=== PATIENT | male | born 1940 | race Caucasian/White ===

== ENCOUNTER 2020-03-31 10:07 | Observation (INO) | payer MEDICARE, SELFPAY ==
[2020-03-31] VITALS (7 sets, daily range): BP systolic 99–149; BP diastolic 46–71; PULSE 55–75; RESP 18–22; TEMP 36.5–37.2; O2SAT 89–100; BMI 34.2
--- NOTE | ~2020-03-31 | XR_ITS ---
EXAMINATION: XR chest 2V EXAM DATE: 03/31/2020 13:14 INDICATION: Cough, shortness of breath. TECHNIQUE: Frontal and lateral projections of the chest obtained and reviewed. There is no prior breanna dy for comparison. FINDINGS: The lungs are clear. There are no pleural effusions. Mild cardiomegaly. There is pulmonar y vascular congestion. There is no pneumothorax suspected. The bones and soft tissues are unremarka ble. Patient has diffuse idiopathic skeletal hyperostosis (DISH). IMPRESSION: Cardiomegaly, pulmonary vascular congestion. Reviewed, dictated and finalized at location B.
--- NOTE | ~2020-03-31 | CT_ITS ---
EXAMINATION: CT brain wo con EXAM DATE: 03/31/2020 10:45 INDICATION: Altered mental status, fall. TECHNIQUE: Spiral CT of the head was performed without contrast. Axial, coronal and sagittal images were reviewed. The dose-length product (DLP) for this examination was 681.00 mGy-cm. The exposure w as tailored according to patient size, and iterative reconstruction (ASIR) was used as additional dos e reduction technique. There is no prior study for comparison. FINDINGS: There is no acute intraparenchymal hemorrhage. No evidence of intraparenchymal brain mass lesion. No evidence of acute infarction. Please note that initial head CT has limited sensitivity f or small or acute infarctions. There is moderate periventricular and subcortical hypodensity, nonspec ific but probably related to small vessel ischemic disease. There is mild prominence of the sulci a nd ventricles related to cerebral atrophy. There is intracranial carotid arteriosclerosis. There a re no extra-axial collections. There is no mass effect or midline shift. Patient has had bilateral ocular lens surgery. Soft tissue is unremarkable. The visualized sinuses and mastoid air cells are well aerated. IMPRESSION: 1. No acute intracranial findings. 2. Chronic age related findings. Reviewed, dictated and finalized at location B.
--- NOTE | ~2020-03-31 | XR_ITS ---
EXAMINATION: XR lumbar spine min 4V EXAM DATE: 03/31/2020 13:15 INDICATION: Fall, upper lumbar pain. TECHNIQUE: Lumber spine frontal, lateral, bilateral oblique projections. Coned down frontal and lat eral L5-S1 lumbar projections for interpretation. There is no prior study for comparison. FINDINGS: Moderate-sized thoracolumbar endplate osteophytes. There is mild to moderate diffuse disc d isease. There are minimal lumbar subluxations. Bulky lumbar facet arthropathy. Mild to moderate loss of the T12, L2 and L4 vertebral body heights, mild loss of the other visualized vertebral body heights. Lucency along the right side of the T12 inferior endplate suspected most lik dagoberto incompletely fused buttressing osteophytes, but can't exclude that this is acute fracture line. T his finding has been indicated, marked on the examination for review, clinical correlation. Sacrum, s acroiliac joints, sacral arcuate lines are intact. There is mild to moderate arteriosclerotic disease . IMPRESSION: 1. Lucency through T12 right inferior endplate, possible acute compression or osteophyte fracture. 2. Multiple chronic appearing thoracolumbar compression fractures, can't exclude acute component to any of them. 3. Bulky lumbar facet arthropathy. Reviewed, dictated and finalized at location B. IMPRESSION: 1. Lucency through T12 right inferior endplate, possible acute compression or osteophyte fracture. 2. Multiple chronic appearing thoracolumbar compression fractures, can't exclu de acute component to any of them. 3. Bulky lumbar facet arthropathy.
--- NOTE | 2020-03-31 10:12 | ECG_ITS ---
Measurements Intervals [place] Rate: 58 P: 37 OR: 205 QRS: -10 QRSD: 158 T: -9 QT: 459 QTc: 454 Interpretive Statements SINUS BRADYCARDIA RIGHT BUNDLE BRANCH BLOCK BASELINE ARTIFACT- I, II, III, AVR, AVL, AVF, V1-V6 ABNORMAL ECG Electronically Signed On 03-31-2020 10:44:31 CDT by Burt Villalobos D.O.
--- NOTE | 2020-03-31 10:15 | PC.NURSE ---
PT NOTED TO BE 88-90% ON RA, PLACED ON 2L VIA NC AT THIS TIME RESULTING IN 96% O2 ON CRANE OPERATOR CAB.
--- NOTE | 2020-03-31 10:25 | PC.NURSE ---
REPORT TO MOOSE CARTER AT THIS TIME, SHE HAS ASSUMED PT CARE.
[2020-03-31 10:29] LABS: Basophils Percent Auto 0.6 % (0.2-1.2); Eosinophils Percent Auto 0.4 % (0-4.4); Hematocrit 42.7 % (42.0-52.0); Hemoglobin 14.3 g/dL (14.0-18.0); Immature Granulocyte Absolute 0.05 K/mm3 (0.00-0.031); Lymphocytes Absolute Auto 0.74 K/mm3 (0.9-3.2); Lymphocytes Percent Auto 14.9 % (18.3-44.2); Mean Corpuscular HGB Conc 33.5 g/dl (32-36); Mean Corpuscular Hemoglobin 32.2 pg (26-34); Mean Corpuscular Volume 96.2 fl (80-100); Mean Platelet Volume 9.2 fl (7.4-10.4); Monocytes Absolute Auto 0.2 K/mm3 (0.1-0.6); Monocytes Percent Auto 4.4 % (2.6-8.5); Neutrophils Absolute Auto 3.9 K/mm3 (1.3-6.7); Neutrophils Percent Auto 78.7 % (45.5-73.1); Platelet Count Result 250 k/mm3 (150-375); Red Blood Count 4.44 M/mm3 (4.6-6.20); Red Cell Distribution Width 12.5 % (11.5-14.5)
[2020-03-31 10:41] LABS: Alanine Aminotransferase 35 U/L (4-50); Albumin Level 3.5 g/dL (3.5-5.1); Alkaline Phosphatase 126 U/L (38-126); Anion Gap 6 mmol/L (8-16); Aspartate Amino Transferase 31 U/L (17-59); Bilirubin,Total 0.5 mg/dL (0.2-1.3); Blood Urea Nitrogen 36 mg/dL (9-20); Calcium 9.2 mg/dL (8.4-10.2); Carbon Dioxide 18 mmol/L (22-30); Chloride 116 mmol/L (98-107); Estimated CRCL calculation 34 ml/min; Estimated Glomerular Filt Rate 42; Glucose 187 mg/dL (75-110); Potassium 3.7 mmol/L (3.4-5.0); Sodium 140 mmol/L (137-145)
[2020-03-31] MEDS: LACTATED RINGERS 1,000 ML 999 ML IV CONT (10:50)
[2020-03-31 10:51] LABS: Alveolar/Arterial O2 Gradient 81.3 mmHg; Fractional Inspired Oxygen 28 %; HCO3 ABG 18.3 mEq/l (22.0-26.0); Modified Allen's Test Pass; Oxygen Content ABG 18.7 %vol (16.0-22.0); Oxygen Saturation ABG 95.5 % (95.0-100.0); Oxyhemoglobin 94.1 % THb (90.0-100.0); PCO2 ABG 32.8 mmHg (35.0-45.0); PO2 ABG 79.6 mmHg (80.0-100.0); PO2 FiO2 Ratio Arterial Blood 2.84 %; Site Drawn RIGHT RADIAL; Total Hemoglobin 14.1 g/dL (12.0-18.0); pH ABG 7.364 (7.350-7.450)
[2020-03-31 10:52] LABS: Device NASAL CANNULA
[2020-03-31 12:10] LABS: Add Urine Microscopic? YES; Appearance Urine Clear (Clear); Bilirubin Urine Negative (Negative); Blood Urine Negative (Negative); Color Urine Yellow (Yellow); Glucose Urine UA Negative (Negative); Ketones Urine Negative (Negative); Leukocyte Esterase Ur Negative LEU/UL (Negative); Mucus Urine Rare /lpf; Nitrate Urine Negative (Negative); Protein Urine 1+ mg/dL (Negative); Specific Grav Ur 1.019 (1.001-1.035); Urobilinogen Urine Negative mg/dL (<2.0); WBC Urine 0-3 /hpf
--- NOTE | 2020-03-31 12:18 | ED.AMS ---
HPI - Altered Mental Status General Chief Complaint: Fall Stated Complaint: FALL/HI Time Seen by Provider: 03/31/20 10:24 Source: patient and family Mode of arrival: ambulatory Limitations: altered mental status History of Present Illness HPI narrative: 80-year-old male Stays in the independent section at [facility] right now However is on the wait list for either the assisted or memory care areas Has a history of dementia and the family notices that over the past 7 to 10 days the fluctuations have been for the worse and he has occasionally fallen One time he did hit his head but there was no reported loss of consciousness or any immediate problems following that There is a second fall and he is complained of some back pain since that one He was incontinent of urine once He has been more fatigued and family has noticed he seems to get winded with minimal exertions MD complaint: altered mental status Onset (ago): day(s) Timing confirmed by: family member Severity: moderate Consistency of symptoms: waxing and waning Associated symptoms: shortness of breath and incontinence Related Data Home Medications Medication Instructions Recorded Confirmed aspirin 81 mg PO DAILY 03/31/20 flecainide 50 mg PO Q12H 03/31/20 memantine-donepezil [Namzaric] 1 cap PO DAILY 03/31/20 nebivolol [Bystolic] 2.5 mg PO DAILY 03/31/20 tramadol 50 mg PO HS 03/31/20 trazodone 100 mg PO HS 03/31/20 vortioxetine [Trintellix] 20 mg PO DAILY 03/31/20 Allergies Allergy/AdvReac Type Severity Reaction Status Date / Time cephalexin [From Keflex] Allergy Unknown Verified 03/31/20 10:49 Review of Systems Review of Systems: All systems reviewed & are unremarkable except as noted in HPI and below Constitutional: Constitutional: Denies chills, Reports fatigue, Denies fever(s) and Reports weakness Eyes: Eyes: Denies loss of vision and Denies other visual disturbances ENT: Denies headache(s), Denies hoarseness, Denies epistaxis, Denies nasal congestion and Denies sore throat Cardiovascular: Cardiovascular: Denies chest pain, Denies leg edema, Denies palpitations and Denies dyspnea Respiratory: Respiratory: Denies chest congestion, Denies cough, Reports dyspnea and Denies wheezing Gastrointestinal: Gastrointestinal: Denies abdominal pain, Denies diarrhea, Denies nausea and Denies vomiting Genitourinary: Genitourinary: Denies hematuria, Denies dysuria, Denies urinary frequency and Reports urinary incontinence Musculoskeletal: Musculoskeletal: Denies abnormal gait, Reports back pain, Denies deformity, Denies joint swelling, Denies muscle weakness and Denies numbness Integumentary/Breasts: Skin/Breast: Denies rash, Denies unusual bruising and Denies wounds Neurologic: Denies abnormal gait, Denies headache(s), Denies focal weakness, Denies loss of vision and Denies numbness Psychiatric: Psychiatric: Reports no additional psychiatric complaints Endocrine: Endocrine: Denies fatigue and Denies palpitations Hematologic/Lymphatic: Hematologic/Lymphatic: Denies easy bleeding and Denies easy bruising Allergic/Immunologic: Allergic/Immunologic: Denies wheezing PMFSH Social History Social History Gender identity (if verbalized by the patient): Male Exam Const: General: no acute distress and well developed Nutritional Appearance: well nourished Orientation/consciousness: Other orientation findings (Alert) HENMT: Head: normal to inspection, normocephalic and atraumatic Ears: external ears normal General nose exam: No nasal discharge present Face and sinus: face symmetric Mouth: Yes tongue normal and Yes moist mucous membranes Throat: other (No exudate, no erythema) Eyes: Conjunctivae: conjunctivae normal Sclera: sclerae normal EOM: EOMs intact bilaterally Neck: Neck: full ROM and supple Thyroid: thyroid normal Other: Nontender Chest: Chest palpation & inspection: no tenderness Resp: Effort & Inspection: normal respiratory ef
--- NOTE | 2020-03-31 13:22 | PC.NURSE ---
Pts daughter at bedside expressing concern of pt falling all the time at home. Pts daughter states that pts recently had a fall and is recovering. Pt is unsure how to care for this pt at home. Supervisor [employer] notified.
[2020-03-31 13:33] LABS: Troponin I 0.014 ng/mL (0.000-0.034)
[2020-03-31 13:36] LABS: NT Pro B Type Natriuretic Pept 456 PG/ML (5-100)
--- NOTE | 2020-03-31 16:40 | PCCCNOTE ---
ED clinicals faxed to [place] [phone]
--- NOTE | 2020-03-31 19:25 | PCCCNOTE ---
ED clinicals faxed to [facility]. Lives with his independently at [facility] but since patient's fall his does not feel that she is able to care for the patient safely. They have applied for patient to be transferred to Memory Care there but they have no beds in memory care. The intent is for patient to return to the Rehab section at [facility] in hopes that PT can teach patient how to ambulate and transfer safely and to build strength for safe ambulation. [facility] states that would be able to accommodate pt in a 2 week rehab stay. Discussed with daughter the possibility insurance may not authorize rehab stay.
--- NOTE | 2020-03-31 19:29 | ADMGEN ---
This patient, Boo Matute, was admitted to Medical Room 256-. Patient/family oriented to hospital policies and general routines including ID bracelet, bed and alarms, visiting hours, pain management, procedures, bathroom and other care routines, personal items, smoking policy, room service/diet, and visiting hours. Valuables list has been completed. Information on how to activate the Rapid Response Team has been discussed. Patient/Family are encouraged to report perceived risks to care and to ask questions if they do not understand what they are told or what they should do.
[2020-03-31] MEDS: LACTATED RINGERS 1,000 ML 100 ML IV CONT (20:38)
[2020-03-31] MEDS: FLECAINIDE ACETATE 50 MG TABLET PO (22:44)
[2020-03-31] MEDS: FAMOTIDINE 20 MG/2 ML VIAL IV PUSH (22:45)
[2020-03-31] MEDS: traZODone HCL 50 MG TABLET 100 MG PO (22:45)
[2020-03-31] MEDS: traMADol HCL (*CRX) 50 MG TABLET PO (22:46)
[2020-04-01] VITALS (8 sets, daily range): BP systolic 118–147; BP diastolic 60–74; PULSE 59–68; RESP 16–20; TEMP 36.2–36.6; O2SAT 92–94
--- NOTE | 2020-04-01 | ECHO_ITS ---
Patient Info Name: Boo Matute Age: 80 years : 1940 Gender: Male Ht: 69 in Wt: 199 lbs BSA: 2.12 m2 HR: 60 bpm BP: 147 / 74 mmHg Heart Rhythm: Bradycardia Technical Quality: Good Exam Date: 04/01/2020 10:47 AM Exam Location: [facility] Patient Status: Inpatient Admit Date: 03/31/2020 Staff Ordering Physician: Casa Fitzgerald PA-C Network Technician: Rey Menjivar RDCS Attending Provider: Casa Fitzgerald PA-C Referring Physician: Amilcar SINGER; Exam Type: CA echo doppler color flow Study Info Indications I50.9 - Heart failure, unspecified Complete two-dimensional, color flow and Doppler transthoracic echocardiogram is performed. History/Risk Factors CHF, murmur, HTN, Afib. Summary 1. Complete two-dimensional, color flow and Doppler transthoracic echocardiogram is performed. 2. The inferior wall is hypokinetic. 3. Left ventricular chamber dimension is normal. 4. Left ventricular systolic function is hyperdynamic, estimated at >70%. 5. There is moderately increased left ventricular wall thickness. 6. The left ventricular diastolic function is grade I diastolic dysfunction. 7. Left atrial chamber dimension is mildly enlarged. 8. There is moderate to severe aortic valve stenosis with a peak velocity of 294 cm/s, mean gradient of 20 mmHg, and aortic valve area of 0.9 cm2. 9. There is mild aortic valve regurgitation. 10. There is moderate aortic valve calcification. 11. The mitral valve has calcified leaflets and calcified annulus. 12. There is mild mitral valve regurgitation. 13. There is mild tricuspid valve regurgitation. 14. Mild pulmonary hypertension, estimated pulmonary arterial systolic pressure is 42 mmHg. 15. There is mild pulmonic regurgitation. Left Ventricle Left ventricular chamber dimension is normal. Left ventricular systolic function is hyperdynamic, estimated at >70%. There is moderately increased left ventricular wall thickness. The left ventricular diastolic function is grade I diastolic dysfunction. The inferior wall is hypokinetic. All other banda appear normal. Right Ventricle Right ventricular chamber dimension is normal. Right ventricular systolic function is normal. Left Atria Left atrial chamber dimension is mildly enlarged. Right Atria Right atrial chamber dimension is normal. Atrial Septum Intact interatrial septum visualized by color flow imaging. Aortic Valve The aortic valve is trileaflet. There is moderate to severe aortic valve stenosis with a peak velocity of 294 cm/s, mean gradient of 20 mmHg, and aortic valve area of 0.9 cm2. There is mild aortic valve regurgitation. There is moderate aortic valve calcification. Pulmonic Valve The pulmonic valve is normal. There is no pulmonic valve stenosis. There is mild pulmonic regurgitation. Mitral Valve The mitral valve has calcified leaflets and calcified annulus. There is no mitral valve stenosis. There is mild mitral valve regurgitation. Tricuspid Valve The tricuspid valve leaflets are normal. There is no significant tricuspid valve stenosis. There is mild tricuspid valve regurgitation. Mild pulmonary hypertension, estimated pulmonary arterial systolic pressure is 42 mmHg. Pericardium/Pleural The pericardium appears normal. There is no pericardial effusion. Inferior Vena Cava Normal inferior vena cava with >50% collapse upon inspiration consistent with normal right atrial pressure, 10 mmHg. Aorta The aortic r
--- NOTE | 2020-04-01 01:16 | PM.IMHP ---
H&P: HPI History of Present Illness Date/Time: 04/01/20 02:15 Chief complaint: falls, confusion Narrative: Boo Matute is a 80 year old male with a past medical history of dementia and atrial fibrillation who presented to the ER from [facility] who presented to the ER with 7-10 days of increasing confusion and falls. Family reported that the patient seemed more fatigued and winded with minimal exertion. The patient did have 1 episode of urinary incontinence in recent days. The patient did hit his head when he fell but did not have any loss of consciousness. He is currently on a waiting list for assisted or Memory Care placement at [facility]. the patient himself has no complaints. He was oriented only to self. The patient does have a history of atrial fibrillation but his rate appears to be controlled. Cardiology Red EKG is sinus rhythm however appears irregular on my review . The chest x-ray obtained in the ER demonstrated cardiomegaly and pulmonary vascular congestion. The patient still received 1 L fluid bolus in the ER and was continued on maintenance fluids. In the ER the patient was noted to be hypoxic with oxygen saturations of 89% and continues to drop his oxygen saturations any time the nasal cannula was removed. Source of information is ER records. The patient is unable to provide history due to his dementia. There are no past medical records available for review. Review of Systems Review of Systems: ROS unobtainable: Yes unobtainable due to mental status ( Due to dementia.) [facility] Past Medical History Medical History (Updated 04/01/20 @ 03:38 by January Rizvi DO) Atrial fibrillation CHF (congestive heart failure) Dementia Surgical History Surgical History Surgical history unknown Family History Family History Mother Acute myocardial infarction Social History Social History (Updated 04/01/20 @ 03:32 by January Rizvi DO) Smoking status: Never smoker Alcohol intake: never Substance use: never Substance use type: does not use Gender identity (if verbalized by the patient): Male Spiritual care concerns: No Meds Home Medications and Allergies Home Medications Medication Instructions Recorded Confirmed Type aspirin 81 mg PO DAILY 03/31/20 03/31/20 History flecainide 50 mg PO Q12H 03/31/20 03/31/20 History memantine-donepezil [Namzaric] 1 cap PO DAILY 03/31/20 03/31/20 History nebivolol [Bystolic] 2.5 mg PO DAILY 03/31/20 03/31/20 History tramadol 50 mg PO HS 03/31/20 03/31/20 History trazodone 100 mg PO HS 03/31/20 03/31/20 History vortioxetine [Trintellix] 20 mg PO DAILY 03/31/20 03/31/20 History Allergies Allergy/AdvReac Type Severity Reaction Status Date / Time cephalexin [From Keflex] Allergy Unknown Verified 03/31/20 10:49 Vital Signs Vital Signs - 24 hr 03/31/20 10:13 03/31/20 10:19 03/31/20 10:20 Temperature 98.9 F Pulse Rate 62 60 Respiratory Rate 22 H 22 H 18 Blood Pressure 99/58 L 99/58 L Pulse Oximetry 89 L 89 L 98 03/31/20 13:39 03/31/20 16:00 03/31/20 22:00 Temperature 97.7 F Pulse Rate 75 55 L 64 Respiratory Rate 18 21 H 20 Blood Pressure 99/46 L 128/71 149/64 H Pulse Oximetry 100 94 99 03/31/20 22:44 Temperature Pulse Rate 68 Respiratory Rate Blood Pressure Pulse Oximetry Exam Narrative: Exam Narrative: PHYSICAL EXAM: WEIGHT 90.3 kg BMI 34.2 General: No acute distress, obese, elderly HEENT: mucous membranes are tacky, no oral pharyngeal erythema however exam is limited as the patient would not open his mouth and a for full evaluation, pupils are equal and reactive, head is normocephalic atraumatic Respiratory: clear to auscultation bilaterally, no increased work of breathing Cardiovascular: 2/6 systolic murmur , irregular, normal rate, 2+ bilateral radial pedal pulses
[2020-04-01] MEDS: FUROSEMIDE INJ 40 MG/4 ML VIAL 20 MG IV PUSH (04:02)
[2020-04-01 05:25] LABS: Basophils Percent Auto 0.8 % (0.2-1.2); Eosinophils Percent Auto 0.6 % (0-4.4); Hematocrit 40.8 % (42.0-52.0); Hemoglobin 13.7 g/dL (14.0-18.0); Immature Granulocyte Absolute 0.02 K/mm3 (0.00-0.031); Immature Granulocyte Percent A 0.4 % (0-0.5); Lymphocytes Absolute Auto 1.05 K/mm3 (0.9-3.2); Mean Corpuscular HGB Conc 33.6 g/dl (32-36); Mean Corpuscular Hemoglobin 32.4 pg (26-34); Mean Corpuscular Volume 96.5 fl (80-100); Mean Platelet Volume 9.3 fl (7.4-10.4); Monocytes Absolute Auto 0.5 K/mm3 (0.1-0.6); Neutrophils Absolute Auto 3.4 K/mm3 (1.3-6.7); Neutrophils Percent Auto 68.2 % (45.5-73.1); Platelet Count Result 260 k/mm3 (150-375); Red Blood Count 4.23 M/mm3 (4.6-6.20); Red Cell Distribution Width 12.6 % (11.5-14.5)
[2020-04-01 05:42] LABS: Anion Gap 3 mmol/L (8-16); Blood Urea Nitrogen 26 mg/dL (9-20); Calcium 9.3 mg/dL (8.4-10.2); Carbon Dioxide 27 mmol/L (22-30); Chloride 110 mmol/L (98-107); Estimated CRCL calculation 45 ml/min; Estimated Glomerular Filt Rate 58; Glucose 111 mg/dL (75-110); Potassium 3.9 mmol/L (3.4-5.0); Sodium 140 mmol/L (137-145)
[2020-04-01] MEDS: NEBIVOLOL HCL 2.5 MG TABLET PO (08:40)
[2020-04-01] MEDS: ASPIRIN 81 MG CHEWABLE TABLET PO (08:41)
[2020-04-01] MEDS: FAMOTIDINE 20 MG/2 ML VIAL IV PUSH ×2 (08:41→20:15)
[2020-04-01] MEDS: FLECAINIDE ACETATE 50 MG TABLET PO ×2 (08:41→20:08)
--- NOTE | 2020-04-01 10:34 | PC.NURSE ---
Notified patients that home medications were needed since they are nonformulary. Patients stated she would try to bring them up today if she is able to.
--- NOTE | 2020-04-01 15:03 | PM.IMPN ---
Progress Note: A&P Assessment and Plan (1) CHF exacerbation: Qualifiers: Heart failure type: unspecified Qualified Code(s): I50.9 - Heart failure, unspecified Code(s): I50.9 - Heart failure, unspecified Status: Acute Assessment and Plan: Pulmonary vascular condition noted on x-ray. Minimal crackles, if any on exam; difficult to examine as patient had difficulty sitting forward. Weaned on to RA today Continue Lasix 20 mg IV Lasix Daily. Likely discharge in 1-2 days if continued improvement Monitor input and output as well as daily weights. (2) Dementia: Qualifiers: Dementia behavioral disturbance: without behavioral disturbance Dementia type: unspecified type Qualified Code(s): F03.90 - Unspecified dementia without behavioral disturbance Code(s): F03.90 - Unspecified dementia without behavioral disturbance Status: Acute Assessment and Plan: tells me today slow decline in mental status over past month or so, and rapid change in past several days after she gave him her prescribed tramadol Will refrain from narcotics; understands not to give her tramadol as this can drastically affect his memory Will have him follow up with his PCP and Dr. Gunn for further adjustments in his medication if possible CC following and patient to be discharged to SNF for further care and from there, he will likely be needing placement with extra assistance. (3) Frequent falls: Code(s): R29.6 - Repeated falls Status: Acute Assessment and Plan: Fall precautions. PT/OT following (4) T12 compression fracture: Qualifiers: Encounter type: initial encounter Qualified Code(s): S22.080A - Wedge compression fracture of T11-T12 vertebra, initial encounter for closed fracture Code(s): S22.080A - Wedge compression fracture of T11-T12 vertebra, initial encounter for closed fracture Status: Acute Assessment and Plan: the patient denies any pain currently. Continue p.r.n. Tylenol D/c tramadol as this is not his home medication Will refrain from narcotics given his dementia (5) Atrial fibrillation: Qualifiers: Atrial fibrillation type: unspecified Qualified Code(s): I48.91 - Unspecified atrial fibrillation Code(s): I48.91 - Unspecified atrial fibrillation Status: Acute Assessment and Plan: Rate controlled; on flecainide and nebivolol Continue home antiarrhythmic and beta-lupillo. The patient is not on chronic anticoagulation due to frequent fall history. Subjective Date/time seen: 04/01/20 15:03 Interval history: Patient is a 80 yo M with history of dementia and atrial fibrillation who is here for evaluation of increased confusion over past several weeks and dramatic increased confusion past several days, as well as falls; he is also being treated for CHF with volume overload. Patient is A&O to himself and . He does not answer most of my questions, but the few that he does, he denies cp, sob, or headaches. Further history unobtainable from the patient. I spoke with the , Norma, who tells me that he normally sees Dr. Gunn but has not seen him in several years. She notes the past several months, his dementia has worsened to a point were he is more confused and has suffered multiple falls. She notes roughly 4 days ago, he sustained a fall and was in so much pain that she gave him her prescribed tramadol; she confirms that he has not been prescribed this medication. She noticed dramatic increased confusion these past 4 days after she has given him her tramadol. We had a lengthy discussion about the effects of narcotics/tramdol on patients with dementia. We also discussed follow up with Dr. Gunn and his PCP shortly after
[2020-04-01] MEDS: traZODone HCL 50 MG TABLET 100 MG PO (20:14)
[2020-04-02 05:05] LABS: Anion Gap 4 mmol/L (8-16); Blood Urea Nitrogen 34 mg/dL (9-20); Calcium 8.8 mg/dL (8.4-10.2); Carbon Dioxide 25 mmol/L (22-30); Chloride 108 mmol/L (98-107); Estimated CRCL calculation 49 ml/min; Estimated Glomerular Filt Rate > 60; Glucose 120 mg/dL (75-110); Magnesium 2.2 mg/dL (1.6-2.3); Potassium 3.7 mmol/L (3.4-5.0); Sodium 137 mmol/L (137-145)
[2020-04-02 05:57] VITALS: BP 124/82; PULSE 93; RESP 20; TEMP 37.1; O2SAT 93
[2020-04-02 08:29] VITALS: PULSE 82
[2020-04-02] MEDS: FUROSEMIDE INJ 40 MG/4 ML VIAL 20 MG IV PUSH (08:29)
[2020-04-02] MEDS: FAMOTIDINE 20 MG/2 ML VIAL IV PUSH (08:29)
[2020-04-02] MEDS: NEBIVOLOL HCL 2.5 MG TABLET PO (08:29)
[2020-04-02] MEDS: FLECAINIDE ACETATE 50 MG TABLET PO (08:29)
[2020-04-02] MEDS: ASPIRIN 81 MG CHEWABLE TABLET PO (08:30)
--- NOTE | 2020-04-02 08:36 | PM.DS ---
DS: Admitting Diagnosis Admitting Diagnosis Admitting Diagnosis: falls, confusion DS: Discharge Diagnosis Discharge Diagnosis (1) CHF exacerbation: Qualifiers: Heart failure type: unspecified Qualified Code(s): I50.9 - Heart failure, unspecified Code(s): I50.9 - Heart failure, unspecified Status: Acute Assessment and Plan: Pulmonary vascular condition noted on x-ray. Minimal crackles in lung bases. On RA. No complaints with SOB. Continue Lasix 20 mg IV today. Discharge this afternoon to SNF; covid negative F/u with PCP and possible clinical rn liaison referral from there. Discussed with Norma who was in agreement (2) Dementia: Qualifiers: Dementia behavioral disturbance: without behavioral disturbance Dementia type: unspecified type Qualified Code(s): F03.90 - Unspecified dementia without behavioral disturbance Code(s): F03.90 - Unspecified dementia without behavioral disturbance Status: Acute Assessment and Plan: tells me today slow decline in mental status over past month or so, and rapid change in past several days after she gave him her prescribed tramadol. He is much more lucid/conversive today and A&O to self, , and president Will refrain from narcotics; understands not to give her tramadol as this can affect his mental status. Given improvement overnight, suspect this was adding to his poor mental status Will have him follow up with his PCP and Dr. Gunn for further adjustments in his medication if possible CC following and patient to be discharged to SNF for further care and from there, he will likely be needing placement with extra assistance. (3) Frequent falls: Code(s): R29.6 - Repeated falls Status: Acute Assessment and Plan: Fall precautions. PT/OT following (4) T12 compression fracture: Qualifiers: Encounter type: initial encounter Qualified Code(s): S22.080A - Wedge compression fracture of T11-T12 vertebra, initial encounter for closed fracture Code(s): S22.080A - Wedge compression fracture of T11-T12 vertebra, initial encounter for closed fracture Status: Acute Assessment and Plan: the patient denies any pain currently. Continue p.r.n. Tylenol D/c tramadol as this is not his home medication Will refrain from narcotics given his dementia (5) Atrial fibrillation: Qualifiers: Atrial fibrillation type: unspecified Qualified Code(s): I48.91 - Unspecified atrial fibrillation Code(s): I48.91 - Unspecified atrial fibrillation Status: Acute Assessment and Plan: Rate controlled; on flecainide and nebivolol Continue home antiarrhythmic and beta-lupillo. The patient is not on chronic anticoagulation due to frequent fall history. (6) Aortic stenosis, moderate: Code(s): I35.0 - Nonrheumatic aortic (valve) stenosis Status: Acute Assessment and Plan: Echo reveals mod-severe . Discussed with , and they will be following up with his PCP for possible OP referral for further management Monitor Caution with diuresis, although BP has been reasonable DS: Summary Hospital Course Reason for hospitalization: AMS, falls, confusion Hospital Course: Patient is a 80 yo M with dementia and atrial fibrillation who presented to the ER from [facility] who presented to the ER with 4 days of marked increasing confusion and falls, as well as, gradual worsening in his overla mental status over the past several months. While in the ED, patient seemed confused more than his baseline and only oriented to himself. CXR in ER appeared to show cardiomegaly and pulmonary vascular congestion; he received 1L fluid
[2020-04-02 13:41] LABS: SARS-CoV-2 RNA PCR Negative
[2020-04-02 14:00] VITALS: BP 101/59; PULSE 66; RESP 20; TEMP 37; O2SAT 91
== END 2020-04-02 17:40 ==
LOC: ANHED 14:25 → ANH2MED 21:57
PROVIDERS: Admitting Provider Internal Medicine; Emergency Provider Emergency Medicine; PCP Internal Medicine; Visit Provider Physician Assistant
DX: I50.9 Heart failure, unspecified (principal); F03.90 Unspecified dementia, unspecified severity, without behavioral disturbance, psychotic disturbance, mood disturbance, and anxiety; R29.6 Repeated falls; S22.080A Wedge compression fracture of T11-T12 vertebra, initial encounter for closed fracture; W19.XXXA Unspecified fall, initial encounter; I48.91 Unspecified atrial fibrillation; I35.0 Nonrheumatic aortic (valve) stenosis; Z91.81 History of falling; Z23 Encounter for immunization; Z79.82 Long term (current) use of aspirin
CPT/HCPCS: 36415; 36600; 51701; 70450; 71046; 72110; 80048; 80053; 81001; 82805; 83735; 83880; 84484; 85025; 87635; 90471; 90686; 93005; 93306; 96361; 96374; 96375; 96376; 97161; 97165; 97530; 99285; A9270; C9803; G0008; G0378; J1940; J7120; U0003

== ENCOUNTER 2022-06-04 08:51 | Observation (INO) | payer MEDICARE, SELFPAY ==
[2022-06-04] VITALS (14 sets, daily range): BP systolic 104–157; BP diastolic 51–110; PULSE 58–69; RESP 16–25; TEMP 36.4–37.4; O2SAT 93–97
--- NOTE | ~2022-06-04 | XR_ITS ---
XR chest 2V DATE: 06/04/2022 10:01 INDICATION: Cough TECHNIQUE: AP and lateral views COMPARISON: 03/31/2020 AP and lateral chest FINDINGS: There is chronic elevation of the right diaphragm. Cardiomegaly, aortic arch calcification. No pulmonary consolidation, pleural effusion or pulmonary vascular congestion or pneumothorax is dete cted. 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 Degenerative spurring of the thoracic spine. IMPRESSION: Cardiomegaly, aortic atherosclerosis No active pulmonary disease Reviewed, dictated and finalized at location A. 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
--- NOTE | 2022-06-04 08:51 | ECG_ITS ---
Measurements Intervals [place] Rate: 57 P: 240 [place]: 201 QRS: -50 QRSD: 141 T: 21 QT: 477 QTc: 468 Interpretive Statements SINUS BRADYCARDIA RIGHT BUNDLE BRANCH BLOCK LEFT ANTERIOR FASCICULAR BLOCK BASELINE ARTIFACT- I, III, AVR, AVL, AVF ABNORMAL ECG COMPARED TO ECG 03/31/2020 10:21:42 LEFT ANTERIOR FASCICULAR BLOCK NOW PRESENT Electronically Signed On 06-04-2022 9:57:56 GLASS SCIENCE ENGINEER by Burt Villalobos D.O.
[2022-06-04 09:13] LABS: Basophils Percent Auto 0.4 % (0.2-1.2); Eosinophils Percent Auto 0.1 % (0-4.4); Hematocrit 38.7 % (42.0-52.0); Hemoglobin 12.7 g/dL (14.0-18.0); Immature Granulocyte Absolute 0.04 K/mm3 (0.00-0.031); Immature Granulocyte Percent A 0.5 % (0-0.5); Lymphocytes Absolute Auto 0.83 K/mm3 (0.9-3.2); Lymphocytes Percent Auto 11.2 % (18.3-44.2); Mean Corpuscular HGB Conc 32.8 g/dl (32-36); Mean Corpuscular Hemoglobin 32.6 pg (26-34); Mean Corpuscular Volume 99.2 fl (80-100); Mean Platelet Volume 9.4 fl (7.4-10.4); Monocytes Absolute Auto 0.7 K/mm3 (0.1-0.6); Monocytes Percent Auto 9.7 % (2.6-8.5); Neutrophils Absolute Auto 5.8 K/mm3 (1.3-6.7); Neutrophils Percent Auto 78.1 % (45.5-73.1); Platelet Count Result 199 k/mm3 (150-375); Red Cell Distribution Width 12.8 % (11.5-14.5); White Blood Count 7.4 K/mm3 (4.5-10.0)
--- NOTE | 2022-06-04 09:14 | ED.AMS ---
HPI - Altered Mental Status General Chief Complaint: Altered Mental Status <My Bal PA-C - Last Filed: 06/04/22 17:31> Stated Complaint: ams/weak <My Bal PA-C - Last Filed: 06/04/22 17:31> Time Seen by Provider: 06/04/22 09:04 <My Bal PA-C - Last Filed: 06/04/22 17:31> History of Present Illness HPI narrative: Patient is an 82-year-old male with history of aortic stenosis, atrial fibrillation, Alzheimer's dementia, who currently resides in a nursing facility, here from [facility] after a fall this morning. Patient was reportedly found on the ground next to his bed this morning; unsure how long patient was down for. Patient tells me he was trying to use the bathroom in the middle of the night when he lost his balance and fell. He did not hit his head or lose consciousness. He required assistance to get up from the ground; has felt too weak to take steps since. He denies any arthralgias. Reportedly has been coughing for the past several days and has been congested. Patient's daughter tells me that over the past week he has been more confused than usual; particularly at nighttime. <My Bal PA-C - Last Filed: 06/04/22 17:31> Related Data Home Medications: Home Medications Medication Instructions Recorded Confirmed aspirin 81 mg chewable tablet 81 mg PO DAILY 03/31/20 06/05/22 flecainide 50 mg tablet 50 mg PO Q12H 03/31/20 06/05/22 memantine ER 7 mg-donepezil 10 mg 1 cap PO DAILY 03/31/20 06/05/22 capsule sprinkle,ext.release 24 hour (Namzaric) nebivolol 2.5 mg tablet (Bystolic) 2.5 mg PO DAILY 03/31/20 06/05/22 vortioxetine 20 mg tablet 20 mg PO DAILY 03/31/20 06/05/22 (Trintellix) atorvastatin 20 mg tablet 20 mg PO DAILY 07/24/20 06/05/22 furosemide 20 mg tablet 20 mg PO 3XW 06/05/22 06/05/22 quetiapine 25 mg tablet 25 mg PO TID 06/05/22 06/05/22 <My Bal PA-C - Last Filed: 06/04/22 17:31> Allergies/Adverse Reactions: Allergies Allergy/AdvReac Type Severity Reaction Status Date / Time cephalexin [From Keflex] Allergy Unknown Verified 06/04/22 08:56 <My Bal PA-C - Last Filed: 06/04/22 17:31> Review of Systems Review of Systems: Gen.: Denies fevers or chills Eyes: Denies eye pain or visual change ENT: Denies congestion Respiratory: Denies shortness of breath or cough CV: Denies chest pain or palpitations GI: Denies abdominal pain nausea, emesis or diarrhea denies burning, urgency, frequency or hematuria Musculoskeletal: Denies back pain or muscle pain Neuro: Denies numbness, tingling, weakness or focal weakness Skin: Denies rash Except as documented, all other systems reviewed and negative <My Bal PA-C - Last Filed: 06/04/22 17:31> [facility] Past Medical History Medical History: Medical History (Updated 06/05/22 @ 13:27 by Leia Vega PA-C) Atrial fibrillation CHF (congestive heart failure) Dementia Stage 3 chronic kidney disease <My Bal PA-C - Last Filed: 06/04/22 17:31> Surgical History Surgical History: Surgical History Surgical history unknown <My Bal PA-C - Last Filed: 06/04/22 17:31> Family History Family History: Family History (Updated 06/05/22 @ 13:27 by Leia Vega PA-C) Mother Acute myocardial infarction Cerebrovascular accident <My Bal PA-C - Last Filed: 06/04/22 17:31> Social History Social History: Social History (Updated 06/05/22 @ 13:28 by Leia Vega PA-C) Social History: patient is resident of [facility] with his Norma Matute. Smoking status: Never smoker Alcohol intake: never Substance use: never Substance use type: does not use Gender identity (if verbalized by the patient): Male Spiritual care concerns: No <DOM Hinson
[2022-06-04 09:22] LABS: Alanine Aminotransferase 30 U/L (6-50); Albumin Level 4.1 g/dL (3.5-5.1); Alkaline Phosphatase 85 U/L (38-126); Anion Gap 8 mmol/L (8-16); Aspartate Amino Transferase 40 U/L (17-59); Bilirubin,Total 0.6 mg/dL (0.2-1.3); Blood Urea Nitrogen 26 mg/dL (9-20); Calcium 8.8 mg/dL (8.4-10.2); Carbon Dioxide 22 mmol/L (22-30); Chloride 110 mmol/L (98-107); Estimated CRCL calculation 48 ml/min; Estimated Glomerular Filt Rate 53; Glucose 123 mg/dL (65-110); Potassium 4.5 mmol/L (3.4-5.0); Sodium 140 mmol/L (137-145)
[2022-06-04 09:24] LABS: INR 1.2; Partial Thromboplastin Time 22.5 SECONDS (22.3-36.8); Prothrombin Time 14.4 Seconds (11.1-14.7)
[2022-06-04 09:26] LABS: Appearance Urine Clear (Clear); Bilirubin Urine Negative (Negative); Blood Urine 1+ (Negative); Color Urine Yellow (Yellow); Glucose Urine UA Negative (Negative); Ketones Urine Negative (Negative); Leukocyte Esterase Ur Negative LEU/UL (Negative); Nitrate Urine Negative (Negative); Protein Urine 1+ mg/dL (Negative); Specific Grav Ur >= 1.030 (1.001-1.035); Urobilinogen Urine 0.2 mg/dL (<2.0); pH Urine 5.5 (5.0-9.0)
[2022-06-04 09:37] LABS: Lactic Acid Reflex 2.8 mmol/L (0.7-2.0)
[2022-06-04 09:54] LABS: NT Pro B Type Natriuretic Pept 494 pg/mL (5-100)
--- NOTE | 2022-06-04 09:57 | PC.NURSE ---
Daughter at bedside updated on lab results that have resulted, some still pending. Pt currently in x-ray.
[2022-06-04 10:09] LABS: Creatine Kinase 463 U/L (55-170)
[2022-06-04 10:19] LABS: Add Urine Microscopic? YES; Squamous Epithelial Cell Urine Few /hpf (Few)
[2022-06-04 10:20] LABS: Bacteria Urine Trace /hpf
[2022-06-04 10:20] LABS: Influenza A QL RT-PCR Negative (Negative); Influenza B QL RT-PCR Negative (Negative); SARS-CoV-2 RNA PCR Positive
[2022-06-04] MEDS: SODIUM CHLORIDE 0.9% IV 1,000 ML 999 ML IV CONT (10:22)
[2022-06-04 10:23] LABS: Alveolar/Arterial O2 Gradient 37.5 mmHg; Fractional Inspired Oxygen 21 %; Modified Allen's Test Pass; Oxygen Content ABG 17.1 %vol (16.0-22.0); Oxygen Saturation ABG 94.4 % (95.0-100.0); Oxyhemoglobin 92.2 % THb (90.0-100.0); PCO2 ABG 35.9 mmHg (35.0-45.0); PO2 ABG 69.2 mmHg (80.0-100.0); Site Drawn LEFT RADIAL; Total Hemoglobin 13.2 g/dL (12.0-18.0); pH ABG 7.424 (7.350-7.450)
--- NOTE | 2022-06-04 10:47 | PC.NURSE ---
Patient's daughter: Mary Kay Marks [phone]
--- NOTE | 2022-06-04 11:04 | PCCCNOTE ---
Spoke with daughter Mary Kay Marks ([phone]) regarding finding if [facility] can take pt in SNF section for a few weeks to get PT done to get stronger. I was also given 's number [phone]. I have reached out and left message with [facility] Lynnettejuan miguel to determine availability to get pt moved to SNF.
--- NOTE | 2022-06-04 11:08 | PC.NURSE ---
1100 Assumed pt care from Sury Trujillo RN
--- NOTE | 2022-06-04 11:29 | PCCCNOTE ---
Spole with Tassy at [facility]; would need PT/OT eval and notes to precess request. PT/OT eval ordered in ED and I called PT at [phone] to inform them that it is needed stat to get information to [facility].
[2022-06-04 12:21] LABS: Reflex Lactic Acid Yes or No Add Lactic
[2022-06-04 14:23] LABS: Lactic Acid 1.6 mmol/L (0.7-2.0)
--- NOTE | 2022-06-04 19:54 | PC.NURSE ---
1917 Attempted to call report to MOOSE Powers RN was getting report on her pt and unable to get to the phone. Will attempt to call back later.
--- NOTE | 2022-06-04 20:25 | ADMGEN ---
This patient, Boo Matute, was admitted to [facility] Surg Room 333-01. Patient/family oriented to hospital policies and general routines including ID bracelet, bed and alarms, visiting hours, pain management, procedures, bathroom and other care routines, personal items, smoking policy, room service/diet, and visiting hours. Information on how to activate the Rapid Response Team has been discussed. Patient/Family are encouraged to report perceived risks to care and to ask questions if they do not understand what they are told or what they should do.
[2022-06-05 05:49] VITALS: BP 150/61; PULSE 58; RESP 16; TEMP 36.9; O2SAT 96
[2022-06-05 08:00] VITALS: BP 137/62; PULSE 55; RESP 20; TEMP 36.8; O2SAT 95
--- NOTE | 2022-06-05 11:39 | PM.SD2 ---
Same Day Admit/Disch: HPI History of Present Illness Chief complaint: COVID/Weakness Narrative: Boo Matute is a 82 year old male With a history of Aortic stenosis, AFib, Alzheimer's dementia. Patient is a poor historian and most of this information came from ER chart. Patient's family was able to give most of the details of patient's past medical history and history of present illness. Patient arrived to the ER from [facility] on 06/04/2022 due to a fall. Patient reportedly was found on the ground next to his bed. Patient told ER physician that he was trying to use the bathroom minimal night when he lost his balance and fell. Denies losing consciousness or hitting his head. Patient reported coughing for the past several days along with congestion. Patient's EKG unremarkable. Lactic acid is 2.8; CK slightly elevated at 463. BNP elevated at 494. COVID test positive. Chest x-ray shows no acute cardiopulmonary process. patient's family is requesting placement into an assisted living facility at this time. There is a 24 hour wait for SNF. Patient placed into observation awaiting placement. patient denies chest pain, shortness a breath, fever, nausea vomiting, diarrhea constipation. Although unsure how accurate this information is. Patient does say that he has a cough but isn't coughing up anything. Have called patient's to try and obtain more information but she did not answer. I have left a voicemail. [facility] Past Medical History Medical History Atrial fibrillation CHF (congestive heart failure) Dementia Surgical History Surgical History Surgical history unknown Family History Family History Mother Acute myocardial infarction Social History Social History Smoking status: Never smoker Alcohol intake: never Substance use: never Substance use type: does not use Gender identity (if verbalized by the patient): Male Spiritual care concerns: No Comments Patient not able to give answers other than social history. Same Day Admit/Disch: Med Pre-admit Medications Home Medications Medication Instructions Recorded Confirmed Type aspirin 81 mg chewable tablet 81 mg PO DAILY 03/31/20 06/05/22 History flecainide 50 mg tablet 50 mg PO Q12H 03/31/20 06/05/22 History memantine ER 7 mg-donepezil 10 mg 1 cap PO DAILY 03/31/20 06/05/22 History capsule sprinkle,ext.release 24 hour (Namzaric) nebivolol 2.5 mg tablet (Bystolic) 2.5 mg PO DAILY 03/31/20 06/05/22 History vortioxetine 20 mg tablet 20 mg PO DAILY 03/31/20 06/05/22 History (Trintellix) atorvastatin 20 mg tablet 20 mg PO DAILY 07/24/20 06/05/22 History furosemide 20 mg tablet 20 mg PO 3XW 06/05/22 06/05/22 History quetiapine 25 mg tablet 25 mg PO TID 06/05/22 06/05/22 History Exam Narrative: GENERAL: Comfortable, no acute distress HENMT: moist mucous membranes EYES: EOM intact b/l NECK: no lymphadenopathy RESPIRATORY: although patient is coughing, lungs clear to auscultation CARDIO: RRR GI: soft, nontender, bowel sounds present SKIN: no rashes EXTREMITIES: no edema, redness or tenderness NEURO: A&O x1 DS: Data Data Completed and Pending Labs on day of discharge: Labs from last 24 hours 06/04/22 13:33 Lactic Acid 1.6 DS: Summary Hospital Course Reason for hospitalization: Boo Matute is a 82 year old male With a history of Aortic stenosis, AFib, Alzheimer's dementia. Patient is a poor historian and most of this information came from ER chart. Patient's family was able to give most of the details of patient's past medical history and history of present illness. Patient arrived to the ER from [facility] on 06/04/2022 due to a fall. Denies losing consciousness or hitting his he
[2022-06-05 12:00] VITALS: BP 126/70; PULSE 57; RESP 20; TEMP 36.9; O2SAT 96
--- NOTE | 2022-06-05 12:35 | PM.IMHP ---
H&P: HPI History of Present Illness Date/Time: 06/05/22 12:35 Chief Complaint: Weakness Narrative: Boo Matute is a 82 year old male With a history of Aortic stenosis, AFib, Alzheimer's dementia.? Patient is a poor historian and most of this information came from ER chart.? Patient's family was able to give most of the details of patient's past medical history and history of present illness.? Patient arrived to the ER from [facility] on 06/04/2022 due to a fall.? Patient reportedly was found on the ground next to his bed.? Patient told ER physician that he was trying to use the bathroom minimal night when he lost his balance and fell.? Denies losing consciousness or hitting his head. ? Patient reported coughing for the past several days along with congestion. Patient's EKG unremarkable.? Lactic acid is 2.8; CK slightly elevated at 463.? BNP elevated at 494.? COVID test positive.? Chest x-ray shows no acute cardiopulmonary process.? patient's family is requesting placement into an assisted living facility at this time.? There is a 24 hour wait for SNF.? Patient placed? into observation awaiting placement. patient denies chest pain, shortness a breath, fever, nausea vomiting, diarrhea constipation.? Although unsure how accurate this information is.? Patient does say that he has a nonproductive wet cough.? Have called patient's to try and obtain more information but she did not answer.? I have left a voicemail. Review of Systems Review of Systems: All systems reviewed & are unremarkable except as noted in HPI and below PMFSH Past Medical History Medical History (Updated 06/05/22 @ 13:27 by Leia Vega PA-C) Atrial fibrillation CHF (congestive heart failure) Dementia Stage 3 chronic kidney disease Surgical History Surgical History Surgical history unknown Family History Family History (Updated 06/05/22 @ 13:27 by Leia Vega PA-C) Mother Acute myocardial infarction Cerebrovascular accident Social History Social History (Updated 06/05/22 @ 13:28 by Leia Vega PA-C) Social History: patient is resident of [facility] with his Norma Matute. Smoking status: Never smoker Alcohol intake: never Substance use: never Substance use type: does not use Gender identity (if verbalized by the patient): Male Spiritual care concerns: No Meds Home Medications and Allergies Home Medications Medication Instructions Recorded Confirmed Type aspirin 81 mg chewable tablet 81 mg PO DAILY 03/31/20 06/05/22 History flecainide 50 mg tablet 50 mg PO Q12H 03/31/20 06/05/22 History memantine ER 7 mg-donepezil 10 mg 1 cap PO DAILY 03/31/20 06/05/22 History capsule sprinkle,ext.release 24 hour (Namzaric) nebivolol 2.5 mg tablet (Bystolic) 2.5 mg PO DAILY 03/31/20 06/05/22 History vortioxetine 20 mg tablet 20 mg PO DAILY 03/31/20 06/05/22 History (Trintellix) atorvastatin 20 mg tablet 20 mg PO DAILY 07/24/20 06/05/22 History furosemide 20 mg tablet 20 mg PO 3XW 06/05/22 06/05/22 History quetiapine 25 mg tablet 25 mg PO TID 06/05/22 06/05/22 History Allergies Allergy/AdvReac Type Severity Reaction Status Date / Time cephalexin [From Keflex] Allergy Unknown Verified 06/04/22 08:56 Vital Signs Vital Signs - 24 hr 06/04/22 12:46 06/04/22 13:01 06/04/22 13:27 Temperature Pulse Rate 59 L 58 L 62 Respiratory Rate 19 18 22 H Blood Pressure 112/88 124/51 L 142/110 H Pulse Oximetry 93 97 Oxygen Delivery 06/04/22 13:45 06/04/22 18:28 06/04/22 18:30 Temperature 99.3 F Pulse Rate 60 64 69 Respiratory Rate 21 H 23 H 24 H Blood Pressure 157/83 H 157/83 H Pulse Oximetry 96 96 Oxygen Delivery 06/04/22 18:46 06/04/22 19:00 06/04/22 22:00 Temperature 97.6 F Pulse Rate 66 64 62 Respiratory Rate 25 H 23 H 16 Blood Pressure 128/84 155/77 H 146/65 H Pulse Oximetry 96 97 95 Oxygen Delivery
[2022-06-05 16:00] VITALS: BP 145/66; PULSE 62; RESP 20; TEMP 36.4; O2SAT 98
[2022-06-05] MEDS: BENZONATATE 100 MG CAPSULE PO (16:24)
[2022-06-05 20:00] VITALS: BP 168/69; PULSE 58; RESP 14; TEMP 36.9; O2SAT 94
[2022-06-06] VITALS (8 sets, daily range): BP systolic 91–170; BP diastolic 57–82; PULSE 56–66; RESP 14–20; TEMP 35.6–37.1; O2SAT 91–96
[2022-06-06] MEDS: BENZONATATE 100 MG CAPSULE PO ×3 (07:59→16:30)
[2022-06-06] MEDS: FLECAINIDE ACETATE 50 MG TABLET PO ×2 (09:08→20:45)
[2022-06-06] MEDS: ASPIRIN 81 MG CHEWABLE TABLET PO (09:08)
[2022-06-06] MEDS: MEMANTINE HCL XR 7 MG CAP PO (09:08)
[2022-06-06] MEDS: QUEtiapine FUMARATE 25 MG TABLET PO ×3 (09:08→16:30)
[2022-06-06] MEDS: ATORVASTATIN 20 MG TABLET PO (09:09)
[2022-06-06] MEDS: DONEPEZIL HCL 10 MG TABLET PO (09:09)
[2022-06-06] MEDS: NEBIVOLOL HCL 2.5 MG TABLET PO (09:09)
[2022-06-06 09:27] LABS: Hematocrit 40.8 % (42.0-52.0); Hemoglobin 13.6 g/dL (14.0-18.0); Mean Corpuscular HGB Conc 33.3 g/dl (32-36); Mean Corpuscular Hemoglobin 32.5 pg (26-34); Mean Corpuscular Volume 97.6 fl (80-100); Mean Platelet Volume 9.1 fl (7.4-10.4); Platelet Count Result 216 k/mm3 (150-375); Red Blood Count 4.18 M/mm3 (4.6-6.20); Red Cell Distribution Width 12.6 % (11.5-14.5); White Blood Count 5.9 K/mm3 (4.5-10.0)
[2022-06-06 09:42] LABS: Anion Gap 9 mmol/L (8-16); Blood Urea Nitrogen 18 mg/dL (9-20); Calcium 8.6 mg/dL (8.4-10.2); Carbon Dioxide 21 mmol/L (22-30); Chloride 105 mmol/L (98-107); Estimated CRCL calculation 62 ml/min; Estimated Glomerular Filt Rate > 60; Glucose 164 mg/dL (65-110); Potassium 3.8 mmol/L (3.4-5.0); Sodium 135 mmol/L (137-145)
--- NOTE | 2022-06-06 15:16 | PM.DS ---
DS: Admitting Diagnosis Discharge Date 06/06/2022 Admitting Diagnosis COVID DS: Discharge Diagnosis Discharge Diagnosis (1) COVID-19: Code(s): U07.1 - COVID-19 Status: Acute (2) Frequent falls: Code(s): R29.6 - Repeated falls Status: Acute (3) Dementia: Qualifiers: Dementia behavioral disturbance: without behavioral disturbance Dementia type: unspecified type Qualified Code(s): F03.90 - Unspecified dementia without behavioral disturbance Code(s): F03.90 - Unspecified dementia, unspecified severity, without behavioral disturbance, psychotic disturbance, mood disturbance, and anxiety Status: Acute (4) Aortic stenosis, moderate: Code(s): I35.0 - Nonrheumatic aortic (valve) stenosis Status: Acute (5) Atrial fibrillation: Qualifiers: Atrial fibrillation type: unspecified Qualified Code(s): I48.91 - Unspecified atrial fibrillation Code(s): I48.91 - Unspecified atrial fibrillation Status: Acute DS: Summary Hospital Course Reason for hospitalization: [facility] Hospital Course: Boo Matute is a 82 year old male With a history of Aortic stenosis, AFib, Alzheimer's dementia. Patient is a poor historian and most of this information came from previous records and . Patient's family was able to give most of the details of patient's past medical history and history of present illness. Patient arrived to the ER from [facility] on 06/04/2022 due to a fall. Denies losing consciousness or hitting his head. Patient reported coughing for the past several days along with congestion. Patient's EKG unremarkable. Lactic acid is 2.8; CK slightly elevated at 463. BNP elevated at 494. COVID test positive. Chest x-ray shows no acute cardiopulmonary process. He is not requiring oxygen. Patient's family is requesting placement into an Rehab at assisted living facility. There is a 24 hour wait for SNF. Patient placed into observation awaiting placement. patient denies chest pain, shortness a breath, fever, nausea vomiting, diarrhea constipation. Although unsure how accurate this information is. Patient does say that he has a cough but isn't coughing up anything. During interview with patient he is very confused and unable to answer most of my questions. Although he does say that he does have a cough insert note all other questions. I was able to contact patient's can verify this information. Patient is doing well today and eager to be discharged back home to see his . Only complaint is his cough. Patient was seen and has been cleared to be discharged and to SNF. Time Spent with Patient Time attestation: Total time spent providing and/or coordinating discharge services: Exam Narrative: GENERAL: Comfortable, no acute distress HENMT: moist mucous membranes EYES: EOM intact b/l NECK: no lymphadenopathy RESPIRATORY: although patient is coughing, lungs clear to auscultation CARDIO: RRR GI: soft, nontender, bowel sounds present SKIN: no rashes EXTREMITIES: no edema, redness or tenderness DS: Data Data Completed and Pending Labs on day of discharge: Labs from last 24 hours 06/06/22 06/06/22 09:16 09:16 WBC 5.9 RBC 4.18 L Hgb 13.6 L Hct 40.8 L MCV 97.6 MCH 32.5 MCHC 33.3 RDW 12.6 Plt Count 216 MPV 9.1 Sodium 135 L Potassium 3.8 Chloride 105 Carbon Dioxide 21 L Anion Gap 9 BUN 18 Creatinine 1.00 Estim Creat Clear Calc 62 Estimated GFR > 60 Glucose 164 H Calcium 8.6 Discharge Plan Discharge Attending physician on discharge: Shon Crum Consulting providers: My Bal Discharging Clinician: Leia Vega Anticipated Discharge Date/Time: 06/05/22 15:22 Patient Disposition: SNF Activity: as tolerated Diet: as tolerated Discharge Instructions: Discharge disposition: Take medications as prescribed Avoid social areas, you
--- NOTE | 2022-06-06 15:39 | PM.IMPN ---
Progress Note: A&P Assessment and Plan (1) COVID-19: Code(s): U07.1 - COVID-19 Status: Acute Assessment and Plan: COVID positive on 06/04/2022 O2 sat at 95 on room air. Chest x-ray negative. EKG negative Tessalon Pearls for cough (2) Frequent falls: Code(s): R29.6 - Repeated falls Status: Acute Assessment and Plan: fall precautions PT/OT evaluation telemetry (3) Dementia: Qualifiers: Dementia behavioral disturbance: without behavioral disturbance Dementia type: unspecified type Qualified Code(s): F03.90 - Unspecified dementia without behavioral disturbance Code(s): F03.90 - Unspecified dementia, unspecified severity, without behavioral disturbance, psychotic disturbance, mood disturbance, and anxiety Status: Acute Assessment and Plan: patient is a poor historian continue home meds working with care coordination to discharge to SNF (4) Aortic stenosis, moderate: Code(s): I35.0 - Nonrheumatic aortic (valve) stenosis Status: Acute Assessment and Plan: continue home medications - atorvastatin 20 mg (5) Atrial fibrillation: Qualifiers: Atrial fibrillation type: unspecified Qualified Code(s): I48.91 - Unspecified atrial fibrillation Code(s): I48.91 - Unspecified atrial fibrillation Status: Acute Assessment and Plan: continue flecainide Plan The patient is awaiting placement into rehab facility for frequent falls. Time Spent With Patient Time with patient: Greater than 35 minutes Subjective Date/time seen: 06/06/22 15:39 Interval history: Patient is lying in bed eating when being interviewed today. Patient answers no to all of my questions other than having a cough. Patient is a poor historian. Patient states that he is very ready to go home And frequently asked about his . Review of Systems Review of Systems: All systems reviewed & are unremarkable except as noted in HPI and below Exam Narrative: GENERAL: Comfortable, no acute distress HENMT: moist mucous membranes EYES: EOM intact b/l NECK: no lymphadenopathy RESPIRATORY: although patient is coughing, lungs clear to auscultation CARDIO: RRR GI: soft, nontender, bowel sounds present SKIN: no rashes EXTREMITIES: no edema, redness or tenderness Objective Data Vital Signs Vital Signs: Vital Signs - 24 hr 06/05/22 16:00 06/05/22 20:00 06/06/22 00:00 Temperature 97.5 F L 98.4 F 97.7 F Pulse Rate 62 58 L 56 L Respiratory Rate 20 14 14 Blood Pressure 145/66 H 168/69 H 132/72 Pulse Oximetry 98 94 95 Oxygen Delivery 06/06/22 04:00 06/06/22 08:00 06/06/22 09:08 Temperature 97.5 F L 97.1 F L Pulse Rate 57 L 65 63 Respiratory Rate 14 20 Blood Pressure 170/82 H 146/78 H Pulse Oximetry 95 91 Oxygen Delivery 06/06/22 09:09 06/06/22 08:00 06/06/22 12:00 Temperature 96.5 F L Pulse Rate 63 66 Respiratory Rate 20 Blood Pressure 122/57 L Pulse Oximetry 93 96 Oxygen Delivery Room Air Intake/Output Intake/Output: Intake & Output 06/03/22 06/04/22 06/05/22 06/06/22 23:59 23:59 23:59 23:59 Intake Total 1000 1220 1094 Output Total 100 Balance 1000 1120 1094 Meds/Results Medications: Active Medications Generic Name Dose Route Start Last Admin Trade Name Freq PRN Reason Stop Dose Admin Aspirin 81 mg 06/06/22 09:00 06/06/22 09:08 Aspirin 81 Mg Chewable Tablet PO 81 mg DAILY GET Administration Atorvastatin Calcium 20 mg 06/06/22 09:00 06/06/22 09:09 Atorvastatin 20 Mg Tablet PO 20 mg DAILY GET Administration Benzonatate 100 mg 06/05/22 17:00 06/06/22 11:59 Benzonatate 100 Mg Capsule PO 100 mg TID GET Administration Donepezil HCl 10 mg 06/06/22 09:00 06/06/22 09:09 Donepezil Hcl 10 Mg Tablet PO 07/06/22 08:59 10 mg DAILY GET Administration Flecainide Acetate 50 mg 06/06/22 09:00 06/06/22 09:08 Flecainide [place]
[2022-06-07] VITALS: BP 107/68; PULSE 66; RESP 18; TEMP 36.4; O2SAT 94
[2022-06-07 04:00] VITALS: BP 99/54; PULSE 64; RESP 20; TEMP 36.6; O2SAT 93
[2022-06-07 07:37] LABS: Hematocrit 38.9 % (42.0-52.0); Mean Corpuscular HGB Conc 33.4 g/dl (32-36); Mean Corpuscular Hemoglobin 32.7 pg (26-34); Mean Corpuscular Volume 97.7 fl (80-100); Mean Platelet Volume 9.4 fl (7.4-10.4); Platelet Count Result 210 k/mm3 (150-375); Red Blood Count 3.98 M/mm3 (4.6-6.20); Red Cell Distribution Width 12.5 % (11.5-14.5); White Blood Count 5.7 K/mm3 (4.5-10.0)
[2022-06-07 07:54] LABS: Anion Gap 10 mmol/L (8-16); Blood Urea Nitrogen 26 mg/dL (9-20); Calcium 8.5 mg/dL (8.4-10.2); Carbon Dioxide 24 mmol/L (22-30); Chloride 103 mmol/L (98-107); Estimated CRCL calculation 52 ml/min; Estimated Glomerular Filt Rate 58; Glucose 117 mg/dL (65-110); Potassium 3.9 mmol/L (3.4-5.0); Sodium 137 mmol/L (137-145)
[2022-06-07 08:00] VITALS: BP 109/65; PULSE 58; RESP 20; TEMP 35.7; O2SAT 100; O2SAT 92
[2022-06-07 08:13] VITALS: PULSE 65
[2022-06-07] MEDS: NEBIVOLOL HCL 2.5 MG TABLET PO (08:13)
[2022-06-07 08:14] VITALS: PULSE 65
[2022-06-07] MEDS: DONEPEZIL HCL 10 MG TABLET PO (08:14)
[2022-06-07] MEDS: ATORVASTATIN 20 MG TABLET PO (08:14)
[2022-06-07] MEDS: FUROSEMIDE 20 MG TABLET PO (08:14)
[2022-06-07] MEDS: MEMANTINE HCL XR 7 MG CAP PO (08:14)
[2022-06-07] MEDS: QUEtiapine FUMARATE 25 MG TABLET PO ×2 (08:14→12:04)
[2022-06-07] MEDS: FLECAINIDE ACETATE 50 MG TABLET PO (08:14)
[2022-06-07] MEDS: ASPIRIN 81 MG CHEWABLE TABLET PO (08:14)
[2022-06-07] MEDS: BENZONATATE 100 MG CAPSULE PO ×2 (08:15→12:04)
--- NOTE | 2022-06-07 11:03 | PM.DS ---
DS: Admitting Diagnosis Discharge Date 06/07/22 Admitting Diagnosis fall DS: Discharge Diagnosis Discharge Diagnosis (1) COVID-19: Code(s): U07.1 - COVID-19 Status: Acute Assessment and Plan: COVID positive on 06/04/2022 O2 sat at 95 on room air. Chest x-ray negative. EKG negative Tessalon Pearls for cough (2) Frequent falls: Code(s): R29.6 - Repeated falls Status: Acute Assessment and Plan: fall precautions PT/OT evaluation telemetry (3) Dementia: Qualifiers: Dementia behavioral disturbance: without behavioral disturbance Dementia type: unspecified type Qualified Code(s): F03.90 - Unspecified dementia without behavioral disturbance Code(s): F03.90 - Unspecified dementia, unspecified severity, without behavioral disturbance, psychotic disturbance, mood disturbance, and anxiety Status: Acute Assessment and Plan: patient is a poor historian continue home meds working with care coordination to discharge to SNF (4) Aortic stenosis, moderate: Code(s): I35.0 - Nonrheumatic aortic (valve) stenosis Status: Acute Assessment and Plan: continue home medications - atorvastatin 20 mg (5) Atrial fibrillation: Qualifiers: Atrial fibrillation type: unspecified Qualified Code(s): I48.91 - Unspecified atrial fibrillation Code(s): I48.91 - Unspecified atrial fibrillation Status: Acute Assessment and Plan: continue flecainide Plan The patient is awaiting placement into rehab facility for frequent falls. DS: Summary Hospital Course Reason for hospitalization: [facility] Hospital Course: 06/07/2022 @ 1000 Boo Matute is a 82 year old male With a history of Aortic stenosis, AFib, Alzheimer's dementia.? Patient is a poor historian and most of this information came from? previous records and .? Patient's family was able to give most of the details of patient's past medical history and history of present illness.? Patient arrived to the ER from [facility] on 06/04/2022 due to a fall. Denies losing consciousness or hitting his head. ? Patient reported coughing for the past several days along with congestion. Patient's EKG unremarkable.? Lactic acid is 2.8; CK slightly elevated at 463.? BNP elevated at 494.? COVID test positive.? Chest x-ray shows no acute cardiopulmonary process. ? He is not requiring oxygen.? Patient's family is requesting placement into an ? Rehab at assisted living facility.? There is a 24 hour wait for SNF.? Patient placed? into observation awaiting placement. Patient denies chest pain, shortness a breath, fever, nausea vomiting, diarrhea and constipation.? Although unsure how accurate this information is.? Patient does say that he has a cough but isn't coughing up anything. ? During interview with patient he is very confused and unable to answer most of my questions.? Although he does say that he does have a cough insert note all other questions. ? I was able to contact patient's can verify this information.? Patient is doing well today and eager to be discharged back home to see his .? Only complaint is his cough. Cough has improved since admission. Patient was seen and has been cleared to be discharged and to SNF. Status at Discharge Overall status at discharge: patient is progressing back to baseline Time Spent with Patient Time attestation: Total time spent providing and/or coordinating discharge services: Time spent: Greater than 30 minutes Exam Narrative: GENERAL: Comfortable, no acute distress HENMT: moist mucous membranes EYES: EOM intact b/l NECK: no lymphadenopathy RESPIRATORY: lungs clear to auscultation, cough present CARDIO: RRR GI: soft, nontender, bowel sounds present SKIN: no rashes EXTREMITIES: no edema, redness or tenderness DS: Data Data Completed and Pending Labs on day of discharge: Labs from last 24 hours 06/07/22 06/07/22 07:21 07:2
== END 2022-06-07 13:40 ==
LOC: ANHED 16:13 → ANH3MEDSUR 17:15
PROVIDERS: General Practice; Internal Medicine Critical Care Medicine; Physician Assistant; Admitting Provider Family Medicine; Emergency Provider Family Medicine; PCP Internal Medicine; Visit Provider Internal Medicine
DX: U07.1 COVID-19 (principal); R29.6 Repeated falls; G30.9 Alzheimer's disease, unspecified; F02.80 Dementia in other diseases classified elsewhere, unspecified severity, without behavioral disturbance, psychotic disturbance, mood disturbance, and anxiety; W17.89XA Other fall from one level to another, initial encounter; Y93.9 Activity, unspecified; Y92.193 Bedroom in other specified residential institution as the place of occurrence of the external cause; I35.0 Nonrheumatic aortic (valve) stenosis; I48.91 Unspecified atrial fibrillation; R53.1 Weakness; I70.0 Atherosclerosis of aorta; I50.9 Heart failure, unspecified; I51.7 Cardiomegaly; N18.30 Chronic kidney disease, stage 3 unspecified; Z79.82 Long term (current) use of aspirin; Z79.899 Other long term (current) drug therapy; Z82.49 Family history of ischemic heart disease and other diseases of the circulatory system
CPT/HCPCS: 36415; 36600; 71046; 80048; 80053; 81001; 82550; 82805; 83605; 83880; 85025; 85027; 85610; 85730; 87636; 93005; 96360; 96361; 97110; 97112; 97116; 97161; 97165; 97530; 99285; A9270; G0378; J7030

== ENCOUNTER 2022-09-09 16:48 | Inpatient (IN) | payer MEDICARE, SELFPAY ==
[2022-09-09] VITALS (18 sets, daily range): BP systolic 107–131; BP diastolic 55–66; PULSE 62–68; RESP 16–24; TEMP 36.6; O2SAT 90–99
--- NOTE | ~2022-09-09 | CT_ITS ---
EXAMINATION: CTA chest PE protocol DATE: 09/09/2022 21:42 INDICATION: Shortness of breath TECHNIQUE: Computed tomography angiography (CTA) of the chest was performed with 100 mL Omnipaque-350 intravenous contrast timed to evaluate the pulmonary arteries. Coronal maximum intensity projection 3D-reconstructions were created by the technologist. The dose-length product (DLP) was 852.65 mGy-cm. Automated exposure control and iterative reconstruction technique were employed. COMPARISON: None. FINDINGS: Respiratory motion artifact severely limits the examination. The pulmonary arteries are wel l-opacified. No central pulmonary embolism is identified. There are areas of dependent atelectasis in the lungs. No pleural effusion or pneumothorax. The heart size is normal. No pathologically enlarged thoracic lymph nodes are identified. Bilateral gynecomastia is noted. There is moderate thoracic spo ndylosis. There are widespread calcifications throughout the pancreas, consistent with chronic pancre atitis. IMPRESSION: 1. No central pulmonary embolus identified, examination severely limited by motion artifact. Reviewed, dictated and finalized at location F. CTOR OF MANAGED CARE IMPRESSION: 1. No central pulmonary embolus identified, examination severely limited by mot ion artifact.
--- NOTE | ~2022-09-09 | XR_ITS ---
EXAMINATION: XR chest 2V DATE: 09/09/2022 19:41 INDICATION: Shortness of breath and cough TECHNIQUE: AP and lateral views of the chest are obtained. COMPARISON: 06/04/2022 FINDINGS: There are minimal airspace opacities of the lung bases. No pleural effusion or pneumothorax . The cardiomediastinal silhouette is normal. There are bridging osteophytes at multiple levels in th e spine, consistent with diffuse idiopathic skeletal hyperostosis (DISH). IMPRESSION: 1. Minimal airspace opacities of the lung bases, consistent with atelectasis versus pneumonia. Reviewed, dictated and finalized at location F. E STUD MANAGER IMPRESSION: 1. Minimal airspace opacities of the lung bases, consistent with atelectasis ve rsus pneumonia.
--- NOTE | 2022-09-09 17:20 | ECG_ITS ---
Measurements Intervals [place] Rate: 73 P: 13 AL: 229 QRS: -57 QRSD: 136 T: 20 QT: 415 QTc: 458 Interpretive Statements SINUS RHYTHM WITH FIRST DEGREE AV BLOCK VENTRICULAR PREMATURE COMPLEX RIGHT BUNDLE BRANCH BLOCK LEFT ANTERIOR FASCICULAR BLOCK BASELINE ARTIFACT- I, II, III, AVR, AVL, AVF ABNORMAL ECG COMPARED TO ECG 06/04/2022 09:09:15 SINUS RHYTHM NOW PRESENT FIRST DEGREE AV BLOCK NOW PRESENT Electronically Signed On 09-09-2022 19:19:08 APPLIANCE SERVICE REPRESENTATIVE by Burt Villalobos D.O.
[2022-09-09 17:58] LABS: Basophils Percent Auto 0.3 % (0.2-1.2); Eosinophils Percent Auto 0.1 % (0-4.4); Hematocrit 42.5 % (42.0-52.0); Hemoglobin 13.9 g/dL (14.0-18.0); Immature Granulocyte Absolute 0.02 K/mm3 (0.00-0.031); Immature Granulocyte Percent A 0.2 % (0-0.5); Lymphocytes Absolute Auto 1.58 K/mm3 (0.9-3.2); Lymphocytes Percent Auto 16.8 % (18.3-44.2); Mean Corpuscular HGB Conc 32.7 g/dl (32-36); Mean Corpuscular Hemoglobin 32.3 pg (26-34); Mean Corpuscular Volume 98.8 fl (80-100); Mean Platelet Volume 9.4 fl (7.4-10.4); Monocytes Percent Auto 10.4 % (2.6-8.5); Neutrophils Absolute Auto 6.8 K/mm3 (1.3-6.7); Neutrophils Percent Auto 72.2 % (45.5-73.1); Platelet Count Result 205 k/mm3 (150-375); Red Cell Distribution Width 13.2 % (11.5-14.5); White Blood Count 9.4 K/mm3 (4.5-10.0)
[2022-09-09 18:07] LABS: Alanine Aminotransferase 75 U/L (6-50); Albumin Level 4.5 g/dL (3.5-5.1); Alkaline Phosphatase 79 U/L (38-126); Anion Gap 6 mmol/L (8-16); Aspartate Amino Transferase 259 U/L (17-59); Bilirubin,Total 0.6 mg/dL (0.2-1.3); Blood Urea Nitrogen 35 mg/dL (9-20); Calcium 9.4 mg/dL (8.4-10.2); Carbon Dioxide 26 mmol/L (22-30); Chloride 108 mmol/L (98-107); Estimated CRCL calculation 41 ml/min; Estimated Glomerular Filt Rate 45; Glucose 148 mg/dL (65-110); Potassium 4.7 mmol/L (3.4-5.0); Sodium 140 mmol/L (137-145)
[2022-09-09 18:18] LABS: NT Pro B Type Natriuretic Pept 1190 pg/mL (19.9-100)
--- NOTE | 2022-09-09 19:50 | ED.SOB ---
HPI - SOB/Dyspnea General Chief Complaint: Shortness of Breath/Dyspnea Stated Complaint: cough, shortness of breath Time Seen by Provider: 09/09/22 19:50 Source: patient and family Mode of arrival: ambulatory Limitations: dementia History of Present Illness HPI Narrative: Patient is an 82-year-old male with a history of Alzheimer's dementia, hypertension, hyperlipidemia, congestive heart failure, presenting to the emergency department for evaluation of cough and shortness of breath. Patient is currently alert and oriented to person, not to place or time which is his baseline per daughter who is at bedside and provides much of the history. States that he developed a cough yesterday with increasing congestion and wheezing. No known smoking history. No history of asthma. No leg swelling or calf pain. No reported chest pain. Patient has had increasing but mild weakness and did have a fall yesterday. No head trauma. Patient has been ambulatory today without reported complaints of pain. Patient currently denies any significant shortness of breath. He denies chest pain. Related Data Home Medications Medication Instructions Recorded Confirmed aspirin 81 mg chewable tablet 81 mg PO DAILY 03/31/20 06/05/22 flecainide 50 mg tablet 50 mg PO Q12H 03/31/20 06/05/22 memantine ER 7 mg-donepezil 10 mg 1 cap PO DAILY 03/31/20 06/05/22 capsule sprinkle,ext.release 24 hour (Namzaric) nebivolol 2.5 mg tablet (Bystolic) 2.5 mg PO DAILY 03/31/20 06/05/22 vortioxetine 20 mg tablet 20 mg PO DAILY 03/31/20 06/05/22 (Trintellix) atorvastatin 20 mg tablet 20 mg PO DAILY 07/24/20 06/05/22 furosemide 20 mg tablet 20 mg PO 3XW 06/05/22 06/05/22 quetiapine 25 mg tablet 25 mg PO TID 06/05/22 06/05/22 Allergies Allergy/AdvReac Type Severity Reaction Status Date / Time cephalexin [From Keflex] Allergy Unknown Verified 06/04/22 08:56 [facility] Past Medical History Medical History (Updated 09/09/22 @ 23:07 by Zenoiba Ellis MD) Atrial fibrillation CHF (congestive heart failure) Dementia Stage 3 chronic kidney disease Surgical History Surgical History Surgical history unknown Family History Family History (Updated 06/05/22 @ 13:27 by Leia Vega PA-C) Mother Acute myocardial infarction Cerebrovascular accident Social History Social History (Updated 06/05/22 @ 13:28 by Leia Vega PA-C) Social History: patient is resident of [place] lives with his Norma Matute. Smoking status: Never smoker Alcohol intake: never Substance use: never Substance use type: does not use Gender identity (if verbalized by the patient): Male Spiritual care concerns: No Course Vital Signs Vital signs: Vital Signs Temperature 36.6 C 09/09/22 17:36 Pulse Rate 66 09/09/22 17:36 Respiratory Rate 16 09/09/22 17:36 Blood Pressure 112/55 L 09/09/22 17:36 Pulse Oximetry 91 09/09/22 17:36 Oxygen Delivery Room Air 09/09/22 17:36 Temperature 36.6 C 09/09/22 20:46 Pulse Rate 68 09/09/22 21:38 Respiratory Rate 20 09/09/22 21:38 Blood Pressure 114/63 09/09/22 20:46 Pulse Oximetry 94 09/09/22 21:38 Oxygen Delivery Room Air 09/09/22 20:15 MDM - SOB/Dyspnea MDM Narrative Medical decision making narrative: Medical decision making narrative: -Presentation: Patient is an 82-year-old male with Alzheimer's dementia presenting for evaluation of shortness of breath, found to have coarse breath sounds, diffuse inspiratory and expiratory wheezing on exam. Borderline hypoxia oxygen saturation 91% on room air with no significant tachypnea. -DDX includes but is not limited to: Wheezing associated respiratory illness, COPD exacerbation, pneumonia, CHF exacerbation, PE -Co-morbidities complicating care: Alzheimer's dementia -Social determinants of health: None -External Chart Review: None -Hx from independent Sources:
[2022-09-09] MEDS: IPRATROPIUM BR 0.02% INH SOLN 0.5 MG/2.5 ML VIAL INHALATION (20:27)
[2022-09-09] MEDS: ALBUTEROL SULFATE NEB 2.5 MG/3 ML INH 5 MG INHALATION (20:27)
[2022-09-09] MEDS: methylPREDNISolone SOD SUCC 125 MG VIAL IV PUSH (20:32)
[2022-09-09 20:44] LABS: Lactic Acid Reflex 1.5 mmol/L (0.7-2.0)
--- NOTE | 2022-09-09 21:06 | PC.NURSE ---
Pt resting comfortably in bed, NAD, updated pt on plan of care, respirations even and unlabored. WCTM .
[2022-09-09 21:29] LABS: Influenza A QL RT-PCR Negative (Negative); Influenza B QL RT-PCR Negative (Negative); RSV RNA, RT-PCR Negative (Negative); SARS-CoV-2 RNA PCR Negative
[2022-09-09] MEDS: SODIUM CHLORIDE 0.9% IV 1,000 ML 999 ML IV CONT (21:47)
[2022-09-09] MEDS: FUROSEMIDE INJ 40 MG/4 ML VIAL 20 MG IV PUSH (22:42)
--- NOTE | 2022-09-09 22:52 | PM.IMHP ---
H&P: HPI History of Present Illness Date/Time: 09/09/22 22:52 Chief Complaint: 82 years old male with past medical history of AFib dementia aortic stenosis history of COVID-19 05/2022 presented to the hospital with cough and shortness of breath worsening gradually associated with wheezing patient also has lower extremity edema patient is poor historian history was taken from the patient daughter at the ER patient positive wheezing exam positive lower extremity edema BNP was significantly elevated creatinine was 1.5 patient was found to have probable bronchitis and acute CHF exacerbation admitted to the hospital for further evaluation and treatment Review of Systems Review of Systems: History limited due to dementia [facility] Past Medical History Medical History (Updated 09/09/22 @ 22:56 by Salma Guadalupe MD) Atrial fibrillation CHF (congestive heart failure) Dementia Stage 3 chronic kidney disease Surgical History Surgical History Surgical history unknown Family History Family History (Updated 06/05/22 @ 13:27 by Leia Vega PA-C) Mother Acute myocardial infarction Cerebrovascular accident Social History Social History (Updated 06/05/22 @ 13:28 by Leia Vega PA-C) Social History: patient is resident of [place] lives with his Norma Matute. Smoking status: Never smoker Alcohol intake: never Substance use: never Substance use type: does not use Gender identity (if verbalized by the patient): Male Spiritual care concerns: No Meds Home Medications and Allergies Home Medications Medication Instructions Recorded Confirmed Type aspirin 81 mg chewable tablet 81 mg PO DAILY 03/31/20 06/05/22 History flecainide 50 mg tablet 50 mg PO Q12H 03/31/20 06/05/22 History memantine ER 7 mg-donepezil 10 mg 1 cap PO DAILY 03/31/20 06/05/22 History capsule sprinkle,ext.release 24 hour (Namzaric) nebivolol 2.5 mg tablet (Bystolic) 2.5 mg PO DAILY 03/31/20 06/05/22 History vortioxetine 20 mg tablet 20 mg PO DAILY 03/31/20 06/05/22 History (Trintellix) atorvastatin 20 mg tablet 20 mg PO DAILY 07/24/20 06/05/22 History furosemide 20 mg tablet 20 mg PO 3XW 06/05/22 06/05/22 History quetiapine 25 mg tablet 25 mg PO TID 06/05/22 06/05/22 History benzonatate 100 mg capsule 100 mg PO TID #21 caps 06/06/22 Rx Allergies Allergy/AdvReac Type Severity Reaction Status Date / Time cephalexin [From Keflex] Allergy Unknown Verified 06/04/22 08:56 Vital Signs Vital Signs - 24 hr 09/09/22 17:36 09/09/22 20:29 09/09/22 20:15 Temperature 98 F Pulse Rate 66 64 Respiratory Rate 16 20 Blood Pressure 112/55 L Pulse Oximetry 91 Oxygen Delivery Room Air Room Air 09/09/22 19:25 09/09/22 19:42 09/09/22 19:45 Temperature Pulse Rate 63 Respiratory Rate 19 Blood Pressure Pulse Oximetry 91 94 Oxygen Delivery 09/09/22 20:03 09/09/22 20:29 09/09/22 20:31 Temperature Pulse Rate 62 Respiratory Rate 18 Blood Pressure Pulse Oximetry 94 93 99 Oxygen Delivery 09/09/22 20:45 09/09/22 20:46 09/09/22 21:38 Temperature 98 F Pulse Rate 64 63 68 Respiratory Rate 24 H 20 20 Blood Pressure 114/63 Pulse Oximetry 93 93 94 Oxygen Delivery Exam Narrative: GENERAL: Follow commands. HEAD: Normocephalic, atraumatic. NECK: Supple. No adenopathy, no masses. RESPIRATORY: Bilateral wheezing crackles g. CARDIOVASCULAR: Regular rate and rhythm without murmurs, rubs, or gallops. Peripheral pulses 2+ and equal bilaterally. ABDOMINAL: Soft, nontender, nondistended, no hepatosplenomegaly. Normoactive BS. MUSCULOSKELETAL: +2 lower extremity edema SKIN: Warm, dry, normal color. No rashes. NEURO: A&O X3. Speech clear. Moves all extremities PSYCHIATRIC: Appropriate mood and affect. Normal interaction. H&P: Results Labs Labs: Short CBC 09/09/22 Range/Units 17:50 WBC
[2022-09-09] MEDS: metroNIDAZOLE 500 MG/ISO 100ML 500 MG/100 ML BAG 100 MG IVPB (23:24)
[2022-09-10] VITALS (19 sets, daily range): BP systolic 103–149; BP diastolic 51–97; PULSE 53–80; RESP 16–22; TEMP 35.8–36.9; O2SAT 93–97; BMI 33.0
--- NOTE | 2022-09-10 00:07 | ADMGEN ---
This patient, Boo Matute, was admitted to Medical Room 248-. Patient/family oriented to hospital policies and general routines including ID bracelet, bed and alarms, visiting hours, pain management, procedures, bathroom and other care routines, personal items, smoking policy, room service/diet, and visiting hours. Information on how to activate the Rapid Response Team has been discussed. Patient/Family are encouraged to report perceived risks to care and to ask questions if they do not understand what they are told or what they should do.
[2022-09-10] MEDS: DOXYCYCLINE 100 MG/NS 100 ML 100 MG/100 ML BAG IVPB ×2 (00:10→09:39)
[2022-09-10 00:36] LABS: Troponin I 0.029 ng/mL (0.000-0.034)
--- NOTE | 2022-09-10 00:51 | PC.NURSE ---
COMPLETED ADMISSION AND MED CONFIRMATION OVER PHONE WITH PT DAUGHTER LIZA, SHE STATED PT MED LIST FROM LAST ADMISSION IN MAY IS UNCHANGED
[2022-09-10 00:56] LABS: Thyroid Stimulating Hormone Reflex 0.451 uIU/mL (0.465-4.68)
[2022-09-10 04:55] LABS: Basophils Percent Auto 0.1 % (0.2-1.2); Hemoglobin 12.8 g/dL (14.0-18.0); Immature Granulocyte Absolute 0.02 K/mm3 (0.00-0.031); Immature Granulocyte Percent A 0.3 % (0-0.5); Lymphocytes Absolute Auto 0.89 K/mm3 (0.9-3.2); Mean Corpuscular HGB Conc 31.2 g/dl (32-36); Mean Corpuscular Hemoglobin 31.5 pg (26-34); Mean Platelet Volume 9.5 fl (7.4-10.4); Monocytes Absolute Auto 0.2 K/mm3 (0.1-0.6); Monocytes Percent Auto 2.4 % (2.6-8.5); Neutrophils Absolute Auto 6.3 K/mm3 (1.3-6.7); Neutrophils Percent Auto 85.2 % (45.5-73.1); Platelet Count Result 182 k/mm3 (150-375); Red Blood Count 4.06 M/mm3 (4.6-6.20); Red Cell Distribution Width 13.2 % (11.5-14.5); White Blood Count 7.4 K/mm3 (4.5-10.0)
[2022-09-10 05:09] LABS: Alanine Aminotransferase 77 U/L (6-50); Albumin Level 3.8 g/dL (3.5-5.1); Alkaline Phosphatase 70 U/L (38-126); Anion Gap 8 mmol/L (8-16); Aspartate Amino Transferase 201 U/L (17-59); Bilirubin,Total 0.5 mg/dL (0.2-1.3); Blood Urea Nitrogen 31 mg/dL (9-20); Calcium 8.7 mg/dL (8.4-10.2); Carbon Dioxide 21 mmol/L (22-30); Chloride 112 mmol/L (98-107); Estimated CRCL calculation 51 ml/min; Estimated Glomerular Filt Rate 58; Glucose 181 mg/dL (65-110); Potassium 4.4 mmol/L (3.4-5.0); Sodium 141 mmol/L (137-145)
[2022-09-10 05:15] LABS: Free T4 Free Thyroxine Reflex 1.07 ng/dL (0.78-2.19)
[2022-09-10 05:21] LABS: Troponin I 0.021 ng/mL (0.000-0.034)
[2022-09-10] MEDS: metroNIDAZOLE 500 MG/ISO 100ML 500 MG/100 ML BAG 100 MG IVPB (05:36)
[2022-09-10] MEDS: methylPREDNISolone SOD SUCC 40 MG VIAL IV PUSH ×3 (05:37→21:55)
[2022-09-10] MEDS: IPRATROPIUM BR 0.02% INH SOLN 0.5 MG/2.5 ML VIAL INHALATION ×3 (07:19→20:29)
[2022-09-10] MEDS: ALBUTEROL SULFATE NEB 2.5 MG/3 ML INH INHALATION ×3 (07:19→20:29)
[2022-09-10] MEDS: ENOXAPARIN 40 MG/0.4 ML SYRINGE SUB-Q (09:36)
[2022-09-10] MEDS: FUROSEMIDE INJ 40 MG/4 ML VIAL 20 MG IV PUSH ×2 (09:37→18:00)
[2022-09-10] MEDS: FAMOTIDINE 20 MG TABLET PO ×2 (09:37→20:27)
[2022-09-10 12:33] LABS: Total Triiodothyronine (T3) 0.96 NG/ML (0.97-1.69)
[2022-09-10] MEDS: QUEtiapine FUMARATE 25 MG TABLET PO ×2 (13:12→17:59)
[2022-09-10] MEDS: FLECAINIDE ACETATE 50 MG TABLET PO ×2 (13:12→20:27)
[2022-09-10] MEDS: BENZONATATE 100 MG CAPSULE PO ×2 (13:13→18:00)
[2022-09-10] MEDS: DONEPEZIL HCL 10 MG TABLET PO (13:13)
[2022-09-10] MEDS: MEMANTINE HCL XR 7 MG CAP PO (13:14)
--- NOTE | 2022-09-10 13:28 | PM.IMPN ---
Progress Note: A&P Assessment and Plan (1) Diffuse wheezing: Code(s): R06.2 - Wheezing Status: Acute Assessment and Plan: patient presents to the ED due to cough and shortness of breath. Chest x-ray revealed minimal airspace opacities consistent with atelectasis versus pneumonia. Differential includes COPD exacerbation, pneumonia, bronchitis, CHF exacerbation Patient started on DuoNebs Solu-Medrol Q 8 hours, titrate down as necessary. Patient started on Rocephin. Patient unable to take macrolides or fluoroquinolones due to QTC prolongation. Patient already taking QTC prolonging medications and EKG revealed QTC of 450. Patient also has an allergy to Keflex. Rocephin and Keflex have a low probability cross reactivity. Blood cultures pending Moy Decker for cough Patient's labs stable. (2) Aortic stenosis, moderate: Code(s): I35.0 - Nonrheumatic aortic (valve) stenosis Status: Acute Assessment and Plan: Will get echo to re-evaluate monitor closely as patient with aortic stenosis are very sensitive to volume change (3) CHF exacerbation: Qualifiers: Heart failure type: unspecified Qualified Code(s): I50.9 - Heart failure, unspecified Code(s): I50.9 - Heart failure, unspecified Status: Acute Assessment and Plan: Will get echo Gentle IV diuresis Re-evaluate in a.m. Follow echo results (4) Atrial fibrillation: Qualifiers: Atrial fibrillation type: unspecified Qualified Code(s): I48.91 - Unspecified atrial fibrillation Code(s): I48.91 - Unspecified atrial fibrillation Status: Acute Assessment and Plan: Patient on flecainide resume home medication (5) Acute renal failure: Code(s): N17.9 - Acute kidney failure, unspecified Status: Acute Assessment and Plan: Most likely related to hypoperfusion secondary to CHF exacerbation will give IV diuresis monitor closely monitor urine output no improvement consider get ultrasound renal in a.m. Subjective Date/time seen: 09/10/22 13:28 Interval history: Patient lying in bed comfortably when I entered the room. Patient has a pretty severe cough and that is his only complaint. Patient unsure as to when the cough started. Patient has pretty significant dementia. He denies chest pain, shortness a breath, nausea, vomiting, abdominal pain, dizziness and fever. Review of Systems Review of Systems: All systems reviewed & are unremarkable except as noted in HPI and below Exam Narrative: GENERAL: Comfortable, no acute distress HENMT: moist mucous membranes EYES: EOM intact b/l NECK: no lymphadenopathy RESPIRATORY: Diffuse wheezing CARDIO: RRR GI: soft, nontender, bowel sounds present SKIN: no rashes EXTREMITIES: no edema, redness or tenderness Objective Data Vital Signs Vital Signs: Vital Signs - 24 hr 09/09/22 17:36 09/09/22 20:29 09/09/22 20:15 Temperature 98 F Pulse Rate 66 64 Respiratory Rate 16 20 Blood Pressure 112/55 L Pulse Oximetry 91 Oxygen Delivery Room Air Room Air Fraction of Inspired Oxygen 09/09/22 19:25 09/09/22 19:42 09/09/22 19:45 Temperature Pulse Rate 63 Respiratory Rate 19 Blood Pressure Pulse Oximetry 91 94 Oxygen Delivery Fraction of Inspired Oxygen 09/09/22 20:03 09/09/22 20:29 09/09/22 20:31 Temperature Pulse Rate 62 Respiratory Rate 18 Blood Pressure Pulse Oximetry 94 93 99 Oxygen Delivery Fraction of Inspired Oxygen 09/09/22 20:45 09/09/22 20:46 09/09/22 21:38 Temperature 98 F Pulse Rate 64 63 68 Respiratory Rate 24 H 20 20 Blood Pressure 114/63 Pulse Oximetry 93 93 94 Oxygen Delivery Fraction of Inspired Oxygen 09/09/22 23:25 09/09/22 22:03 09/09/22 22:16 Temperature 97.9 F 98 F Pulse Rate 64 65 62 Respiratory Rate 18 19 20 Blood Pressure 131/66 107/59 L Pulse Oximetry 92 90 90 Oxygen Delivery Fract
[2022-09-10 16:06] LABS: Creatine Kinase 10593 U/L (55-170)
--- NOTE | 2022-09-10 22:52 | ECHO_ITS ---
Patient Info Name: Boo Matute Age: 82 years : 1940 Gender: Male Ht: 69 in Wt: 220 lbs BSA: 2.24 m2 HR: 51 bpm BP: 103 / 51 mmHg Heart Rhythm: Sinus Rhythm Technical Quality: Fair Exam Date: 09/10/2022 11:15 AM Exam Location: [facility] Patient Status: Inpatient Admit Date: 09/09/2022 Staff Ordering Physician: Salma Guadalupe M.A., MD Small Brake Form Operator: Caity Rubin RDCS Attending Provider: Salma Guadalupe M.A., MD Referring Physician: Renaldo CARRERO; Exam Type: CA echo doppler color flow Study Info Indications - CHF Complete two-dimensional, color flow and Doppler transthoracic echocardiogram is performed. Summary 1. Complete two-dimensional, color flow and Doppler transthoracic echocardiogram is performed. 2. Left ventricular systolic function is hyperdynamic, estimated at >70%. 3. There is moderate concentric increased left ventricular wall thickness. 4. Left atrial chamber dimension is mildly enlarged. 5. There is severe aortic valve stenosis with a peak velocity of 360 cm/s, mean gradient of 32 mmHg, and aortic valve area of 0.8 cm2. 6. Compared with March of 2020 aortic valve stenosis has progressed with previous mean gradient of 20. Similar valve area. Left Ventricle Left ventricular chamber dimension is normal. Left ventricular systolic function is hyperdynamic, estimated at >70%. There is moderate concentric increased left ventricular wall thickness. The left ventricular diastolic function is grade I diastolic dysfunction. Right Ventricle Right ventricular chamber dimension is normal. Left Atria Left atrial chamber dimension is mildly enlarged. Right Atria Right atrial chamber dimension is normal. Aortic Valve The aortic valve is trileaflet. There is severe aortic valve stenosis with a peak velocity of 360 cm/s, mean gradient of 32 mmHg, and aortic valve area of 0.8 cm2. There is no aortic valve regurgitation. There is severe aortic valve calcification. Pulmonic Valve The pulmonic valve is not well visualized. Mitral Valve The mitral valve has thickened leaflets. There is no mitral valve regurgitation. Tricuspid Valve The tricuspid valve leaflets are normal. Pericardium/Pleural The pericardium appears normal. Aorta The aortic root size at the sinus of Valsalva is normal. Left Ventricular Outflow Tract Name Value Normal LVOT 2D LVOT Diameter 2.0 cm LVOT Doppler LVOT Peak Gradient 4 mmHg LVOT Mean Gradient 2 mmHg LVOT VTI 18 cm LVOT VTI/AV VTI Ratio 0.2 LVOT Stroke Volume 61 ml LVOT CO 3.7 l/min LVOT CI 1.6 l/min/m2 Pulmonic Valve Name Value Normal RVOT Doppler RVOT Peak Gr
[2022-09-11] VITALS (17 sets, daily range): BP systolic 115–134; BP diastolic 50–63; PULSE 58–78; RESP 18–22; TEMP 36.7–37.2; O2SAT 93–95
[2022-09-11] MEDS: IPRATROPIUM BR 0.02% INH SOLN 0.5 MG/2.5 ML VIAL INHALATION ×4 (02:36→20:15)
[2022-09-11] MEDS: ALBUTEROL SULFATE NEB 2.5 MG/3 ML INH INHALATION ×4 (02:36→20:15)
[2022-09-11 05:21] LABS: Basophils Percent Auto 0.2 % (0.2-1.2); Hematocrit 38.2 % (42.0-52.0); Hemoglobin 12.4 g/dL (14.0-18.0); Immature Granulocyte Absolute 0.06 K/mm3 (0.00-0.031); Immature Granulocyte Percent A 0.5 % (0-0.5); Lymphocytes Absolute Auto 0.92 K/mm3 (0.9-3.2); Mean Corpuscular HGB Conc 32.5 g/dl (32-36); Mean Corpuscular Hemoglobin 32.1 pg (26-34); Monocytes Absolute Auto 0.6 K/mm3 (0.1-0.6); Neutrophils Absolute Auto 9.9 K/mm3 (1.3-6.7); Neutrophils Percent Auto 86.3 % (45.5-73.1); Platelet Count Result 199 k/mm3 (150-375); Red Blood Count 3.86 M/mm3 (4.6-6.20); Red Cell Distribution Width 13.2 % (11.5-14.5); White Blood Count 11.5 K/mm3 (4.5-10.0)
[2022-09-11] MEDS: methylPREDNISolone SOD SUCC 40 MG VIAL IV PUSH ×2 (05:24→20:30)
[2022-09-11 05:44] LABS: Alanine Aminotransferase 94 U/L (6-50); Albumin Level 3.8 g/dL (3.5-5.1); Alkaline Phosphatase 68 U/L (38-126); Anion Gap 4 mmol/L (8-16); Aspartate Amino Transferase 220 U/L (17-59); Bilirubin,Total 0.5 mg/dL (0.2-1.3); Blood Urea Nitrogen 37 mg/dL (9-20); Carbon Dioxide 28 mmol/L (22-30); Chloride 105 mmol/L (98-107); Estimated CRCL calculation 47 ml/min; Estimated Glomerular Filt Rate 53; Glucose 174 mg/dL (65-110); NT Pro B Type Natriuretic Pept 876 pg/mL (19.9-100); Potassium 4.1 mmol/L (3.4-5.0); Sodium 137 mmol/L (137-145)
--- NOTE | 2022-09-11 07:49 | PM.IMPN ---
Progress Note: A&P Assessment and Plan (1) Diffuse wheezing: Code(s): R06.2 - Wheezing Status: Acute Assessment and Plan: patient presents to the ED due to cough and shortness of breath. Chest x-ray revealed minimal airspace opacities consistent with atelectasis versus pneumonia. Differential includes COPD exacerbation, pneumonia, bronchitis, CHF exacerbation Patient started on DuoNebs Solu-Medrol Q 8 hours, titrate down as necessary. Patient started on Rocephin. Patient unable to take macrolides or fluoroquinolones due to QTC prolongation. Patient already taking QTC prolonging medications and EKG revealed QTC of 450. Patient also has an allergy to Keflex. Rocephin and Keflex have a low probability cross reactivity. Add doxy for atypical coverage. Blood cultures pending Moy Decker for cough Patient's labs stable. (2) Rhabdomyolysis: Code(s): M62.82 - Rhabdomyolysis Status: Acute Assessment [place]: [place] [address]. Patient does have bruising on the left arm but there is not mention of fall at the time of admission. Although patient has aortic stenosis, will start IV fluids for 1 day and monitor volume status. Gentle diuresis to avoid volume overload and CK clearance. (3) Aortic stenosis, moderate: Code(s): I35.0 - Nonrheumatic aortic (valve) stenosis Status: Acute Assessment and Plan: Will get echo to re-evaluate monitor closely as patient with aortic stenosis are very sensitive to volume change (4) CHF exacerbation: Qualifiers: Heart failure type: unspecified Qualified Code(s): I50.9 - Heart failure, unspecified Code(s): I50.9 - Heart failure, unspecified Status: Acute Assessment and Plan: Echo showing EF >70%, severe aortic stenosis, compared to 2020 aortic stenosis worsened, grade 1 diastolic dysfunction Gentle IV diuresis BNP 1190 (5) Atrial fibrillation: Qualifiers: Atrial fibrillation type: unspecified Qualified Code(s): I48.91 - Unspecified atrial fibrillation Code(s): I48.91 - Unspecified atrial fibrillation Status: Acute Assessment and Plan: Patient on flecainide resume home medication (6) Acute renal failure: Code(s): N17.9 - Acute kidney failure, unspecified Status: Acute Assessment and Plan: Most likely related to hypoperfusion secondary to CHF exacerbation will give IV diuresis monitor closely monitor urine output no improvement consider get ultrasound renal in a.m. Subjective Date/time seen: 09/11/22 07:49 Interval history: Patient sitting up in the care. Patient is pleasantly confused with hx of alzhiemers. Patient is still coughing but wheezing is much better. Hx difficult to obtained. Review of Systems Review of Systems: All systems reviewed & are unremarkable except as noted in HPI and below Exam Narrative: GENERAL: Comfortable, no acute distress HENMT: moist mucous membranes EYES: EOM intact b/l NECK: no lymphadenopathy RESPIRATORY: minimal crackles in the lung bases CARDIO: RRR GI: soft, nontender, bowel sounds present SKIN: no rashes EXTREMITIES: no edema, redness or tenderness Objective Data Vital Signs Vital Signs: Vital Signs - 24 hr 09/10/22 08:00 09/10/22 12:18 09/10/22 12:00 Temperature Pulse Rate 55 L 71 Respiratory Rate Blood Pressure Pulse Oximetry Oxygen Delivery Room Air 09/10/22 13:12 09/10/22 14:00 09/10/22 14:41 Temperature 98.5 F Pulse Rate 63 63 64 Respiratory Rate 18 18 Blood Pressure 116/97 H Pulse Oximetry 95 Oxygen Delivery 09/10/22 15:08 09/10/22 16:00 09/10/22 20:19 Temperature 98.2 F Pulse Rate 72 80 67 Respiratory Rate 18 20 Blood Pressure 149/64 H Pulse Oximetry 96 Oxygen Delivery 09/10/22 20:27 09/10/22 20:25 09/10/22 20:25 Temperature Pulse Rate 68 71 71 Respiratory Rate 20 Bloo
[2022-09-11] MEDS: DOXYCYCLINE 100 MG/NS 100 ML 100 MG/100 ML BAG IVPB ×2 (08:46→20:30)
[2022-09-11] MEDS: BENZONATATE 100 MG CAPSULE PO ×3 (08:47→17:05)
[2022-09-11] MEDS: MEMANTINE HCL XR 7 MG CAP PO (08:47)
[2022-09-11] MEDS: FLECAINIDE ACETATE 50 MG TABLET PO ×2 (08:47→20:30)
[2022-09-11] MEDS: FUROSEMIDE INJ 40 MG/4 ML VIAL 20 MG IV PUSH ×2 (08:47→17:04)
[2022-09-11] MEDS: QUEtiapine FUMARATE 25 MG TABLET PO ×3 (08:48→17:05)
[2022-09-11] MEDS: FAMOTIDINE 20 MG TABLET PO ×2 (08:48→20:30)
[2022-09-11] MEDS: DONEPEZIL HCL 10 MG TABLET PO (08:48)
[2022-09-11] MEDS: ASPIRIN 81 MG CHEWABLE TABLET PO (08:48)
[2022-09-11] MEDS: ENOXAPARIN 40 MG/0.4 ML SYRINGE SUB-Q (08:48)
[2022-09-11] MEDS: NEBIVOLOL HCL 2.5 MG TABLET PO (08:49)
[2022-09-11] MEDS: SODIUM CHLORIDE 0.9% IV 1,000 ML 100 ML IV CONT ×3 (09:03→20:35)
[2022-09-11 22:00] LABS: Appearance Urine Clear (Clear); Bilirubin Urine Negative (Negative); Blood Urine Negative (Negative); Color Urine Yellow (Yellow); Glucose Urine UA Negative (Negative); Ketones Urine Negative (Negative); Leukocyte Esterase Ur Negative LEU/UL (Negative); Nitrate Urine Negative (Negative); Protein Urine Negative (Negative); Urobilinogen Urine 0.2 mg/dL (<2.0)
[2022-09-11 22:01] LABS: Mucus Urine Rare /lpf; RBC Urine 0-2 /hpf (0-2); WBC Urine 0-3 /hpf
[2022-09-11 22:02] LABS: Add Urine Microscopic? YES
[2022-09-12] VITALS (17 sets, daily range): BP systolic 117–144; BP diastolic 50–73; PULSE 52–79; RESP 14–22; TEMP 36.3–36.8; O2SAT 93–97
[2022-09-12] MEDS: ALBUTEROL SULFATE NEB 2.5 MG/3 ML INH INHALATION ×4 (02:15→20:36)
[2022-09-12] MEDS: IPRATROPIUM BR 0.02% INH SOLN 0.5 MG/2.5 ML VIAL INHALATION ×4 (02:15→20:36)
[2022-09-12 05:06] LABS: Basophils Percent Auto 0.1 % (0.2-1.2); Hematocrit 39.1 % (42.0-52.0); Hemoglobin 12.3 g/dL (14.0-18.0); Immature Granulocyte Absolute 0.09 K/mm3 (0.00-0.031); Immature Granulocyte Percent A 0.9 % (0-0.5); Lymphocytes Percent Auto 9.4 % (18.3-44.2); Mean Corpuscular HGB Conc 31.5 g/dl (32-36); Mean Corpuscular Hemoglobin 31.8 pg (26-34); Mean Platelet Volume 9.9 fl (7.4-10.4); Monocytes Absolute Auto 0.4 K/mm3 (0.1-0.6); Monocytes Percent Auto 4.3 % (2.6-8.5); Neutrophils Absolute Auto 8.2 K/mm3 (1.3-6.7); Neutrophils Percent Auto 85.3 % (45.5-73.1); Platelet Count Result 213 k/mm3 (150-375); Red Blood Count 3.87 M/mm3 (4.6-6.20); Red Cell Distribution Width 13.3 % (11.5-14.5); White Blood Count 9.6 K/mm3 (4.5-10.0)
[2022-09-12 05:20] LABS: Alanine Aminotransferase 97 U/L (6-50); Albumin Level 3.7 g/dL (3.5-5.1); Alkaline Phosphatase 59 U/L (38-126); Anion Gap 4 mmol/L (8-16); Aspartate Amino Transferase 145 U/L (17-59); Bilirubin,Total 0.4 mg/dL (0.2-1.3); Blood Urea Nitrogen 37 mg/dL (9-20); Calcium 8.6 mg/dL (8.4-10.2); Carbon Dioxide 27 mmol/L (22-30); Chloride 107 mmol/L (98-107); Estimated CRCL calculation 55 ml/min; Estimated Glomerular Filt Rate > 60; Glucose 160 mg/dL (65-110); Potassium 4.3 mmol/L (3.4-5.0); Sodium 138 mmol/L (137-145)
[2022-09-12 05:43] LABS: Creatine Kinase 2935 U/L (55-170)
[2022-09-12] MEDS: DOXYCYCLINE 100 MG/NS 100 ML 100 MG/100 ML BAG IVPB ×2 (08:22→20:25)
[2022-09-12] MEDS: BENZONATATE 100 MG CAPSULE PO ×3 (08:23→16:42)
[2022-09-12] MEDS: DONEPEZIL HCL 10 MG TABLET PO (08:23)
[2022-09-12] MEDS: ENOXAPARIN 40 MG/0.4 ML SYRINGE SUB-Q (08:23)
[2022-09-12] MEDS: ASPIRIN 81 MG CHEWABLE TABLET PO (08:23)
[2022-09-12] MEDS: FUROSEMIDE INJ 40 MG/4 ML VIAL 20 MG IV PUSH ×2 (08:24→16:42)
[2022-09-12] MEDS: FLECAINIDE ACETATE 50 MG TABLET PO ×2 (08:24→20:24)
[2022-09-12] MEDS: MEMANTINE HCL XR 7 MG CAP PO (08:24)
[2022-09-12] MEDS: FAMOTIDINE 20 MG TABLET PO ×2 (08:24→20:24)
[2022-09-12] MEDS: QUEtiapine FUMARATE 25 MG TABLET PO ×3 (08:25→16:42)
[2022-09-12] MEDS: NEBIVOLOL HCL 2.5 MG TABLET PO (08:25)
[2022-09-12] MEDS: methylPREDNISolone SOD SUCC 40 MG VIAL IV PUSH ×2 (08:25→20:24)
--- NOTE | 2022-09-12 12:46 | PM.IMPN ---
Progress Note: A&P Assessment and Plan (1) Diffuse wheezing: Code(s): R06.2 - Wheezing Status: Acute Assessment and Plan: patient presents to the ED due to cough and shortness of breath. Chest x-ray revealed minimal airspace opacities consistent with atelectasis versus pneumonia. Differential includes COPD exacerbation, pneumonia, bronchitis, CHF exacerbation Patient started on DuoNebs Solu-Medrol Q 8 hours, titrate down as necessary. Patient started on Rocephin. Patient unable to take macrolides or fluoroquinolones due to QTC prolongation. Patient already taking QTC prolonging medications and EKG revealed QTC of 450. Patient also has an allergy to Keflex. Rocephin and Keflex have a low probability cross reactivity. Add doxy for atypical coverage. Blood cultures pending Moy Decker for cough Patient's labs stable. (2) Rhabdomyolysis: Code(s): M62.82 - Rhabdomyolysis Status: Acute Assessment [place]: [place] [address]. Patient does have bruising on the left arm but there is not mention of fall at the time of admission. Although patient has aortic stenosis, will start IV fluids for 1 day and monitor volume status. Gentle diuresis to avoid volume overload and CK clearance. 09/12/22 Pt CK today is 2935 and liver enzymes improved. (3) Aortic stenosis, moderate: Code(s): I35.0 - Nonrheumatic aortic (valve) stenosis Status: Acute Assessment and Plan: Will get echo to re-evaluate monitor closely as patient with aortic stenosis are very sensitive to volume change (4) CHF exacerbation: Qualifiers: Heart failure type: unspecified Qualified Code(s): I50.9 - Heart failure, unspecified Code(s): I50.9 - Heart failure, unspecified Status: Acute Assessment and Plan: Echo showing EF >70%, severe aortic stenosis, compared to 2019 aortic stenosis worsened, grade 1 diastolic dysfunction Gentle IV diuresis BNP 1190 (5) Atrial fibrillation: Qualifiers: Atrial fibrillation type: unspecified Qualified Code(s): I48.91 - Unspecified atrial fibrillation Code(s): I48.91 - Unspecified atrial fibrillation Status: Acute Assessment and Plan: Patient on flecainide resume home medication (6) Acute renal failure: Code(s): N17.9 - Acute kidney failure, unspecified Status: Acute Assessment and Plan: Most likely related to hypoperfusion secondary to CHF exacerbation will give IV diuresis monitor closely monitor urine output no improvement consider get ultrasound renal in a.m. Subjective Date/time seen: 09/12/22 12:46 Interval history: Patient up in the chair monitor the room. Patient stated to me that his cough is getting better. Patient is very confused. Patient has no complaints at this time. Denies CP, SOB, N/V/D Review of Systems Review of Systems: All systems reviewed & are unremarkable except as noted in HPI and below Exam Narrative: GENERAL: Comfortable, no acute distress HENMT: moist mucous membranes EYES: EOM intact b/l NECK: no lymphadenopathy RESPIRATORY: minimal crackles in the lung bases CARDIO: RRR GI: soft, nontender, bowel sounds present SKIN: no rashes EXTREMITIES: no edema, redness or tenderness Objective Data Vital Signs Vital Signs: Vital Signs - 24 hr 09/11/22 13:48 09/11/22 14:08 09/11/22 14:31 Temperature 98.9 F Pulse Rate 75 66 68 Respiratory Rate 20 20 20 Blood Pressure 132/63 Pulse Oximetry 95 Oxygen Delivery 09/11/22 20:13 09/11/22 20:30 09/11/22 20:15 Temperature 98.1 F Pulse Rate 58 L 60 66 Respiratory Rate 20 20 Blood Pressure 134/63 Pulse Oximetry 93 Oxygen Delivery 09/11/22 20:20 09/11/22 20:30 09/11/22 20:00 Temperature Pulse Rate 65 67 Respiratory Rate 20 Blood Pressure Pulse Oximetry 93 Oxygen Delivery Room Air Room Air 09/12/22 02:15
[2022-09-13] VITALS (13 sets, daily range): BP systolic 120–139; BP diastolic 57–78; PULSE 56–82; RESP 18–22; TEMP 36.2–36.6; O2SAT 93–96
[2022-09-13] MEDS: IPRATROPIUM BR 0.02% INH SOLN 0.5 MG/2.5 ML VIAL INHALATION ×4 (02:57→20:54)
[2022-09-13] MEDS: ALBUTEROL SULFATE NEB 2.5 MG/3 ML INH INHALATION ×4 (02:58→20:54)
--- NOTE | 2022-09-13 03:01 | PCRCNOTE ---
patient was confused and removed the apnea monitor twice
[2022-09-13 05:19] LABS: Basophils Percent Auto 0.2 % (0.2-1.2); Hematocrit 40.1 % (42.0-52.0); Hemoglobin 13.1 g/dL (14.0-18.0); Immature Granulocyte Absolute 0.12 K/mm3 (0.00-0.031); Immature Granulocyte Percent A 1.1 % (0-0.5); Lymphocytes Absolute Auto 1.02 K/mm3 (0.9-3.2); Lymphocytes Percent Auto 9.2 % (18.3-44.2); Mean Corpuscular HGB Conc 32.7 g/dl (32-36); Mean Corpuscular Hemoglobin 32.3 pg (26-34); Mean Corpuscular Volume 98.8 fl (80-100); Mean Platelet Volume 9.6 fl (7.4-10.4); Monocytes Absolute Auto 0.6 K/mm3 (0.1-0.6); Monocytes Percent Auto 5.6 % (2.6-8.5); Neutrophils Absolute Auto 9.3 K/mm3 (1.3-6.7); Neutrophils Percent Auto 83.9 % (45.5-73.1); Platelet Count Result 242 k/mm3 (150-375); Red Blood Count 4.06 M/mm3 (4.6-6.20); Red Cell Distribution Width 13.1 % (11.5-14.5); White Blood Count 11.1 K/mm3 (4.5-10.0)
[2022-09-13 05:31] LABS: Alanine Aminotransferase 98 U/L (6-50); Albumin Level 3.8 g/dL (3.5-5.1); Alkaline Phosphatase 62 U/L (38-126); Anion Gap 5 mmol/L (8-16); Aspartate Amino Transferase 99 U/L (17-59); Bilirubin,Total 0.5 mg/dL (0.2-1.3); Blood Urea Nitrogen 33 mg/dL (9-20); Calcium 8.7 mg/dL (8.4-10.2); Carbon Dioxide 29 mmol/L (22-30); Chloride 103 mmol/L (98-107); Creatine Kinase 1348 U/L (55-170); Estimated CRCL calculation 55 ml/min; Estimated Glomerular Filt Rate > 60; Glucose 157 mg/dL (65-110); Potassium 4.2 mmol/L (3.4-5.0); Sodium 137 mmol/L (137-145)
[2022-09-13] MEDS: QUEtiapine FUMARATE 25 MG TABLET PO ×3 (08:26→17:04)
[2022-09-13] MEDS: methylPREDNISolone SOD SUCC 40 MG VIAL IV PUSH ×2 (08:26→22:55)
[2022-09-13] MEDS: DOXYCYCLINE 100 MG/NS 100 ML 100 MG/100 ML BAG IVPB ×2 (08:26→22:49)
[2022-09-13] MEDS: NEBIVOLOL HCL 2.5 MG TABLET PO (08:26)
[2022-09-13] MEDS: DONEPEZIL HCL 10 MG TABLET PO (08:27)
[2022-09-13] MEDS: MEMANTINE HCL XR 7 MG CAP PO (08:27)
[2022-09-13] MEDS: FAMOTIDINE 20 MG TABLET PO ×2 (08:27→21:17)
[2022-09-13] MEDS: FLECAINIDE ACETATE 50 MG TABLET PO ×2 (08:27→21:17)
[2022-09-13] MEDS: FUROSEMIDE INJ 40 MG/4 ML VIAL 20 MG IV PUSH ×2 (08:27→17:04)
[2022-09-13] MEDS: ENOXAPARIN 40 MG/0.4 ML SYRINGE SUB-Q (08:27)
[2022-09-13] MEDS: ASPIRIN 81 MG CHEWABLE TABLET PO (08:27)
[2022-09-13] MEDS: BENZONATATE 100 MG CAPSULE PO ×3 (08:27→17:04)
--- NOTE | 2022-09-13 11:54 | P.PNIM_ITS ---
Progress Note: A&P Assessment and Plan (1) Diffuse wheezing: Code(s): R06.2 - Wheezing Status: Acute Assessment and Plan: patient presents to the ED due to cough and shortness of breath. * Chest x-ray revealed minimal airspace opacities consistent with atelectasis versus pneumonia. * Differential includes COPD exacerbation, pneumonia, bronchitis, CHF exacerbation * Patient started on DuoNebs * Solu-Medrol Q 12 hours * Patient started on Rocephin. Patient unable to take macrolides or fluoroquinolones due to QTC prolongation. Patient already taking QTC prolonging medications and EKG revealed QTC of 450. Patient also has an allergy to Keflex. Rocephin and Keflex have a low probability cross reactivity. Add doxy for atypical coverage. * Blood cultures pending * Tessalon Perles for cough * Patient's labs stable. (2) Rhabdomyolysis: Code(s): M62.82 - Rhabdomyolysis Status: Acute Assessment [place]: [place] [address]. Patient does have bruising on the left arm but there is not mention of fall at the time of admission. * Although patient has aortic stenosis, will start IV fluids for 1 day and monitor volume status. * Gentle diuresis to avoid volume overload and CK clearance. * 09/12/22 Pt CK today is 2935 and liver enzymes improved. * Continue to trend (3) Aortic stenosis, moderate: Code(s): I35.0 - Nonrheumatic aortic (valve) stenosis Status: Acute Assessment and Plan: Monitor closely as patient with aortic stenosis are very sensitive to volume change (4) CHF exacerbation: Qualifiers: Heart failure type: unspecified Qualified Code(s): I50.9 - Heart failur e, unspecified Code(s): I50.9 - Heart failure, unspecified Status: Acute Assessment and Plan: * Heart failure of unknown type * Echo showing EF >70%, severe aortic stenosis, compared to 2020 aortic stenosis worsened, grade 1 diastolic dysfunction * Gentle IV diuresis * BNP 1190 (5) Atrial fibrillation: Qualifiers: Atrial fibrillation type: unspecified Qualified Code(s): I48.91 - Unspecified atrial fibrillation Code(s): I48.91 - Unspecified atrial fibrillation Status: Acute Assessment and Plan: Patient on flecainide resume home medication (6) Acute renal failure: Code(s): N17.9 - Acute kidney failure, unspecified Status: Acute Assessment and Plan: Most likely related to hypoperfusion secondary to CHF exacerbation will give IV diuresis monitor closely monitor urine output no improvement consider get ultrasound renal in a.m. Subjective Date/time seen: 09/13/22 11:54 Interval history: cough is improving and patient is very adamant about going home. He has no complaints at this time. Review of Systems Review of Systems: All systems reviewed & are unremarkable except as noted in HPI and below Exam Narrative: GENERAL: Comfortable, no acute distress HENMT: moist mucous membranes EYES: EOM intact b/l NECK: no lymphadenopathy RESPIRATORY: Clear to auscultation CARDIO: RRR GI: soft, nontender, bowel sounds present SKIN: no rashes EXTREMITIES: no edema, redness or tenderness Objective Data Vital Signs Vital Signs: Vital Signs - 24 hr 09/12/22 13:59 09/12/22 14:19 09/12/22 14:30 Temp
--- NOTE | 2022-09-13 11:54 | PM.IMPN ---
Progress Note: A&P Assessment and Plan (1) Diffuse wheezing: Code(s): R06.2 - Wheezing Status: Acute Assessment and Plan: patient presents to the ED due to cough and shortness of breath. Chest x-ray revealed minimal airspace opacities consistent with atelectasis versus pneumonia. Differential includes COPD exacerbation, pneumonia, bronchitis, CHF exacerbation Patient started on DuoNebs Solu-Medrol Q 12 hours Patient started on Rocephin. Patient unable to take macrolides or fluoroquinolones due to QTC prolongation. Patient already taking QTC prolonging medications and EKG revealed QTC of 450. Patient also has an allergy to Keflex. Rocephin and Keflex have a low probability cross reactivity. Add doxy for atypical coverage. Blood cultures pending Moy Decker for cough Patient's labs stable. (2) Rhabdomyolysis: Code(s): M62.82 - Rhabdomyolysis Status: Acute Assessment [place]: [place] [address]. Patient does have bruising on the left arm but there is not mention of fall at the time of admission. Although patient has aortic stenosis, will start IV fluids for 1 day and monitor volume status. Gentle diuresis to avoid volume overload and CK clearance. 09/12/22 Pt CK today is 2935 and liver enzymes improved. Continue to trend (3) Aortic stenosis, moderate: Code(s): I35.0 - Nonrheumatic aortic (valve) stenosis Status: Acute Assessment and Plan: Monitor closely as patient with aortic stenosis are very sensitive to volume change (4) CHF exacerbation: Qualifiers: Heart failure type: unspecified Qualified Code(s): I50.9 - Heart failure, unspecified Code(s): I50.9 - Heart failure, unspecified Status: Acute Assessment and Plan: Heart failure of unknown type Echo showing EF >70%, severe aortic stenosis, compared to 2019 aortic stenosis worsened, grade 1 diastolic dysfunction Gentle IV diuresis BNP 1190 (5) Atrial fibrillation: Qualifiers: Atrial fibrillation type: unspecified Qualified Code(s): I48.91 - Unspecified atrial fibrillation Code(s): I48.91 - Unspecified atrial fibrillation Status: Acute Assessment and Plan: Patient on flecainide resume home medication (6) Acute renal failure: Code(s): N17.9 - Acute kidney failure, unspecified Status: Acute Assessment and Plan: Most likely related to hypoperfusion secondary to CHF exacerbation will give IV diuresis monitor closely monitor urine output no improvement consider get ultrasound renal in a.m. Subjective Date/time seen: 09/13/22 11:54 Interval history: cough is improving and patient is very adamant about going home. He has no complaints at this time. Review of Systems Review of Systems: All systems reviewed & are unremarkable except as noted in HPI and below Exam Narrative: GENERAL: Comfortable, no acute distress HENMT: moist mucous membranes EYES: EOM intact b/l NECK: no lymphadenopathy RESPIRATORY: Clear to auscultation CARDIO: RRR GI: soft, nontender, bowel sounds present SKIN: no rashes EXTREMITIES: no edema, redness or tenderness Objective Data Vital Signs Vital Signs: Vital Signs - 24 hr 09/12/22 13:59 09/12/22 14:19 09/12/22 14:30 Temperature 97.5 F L Pulse Rate 60 60 58 L Respiratory Rate 18 18 14 Blood Pressure 136/66 Pulse Oximetry 97 Oxygen Delivery Fraction of Inspired Oxygen 09/12/22 20:24 09/12/22 20:37 09/12/22 20:00 Temperature Pulse Rate 62 62 62 Respiratory Rate 18 18 Blood Pressure Pulse Oximetry 97 Oxygen Delivery Room Air Fraction of Inspired Oxygen 21 09/12/22 22:18 09/13/22 02:59 09/12/22 20:35 Temperature 97.4 F L Pulse Rate 62 58 L Respiratory Rate 18 18 Blood Pressure 117/50 L Pulse Oximetry 96 96 Oxygen Delivery Room Air Fraction of Inspired Oxygen 09/12/22
[2022-09-13] MEDS: SODIUM CHLORIDE 0.9% IV 1,000 ML 100 ML IV CONT (12:16)
--- NOTE | 2022-09-13 13:09 | P.CDI_ITS ---
CDI Query Clarified Diagnosis Clarified Diagnosis: Elevated BNP on 09/09/22 lab work. Lasix is taken as a home medication. Pt receiving Lasix. CHF noted on the assessment and plan. Documented history of CHF. Pt presented with Shortness of breath, cough and BLE edema. Please specify type and acuity of heart failure if known. * Acute * Chronic * Acute on Chronic * Unknown * Systolic * Diastolic * Combined Systolic and Diastolic * Unknown
[2022-09-14] VITALS (7 sets, daily range): BP systolic 145; BP diastolic 78; PULSE 58–70; RESP 18–22; TEMP 36.8; O2SAT 95
[2022-09-14] MEDS: IPRATROPIUM BR 0.02% INH SOLN 0.5 MG/2.5 ML VIAL INHALATION ×3 (02:19→13:19)
[2022-09-14] MEDS: ALBUTEROL SULFATE NEB 2.5 MG/3 ML INH INHALATION ×3 (02:19→13:19)
[2022-09-14] MEDS: SODIUM CHLORIDE 0.9% IV 1,000 ML 100 ML IV CONT (03:39)
[2022-09-14 05:30] LABS: Basophils Percent Auto 0.2 % (0.2-1.2); Hematocrit 38.8 % (42.0-52.0); Hemoglobin 12.6 g/dL (14.0-18.0); Immature Granulocyte Absolute 0.08 K/mm3 (0.00-0.031); Immature Granulocyte Percent A 0.9 % (0-0.5); Lymphocytes Absolute Auto 0.93 K/mm3 (0.9-3.2); Lymphocytes Percent Auto 10.4 % (18.3-44.2); Mean Corpuscular HGB Conc 32.5 g/dl (32-36); Mean Corpuscular Hemoglobin 31.3 pg (26-34); Mean Corpuscular Volume 96.5 fl (80-100); Mean Platelet Volume 10.1 fl (7.4-10.4); Monocytes Absolute Auto 0.6 K/mm3 (0.1-0.6); Monocytes Percent Auto 6.1 % (2.6-8.5); Neutrophils Absolute Auto 7.4 K/mm3 (1.3-6.7); Neutrophils Percent Auto 82.4 % (45.5-73.1); Platelet Count Result 250 k/mm3 (150-375); Red Blood Count 4.02 M/mm3 (4.6-6.20); Red Cell Distribution Width 12.9 % (11.5-14.5)
[2022-09-14 05:50] LABS: Alanine Aminotransferase 100 U/L (6-50); Albumin Level 3.6 g/dL (3.5-5.1); Alkaline Phosphatase 56 U/L (38-126); Anion Gap 5 mmol/L (8-16); Aspartate Amino Transferase 84 U/L (17-59); Bilirubin,Total 0.6 mg/dL (0.2-1.3); Blood Urea Nitrogen 34 mg/dL (9-20); Calcium 8.5 mg/dL (8.4-10.2); Carbon Dioxide 28 mmol/L (22-30); Chloride 104 mmol/L (98-107); Estimated CRCL calculation 66 ml/min; Estimated Glomerular Filt Rate > 60; Glucose 165 mg/dL (65-110); Potassium 4.5 mmol/L (3.4-5.0); Sodium 137 mmol/L (137-145)
[2022-09-14 07:28] LABS: Creatine Kinase 856 U/L (55-170)
[2022-09-14] MEDS: DOXYCYCLINE HYCLATE 100 MG TABLET PO (07:59)
[2022-09-14] MEDS: MEMANTINE HCL XR 7 MG CAP PO (07:59)
[2022-09-14] MEDS: FLECAINIDE ACETATE 50 MG TABLET PO (07:59)
[2022-09-14] MEDS: QUEtiapine FUMARATE 25 MG TABLET PO ×2 (07:59→12:08)
[2022-09-14] MEDS: ASPIRIN 81 MG CHEWABLE TABLET PO (07:59)
[2022-09-14] MEDS: CEFDINIR 300 MG CAPSULE PO (08:00)
[2022-09-14] MEDS: BENZONATATE 100 MG CAPSULE PO ×2 (08:00→12:07)
[2022-09-14] MEDS: DONEPEZIL HCL 10 MG TABLET PO (08:00)
[2022-09-14] MEDS: ENOXAPARIN 40 MG/0.4 ML SYRINGE SUB-Q (08:00)
[2022-09-14] MEDS: NEBIVOLOL HCL 2.5 MG TABLET PO (08:00)
[2022-09-14] MEDS: FAMOTIDINE 20 MG TABLET PO (08:00)
[2022-09-14] MEDS: FUROSEMIDE 40 MG TABLET PO (12:07)
--- NOTE | 2022-09-14 12:42 | PM.DS ---
DS: Admitting Diagnosis Discharge Date 09/14/22 Admitting Diagnosis shortness of breath, rhabdomyolysis DS: Discharge Diagnosis Discharge Diagnosis (1) Diffuse wheezing: Code(s): R06.2 - Wheezing Status: Acute Assessment and Plan: patient presents to the ED due to cough and shortness of breath. Chest x-ray revealed minimal airspace opacities consistent with atelectasis versus pneumonia. Differential includes COPD exacerbation, pneumonia, bronchitis, CHF exacerbation Patient started on DuoNebs Solu-Medrol Q 12 hours Patient started on Rocephin. Patient unable to take macrolides or fluoroquinolones due to QTC prolongation. Patient already taking QTC prolonging medications and EKG revealed QTC of 450. Patient also has an allergy to Keflex. Rocephin and Keflex have a low probability cross reactivity. Add doxy for atypical coverage. Blood cultures pending Moy Decker for cough Patient's labs stable. (2) Rhabdomyolysis: Code(s): M62.82 - Rhabdomyolysis Status: Acute Assessment [place]: [place] [address]. Patient does have bruising on the left arm but there is not mention of fall at the time of admission. Although patient has aortic stenosis, will start IV fluids for 1 day and monitor volume status. Gentle diuresis to avoid volume overload and CK clearance. 09/12/22 Pt CK today is 2935 and liver enzymes improved. Continue to trend (3) Aortic stenosis, moderate: Code(s): I35.0 - Nonrheumatic aortic (valve) stenosis Status: Acute Assessment and Plan: Monitor closely as patient with aortic stenosis are very sensitive to volume change (4) CHF exacerbation: Qualifiers: Heart failure type: unspecified Qualified Code(s): I50.9 - Heart failure, unspecified Code(s): I50.9 - Heart failure, unspecified Status: Acute Assessment and Plan: Heart failure of unknown type Echo showing EF >70%, severe aortic stenosis, compared to 2019 aortic stenosis worsened, grade 1 diastolic dysfunction Gentle IV diuresis BNP 1190 (5) Atrial fibrillation: Qualifiers: Atrial fibrillation type: unspecified Qualified Code(s): I48.91 - Unspecified atrial fibrillation Code(s): I48.91 - Unspecified atrial fibrillation Status: Acute Assessment and Plan: Patient on flecainide resume home medication (6) Acute renal failure: Code(s): N17.9 - Acute kidney failure, unspecified Status: Acute Assessment and Plan: Most likely related to hypoperfusion secondary to CHF exacerbation will give IV diuresis monitor closely monitor urine output no improvement consider get ultrasound renal in a.m. DS: Summary Hospital Course Reason for hospitalization: shortness of breath, rhabdomyolysis Hospital Course: This is a 82-year-old male with a history of dementia, AFib and aortic stenosis a present to the ED on 09/09/2022 with worsening shortness of breath. Patient was found to have wheezing on exam. Labs revealed an elevated creatinine and BNP. Chest x-ray revealed minimal airspace opacities consistent with atelectasis versus pneumonia. Differential diagnosis included COPD exacerbation, pneumonia, bronchitis, CHF exacerbation. Patient's wheezing improved with Solu-Medrol. Patient did not require supplemental oxygen. Patient also started on Rocephin and doxycycline in for pneumonia coverage. Patient unable to take macrolides or fluoroquinolones due to QTC prolongation. Blood cultures no growth after 4 days. Will continue to monitor blood cultures for total of 5 days. Patient given guaifenesin and Tessalon Perles for his cough. On discharge patient will be given cefdinir to continue antibiotic treatment for total of 7 days. Doxycycline course finished in the hospital. Patient only complaint at discharge is cough. Patient's cough is nonproductive and does seem to be improving. Shanice
[2022-09-16 01:27] LABS: Legionella pneumophila Ag Ur Not Detected (Not Detected)
== END 2022-09-14 14:11 | DRG 291 ==
LOC: ANHED 22:02 → ANH3MED 23:06 → ANH2MED 23:07
PROVIDERS: Internal Medicine; Admitting Provider Internal Medicine; Emergency Provider Emergency Medicine; PCP Internal Medicine; Visit Provider Internal Medicine Critical Care Medicine
DX: I13.0 Hypertensive heart and chronic kidney disease with heart failure and stage 1 through stage 4 chronic kidney disease, or unspecified chronic kidney disease (principal); I50.33 Acute on chronic diastolic (congestive) heart failure; J18.9 Pneumonia, unspecified organism; N17.9 Acute kidney failure, unspecified; J44.1 Chronic obstructive pulmonary disease with (acute) exacerbation; M62.82 Rhabdomyolysis; J44.0 Chronic obstructive pulmonary disease with (acute) lower respiratory infection; I48.91 Unspecified atrial fibrillation; I35.0 Nonrheumatic aortic (valve) stenosis; N18.30 Chronic kidney disease, stage 3 unspecified; Z20.822 Contact with and (suspected) exposure to COVID-19; Z86.16 Personal history of COVID-19; Z79.899 Other long term (current) drug therapy
CPT/HCPCS: 36415; 71046; 71275; 80053; 81001; 82550; 83605; 83880; 84439; 84443; 84480; 84484; 85025; 87040; 87449; 87637; 92610; 93005; 93306; 94640; 96361; 96365; 96366; 96367; 96372; 96375; 96376; 97110; 97116; 97161; 97165; 97530; 97535; 99285; A9270; G0378; J0696; J1650; J1940; J1956; J2920; J2930; J7030; Q9967

== ENCOUNTER 2024-01-25 08:59 | Emergency (ER) | payer MEDICARE, SELFPAY ==
--- NOTE | ~2024-01-25 | CT_ITS ---
EXAMINATION: CT diagnostic chest wo con DATE: 01/25/2024 10:46 INDICATION: rib and sternum injury TECHNIQUE: Computed tomography (CT) of the chest was performed without intravenous contrast. Addition al 3D reconstructions utilizing coronal maximum intensity projection (MIP) were performed. Automated exposure control and iterative reconstruction technique were employed. The dose-length product was 56 2.44 mGy-cm. COMPARISON: 09/09/2022 FINDINGS: There is respiratory motion in the lungs. Linear and groundglass opacities with bilateral dependent l ower lobe predominance with associated volume loss consistent with atelectasis related to expiratory phase of imaging with concave posterior wall of the trachea and bilateral mainstem bronchi consistent with expiratory phase of imaging. The flattening of the trachea and mainstem bronchi is also consist ent with tracheobronchomalacia. Calcified right lower lobe nodule along with calcified right hilar ly mph nodes consistent with old granulomatous disease. No pulmonary edema, pleural effusion or pneumoth orax. Cardio likely. Atherosclerotic coronary artery calcifications and aortic valve calcific locatio n. Thoracic aorta is normal in caliber. No pathologically enlarged thoracic lymphadenopathy. Bilatera l gynecomastia. Visualized upper abdomen is unremarkable. Chronic T12 compression fracture with 20% a nterior vertebral body height loss. There are bridging osteophytes at multiple levels consistent with diffuse idiopathic skeletal hyperostosis (DISH). No acute osseous abnormality. Specifically no moulton al or rib fractures identified. IMPRESSION: 1. No acute osseous abnormality or acute cardiopulmonary disease. 2. Expiratory phase of imaging with bone loss and atelectasis in both lungs and with prominent flatte axel of the trachea and mainstem bronchi consistent with tracheobronchomalacia. Reviewed, dictated and finalized at location A. IMPRESSION: 1. No acute osseous abnormality or acute cardiopulmonary disease. 2. Expiratory phase of imaging with bone loss and atelectasis in both lungs and with prominent flattening of the trachea and mainstem bronchi consistent with tracheobronchomalacia.
[2024-01-25 09:24] VITALS: BP 117/53; PULSE 87; RESP 12; TEMP 37.2; O2SAT 94
--- NOTE | 2024-01-25 10:05 | ED.FALL ---
HPI - Fall General Chief Complaint: Fall Stated Complaint: FALL LAST NIGHT ON BATHROOM FLOOR Time Seen by Provider: 01/25/24 09:33 History of Present Illness HPI Narrative: 83-year-old male history of CHF, COPD, Alzheimer's disease presents to the emergency room for evaluation of chest injury. According to family who is at the bedside of the patient, patient got up in the night to go to the restroom and was found by his of laying 11 partially in the shower. Is that she has found patient lying on the floor before, is normally able to get up on his own and return to the bed. Patient pulled the emergency cord midnight, and he laid on the ground until 8:00 a.m. this morning. Patient is complaining of midsternal chest pain that radiates into bilateral ribs. Pain is worse with inspiration. Denies any other injuries or pain. Related Data Home Medications Medication Instructions Recorded Confirmed aspirin 81 mg chewable tablet 81 mg PO DAILY 03/31/20 09/10/22 memantine ER 7 mg-donepezil 10 mg 1 cap PO DAILY 03/31/20 09/10/22 capsule sprinkle,ext.release 24 hour (Namzaric) nebivolol 2.5 mg tablet (Bystolic) 2.5 mg PO DAILY 03/31/20 09/10/22 vortioxetine 20 mg tablet 20 mg PO DAILY 03/31/20 09/10/22 (Trintellix) furosemide 20 mg tablet 20 mg PO 3XW 06/05/22 09/10/22 rosuvastatin 10 mg tablet 10 mg PO 10/28/22 Allergies Allergy/AdvReac Type Severity Reaction Status Date / Time cephalexin [From Keflex] Allergy Unknown Verified 10/28/22 15:17 Review of Systems Review of Systems: ROS unremarkable except for noted PMFSH Past Medical History Medical History Atrial fibrillation CHF (congestive heart failure) Dementia Stage 3 chronic kidney disease Surgical History Surgical History Surgical history unknown Family History Family History Mother Acute myocardial infarction Cerebrovascular accident Father Dementia Social History Social History Social History: patient is resident of [place] lives with his Norma Matute. Smoking status: Never smoker Alcohol intake: never Substance use: never Substance use type: does not use Gender identity (if verbalized by the patient): Male Spiritual care concerns: No Exam Narrative: GENERAL: chronically ill-appearing, well-nourished, and in no acute distress. HEAD: Normocephalic, atraumatic. EYES: Conjunctivae normal, PERRLA and EOMI. CHEST: inspiratory wheezing and apices, rhonchi bases. tenderness across the sternum, and medial aspects of the ribs to either side. Ecchymosis noted over anterior chest wall HEART: Regular rate and rhythm. No murmur heard. Normal peripheral pulses. ABDOMEN: Soft, nontender, nondistended, normal active bowel sounds. : Normal external male/female exam. BACK: No CVA tenderness; No cervical/thoracic/lumbar tenderness, step-offs, bony abnormality; FROM EXTREMITIES: Normal range of motion. No edema. No clubbing or cyanosis SKIN: Warm, dry, no rash. No noted wounds NEURO: No focal deficits. Alert and oriented x2. MAEW. CN's II-XI intact bilaterally, PSYCH: Cooperative. Normal mood and affect. Course Course Emergency Course: 1145: patient able to ambulate with the assistance of a walker. Vital Signs Vital signs: Vital Signs Temperature 37.2 C 01/25/24 09:24 Pulse Rate 87 01/25/24 09:24 Respiratory Rate 12 01/25/24 09:24 Blood Pressure 117/53 L 01/25/24 09:24 Pulse Oximetry 94 01/25/24 09:24 Temperature 37.2 C 01/25/24 09:24 Pulse Rate 87 01/25/24 09:24 Respiratory Rate 12 01/25/24 09:24 Blood Pressure 117/53 L 01/25/24 09:24 Pulse Oximetry 94 01/25/24 09:24 MDM - Fall Imaging Data Radiologist's impression: Olga Lidia
[2024-01-25 10:30] VITALS: PULSE 59; RESP 18; O2SAT 94
[2024-01-25 11:26] VITALS: PULSE 62; RESP 20; O2SAT 95
[2024-01-25 11:30] VITALS: PULSE 60; RESP 21; O2SAT 95
--- NOTE | 2024-01-25 11:42 | PC.NURSE ---
Patient ambulated with aid of walker.
== END 2024-01-25 11:53 | disposition home or self-care (01) ==
PROVIDERS: Emergency Provider Nurse Practitioner Family; PCP Internal Medicine
DX: S20.213A Contusion of bilateral front wall of thorax, initial encounter (principal); I50.9 Heart failure, unspecified; I48.91 Unspecified atrial fibrillation; N18.30 Chronic kidney disease, stage 3 unspecified; J44.9 Chronic obstructive pulmonary disease, unspecified; G30.9 Alzheimer's disease, unspecified; F02.80 Dementia in other diseases classified elsewhere, unspecified severity, without behavioral disturbance, psychotic disturbance, mood disturbance, and anxiety; Z79.82 Long term (current) use of aspirin; Z79.899 Other long term (current) drug therapy; W19.XXXA Unspecified fall, initial encounter
CPT/HCPCS: 71250; 99284

== ENCOUNTER 2024-08-23 09:06 | Emergency (ER) | payer MEDICARE, SELFPAY ==
[2024-08-23] VITALS (19 sets, daily range): BP systolic 97–166; BP diastolic 54–150; PULSE 52–84; RESP 7–29; TEMP 36.9; O2SAT 83–99
--- NOTE | ~2024-08-23 | XR_ITS ---
Left Knee Technique: AP, lateral, and sunrise views were obtained. Clinical History: Pain Findings: No fracture or dislocation is seen. Osseous alignment is anatomic. Joint spaces are preserv ed without degenerative or erosive change. Soft tissues are unremarkable. No joint effusion is seen. Impression: Unremarkable left knee radiographs. Reviewed, dictated and finalized at location . EL WRAPPER Impression: Unremarkable left knee radiographs.
--- NOTE | ~2024-08-23 | XR_ITS ---
Right foot Technique: AP, oblique, and lateral views were obtained. Clinical History: Pain Findings: No acute fracture or dislocation is seen. Osseous alignment is anatomic. Joint spaces are p reserved without erosive or degenerative change. Soft tissues are unremarkable. Impression: Unremarkable right foot radiographs. Reviewed, dictated and finalized at location . GHTSMAN Impression: Unremarkable right foot radiographs.
--- NOTE | ~2024-08-23 | XR_ITS ---
EXAMINATION: XR chest 2V DATE: 08/23/2024 10:35 INDICATION: Fall. TECHNIQUE: Frontal and lateral views of the chest were obtained. COMPARISON: Chest 2 views 09/09/2022, chest CT 01/25/2024 FINDINGS: The lung volumes are small. Calcified right lung nodules and calcified right hilar lymph no po are consistent with old granulomatous disease. There is mild atelectasis in left midlung zone. No pleural effusion or pneumothorax. The heart size is normal. IMPRESSION: 1. Small lung volumes with mild atelectasis in left midlung zone. Reviewed, dictated and finalized at location A. RESCUE CRAFTSMAN
--- NOTE | ~2024-08-23 | CT_ITS ---
EXAMINATION: CT brain wo con DATE: 08/23/2024 10:02 INDICATION: Fall. TECHNIQUE: Computed tomography (CT) of the head was performed without intravenous contrast. The mA wa s adjusted according to patient size. Iterative reconstruction technique was employed. The dose-lengt h product was 681.00 mGy-cm. COMPARISON: Head CT 03/31/2020 FINDINGS: There are scattered areas of low attenuation in the cerebral white matter. There is no intr acranial hemorrhage, acute infarction, or abnormal intracranial mass lesion. The ventricles are rupinder l in size. There is mild mucosal thickening in the paranasal sinuses. There are likely changes of ocu lar lens replacement surgeries. The mastoid air cells are normal. IMPRESSION: 1. Stable moderate nonspecific cerebral white matter disease, which likely represents chronic small v essel ischemic disease. Reviewed, dictated and finalized at location A. DEVELOPER IMPRESSION: 1. Stable moderate nonspecific cerebral white matter disease, which likely repr esents chronic small vessel ischemic disease.
--- NOTE | ~2024-08-23 | XR_ITS ---
Left foot Technique: AP, oblique, and lateral views were obtained. Clinical History: Pain Findings: No acute fracture or dislocation is seen. Osseous alignment is anatomic. Joint spaces are p reserved without erosive or degenerative change. Soft tissues are unremarkable. Impression: Unremarkable left foot radiographs. Reviewed, dictated and finalized at location . OR JAVA ARCHITECT Impression: Unremarkable left foot radiographs.
--- NOTE | ~2024-08-23 | XR_ITS ---
AP view of the pelvis and AP and lateral views of the bilateral hips Clinical history: Pain Findings: No acute fracture or dislocation is seen. Osseous alignment is anatomic. There is minimal d egenerative change of both hip joints. There is mild degenerative change of both SI joints.. There is degenerative spondylosis of the visualized lower lumbar spine. Soft tissues are unremarkable. Impression: No acute abnormality. Degenerative changes, as above. Reviewed, dictated and finalized at location M. IUM PLATER Impression: No acute abnormality. Degenerative changes, as above.
--- NOTE | ~2024-08-23 | XR_ITS ---
EXAMINATION: XR knee RT 3V DATE: 08/23/2024 10:35 INDICATION: Right knee injury post fall TECHNIQUE: Anteroposterior, oblique and crosstable lateral views of the right knee were obtained COMPARISON: None. FINDINGS: Alignment is normal. No fracture. Joint spaces are normal on nonweightbearing imaging. Tiny marginal osteophytes along the patella. Small right knee joint effusion without layering lipohemarthrosis. So ft tissues are unremarkable. IMPRESSION: 1. Small right knee joint effusion. No acute osseous abnormality. Reviewed, dictated and finalized at location A. ERCIAL REAL ESTATE UNDERWRITER
--- NOTE | ~2024-08-23 | CT_ITS ---
Noncontrast CT scan of the cervical spine Technique: Multiple contiguous axial [address] images of the cervical spine were obtained and rec onstructed in 2D sagittal and coronal planes on the acquisition scanner. Dose reduction technique was used on this scan by utilizing automated exposure control, adjustment of the mA and/or kV according to patient size. The dose-length product (DLP) was 561.76 mGy-cm. Clinical History: Pain Findings: No fractures or dislocations. There is straightening of normal cervical lordosis. There is moderate degenerative disc narrowing at C5-C6. There is multilevel moderate facet arthropathy throug hout the cervical spine. There is right neural foraminal narrowing at C2-C3. There is bilateral neura l foraminal narrowing, left worse than right, at C3-C4. There is bilateral neural foraminal narrowing at C5-C6 with probable minimal canal stenosis. Probable minimal bilateral neural foraminal narrowing at C6-C7.. No prevertebral soft tissue swelling. Impression: No fracture or subluxation of the cervical spine. Degenerative spondylosis, as above. Reviewed, dictated and finalized at [facility]. SUPERVISOR Impression: No fracture or subluxation of the cervical spine. Degenerative spondylosis, as above.
--- OUTSIDE RECORDS SUMMARY | 2024-08-23 09:36 | XMS_ITS | Referral Summary ---
Author Organization [facility] Address [address] [facility] [place] [address] Care Team Providers Care Cloth Printing Back Tender Name Role Phone Remy An MD Primary Care Provider [phone] Source Comments [facility],non-christian hospital Affiliates and Associated Physician Practices is amultiple site organization consisting of ambulatory clinics and hospital sitesin [place], [place], [place] and [place]. This disclosure is being madepursuant to the Care Everywhere program and may not contain all information available regarding this patient. Last updated 18.[facility] Social History Tobacco Use Types Packs/Day Years Used Date Smoking Tobacco: Never Assessed Sex and Gender Information Value Date Recorded Sex Assigned at Not on file Gender Identity Not on file Sexual Orientation Not on file Last Filed Vital Signs Vital Sign Reading Time Taken Comments Blood Pressure 120/71 12/09/2014 10:31 AM CDT Pulse 52 12/09/2014 10:31 AM CDT Temperature - - Respiratory Rate 16 12/09/2014 8:28 AM CDT Oxygen Saturation 97% 12/09/2014 10:31 AM CDT Inhaled Oxygen Concentration - - Weight 83.9 kg (185 lb) 12/09/2014 8:28 AM CDT Height 175.3 cm (5' 9 ) 12/09/2014 8:28 AM CDT Body Mass Index 27.32 12/09/2014 8:28 AM CDT Plan of Treatment Not on file Care Teams Cloth Printing Back Tender Relationship Specialty Start Date End Date Remy An MD [address] [place] [address] [address] [place] [address] PCP - General Internal Medicine 11/15/17
--- OUTSIDE RECORDS SUMMARY | 2024-08-23 09:36 | XMS_ITS | Encounter Summary ---
Author Organization [facility] Address [address] [facility] [place] [address] Care Team Providers Care Treasury Manager Name Role Phone Remy An MD Primary Care Provider [phone] Encounter Details Date Type Department Care Team (Late st Contact Info) Description 12/09/2022 Lab Requisition [facility] - DermPath Lab [address] [facility] [place] [id number] See Joseph MD [address] [place] [address] Social History Tobacco Use Types Packs/Day Years Used Date Smoking Tobacco: Never Assessed Sex and Gender Information Value Date Recorded Sex Assigned at Not on file Gender Identity Not on file Sexual Orientation Not on file documented as of this encounter Plan of Treatment Not on file documented as of this encounter Procedures Procedure Name Priority Date/Time Associated Diagnosis Comments DERMATOPATHOLOGY Routine 12/08/2022 12:0 0 AM CDT documented in this encounter Results * DERMATOPATHOLOGY (12/08/2022 12:00 AM CDT) Case Report Dermatopathology Report Case: [id number] Authorizing Provider: See Joseph MD Collected: 12/08/2022 12:00 AM Ordering Location: [facility] DermPath Lab Received: 12/09/2022 02:05 PM Pathologist: Mckay Little MD Specimens: A) - Skin, left styloid process B) - Skin, left chin 11:56 AM [facility] Final Diagnosis Specimen A. SKIN, left styloid process: BENIGN VERRUCOUS KERATOSIS (L82.1) DERMAL FIBROSIS (L90.5) Specimen B. SKIN, left chin: BASAL CELL CARCINOMA, NODULAR TYPE (C44.319) 11:56 AM [facility] Clinical History A-B: R/O SCC 11:56 AM [facility] [place] Gross Description Specimen A: Received is one formalin filled container labeled with the patient's name and designated left styloid process. The specimen consists of a shave biopsy measuring 10x8x1 mm. Jar 0. Specimen B: Received is one formalin filled container labeled with the patient's name and designated left chin. The specimen consists of a shave biopsy measuring 8x6x2 mm. Jar 0. 11:56 AM [facility] Microscopic Description Specimen A. SKIN, left styloid process: Sections show hyperkeratosis, papillomatosis, hypergranulosis, and acanthosis. These histological findings can be seen in a verruca vulgaris or a seborrheic keratosis. There is focal dermal fibrosis. Specimen B. SKIN, left chin: Within the dermis there are aggregates of basaloid cells with a high nuclear to cytoplasmic ratio and peripheral palisading. 11:56 AM [facility] Disclaimer An external and internal positive and negative controls are appropriate for the histochemical, immunohistochemical and immunofluorescence stain(s) in this case (if any), except where stated explicitly. The performance characteristics of the stain(s) cited in this report were developed and its performance characteristic determined by the Dermatopathology Laboratory at [facility], directed by Dr. Hermelindo Little. These tests need not be, and therefore are not, approved by the [place] Food and Drug Administration. The tests are used for clinical purposes. Billing Codes Specimen Charges Stain Charges 37440 19743 1 1 11:56 AM [facility] [place] Embedded Images 11:56 AM [facility] [place] [facility] Pathology/Cytology TISSUE SPECIMEN FROM SKIN / Unknown 12/08/2022 12/09/2022 2:05 PM CDT Miscellaneous samples (specimen) TISSUE SPECIMEN FROM SKIN / Unknown 12/08/2022 12/09/2022 2:05 PM CDT See Joseph MD LAB - PATHOLOGY/CYTO LOGY ORDERABLES DERMATOPATHOLOGY LABORATORY [facility] - Department of Dermatology [facility] Medicine [address] [place] [address], [address] [phone] documented in this encounter Visit Diagnoses Not on filedocumented in this encounter Care Teams Treasury Manager Relationship Specialty Start Date End Date Remy An MD [address] [place] [address] [address] [place] [address] PCP - General Internal Medicine 11/15/17 documented as of this encounter
--- OUTSIDE RECORDS SUMMARY | 2024-08-23 09:36 | XMS_ITS | Encounter Summary ---
Author Organization [facility] Address [address] [place] [address] Care Team Providers Care Correctional Probation Officer Name Role Phone Remy An MD Primary Care Provider [phone] Encounter Details Date Type Department Care Team (Late st Contact Info) Description 09/06/2019 Lab Requisition [facility] DermPath Lab [address] [facility] [place] [address] See Joseph MD [address] [place] [address] Social History Tobacco Use Types Packs/Day Years Used Date Smoking Tobacco: Never Assessed Sex and Gender Information Value Date Recorded Sex Assigned at Not on file Gender Identity Not on file Sexual Orientation Not on file documented as of this encounter Plan of Treatment Not on file documented as of this encounter Procedures Procedure Name Priority Date/Time Associated Diagnosis Comments DERMATOPATHOLOGY Routine 09/05/2019 12:0 0 AM ORTHODONTIC TECHNICIAN documented in this encounter Results * DERMATOPATHOLOGY (09/05/2019 12:00 AM ORTHODONTIC TECHNICIAN) Case Report Dermatopathology Report Case: [id number] Authorizing Provider: See Joseph MD Collected: 09/05/2019 12:00 AM Ordering Location: [facility] DermPath Lab Received: 09/06/2019 01:46 PM Pathologist: Mckay Little MD Specimens: A) - Skin, right ext FA B) - Skin, left med distal thigh 0 12:51 PM [facility] DERMATOPATHOLOGY LABORATORY Final Diagnosis Specimen A. SKIN, right ext FA: HYPERPLASTIC (HYPERTROPHIC) ACTINIC KERATOSIS (L57.0) EPIDERMAL NECROSIS SUGGESTIVE OF EXCORIATION (L98.499) Specimen B. SKIN, left med distal thigh: HYPERPLASTIC (HYPERTROPHIC) ACTINIC KERATOSIS WITH ASSOCIATED CHANGES OF PRURIGO NODULARIS (L57.0) 0 12:51 PM [facility] DERMATOPATHOLOGY LABORATORY Clinical History A-B: R/O LSC. 0 12:51 PM [facility] DERMATOPATHOLOGY LABORATORY Gross Description Specimen A: Received is one formalin filled container labeled with the patient's name and designated right ext FA. The specimen consists of a shave biopsy measuring 3g2l5pd. Jar 0. Specimen B: Received is one formalin filled container labeled with the patient's name and designated left med distal thigh. The specimen consists of a shave biopsy measuring [id number]. Jar 0. 0 12:51 PM [facility] DERMATOPATHOLOGY LABORATORY Microscopic Description Specimen A. SKIN, right ext FA: There is hyperkeratosis alternating with parakeratosis. There is epidermal hyperplasia with disorderly maturation of keratinocytes with nuclear pleomorphism confined to the lower half of the epidermis. The epidermis is focally necrotic and covered with a scale-crust. There is fibrin at the base. Specimen B. SKIN, left med distal thigh: There is hyperkeratosis alternating with parakeratosis. There is epidermal hyperplasia with disorderly maturation of keratinocytes with nuclear pleomorphism confined to the lower half of the epidermis. There is a dome-shaped portion of skin with psoriasiform epidermal hyperplasia, compact hyperkeratosis, and fibrosis of the papillary dermis associated with a superficial perivascular lymphohistiocytic infiltrate. 0 12:51 PM [facility] DERMATOPATHOLOGY LABORATORY Disclaimer An external and internal positive and negative controls are appropriate for the histochemical, immunohistochemical and immunofluorescence stain(s) in this case (if any), except where stated explicitly. The performance characteristics of the stain(s) cited in this report were developed and its performance characteristic determined by the Dermatopathology Laboratory at [facility], directed by Dr. Hermelindo Little. These tests need not be, and therefore are not, approved by the [place] Food and Drug Administration. The tests are used for clinical purposes. Billing Codes Specimen Charges Stain Charges 77643 49042 1 1 0 12:51 PM ORTHODONTIC TECHNICIAN DERMATOPATHOLOGY LABORATORY Embedded Images 0 12:51 PM ORTHODONTIC TECHNICIAN DERMATOPATHOLOGY LABORATORY Pathology/Cytology TISSUE SPECIMEN FROM SKIN / Unknown 09/05/2019 09/06/2019 1:46 PM ORTHODONTIC TECHNICIAN Miscellaneous samples (specimen) TISSUE SPECIMEN FROM SKIN / Unknown 09/05/2019 09/06/2019 1:46 PM ORTHODONTIC TECHNICIAN See Joseph MD LAB - PATHOLOGY/CYTO LOGY ORDERABLES DERMATOPATHOLOGY LABORATORY [facility] - Department of Dermatology [address] [place] [address] [address] [phone] documented in this encounter Visit Diagnoses Not on filedocumented in this encounter Care Teams Correctional Probation Officer Relationship Specialty Start Date End Date Remy An MD [address] [place] [address] [address] [place] [address] PCP - General Internal Medicine 11/15/17 documented as of this encounter
--- OUTSIDE RECORDS SUMMARY | 2024-08-23 09:36 | XMS_ITS | Encounter Summary ---
Author Organization [facility] Address [address] [facility] [place] [address] Care Team Providers Care Director Medicaid Name Role Phone Remy An MD Primary Care Provider [phone] Encounter Details Date Type Department Care Team (Late st Contact Info) Description 12/17/2021 Lab Requisition [facility] DermPath Lab [address] [facility] [place] [address] See Joseph MD [address] [place] [address] Social History Tobacco Use Types Packs/Day Years Used Date Smoking Tobacco: Never Assessed Sex and Gender Information Value Date Recorded Sex Assigned at Not on file Gender Identity Not on file Sexual Orientation Not on file documented as of this encounter Plan of Treatment Not on file documented as of this encounter Procedures Procedure Name Priority Date/Time Associated Diagnosis Comments DERMATOPATHOLOGY Routine 12/16/2021 12:0 0 AM CDT documented in this encounter Results * DERMATOPATHOLOGY (12/16/2021 12:00 AM CDT) Case Report Dermatopathology Report Case: [id number] Authorizing Provider: See Joseph MD Collected: 12/16/2021 12:00 AM Ordering Location: [facility] DermPath Lab Received: 12/17/2021 01:43 PM Pathologist: Lela Lux MD Specimen: Skin, right anti helix 06/10/202 2 3:09 PM CDT DERMATOPATHOLOGY LABORATORY Final Diagnosis Specimen A. SKIN, right anti helix: SEBORRHEIC KERATOSIS, INFLAMED (L82.0) 2 3:09 PM CDT DERMATOPATHOLOGY LABORATORY Clinical History R/O SCC, BCC 2 3:09 PM CDT DERMATOPATHOLOGY LABORATORY Gross Description Specimen A: Received is one formalin filled container labeled with the patient's name and designated right anti helix. The specimen consists of a shave biopsy measuring 5p8b5zh and another piece of tissue measuring 3n3u3pd. Jar 0. 2 3:09 PM CDT DERMATOPATHOLOGY LABORATORY Microscopic Description Specimen A. SKIN, right anti helix: There is hyperkeratosis, parakeratosis, papillomatosis, and acanthosis of the epidermis. There is a lymphohistiocytic infiltrate within the papillary dermis that is focally lichenoid. 2 3:09 PM CDT DERMATOPATHOLOGY LABORATORY Disclaimer An external and internal positive and negative controls are appropriate for the histochemical, immunohistochemical and immunofluorescence stain(s) in this case (if any), except where stated explicitly. The performance characteristics of the stain(s) cited in this report were developed and its performance characteristic determined by the Dermatopathology Laboratory at [facility], directed by Dr. Hermelindo Little. These tests need not be, and therefore are not, approved by the [place] Food and Drug Administration. The tests are used for clinical purposes. Billing Codes Specimen Charges Stain Charges 81083 1 2 3:09 PM CDT DERMATOPATHOLOGY LABORATORY Embedded Images 2 3:09 PM CDT DERMATOPATHOLOGY LABORATORY Pathology/Cytolog y TISSUE SPECIMEN FROM SKIN / Unknown 12/16/2021 12/17/2021 1:43 PM CDT See Joseph MD LAB - PATHOLOGY/CYTO LOGY ORDERABLES DERMATOPATHOLOGY LABORATORY [facility] - Department of Dermatology [address], [address] [phone] documented in this encounter Visit Diagnoses Not on filedocumented in this encounter Care Teams Director Medicaid Relationship Specialty Start Date End Date Remy An MD [address] [place] [address] [address] [place] [address] PCP - General Internal Medicine 11/15/17 documented as of this encounter
--- OUTSIDE RECORDS SUMMARY | 2024-08-23 09:36 | XMS_ITS | Data Portability ---
Author Organization [place] - [facility], [employer] Address [address] [place] [address] Assessment Encounter Date Assessment Date Assessment LastModified by Organization Details LastModified Time 06/17/2020 06/17/2020 Medication Changes D/C Lorazepam JUANCARLOS Obtained. Records requested. Labs ordered to check levels. Signs and symptoms of when to seek further care reviewed with patient. Patient to follow up with primary care provider or return to clinic for any worsening signs and symptoms. Always present to ER or Urgent Care with any progression of/alarming symptoms, significant changes in symptoms or any concerning or urgent matters. Patient verbalized agreement and understanding of treatment plan. F/U 4 weeks, sooner if needed [email or web address] Not available 06/19/2020 08:34:25 Plan of Treatment Reminders Order Date Submit Date Provider Last Modified By Organization Details Last Modified Time Details Appointments None recorded . Lab CBC w/ diff 020 07/03/20 20 [facility], [address], [address], [place], [address], 1 06:08:23 CMP, serum or plasma 020 07/03/20 20 [email or web address] [facility], [address], [address], [place], [address], 1 06:08:23 magnesiu m, blood 020 07/03/20 20 [email or web address] [facility], [address], [address], [place], [address], 1 06:08:23 lipid panel, blood 020 07/03/20 20 [facility], [address], [address], [place], [address], 1 06:08:23 TSH, serum, reflex free T4 020 07/03/20 20 [email or web address] [facility], [address], [address], [place], [address], 1 06:08:23 Referral None recorded . Procedures None recorded . Surgeries None recorded . Imaging None recorded . Medication Orders None recorded . Patient TargetsNo targets recorded. Patient InstructionsNo instructions recorded. Reason for Referral None Reported. Problems Name Problem SNOMED Code Status Onset Date Resolution Date Notes Provider Name and Address Organization Details Recorded Time Hyperlipidemia 90173258 Active 2019 Susie Jimenez Bj FIELD ACCOUNT DIRECTOR-BC, PMHNP-BC [address] [place], [address], [facility] 0 08:32:43 Essential hypertension 21056890 Active 2019 Susie Jimenez Bj [facility], PMHNP-BC [address] , [place], [address], [facility] 0 08:32:56 Atrial fibrillation 70883242 Active 2019 Susie Lorenzo FIELD ACCOUNT DIRECTOR-BC, PMHNP-BC [address] [place], [address], [facility] 0 08:33:22 Major depressive disorder 648298654 Active 2019 Susie Jimenez Bj FIELD ACCOUNT DIRECTOR-BC, PMHNP-BC [address] , [place], [address], [facility] 0 08:33:36 Problem Notes None recorded. Procedures Surgical History Date Name Laterality Status Provider Name and Address Organization Details Recorded Time 5 mohs surgery completed Neetu Gonzalez [facility] 06/11/2020 10:14:00 tonsillectomy completed Milka Pederson [facility] 06/03/2020 11:12:58 Imaging Results None recorded. Procedure Notes None recorded. Medical Equipment None Reported. Allergies Allergen ID Allergen Name Allergen Category Reaction Reaction Severity Criticality Documentation Date Start Date Code Code System Note Provider Name and Address Organization Details Recorded Time 3161 Keflex medicatio n hives Not available Not available 06/03/2020 7 RxNorm Milka carpenter, [facility] - [facility] 0 11:13:17 3162 Celebrex medicatio n hives Not available Not available 06/03/2020 7 RxNorm Milka Pederson null, [facility] - [facility] 0 11:13:32 Medications Name Sig Start Date Stop Date Status Note LastModified by Organization Details LastModified Time atorvastati n 20 mg tablet Take 1 tablet every day by oral route. active Not Available Not Available No t Available azithromyci n 250 mg tablet FPD 06/03 completed Not Available Not Available Not Available benzonatate 200 mg capsule TK 1 C PO TID 06/19 completed Not Available Not Available Not Available betamethaso ne, augmented 0.05 % topical cream 06/19 completed Not Available Not Available Not Available fluorouraci l 5 % topical cream 06/19 completed Not Available Not Available Not Available hydroxyzine HCl 50 mg tablet Take 1 tablet 3 times a day by oral route as needed. active Not Available Not Available No t Available lorazepam 0.5 mg tablet Take 1 tablet every 8 hours by oral route as needed. active Not Available Not Available No t Available trazodone 100 mg tablet TK 1 T PO QD HS 06/19 completed Not Available Not Available Not Available benzonatate 100 mg capsule 06/19 completed Not Available Not Available Not Available flecainide 50 mg tablet Take 1 tablet every 12 hours by oral route. active Not Available Not Available No t Available hydroxyzine HCl 25 mg tablet 06/19 completed Not Available Not Available Not Available Vitamin D2 1,250 mcg (50,000 unit) capsule Take 2 capsules every week by oral route. active Not Available Not Available No t Available rosuvastati n 5 mg tablet TK 1 T PO D 06/19 completed Not Available Not Available Not Available Bystolic 2.5 mg tablet Take 1 tablet every day by oral route. active Not Available Not Available No t Available Namzaric 28 mg-10 mg capsule sprinkle,ex tended release 06/19 completed Not Available Not Available Not Available Trintellix 20 mg tablet TK 1 T PO QD active Not Available Not Available No t Available Namzaric 7 mg-10 mg capsule sprinkle,ex tended release Take 1 capsule every day by oral route. active Not Available Not Available No t Available Vitals Date Recorded Heart rate Respiratory rate Oxygen saturation Oxygen saturation in Arterial blood by Pulse oximetry Body temperature Systolic blood pressure Diastolic blood pressure Provider Name and Address Organization Details Last Updated DateTime 0 62 /min 20 /min 97 % 97 % 97.5 [degF] 114 mm[Hg] 64 mm[Hg] Cathleen Aguilar [facility] 0 15:42:19 Date Recorded Body height Body mass index (BMI) Body weight Provider Name and Address Organization Details Last Updated DateTime 06/17/2020 175.26 cm 28.4 kg/m2 98174.53 g Susie Lorenzo, FIELD ACCOUNT DIRECTOR-BC, PMHNP-BC [address] [place], [address], [facility] 06/19/2020 08:23:12 Social History Question Answer Notes LastModified by Organizat ion Details LastModified Time Tobacco Smoking Status Never [facility]oker [facility] 11:11:07 Do You Have An Advance Directive? Yes Information not available 06/03/2020 What Is Your Level Of Alcohol Consumption? Heavy Has Received Alcohol Counseling Information not available 06/11/2020 What Is Your Level Of Caffeine Consumption? Occasional Information not available 06/03/2020 How Much Tobacco Do You Chew? None Information not available 06/03/2020 Which Illicit Or Recreational Drugs Have You Used? No Information not available 06/03/2020 Do You Or Have You Ever Used E-cigarettes Or Vape? Never Used Electronic Cigarettes Information not available 06/19/2020 What Is Your Occupation? Retired Make [employer] Worker Information not available 06/03/2020 Single Or Multi-level Home/work? Single Level Home Information not available 06/19/2020 Live Alone Or With Others? With Others Information not available 06/03/2020 Marital Status Informatio n not available 06/03/2020 What Was The Date Of Your Most Recent Tobacco Screening? 06/17/2020 [email or web address] Information not available 06/19/2020 Do You Or Have You Ever Used Smokeless Tobacco? Never Used Smokeless Tobacco [email or web address] Information not available 06/19/2020 How Much Tobacco Do You Smoke? No [email or web address] Information not available 06/19/2020 How Many Years Have You Smoked Tobacco? 0 [email or web address] Information not available 06/19/2020 Sex: Male Functional Status Question Answer Note LastModified by Organizat ion Details LastModified Time Are you able to walk? YESASSIST uses a walker Information not available 06/03/2020 What is your exercise level? Occasional Information not available 06/11/2020 Mental Status None recorded. Family History Relationship Description Onset Age of this Age Resolved Age Notes LastModified by Organization Details LastModified Time Father Alzheimer's disease 78 Not available 2019 11:09:15 Father Coronary arterioscler osis [email or web address] Not available 2019 10:06:06 Mother Cerebrovascu lar accident 81 Not available 11:09:33 Mother Coronary arterioscler osis [email or web address] Not available 2019 10:05:38 Mother Hypertensive disorder [email or web address] Not available 2019 10:05:53 Brother Fracture of bone 66 Broken neck from fall Not available 06/03/2020 11:10:29 Medical History Condition Response Depression Y Anxiety Disorder Y Cancer Y Cardiac Diseases / Disorders Y Vitamin deficiency Y Alzheimers Disease Y Hospitalizations Y Hyperlipidemia Y Skin Diseases / Disorders Y Dementia Y Hypertension Y Atrial Fibrillation / AFIB Y Past Encounters Encounter ID Performer Location Encounter Start Date Encounter Closed Date Diagnosis/Indication Diagnosis SNOMED-CT Code Diagnosis ICD10 Code Diagnosis Note [id number] Susie Lorenzo, FIELD ACCOUNT DIRECTOR-BC, PMHNP-BC Main Office [address] [place] [address] 06/17/2020 07:38:39 06/19/2020 08:56:35 Atrial fibrillation 83400917 I48.91 AFIB stable. Rate controlled . Continue regimen Hyperlipidemia 18106055 E78.5 Essential hypertension 06476216 I10 Fatigue 74598887 R53.83 Major depr essive disorder 745560700 F32.9 At this time patient is {{asymptom atic* symp tomatic}}; symptoms are {{stable* unstable}} . Patient denies suicidal or homicidal ideation. Plan to {{begin medication therapy continue current management * adjust dose of medication change medication add medication discontinu e medication }} . Plan to {{refer patient to psychiatri [facility] patient at follow up*}}; patient also referred to counseling services and community resources. Patient was advised to call or come in if symptoms {{develop persist wo rsen*}}. Patient verbalized understand ing. Health Concerns Section Related Observation LastModified by Organization Detai ls LastModified Time None Recorded Concern Status LastModified by Organization Details LastModified Time None Recorded Advance Directives Directive Y: Payers Encounter Date Sequence Insurance Name Policy Number Policy Lorenzo Covered Member ID Lorenzo Member ID Guarantor Name 06/17/2020 1 [facility] (MEDICARE REPLACEMENT/A DVANTAGE - PPO) [id number] Boo Matute [id number] Boo Matute 06/17/2020 1 [place] Boo Matute [id number] Boo Matute Notes Date Note Type Note Provider Name and Address Organization Details Recorded Time 06/17/2020 text/html Boo is here to establish care. He was previously seeing Dr. Chicas. He resides at [facility]. Patient had COVID and was significantly declining. He moved into [place] for what was thought to be more permanent and for therapy. However, patient has been significantly improving and will be moving out of [place] to return home later this month. AFIB - on rate control medications. Compliant. No side effects. Denies palpitations, CP, SOB. HLD - Compliant with statin. No side effects. Not following a low cholesterol diet. +memory loss and disorientations, but has been improving. Currently on combination of Aricept and Namenda. MDD - compliant with medications. Has been doing better. Denies SI/HI. Susie Lorenzo, FIELD ACCOUNT DIRECTOR-BC, PMHNP-BC [address] [place], [address], [facility] [place] - [facility] 06/19/2020 08:56:12
--- OUTSIDE RECORDS SUMMARY | 2024-08-23 09:36 | XMS_ITS ---
Author Organization [facility] [employer] Address [address] [place] [address] Care Team Providers Care [employer] Name Role Phone Katey Chavez Unavailable [phone] Migration, Provider Unavailable Unavailable Allergies Allergen (clinical drug ingredient) Drug/Non Drug Allergy documented on EMR Reaction Allergy Type Onset Date Status celecoxib CeleBREX Unknown Drug Allergy 10/19/2023 Active Keflex Unknown Drug Allergy 10/19/2023 Active REASON FOR VISIT EMR-Dewayne Medications Medication SIG (Take, Route, Frequency, Duration) Notes Start Date End Date Status Trintellix 20 MG Oral 10/19/2023 Ac tive Ketoconazole 2% External 10/19/2023 Act margarita Ergocalciferol 1.25 MG (09412 UT) Oral 10/19/2023 Active QUEtiapine Fumarate 25 MG Oral 10/19/2023 Active QUEtiapine Fumarate 100 MG Oral 10/19/2023 Active NEBIVOLOL 2.5 MG TABLET *Reorder from [employer] for eRx and Interaction Alerts* 10/19/2023 Active Namzaric 28-10 MG Oral 10/19/2023 A ctive Flecainide Acetate 50 MG Oral 10/19/2023 Active Furosemide 20 MG Oral 10/19/2023 Ac tive QUEtiapine Fumarate 50 MG Oral 10/19/2023 Active Carbidopa-Levodopa 10-100 MG Oral 10/19/2023 Active Rosuvastatin Calcium 20 MG Oral 10/19/2023 Active Social History Sex Assigned At : Social History Observation Description Sex Assigned At Male Encounters Encounter Location Date Provider Diagnosis [facility] [employer] [facility] [address] [place] [address] 11/27/2023 Provider Migration Plan Of Treatment Next Appt Details Provider Name:Katey Chavez, 10/17/2024 02:00:00 PM, [address], [address], [place], [address], Progress Notes * BROOK HARRISONOB:1940 (84 yo M)Acc No.[id number]:11/27/2023 Patient: ANT CABRAL :1940 A ge:83 Y S ex:Male Address:[address] [place] [address], [place], [address] Subjective: * Chief Complaints: * E MR-Dewayne * Medical History: * Surgical History: T onsilectomy/adenoids 04/10/1946ataract surgery (28793) 04/10/2007 * Hospitalization/Major Diagno stic Procedure: * Family History: F ather: Alzheimer's disease . M other: Cerebrovascular accident , Anxiety disorder . * Social History: M igrated Social History: M igrated Social History: Alcohol Intake: Occasional 08/26/2022,Tobacco Years: Never smoker 08/26/2022. * Medications: T akingQUEtiapine Fumarate 50 MG Tablet Oral Namzaric 28-10 MG Capsule Extended Release 24 Hour Oral Carbidopa-Levodopa 10-100 MG Tablet Oral QUEtiapine Fumarate 100 MG Tablet Oral Flecainide Acetate 50 MG Tablet Oral Furosemide 20 MG Tablet Oral NEBIVOLOL 2.5 MG TABLET , Notes to Pharmacist: *Reorder from [employer] for eRx and Interaction Alerts*Trintellix 20 MG Tablet Oral Ketoconazole 2% Cream External Rosuvastatin Calcium 20 MG Tablet Oral Ergocalciferol 1.25 MG (48574 UT) Capsule Oral QUEtiapine Fumarate 25 MG Tablet Oral Taking QUEtiapine Fumarate 50 MG Tablet Oral Taking Namzaric 28-10 MG Capsule Extended Release 24 Hour Oral Taking Carbidopa-Levodopa 10-100 MG Tablet Oral Taking QUEtiapine Fumarate 100 MG Tablet Oral Taking Flecainide Acetate 50 MG Tablet Oral Taking Furosemide 20 MG Tablet Oral Taking NEBIVOLOL 2.5 MG TABLET , Notes to Pharmacist: *Reorder from [facility] for eRx and Interaction Alerts*Taking Trintellix 20 MG Tablet Oral Taking Ketoconazole 2% Cream External Taking Rosuvastatin Calcium 20 MG Tablet Oral Taking Ergocalciferol 1.25 MG (31301 UT) Capsule Oral Taking QUEtiapine Fumarate 25 MG Tablet Oral * Allergies: C eleBREX: Allergy - Onset Date 10/19/2023Keflex: Allergy - Onset Date 10/19/2023 Objective: * Vitals: * Physical Examination: Assessment: Plan: * Treatment: * Procedure Codes: * true * Date: Generated for Katrina hatfield/Saleem/Johnna on: 0 08/23/2024 09:36 AM PREPPER
--- OUTSIDE RECORDS SUMMARY | 2024-08-23 09:36 | XMS_ITS | Clinical Summary ---
Author Organization [facility] Address [address] [place] [address] Care Team Providers Care Customer Relations Specialist Name Role Phone Remy An MD Primary Care Provider [phone] Source Comments [facility],non-owned Affiliates and Associated Physician Practices is amultiple site organization consisting of ambulatory clinics and hospital sitesin [place], [place] and [place]. This disclosure is being madepursuant to the Care Everywhere program and may not contain all information available regarding this patient. Last updated 18.[facility] Social History Tobacco Use Types Packs/Day [...] 12/09/2014 8:28 AM CDT Plan of Treatment Health Maintenance Due Date Last Done Comments DTAP/TDAP/TD VACCINES (1 - Tdap) 02/07/1960 PNEUMOCOCCAL VACCINE 50+ (1 of 1 - PCV) 1991 ZOSTER VACCINE (1 of 2) 1991 Respiratory Syncytial Virus (RSV) Vaccine Pt: or over 60 yrs (1 - 1-dose 75+ series) 02/07/2016 COVID-19 VACCINE (2023-2 5 season) 2024 INFLUENZA VACCINE (#1) 2024 DEPRESSION SCREENING 07/11/2024 MEDICARE AWV CALENDAR YEAR 2024 HEPATITIS B VACCINE Aged Out No longe r eligible based on patient's age to complete this topic HIB VACCINE Aged Out No longer eligi ble based on patient's age to complete this topic HPV VACCINE Aged Out No longer eligi ble based on patient's age to complete this topic MENINGOCOCCAL (Group B) VACCINE Aged Out No longer eligible based on patient's age to complete this topic MENINGOCOCCAL VACCINE Aged Out No edwin siva eligible based on patient's age to complete this topic Care Teams Customer Relations Specialist Relationship Specialty Start Date End Date Remy An MD [address] [place] [address] [address] [place] [address] PCP - General Internal Medicine 11/15/17
--- OUTSIDE RECORDS SUMMARY | 2024-08-23 09:36 | XMS_ITS ---
Author Organization [facility] [employer] [facility] Address [facility] [address] [address] Care Team Providers Care Doping Supervisor Name Role Phone Scott, Katey Unavailable [phone] Migration, Provider Unavailable Unavailable REASON FOR VISIT EMR-Dewayne Social History Sex Assigned At : Social History Observation Description Sex Assigned At Male Encounters Encounter Location Date Provider Diagnosis [facility] [employer] [address] [address] 11/26/2023 Provider Migration Plan Of Treatment Next Appt Details Provider Name:Katey Chavez, 10/17/2024 02:00:00 PM, [address], [place] [address], [place], [address], Progress Notes * BROOK HARRISONOB:1940 (84 yo M)Acc No.[id number]:11/26/2023 Patient: ANT CABRAL :1940 A ge:83 Y S ex:Male Address:[address], [address], [place], [address] Subjective: * Chief Complaints: * E MR-Dewayne * Medical History: * Surgical History: * Hospitalization/Major Diagno stic Procedure: * Medications: Objective: * Vitals: * Physical Examination: Assessment: Plan: * Treatment: * Procedure Codes: * true * Date: Generated for Printi ng/Faxing/eTransmitting on: 0 08/23/2024 09:36 AM SENIOR ANALYSIS SPECIALIST
--- OUTSIDE RECORDS SUMMARY | 2024-08-23 09:36 | XMS_ITS | Patient Health Summary ---
Author Organization [facility] Address [address] [place] [address] Care Team Providers Care [employer] French Teacher Name Role Phone Remy An MD Primary Care Provider [phone] Note from [facility],non-owned Affiliates and Associated Physician Practices is amultiple site organization consisting of ambulatory clinics and hospital sitesin [place], [place], [place] and [place]. This disclosure is being madepursuant to the Care Everywhere program and may not contain all information available regarding this patient. Last updated 18.[facility] [employer] Social History Tobacco Use Types Packs/Day Years [...] Mass Index 27.32 12/09/2014 8:28 AM CDT Procedures * DERMATOPATHOLOGY(Performed 12/08/2022) * DERMATOPATHOLOGY(Performed 12/16/2021) * DERMATOPATHOLOGY(Performed 09/05/2019) * PET BRAIN METABOLIC EVAL(Performed 11/21/2017) Performed for Research study patient * DERMATOPATHOLOGY(Performed 06/23/2016) * DERMATOPATHOLOGY(Performed 10/08/2014) * DERMATOPATHOLOGY(Performed 09/05/2014) * DERMATOPATHOLOGY(Performed 02/17/2011) Results * DERMATOPATHOLOGY (12/08/2022 12:00 AM CDT) Only the most recent of7 resultswithin the time period is included. Case Report Dermatopathology Report Case: [id number] Authorizing Provider: See Joseph MD Collected: 12/08/2022 12:00 AM Ordering Location: [facility]erm[facility] Lab Received: 12/09/2022 02:05 PM Pathologist: Mckay Little MD Specimens: A) - Skin, left styloid process B) - Skin, left chin 11:56 AM CDT DERMATOPATHOLOGY LABORATORY Final Diagnosis Specimen A. SKIN, left styloid process: BENIGN VERRUCOUS KERATOSIS (L82.1) DERMAL FIBROSIS (L90.5) Specimen B. SKIN, left chin: BASAL CELL CARCINOMA, NODULAR TYPE (C44.319) 11:56 AM CDT DERMATOPATHOLOGY LABORATORY Clinical History A-B: R/O SCC 11:56 AM CDT DERMATOPATHOLOGY LABORATORY Gross Description Specimen A: [...] measuring 8x6x2 mm. Jar 0. 11:56 AM CDT DERMATOPATHOLOGY LABORATORY Microscopic Description Specimen A. SKIN, left styloid process: Sections show hyperkeratosis, papillomatosis, hypergranulosis, and acanthosis. These histological findings can be seen in a verruca vulgaris or a seborrheic keratosis. There is focal dermal fibrosis. Specimen B. SKIN, left chin: Within the dermis there are aggregates of basaloid cells with a high nuclear to cytoplasmic ratio and peripheral palisading. 3 11:56 AM CDT DERMATOPATHOLOGY LABORATORY Disclaimer An external and internal positive and negative controls are appropriate for the histochemical, immunohistochemical and immunofluorescence stain(s) in this case (if any), except where stated explicitly. The performance characteristics of the stain(s) cited in this report were developed and its performance characteristic determined by the Dermatopathology Laboratory at [facility], directed by Dr. Hermelindo Little. These tests need not be, and therefore are not, approved by the [place] Food and Drug Administration. The tests are used for clinical purposes. Billing Codes Specimen Charges Stain Charges 43080 05424 1 1 3 11:56 AM CDT DERMATOPATHOLOGY LABORATORY Embedded Images 3 11:56 AM CDT DERMATOPATHOLOGY LABORATORY Pathology/Cytology TISSUE SPECIMEN FROM SKIN / Unknown 12/08/2022 12/09/2022 2:05 PM CDT Miscellaneous samples (specimen) TISSUE SPECIMEN FROM SKIN / Unknown 12/08/2022 12/09/2022 2:05 PM CDT See Joseph MD LAB - PATHOLOGY/CYTO LOGY ORDERABLES DERMATOPATHOLOGY LABORATORY [facility] - Department of Dermatology [address], [address] [phone] * PET BRAIN METABOLIC EVAL IMAGING (11/21/2017 2:21 PM CDT) Narrative [facility] - 12/13/2017 11:16 AM CDT No Dictation. Ajith Stein MD NM ORDERABLES [facility] [address] [place] [address] Care Teams [employer] French Teacher Relationship Specialty Start Date End Date Remy An MD [address] [place] [address] [address] [place] [address] PCP - General Internal Medicine 11/15/17
--- OUTSIDE RECORDS SUMMARY | 2024-08-23 09:37 | XMS_ITS | Data Portability ---
Author Organization [facility] [employer], Main Office Address [address] [place] [address] Assessment No assessment recorded. Plan of Treatment Reminders Order Date Submit Date Provider Last Modified By Organization Details Last Modified Time Details Appointments None recorded. Lab CBC w/ auto diff 024 [id number] [facility], [address], [place], [address], 4 15:52:39 CMP, serum or plasma 024 [id number] [facility], [address], [place], [address], 4 15:53:13 lipid panel, serum 024 024 [id number] [facility], [address], [place], [address], 4 15:53:59 lipid panel, serum 024 024 [facility], [address], [place], [address], 4 17:38:13 CMP, serum or plasma 024 024 [id number] [facility], [place], [address], 4 17:38:13 CBC w/ auto diff 024 024 [id number] [facility], [place], [address], 4 17:38:13 TSH, serum or plasma 024 024 [id number] [facility], [address], [place], [address], 4 17:38:13 T4, free, serum 024 024 [facility], [address], [place], [address], 4 17:38:13 PSA, serum or plasma 023 023 [facility], [address], [place], [address], 3 15:55:03 CBC w/ auto diff 023 023 [id number] [facility], [address], [place], [address], 3 15:55:02 CMP, serum or plasma 023 023 [id number] [facility], [address], [place], [address], 3 15:55:02 T4, free, serum 023 023 [id number] [facility], [address], [place], [address], 3 15:55:02 TSH, serum or plasma 023 023 [facility], [address], [place], [address], 3 15:55:03 lipid panel, serum 023 023 [id number] [facility], [address], [place], [address], 3 15:55:03 Referral None recorded. Procedures None recorded. Surgeries None recorded. Imaging None recorded. Medication Orders Sinemet 10 mg-100 mg tablet 023 [id number] [id number], [address], [place], [place], [id number], 4 14:27:55 Patient TargetsNo targets recorded. Patient Instructions Encounter Date Encounter Id Patient Instructions Last Modified By Organization Details Last Modified Time 12/31/2022 [id number] Follow-up hypertension -atrial fibrillation -severe aortic stenosis -hyperlipidemia -dementia. All clinically stable. Will continue on current medications scheduled to see Cardiology next week. May need to be considered for possible TAVR procedure or other forms of treatment therapy. May be getting somewhat symptomatic from his aortic stenosis now with with exertional shortness of breath etc.. Continue on current Rx follow-up in four months Not available 12/31/2022 15:44:35 05/06/2023 [id number] Hypertension -aortic stenosis -hyperlipidemia -extraforaminal disease. Plan is to continue on current medication. Will check blood work consisting of CBC, CMP, lipid, thyroid. On some Sinemet 10 100 mg one t.i.d. To see if any improvement in his ambulatory skills. Continue on current medications and follow-up four months.. Standard immunizations of RSV, COVID, influenza and shingles as recommended. Portions of the record may have been created with voice recognition software. Occasional wrong-word or [id number]-[id number] substitutions may have occurred due to the inherent limitations of voice recognition software. Read the chart carefully and recognize, using context, where substitutions have occurred. [email or web address] Not available 05/06/2023 15:54:52 09/09/2023 [id number] Follow-up hypertension, paroxysmal atrial fibrillation, aortic stenosis, chronic kidney disease stage IIIA, dementia as well as obesity class two. Will continue on current Rx check blood work consisting of CBC, CMP, lipid, thyroid follow-up in four months. FDA recommendations of a influenza, RSV, COVID, pneumococcal immunizations strongly advised. Portions of the record may have been created with voice recognition software. Occasional wrong-word or wsqyr-p-[id number] substitutions may have occurred due to the inherent limitations of voice recognition software. Read the chart carefully and recognize, using context, where substitutions have occurred. [email or web address] Not available 09/09/2023 15:34:15 02/23/2024 [id number] Follow-up essent ial hypertension, hyperlipidemia, severe aortic stenosis, paroxysmal atrial fibrillation, chronic kidney disease stage 3 and dementia all clinically stable. Overall is doing approximately the same. Because of his other advanced neurological abnormalities no wounds in any need of considering the possibility either a TAVR procedure or other diagnostic testing to improve survival with the aortic valve. Has not shown any recent further decline in his cognitive function which is already severely impaired. Will continue on current Rx follow-up in four months. Next Appointment: 4 Months Approximate Date: 06/22/2024 Portions of the record may have been created with voice recognition software. Occasional wrong-word or uiupu-l-gqol substitutions may have occurred due to the inherent limitations of voice recognition software. Read the chart carefully and recognize, using context, where substitutions have occurred. [email or web address] Not available 02/23/2024 15:10:39 06/28/2024 [id number] Dementia, aortic stenosis, paroxysmal atrial fibrillation, hypertension all clinically stable. Was given the pneumonia shot. Will check just some baseline blood work consisting of CBC, CMP, lipid. Continue on current Rx follow-up in four months Follow Up: 4 Months Approximate Date: 10/26/2024 Portions of the record may have been created with voice recognition software. Occasional wrong-word or baszw-i-[id number] substitutions may have occurred due to the inherent limitations of voice recognition software. Read the chart carefully and recognize, using context, where substitutions have occurred. Created: Remy An M.D. 06.28.2024 02:01 PM [email or web address] Not available 06/28/2024 15:01:41 Reason for Referral None Reported. Results Created Date Observation Date Name Description Value Unit Range Abnormal Flag Note LastModifiedBy Organization Detail LastModifiedTime 05/12/20 23 05/17/2023 LIPID PANEL , STAND HUMERA cholesterol, total 151 mg/dL <200 normal Not Available [employer] [facility] [address] , [place], [address], 05/17/2023 12:35:08 05/12/20 23 05/17/2023 LIPID PANEL , STAND HUMERA HDL cholesterol 36 mg/dL > or = 40 low Not Available [facility] [address] [place], [address], 05/17/2023 12:35:08 05/12/20 23 05/17/2023 LIPID PANEL , STAND HUMERA triglyceride s 170 mg/dL <150 high Not Available [address], [address], 05/17/2023 12:35:08 05/12/20 23 05/17/2023 LIPID PANEL , STAND HUMERA LDL-choleste rol 88 mg/dL _(ivy c) normal Refer ence range : <100 Brandie able range <100 mg/dL for prima ry preve ntion ; <70 mg/dL for patie nts with CHD or diabe tic patie nts with > or = 2 CHD risk facto rs. LDL-C is now calcu lated using the Priscila n-Hop kins calcu jorge n, which is a valid ated novel brendon estrella than the Fried jyothi equat ion in the estim ation of LDL-C . Priscila paige SS et al. UDAY. 2013; 310(1 9): 2061- 2068 (http ://ed ucati on.Irlanda clemons idealista.coms. com/f aq/FA Q164) Not Available [facility] [address] [place], [address], 05/17/2023 12:35:08 05/12/20 23 05/17/2023 LIPID PANEL , STAND HUMERA chol/HDLC ratio 4.2 (calc ) <5.0 normal Not Available [facility] [address] [place] [address], [address], 05/17/2023 12:35:08 05/12/20 23 05/17/2023 LIPID PANEL , STAND HUMERA non HDL cholesterol 115 mg/dL _(ivy c) <130 normal For patie nts with diabe kingston plus 1 major ASCVD risk facto r, treat ing to a non-H DL-C goal of <100 mg/dL (LDL- C of <70 mg/dL ) is johni rama abdul optio n. Not Available [address] [place], [address], 05/17/2023 12:35:08 05/12/20 23 05/17/2023 COMPR EHENS RANDI METAB OLIC PANEL glucose 153 mg/dL 65-99 high Fasti ng refer ence inter butch For someo ne witho ut known diabe kingston, a gluco se value >125 mg/dL indic ates that they may have diabe kingston and this shoul d be confi rmed with a follo w-up test. Not Available [address], [address], 05/17/2023 12:35:09 05/12/20 23 05/17/2023 COMPR EHENS RANDI METAB OLIC PANEL urea nitrogen (BUN) 30 mg/dL 7-25 high Not Available [facility] [address], [address], 05/17/2023 12:35:09 05/12/20 23 05/17/2023 COMPR EHENS RANDI METAB OLIC PANEL creatinine 1.60 mg/dL 0.70-1 .22 high Not Available [facility] [address] [place], [address], 05/17/2023 12:35:09 05/12/20 23 05/17/2023 COMPR EHENS RANDI METAB OLIC PANEL eGFR 43 mL/mi n/1.7 3m2 > or = 60 low Not Available [address] [place], [address], 05/17/2023 12:35:09 05/12/20 23 05/17/2023 COMPR EHENS RANDI METAB OLIC PANEL BUN/creatini ne ratio 19 (calc ) 6-22 normal Not Available [address], [address], 05/17/2023 12:35:09 05/12/20 23 05/17/2023 COMPR EHENS RANDI METAB OLIC PANEL sodium 141 mmol/ L 135-14 6 normal Not Available [address], [address], 05/17/2023 12:35:09 05/12/20 23 05/17/2023 COMPR EHENS RANDI METAB OLIC PANEL potassium 5.3 mmol/ L 3.5-5. 3 normal Not Available [address], [address], 05/17/2023 12:35:09 05/12/20 23 05/17/2023 COMPR EHENS RANDI METAB OLIC PANEL chloride 105 mmol/ L 98-110 normal Not Available [address], [address], 05/17/2023 12:35:09 05/12/20 23 05/17/2023 COMPR EHENS RANDI METAB OLIC PANEL carbon dioxide 26 mmol/ L 20-32 normal Not Available [address], [address], 05/17/2023 12:35:09 05/12/20 23 05/17/2023 COMPR EHENS RANDI METAB OLIC PANEL calcium 9.2 mg/dL 8.6-10 .3 normal Not Available [address], [address], 05/17/2023 12:35:09 05/12/20 23 05/17/2023 COMPR EHENS RANDI METAB OLIC PANEL protein, total 6.6 g/dL 6.1-8. 1 normal Not Available [address], [address], 05/17/2023 12:35:09 05/12/20 23 05/17/2023 COMPR EHENS RANDI METAB OLIC PANEL albumin 4.1 g/dL 3.6-5. 1 normal Not Available [address], [address], 05/17/2023 12:35:09 05/12/20 23 05/17/2023 COMPR EHENS RANDI METAB OLIC PANEL globulin 2.5 g/dL_ (calc ) 1.9-3. 7 normal Not Available [address], [address], 05/17/2023 12:35:09 05/12/20 23 05/17/2023 COMPR EHENS RANDI METAB OLIC PANEL albumin/glob ulin ratio 1.6 (calc ) 1.0-2. 5 normal Not Available [address], [address], 05/17/2023 12:35:09 05/12/20 23 05/17/2023 COMPR EHENS RANDI METAB OLIC PANEL bilirubin, total 0.4 mg/dL 0.2-1. 2 normal Not Available [address], [address], 05/17/2023 12:35:09 05/12/20 23 05/17/2023 COMPR EHENS RANDI METAB OLIC PANEL alkaline phosphatase 74 U/L 35-144 normal Not Available [address], [address], 05/17/2023 12:35:09 05/12/20 23 05/17/2023 COMPR EHENS RANDI METAB OLIC PANEL AST 35 U/L 10-35 normal Not Available [address], [address], 05/17/2023 12:35:09 05/12/20 23 05/17/2023 COMPR EHENS RANDI METAB OLIC PANEL ALT 17 U/L 9-46 normal Not Available [facility] [address] [place], [address], 05/17/2023 12:35:09 05/12/20 23 05/17/2023 PSA, POST- PROST ATECT JAGDISH PSA, icma TNP TEST NOT PERFO RMED Due to a labor atory error , the speci men was inadv erten [facility] atory and is no longe r valid for testi ng. Not Available [address] [place], [address], 05/17/2023 12:35:11 05/12/2005/17/2023 CBC (INCL UDES DIFF/ PLT) white blood cell count 5.2 thous and/u L 3.8-10 .8 normal Not Available [address], [address], 05/17/2023 12:35:12 05/12/20 23 05/17/2023 CBC (INCL UDES DIFF/ PLT) red blood cell count 4.26 em on/uL 4.20-5 .80 normal Not Available [address], [address], 05/17/2023 12:35:12 05/12/20 23 05/17/2023 CBC (INCL UDES DIFF/ PLT) hemoglobin 13.6 g/dL 13.2-1 7.1 normal Not Available [address], [address], 05/17/2023 12:35:12 05/12/20 23 05/17/2023 CBC (INCL UDES DIFF/ PLT) hematocrit 41.8 % 38.5-5 0.0 normal Not Available [address], [address], 05/17/2023 12:35:12 05/12/20 23 05/17/2023 CBC (INCL UDES DIFF/ PLT) MCV 98.1 fL 80.0-1 00.0 normal Not Available [address], [address], 05/17/2023 12:35:12 05/12/20 23 05/17/2023 CBC (INCL UDES DIFF/ PLT) MCH 31.9 pg 27.0-3 3.0 normal Not Available [address], [address], 05/17/2023 12:35:12 05/12/20 23 05/17/2023 CBC (INCL UDES DIFF/ PLT) MCHC 32.5 g/dL 32.0-3 6.0 normal Not Available [address], [address], 05/17/2023 12:35:12 05/12/20 23 05/17/2023 CBC (INCL UDES DIFF/ PLT) RDW 12.4 % 11.0-1 5.0 normal Not Available [address], [address], 05/17/2023 12:35:12 05/12/20 23 05/17/2023 CBC (INCL UDES DIFF/ PLT) platelet count 199 thous and/u L 140-40 0 normal Not Available [address], [address], 05/17/2023 12:35:12 05/12/20 23 05/17/2023 CBC (INCL UDES DIFF/ PLT) MPV 10.1 fL 7.5-12 .5 normal Not Available [address], [address], 05/17/2023 12:35:12 05/12/20 23 05/17/2023 CBC (INCL UDES DIFF/ PLT) absolute neutrophils 3141 cells /uL 1500-7 800 normal Not Available [address] [place], [address], 05/17/2023 12:35:12 05/12/2005/17/2023 CBC (INCL UDES DIFF/ PLT) absolute lymphocytes 1628 cells /uL 850-39 00 normal Not Available [address], [address], 05/17/2023 12:35:12 05/12/2005/17/2023 CBC (INCL UDES DIFF/ PLT) absolute monocytes 359 cells /uL 200-95 0 normal Not Available [facility] [address], [address], 05/17/2023 12:35:12 05/12/2005/17/2023 CBC (INCL UDES DIFF/ PLT) absolute eosinophils 42 cells /uL 15-500 normal Not Available [address], [address], 05/17/2023 12:35:12 05/12/2005/17/2023 CBC (INCL UDES DIFF/ PLT) absolute basophils 31 cells /uL 0-200 normal Not Available [address], [address], 05/17/2023 12:35:12 05/12/2005/17/2023 CBC (INCL UDES DIFF/ PLT) neutrophils 60.4 % normal Not Available [address], [address], 05/17/2023 12:35:12 05/12/2005/17/2023 CBC (INCL UDES DIFF/ PLT) lymphocytes 31.3 % normal Not Available [facility] [address], [address], 05/17/2023 12:35:12 05/12/20 23 05/17/2023 CBC (INCL UDES DIFF/ PLT) monocytes 6.9 % normal Not Available [facility] [address] [place], [address], 05/17/2023 12:35:12 05/12/20 23 05/17/2023 CBC (INCL UDES DIFF/ PLT) eosinophils 0.8 % normal Not Available [address], [address], 05/17/2023 12:35:12 05/12/20 23 05/17/2023 CBC (INCL UDES DIFF/ PLT) basophils 0.6 % normal Not Available [facility] [address], [address], 05/17/2023 12:35:12 05/12/2005/17/2023 T4, FREE T4, free 0.8 NG/dL 0.8-1. 8 normal Not Available [address], [address], 05/17/2023 12:35:13 05/12/2005/17/2023 TSH TSH 2.04 mIU/L 0.40-4 .50 normal Not Available [address], [address], 05/17/2023 12:35:14 05/25/2005/26/2023 HEMOG LOBIN A1C hemoglobin A1C 6.0 %_of_ total _HGB <5.7 high For someo ne witho ut known diabe kingston, a hemog lobin A1c value betwe en 5.7% and 6.4% is consi stent with predi abete s and shoul d be confi rmed with a follo w-up test. For someo ne with known diabe kingston, a value <7% indic ates that their diabe kingston is well contr olled . A1c targe ts shoul d be indiv idual ized based on durat ion of diabe kingston, age, comor bid condi tions , and other consi derat ions. This assay resul t is consi stent with an incre ased risk of diabe kingston. Curre ntly, no conse nsus exist s regar memo use of hemog lobin A1c for diagn osis of diabe kingston for child yesy. Not Available [facility] [address] [place] [address], [address], 05/26/2023 02:07:56 06/28/20 24 06/28/2024 CBC/C OMPLE TE BLD COUNT W/DIF F white blood cells 5.4 x10'3 /uL 4.2-10 .8 Not Available [facility] (Lab) [address] [place], [address], 06/28/2024 19:22:59 06/28/20 24 06/28/2024 CBC/C OMPLE TE BLD COUNT W/DIF F red blood cells 4.60 x10'6 /uL 4.10-5 .80 Not Available [facility] (Lab) [address] [place], [address], 06/28/2024 19:22:59 06/28/20 24 06/28/2024 CBC/C OMPLE TE BLD COUNT W/DIF F hemoglobin 15.1 g/dL 13.2-1 7.0 Not Available [facility] (Lab) [address] [place], [address], 06/28/2024 19:22:59 06/28/20 24 06/28/2024 CBC/C OMPLE TE BLD COUNT W/DIF F hematocrit 46.3 % 39.3-5 0.0 Not Available [facility] (Lab) [address] [place], [address], 06/28/2024 19:22:59 06/28/20 24 06/28/2024 CBC/C OMPLE TE BLD COUNT W/DIF F mean red cell volume 100.7 fL 80.0-9 7.0 high Not Available [facility] (Lab) [address] [place], [address], 06/28/2024 19:22:59 06/28/20 24 06/28/2024 CBC/C OMPLE TE BLD COUNT W/DIF F mean red cell hemoglobin 32.8 pg 27.0-3 3.0 Not Available [facility] (Lab) [address] [place], [address], 06/28/2024 19:22:59 06/28/20 24 06/28/2024 CBC/C OMPLE TE BLD COUNT W/DIF F mean RBC HGB concentratio n 32.6 g/dL 31.0-3 6.0 Not Available [facility] (Lab) [address] [facility] [address] [place], [address], 06/28/2024 19:22:59 06/28/20 24 06/28/2024 CBC/C OMPLE TE BLD COUNT W/DIF F red cell distribution width 13.2 % 11.8-1 5.5 Not Available [facility] (Lab) [address] [place], [address], 06/28/2024 19:22:59 06/28/20 24 06/28/2024 CBC/C OMPLE TE BLD COUNT W/DIF F platelets 196 x10'3 /uL 150-40 0 Not Available [facility] (Lab) [address] [place], [address], 06/28/2024 19:22:59 06/28/20 24 06/28/2024 CBC/C OMPLE TE BLD COUNT W/DIF F mean platelet volume 10.7 fL 9.0-12 .4 Not Available [facility] (Lab) [address] [place], [address], 06/28/2024 19:22:59 06/28/20 24 06/28/2024 CBC/C OMPLE TE BLD COUNT W/DIF F neutrophils 58.6 % 39.0-7 2.0 Not Available [facility] (Lab) [address] [place], [address], 06/28/2024 19:22:59 06/28/20 24 06/28/2024 CBC/C OMPLE TE BLD COUNT W/DIF F lymphocytes 30.7 % 16.0-4 7.0 Not Available [facility] (Lab) [address] [place], [address], 06/28/2024 19:22:59 06/28/20 24 06/28/2024 CBC/C OMPLE TE BLD COUNT W/DIF F monocytes 7.8 % 5.0-12 .0 Not Available [facility] (Lab) [address] [place], [address], 06/28/2024 19:22:59 06/28/20 24 06/28/2024 CBC/C OMPLE TE BLD COUNT W/DIF F eosinophils 2.0 % 1.0-7. 0 Not Available [facility] (Lab) [address] [place], [address], 06/28/2024 19:22:59 06/28/20 24 06/28/2024 CBC/C OMPLE TE BLD COUNT W/DIF F basophils 0.7 % 0.0-2. 0 Not Available [facility] (Lab) [address] [place], [address], 06/28/2024 19:22:59 06/28/20 24 06/28/2024 CBC/C OMPLE TE BLD COUNT W/DIF F immature granulocytes 0.2 % 0.00-0 .50 Not Available [facility] (Lab) [address] [place], [address], 06/28/2024 19:22:59 06/28/20 24 06/28/2024 CBC/C OMPLE TE BLD COUNT W/DIF F neutrophils, absolute count 3.16 x10'3 /uL 1.5-8. 0 Not Available [facility] (Lab) [address] [place], [address], 06/28/2024 19:22:59 06/28/20 24 06/28/2024 CBC/C OMPLE TE BLD COUNT W/DIF F lymphocytes, absolute count 1.66 x10'3 /uL 1.07-3 .43 Not Available [facility] (Lab) [address] [place], [address], 06/28/2024 19:22:59 06/28/20 24 06/28/2024 CBC/C OMPLE TE BLD COUNT W/DIF F monocytes, absolute count 0.42 x10'3 /uL 0.29-0 .99 Not Available [facility] (Lab) [address] [place], [address], 06/28/2024 19:22:59 06/28/20 24 06/28/2024 CBC/C OMPLE TE BLD COUNT W/DIF F eosinophils, absolute count 0.11 x10'3 /uL 0.02-0 .53 Not Available [facility] (Lab) [address] [place], [address], 06/28/2024 19:22:59 06/28/20 24 06/28/2024 CBC/C OMPLE TE BLD COUNT W/DIF F basophils, absolute count 0.04 x10'3 /uL 0.01-0 .08 Not Available [facility] (Lab) [address] [place], [address], 06/28/2024 19:22:59 06/28/20 24 06/28/2024 CBC/C OMPLE TE BLD COUNT W/DIF F immature granulocytes ,absolute 0.01 x10'3 /uL 0.00-0 .05 Not Available [facility] (Lab) [address] [place], [address], 06/28/2024 19:22:59 06/28/20 24 06/28/2024 CBC/C OMPLE TE BLD COUNT W/DIF F nucleated red blood cells 0.0 % -0 Not Available [facility] (Lab) [address] [place], [address], 06/28/2024 19:22:59 06/28/20 24 06/28/2024 CBC/C OMPLE TE BLD COUNT W/DIF F NRBC# 0.00 x10'3 /uL Not Available [facility] (Lab) [address] [place], [address], 06/28/2024 19:22:59 06/28/20 24 06/28/2024 COMPR EHENS RANDI METAB OLIC PANEL sodium 141 mmol/ L 137-14 5 Not Available [facility] (Lab) [address] [place], [address], 06/28/2024 19:25:07 06/28/20 24 06/28/2024 COMPR EHENS RANDI METAB OLIC PANEL potassium 4.7 mmol/ L 3.5-5. 1 Not Available [facility] (Lab) [address] [place], [address], 06/28/2024 19:25:07 06/28/20 24 06/28/2024 COMPR EHENS RANDI METAB OLIC PANEL chloride 106 mmol/ L 98-107 Not Available [facility] (Lab) [address] [place], [address], 06/28/2024 19:25:07 06/28/20 24 06/28/2024 COMPR EHENS RANDI METAB OLIC PANEL carbon dioxide 30 mmol/ L 22-30 Not Available [facility] (Lab) [address] [place], [address], 06/28/2024 19:25:07 06/28/20 24 06/28/2024 COMPR EHENS RANDI METAB OLIC PANEL anion gap 9.7 mmol/ L 14-22 low Not Available [facility] (Lab) [address] [place], [address], 06/28/2024 19:25:07 06/28/20 24 06/28/2024 COMPR EHENS RANDI METAB OLIC PANEL glucose 117 mg/dL 70-99 high Not Available [facility] (Lab) [address] [place], [address], 06/28/2024 19:25:07 06/28/20 24 06/28/2024 COMPR EHENS RANDI METAB OLIC PANEL BUN 22 mg/dL 8-19 high Not Available [facility] (Lab) [address] [place], [address], 06/28/2024 19:25:07 06/28/20 24 06/28/2024 COMPR EHENS RANDI METAB OLIC PANEL creatinine 1.40 mg/dL 0.66-1 .25 high Not Available [facility] (Lab) [address] [place], [address], 06/28/2024 19:25:07 06/28/20 24 06/28/2024 COMPR EHENS RANDI METAB OLIC PANEL GFR 48 Refer ence Range : [place] ge GFR Healt hy Adult : >60 mL/mi n/1.7 3 m2 Chron ic Kidne y Disea se: 15-60 mL/mi n/1.7 3 m2 Kidne y Failu re: <15/m L/min /1.73 m2 www.n iddk. nih.g ov The MDRD study equat ion has not been valid ated in child yesy <18 years of age; pregn ant women ; the elder ly >85 years of age; or in some racia l or ethni c subgr oups, such as Hispa nics. Outsi de the valid ated tonny eters , estim ated GFR is less accur ate, requi ring clini ivy judgm ent on a case- by-ca se basis . Clini ivy inter preta tion for other races and ages must be made by the clini patrick. The MDRD study equat ion has not been valid ated for the evalu ation of serum creat inine relat ed to nutri laxmi l statu s or medic ation usage . For perso ns <18 years of age, a pedia tric GFR calcu latankur is avail able on the [facility] websi te: https ://buster garcia.jules andino/pr ofess ional s/kdo qi/gf r_cal culat or Not Available [facility] (Lab) [address] [place], [address], 06/28/2024 19:25:07 06/28/20 24 06/28/2024 COMPR EHENS RANDI METAB OLIC PANEL alkaline phosphatase 204 U/L 38-126 high Not Available [facility] (Lab) [address] [place], [address], 06/28/2024 19:25:07 06/28/20 24 06/28/2024 COMPR EHENS RANDI METAB OLIC PANEL alanine aminotransfe rase 90 U/L 0-50 high Not Available [facility] (Lab) [address] [place], [address], 06/28/2024 19:25:07 06/28/20 24 06/28/2024 COMPR EHENS RANDI METAB OLIC PANEL aspartate aminotransfe rase 131 U/L 15-46 high Not Available [facility] (Lab) [address] [place], [address], 06/28/2024 19:25:07 06/28/20 24 06/28/2024 COMPR EHENS RANDI METAB OLIC PANEL bilirubin, total 0.90 mg/dL 0.20-1 .30 Not Available [facility] (Lab) [address] [place], [address], 06/28/2024 19:25:07 06/28/20 24 06/28/2024 COMPR EHENS RANDI METAB OLIC PANEL calcium 9.5 mg/dL 8.4-10 .2 Not Available [facility] (Lab) [address] [place], [address], 06/28/2024 19:25:07 06/28/20 24 06/28/2024 COMPR EHENS RANDI METAB OLIC PANEL total protein 7.0 g/dL 6.3-8. 2 Not Available [facility] (Lab) [address] [place], [address], 06/28/2024 19:25:07 06/28/20 24 06/28/2024 COMPR EHENS RANDI METAB OLIC PANEL albumin 4.0 g/dL 3.0-4. 4 Not Available [facility] (Lab) [address] [place], [address], 06/28/2024 19:25:07 06/28/20 24 06/28/2024 COMPR EHENS RANDI METAB OLIC PANEL globulin 3.0 g/dL 2.6-4. 2 Not Available [facility] (Lab) [address] [place], [address], 06/28/2024 19:25:07 06/28/20 24 06/28/2024 COMPR EHENS RANDI METAB OLIC PANEL A/G ratio 1.3 ratio 1.0-2. 0 Not Available [facility] (Lab) [address] [place], [address], 06/28/2024 19:25:07 06/28/20 24 06/28/2024 LIPID PANEL cholesterol 178 mg/dL 140-19 9 NIH MEI NSUS RECOM MENDA TION FOR SKY STERO L: ADULT CHILD LOW RISK: <200 <170 BORDE RLINE : <200- 239 ----- HIGH RISK: >240 >200 Not Available [facility] (Lab) [address] [place], [address], 06/28/2024 19:25:11 06/28/20 24 06/28/2024 LIPID PANEL triglyceride s 193 mg/dL 0-150 high NIH MIE NSUS REPOR T RECOM MENDA TION FOR TRIGL YCERI KERRY: ADULT CHILD LOW RISK: <150 ----- BODER LINE: 150-1 99 ----- HIGH RISK: >200 ----- Not Available [facility] (Lab) [address] [place], [address], 06/28/2024 19:25:11 06/28/20 24 06/28/2024 LIPID PANEL HDL cholesterol 28 mg/dL 40- low Not Available [facility] (Lab) [address] [place], [address], 06/28/2024 19:25:11 06/28/20 24 06/28/2024 LIPID PANEL LDL cholesterol, calculated 111 mg/dL 0-130 NIH MEI NSUS REPOR T RECOM MENDA TIONS FOR LDL: ADULT CHILD LOW RISK <130 <110 (OPTI MAL LDL) <100 ----- BORDE RLINE : 130-1 59 ----- HIGH RISK: >160 >130 A TRIGL YCERI DE RESUL T >400 INVAL IDATE S THE CALCU LATIO N FOR LDL FRACT IONAT ION - THE LDL RESUL T WILL NOT BE REPOR APPLE. Not Available [facility] (Lab) [address] [place], [address], 06/28/2024 19:25:11 01/25/20 24 01/25/2024 CT, chest , w/o contr ast No observ ation record ed. [address], [place], [address], 01/25/2024 13:59:24 Result Notes None recorded. Problems Name Problem SNOMED Code Status Onset Date Resolution Date Notes Provider Name and Address Organization Details Recorded Time Testicula r hypofunct ion 849657077 Active Not Available [facility] 3 14:01:47 Constipat ion 39902223 Active Not Available [facility] 3 14:01:47 Temporary loss of memory 276584191 Completed Not Available [facility] 3 05:58:41 Gastroeso phageal reflux disease 987577835 Active Not Available [facility] 3 14:01:47 Pure hyperchol esterolem ia 048209446 Active Not Available [facility] 3 14:01:47 Alzheimer 's disease 21461403 Active 2016 Not Available [facility] 3 14:01:47 Chronic low back pain 266840177 Active Not Available [facility] 3 14:01:47 Disorder of prostate 04978475 Active 2021 Not Available [facility] 3 14:01:47 Blood in urine 23871261 Active Not Available [facility] 3 14:01:47 Depressiv e disorder 88987719 Active Not Available [facility] 3 14:01:47 Memory impairmen t 247544188 Active 2022 Not Available [facility] 3 14:01:47 Prostate specific antigen above reference range 385347407 Active Not Available [facility] 3 14:01:47 Osteoarth ritis 335766454 Active Not Available [facility] 3 14:01:47 Chronic kidney disease stage 3 269133477 Active 2021 Not Available [facility] 3 14:01:47 Atrial fibrillat ion 69711899 Active Not Available [facility] 3 14:01:47 Cough 93883218 Active 2022 Not Available [facility] 3 14:01:47 Dementia 93959237 Active 2021 Not Available [facility] 3 14:01:47 Cervical radiculop athy 98702791 Active Not Available [facility] 3 14:01:47 Essential hypertens ion 11693499 Active 2016 Not Available [facility] 3 14:01:47 Dyspnea on exertion 10308351 Active 2020 Not Available [facility] 3 14:01:47 Extrapyra midal disease 68787981 Active 2021 Not Available [facility] 3 14:01:47 Administr ation of influenza vaccine Active 2020 Not Available [facility] 3 14:01:47 Aortic valve stenosis 13232185 Active 2022 Not Available [facility] 3 14:01:47 Dyspnea 196898181 Active 2022 Not Available [facility] 3 14:01:47 Acute sinusitis 69185029 Active 2022 Not Available [facility] 3 14:01:47 Hyperglyc emia 03615035 Active 2022 DENISE [place], [place] [facility] 3 16:31:14 Muscle weakness 94453822 Active 2023 Anayeli Smith CMA null, [place] [facility] 4 15:38:59 Obese class II [id number] 4105 Active 2023 Remy An MD [address], [address], [place], [address] , [facility] 4 15:30:11 COVID-19 425924443 Active 2023 Remy An MD [address], [address], [place], [address] , [facility] 4 10:36:34 Abnormal gait 94579359 Active 2024 DENISE [place], [place] [facility] 5 13:26:16 Problem Notes None recorded. Procedures Surgical History Date Name Laterality Status Provider Name and Address Organization Details Recorded Time 09/17/2022 Transition al_Care_Ma nagement completed Magali Gaytan RN [facility] 09/17/2022 12:31:07 Imaging Results Imaging Date Name Status LastModified by Organiz ation Details LastModified Time 01/25/2024 CT, chest, w/o contrast completed [address], [place], [address], 01/25/2024 13:59:24 Procedure Notes None recorded. Medical Equipment None Reported. Allergies Allergen ID Allergen Name Allergen Category Reaction Reaction Severity Criticality Documentation Date Start Date Code Code System Note Provider Name and Address Organization Details Recorded Time 07658 Keflex medicatio n rash Not available Not available 09/08/202250227 7 RxNorm Not Available [facility] 3 06:05:00 90311 Celebrex medicatio n rash Not available Not available 09/08/2022 13429 7 RxNorm Not Available [facility] 3 06:05:00 Medications Name Sig Start Date Stop Date Status Note LastModified by Organization Details LastModified Time quetiapine 25 mg tablet TAKE 1 TABLET BY MOUTH THREE TIMES DAILY active Not Available Not Available No t Available Colace 100 mg capsule Take 3 capsules every day by oral route. 2012 active Not Available Not Available Not Avai lable atorvastati n 20 mg tablet 04/17 completed Not Available Not Available Not Available Remeron 30 mg tablet Take 1 tablet every day by oral route at bedtime. active Not Available Not Available No t Available azithromyci n 250 mg tablet TAKE 2 TABLETS (500 MG) BY ORAL ROUTE ONCE DAILY FOR 1 DAY THEN 1 TABLET (250 MG) BY ORAL ROUTE ONCE DAILY FOR 4 DAYS 05/06 completed Not Available Not Available Not Available aspirin 325 mg tablet Take 1 tablet every day by oral route. 2021 active Not Available Not Available Not Avai lable benzonatate 200 mg capsule Take 1 capsule 3 times a day by oral route. 09/17 completed Not Available Not Available Not Available Remeron 15 mg tablet Take 1 tablet(s) EVERY DAY by oral route at bedtime active Not Available Not Available No t Available Medrol (Naseem) 4 mg tablets in a dose pack Take by oral route as directed active Not Available Not Available No t Available prednisone 20 mg tablet TAKE 2 TABLETS BY MOUTH active Not Available Not Available No t Available betamethaso ne, augmented 0.05 % topical cream APPLY TO THICKENED APOTS AFTER WOUNDS HAVE HEALED BID. START IN 1 MONTH active Not Available Not Available No t Available AndroGel 1 % (25 mg/2.5 gram) transdermal gel packet Apply 1 packet every day by topical route. 2012 active Not Available Not Available Not Avai lable hydroxyzine HCl 50 mg tablet 04/17 completed Not Available Not Available Not Available quetiapine 100 mg tablet TAKE 1 TABLET BY MOUTH EVERY DAY AT BEDTIME active Not Available Not Available No t Available lorazepam 0.5 mg tablet 04/17 completed Not Available Not Available Not Available trazodone 100 mg tablet TK 1 T PO QD HS active Not Available Not Available No t Available benzonatate 100 mg capsule Take 1 capsule 3 times a day by oral route. 04/17 completed Not Available Not Available Not Available Xanax 0.25 mg tablet Take 1 TABLET 3 TIMES A DAY by oral route prn for anxiety active Not Available Not Available No t Available flecainide 50 mg tablet Take 1 tablet twice a day by oral route. active Not Available Not Available No t Available carbidopa 10 mg-levodopa 100 mg tablet TAKE 1 TABLET BY MOUTH THREE TIMES DAILY 06/28 completed Not Available Not Available Not Available flecainide 100 mg tablet Take 1 tablet every 12 hours by oral route. 2012 active Not Available Not Available Not Avai lable hydroxyzine HCl 25 mg tablet active Not Available Not Available Not Available furosemide 20 mg tablet one tablet Mon, Wed, Tue active Not Available Not Available No t Available Aricept 10 mg tablet Take 1 tablet every day by oral route. 2024 active Not Available Not Available Not Avai lable ergocalcife rol (vitamin D2) 1,250 mcg (50,000 unit) capsule TAKE 1 CAPSULE BY MOUTH 1 TIME EVERY WEEK active Not Available Not Available No t Available clobetasol 0.05 % topical ointment APPLY TO PATCHES OF RASH ON SCALP TWICE DAILY active Not Available Not Available No t Available ketoconazol e 2 % topical cream APPLY TO SOLES AND SIDES OF FEET TWICE DAILY FOR 12 WEEKS active Not Available Not Available No t Available cefdinir 300 mg capsule TAKE 1 CAPSULE BY MOUTH EVERY 12 HOURS 09/17 completed Not Available Not Available Not Available Ambien 5 mg tablet Take 1 tablet every day by oral route. active Not Available Not Available No t Available doxycycline hyclate 100 mg tablet TAKE 1 TABLET BY MOUTH 12 HOURS 09/17 completed Not Available Not Available Not Available Bactrim DS 800 mg-160 mg tablet Take 1 tablet every 12 hours by oral route for 5 days. 05/26 completed Not Available Not Available Not Available Lexapro 10 mg tablet Take 1 tablet every day by oral route. active Not Available Not Available No t Available Zetia 10 mg tablet Take 1 tablet by mouth daily for cholester ol 04/27 completed Not Available Not Available Not Available rosuvastati n 10 mg tablet TAKE 1 TABLET BY MOUTH EVERY DAY 05/06 completed Not Available Not Available Not Available rosuvastati n 20 mg tablet TAKE 1 TABLET BY MOUTH EVERY DAY 2024 active Not Available Not Available Not Avai lable Crestor 5 mg tablet Take 1 tablet every day by oral route. 05/25 completed Not Available Not Available Not Available flecainide 50 mg two times a day 04/17 completed Not Available Not Available Not Available Lara Aspirin 325 mg once a day 12/18 completed Not Available Not Available Not Available quetiapine 50 mg tablet TAKE 1 TABLET BY MOUTH EVERY MORNING active Not Available Not Available No t Available Bystolic 5 mg tablet Take 1 tablet every day by oral route. 10/20 completed Not Available Not Available Not Available nebivolol 2.5 mg tablet TAKE 1 TABLET BY MOUTH EVERY DAY active Not Available Not Available No t Available AndroGel 20.25 mg/1.25 gram per pump act. (1.62 %) transdermal gel Apply 4 pumps daily by transderm al route as directed. active Not Available Not Available No t Available Namenda XR 28 mg capsule sprinkle,ex tended release Take 1 capsule every day by oral route. 2024 active Not Available Not Available Not Avai lable Namzaric 28 mg-10 mg capsule sprinkle,ex tended release TAKE 1 CAPSULE BY MOUTH EVERY DAY active Not Available Not Available No t Available Trintellix 10 mg tablet Take 1 tablet every day by oral route. 10/26 completed Not Available Not Available Not Available Trintellix 20 mg tablet TAKE 1 TABLET BY MOUTH DAILY active Not Available Not Available No t Available Namzaric 7 mg-10 mg capsule sprinkle,ex tended release 04/17 completed Not Available Not Available Not Available Paxlovid 150 mg-100 mg tablets in a dose pack (Renal Dose) FOLLOW PACKAGE DIRECTION S active Not Available Not Available No t Available Vitals Date Recorded Body height Body weight Body temperature Heart rate Oxygen saturation Oxygen saturation in Arterial blood by Pulse oximetry Heart rate Oxygen saturation Oxygen saturation in Arterial blood by Pulse oximetry Systolic blood pressure Diastolic blood pressure Provider Name and Address Organization Details Last Updated DateTime 3 175.26 cm 882579. 39 g 97.6 [degF] 68 /min 88 % 88 % 56 /min 97 % 97 % 122 mm[Hg] 74 mm[Hg] Paulette Beckman MA [facility] [employer] [facility] 3 15:20:40 Date Recorded Heart rate Body temperature Oxygen saturation Oxygen saturation in Arterial blood by Pulse oximetry Systolic blood pressure Diastolic blood pressure Provider Name and Address Organization Details Last Updated DateTime 3 53 /min 97 [degF] 98 % 98 % 132 mm[Hg] 80 mm[Hg] Delfina Faria [place] [employer] [facility] [employer] 3 15:31:19 Date Recorded Body height Body mass index (BMI) Body weight Heart rate Body temperature Oxygen saturation Oxygen saturation in Arterial blood by Pulse oximetry Systolic blood pressure Diastolic blood pressure Provider Name and Address Organization Details Last Updated DateTime 4 175.26 cm 35.4 kg/m2 075916. 17 g 58 /min 97.4 [degF] 93 % 93 % 120 mm[Hg] 74 mm[Hg] ELBERT Gomez [place] [employer] [facility] [employer] [facility] 4 15:08:26 Date Recorded Body height Body mass index (BMI) Body weight Heart rate Body temperature Oxygen saturation Oxygen saturation in Arterial blood by Pulse oximetry Systolic blood pressure Diastolic blood pressure Provider Name and Address Organization Details Last Updated DateTime 4 175.26 cm 35.4 kg/m2 657139. 17 g 60 /min 97.4 [degF] 92 % 92 % 120 mm[Hg] 74 mm[Hg] ELBERT Gomez [place] [employer] [facility] [employer] [facility] 4 14:41:07 Date Recorded Body height Body mass index (BMI) Body weight Heart rate Body temperature Oxygen saturation Oxygen saturation in Arterial blood by Pulse oximetry Systolic blood pressure Diastolic blood pressure Provider Name and Address Organization Details Last Updated DateTime 4 175.26 cm 35.4 kg/m2 191578. 17 g 56 /min 97 [degF] 96 % 96 % 118 mm[Hg] 68 mm[Hg] ELBERT Gomez [place] [employer] [facility] [employer] [facility] 4 14:27:38 Social History Question Answer Notes LastModified by Organizat ion Details LastModified Time Tobacco Smoking Status Never Smoker Not Available [facility] 09/08/2022 05:53:05 Do You Have An Advance Directive? Yes [id number] Information not available 09/08/2022 Are You Blind Or Do You Have Difficulty Seeing? No MIGRATION.[id number] [id number] Information not available 09/08/2022 In The 14 Days Before Symptom Onset, Have You Had Close Contact With A Laboratory-confi rmed COVID-19 While That Case Was Ill? No MIGRATION.[id number] Information not available 09/08/2022 In The 14 Days Before Symptom Onset, Have You Had Close Contact With A Person Who Is Under Investigation For COVID-19 While That Person Was Ill? No MIGRATION.24491 [id number] Information not available 09/08/2022 Are You Deaf Or Do You Have Serious Difficulty Hearing? Yes Bilateral Hearing Aids MIGRATION.[id number] [id number] Information not available 09/08/2022 What Type Of Diet Are You Following? REGULAR MIGRATION.28758 67072 Information not available 09/08/2022 What Is The Fluoride Status Of Your Home? Fluoridated MIGRATION.66530 [id number] Information not available 09/08/2022 What Was The Date Of Your Most Recent Tobacco Screening? 04/17/2021 MIGRATION.87990 [id number] Information not available 09/08/2022 What Is Your Relationship Status? MIGRATION.13974 51296 Information not available 09/08/2022 Do You Have Smoke And Carbon Monoxide Detectors In Your Home? Yes MIGRATION.74929 [id number] Information not available 09/08/2022 Do You Use Sunscreen Routinely? No MIGRATION.82778 09787 Information not available 09/08/2022 Have You Recently Traveled Abroad? No MIGRATION.22416 05002 Information not available 09/08/2022 Sex: Unknown Functional Status Question Answer Note LastModified by Organizat ion Details LastModified Time Do you have difficulty walking or climbing stairs? No MIGRATION.[id number] 026 Information not available 09/08/2022 Do you have transportation difficulties? No MIGRATION.[id number] 026 Information not available 09/08/2022 Are you able to walk? YESWOREST MIGRATION.[id number] 026 Information not available 09/08/2022 Do you have difficulty doing errands alone? Yes MIGRATION.[id number] 026 Information not available 09/08/2022 Are you able to care for yourself? Yes MIGRATION.[id number] 026 Information not available 09/08/2022 Do you have difficulty dressing or bathing? No MIGRATION.[id number] 026 Information not available 09/08/2022 What is your exercise level? Occasional MIGRATION.[id number] 026 Information not available 09/08/2022 Mental Status Question Answer Note LastModified by Organizat ion Details LastModified Time Do you have difficulty concentrating, remembering or making decisions? Yes [id number] Information not available 09/08/2022 Family History Nothing Reported Notes:Mother at 81 from CVA Father at 77 from Alzheimer's One brother living [place] of larynx Medical History Condition Response BLINDNESS N NERVE DISEASE N RHEUMATIC FEVER N BLADDER PROBLEMS N KIDNEY STONES N MRSA N OTHER # 1 N POLIO N LUNG DISEASE/DISORDER N HISTORY OF DRUG ABUSE N RADIATION / CHEMOTHERAPY N COPD N Other # 2 N BLOOD DISEASES N EAR OR HEARING PROBLEMS N MUMPS N SHINGLES N DEPRESSION (INCLUDING POST ) Y BOWEL PROBLEMS N STROKE/TIA N ULCERS N BENIGN PROSTATIC HYPERPLASIA N MEASLES N HYPOTENSION N MYOCARDIAL INFARCTION N OBESITY N GERD/NAUSEA N ANEURYSM N URINARY/BLADDER/KIDNEY PROBLEMS N CORONARY ARTERY DISEASE (CAD) N ADDICTION CONCERNS N ENDOMETRIOSIS N Impotence N USE OF BLOOD THINNERS N SKIN PROBLEMS N GASTROINTESTINAL DISORDER N PERIPHERAL VASCULAR DISEASE N MUSCLE,JOINT OR BONE PROBLEMS N GASTROINTESTINAL BLEEDING N BLOOD CLOTS N ASTHMA N CATARACTS N ERECTILE DYSFUNCTION N VARICOSITIES N GI PROBLEMS N Low Testosterone N INFERTILITY N AIDS/HIV N CHEMOTHERAPY / RADIATION N LIVER DISEASE N MALE HYPOGONADISM N HYPERTENSION Y Deficiency N TOURETTE'S N ANXIETY DISORDER Y BLOOD TRANSFUSION N ANEMIA/BLOOD DISORDER N CHRONIC EAR INFECTIONS N BRONCHITIS N TUBERCULOSIS N GLAUCOMA N FOOT PROBLEM N DIVERTICULITIS N CHICKENPOX N SLEEP APNEA N INFECTIOUS DISEASE N HEART ARRHYTHMIA N PROSTATE N INSOMNIA N HIGH CHOLESTEROL / HYPERLIPIDEMIA Y HYPERTHYROIDISM N EYE PROBLEMS N EDEMA N CHRONIC PAIN SYNDROME N HYPOTHYROIDISM N CAROTID BLOCKAGE N CONSTIPATION N BACK / NECK PROBLEMS N HAVE YOU BEEN HOSPITALIZED OR SEEN IN [facility] IN THE PAST YEAR ? N ATHEROSCLEROSIS N BREAST PROBLEMS N DIALYSIS N ECZEMA N OSTEOPOROSIS N ARTHRITIS Y NO SIGNIFICANT PAST MEDICAL HISTORY N APPENDICITIS N DIABETES, TYPE N BAD TEETH N ENT N HEARTBURN / REFLUX N AUTISM SPECTRUM DISORDER (ASD) N HEPATITIS / LIVER DISEASE N GOUT N SLEEP DISORDER N ALZHEIMER'S DISEASE N Brain Problems N HERPES N DEMENTIA N HEADACHES/MIGRAINES N SEIZURES/EPILEPSY N VASCULAR DISEASE N PACEMAKER N Blood Disorder N DIZZINESS N HEART DISEASE/HEART PROBLEMS N KIDNEY DISEASE N MULTIPLE SCLEROSIS N CARDIAC ARRHYTHMIA N CANCER: SPECIFY N ATRIAL FIBRILLATION Y Gall Stones N PULMONARY EMBOLISM N AUTOIMMUNE DISEASE N Immunizations Vaccine Type Date Status Note Provider Nam e and Address Organization Details Recorded Time Influenza, high-dose, quadrivalent, PF 3 completed Remy An MD [address] [facility], [facility] [address], [place], [address], [facility] [employer] 05/06/2023 15:48:05 SARS-COV-2 (COVID-19) vaccine, UNSPECIFIED 1 completed Not Available [facility] 05/10/2023 14:01:48 SARS-COV-2 (COVID-19) vaccine, UNSPECIFIED 1 completed Not Available [facility] 05/10/2023 14:01:48 COVID-19, mRNA, LNP-S, PF, 30 mcg/0.3 mL dose 1 completed Not Available [facility] 05/10/2023 14:01:48 pneumococcal polysaccharide PPV23 9 completed Not Available [facility] 05/10/2023 14:01:48 Influenza, high-dose, quadrivalent, PF 1 completed Not Available [facility] 05/10/2023 14:01:48 Influenza, high-dose, quadrivalent, PF 2 completed Not Available [facility] 05/10/2023 14:01:48 Influenza, high-dose, trivalent, PF 8 completed Not Available [facility] 05/10/2023 14:01:48 Influenza, high-dose, trivalent, PF 7 completed Not Available [facility] 05/10/2023 14:01:48 Pneumococcal conjugate PCV 13 6 completed Not Available [facility] 05/10/2023 14:01:48 Pneumococcal conjugate PCV 13 5 completed Not Available [facility] 05/10/2023 14:01:48 Influenza, high-dose, trivalent, PF 4 completed Not Available [facility] 05/10/2023 14:01:48 Influenza, split virus, quadrivalent, preservative 5 completed Not Available [employer] 05/10/2023 14:01:48 Pneumococcal conjugate PCV20, polysaccharide BVV033 conjugate, adjuvant, PF 4 completed Remy An MD [address], [facility] [address], [place], [address], [facility] [employer] 06/28/2024 14:55:35 Past Encounters Encounter ID Performer Location Encounter Start Date Encounter Closed Date Diagnosis/Indication Diagnosis SNOMED-CT Code Diagnosis ICD10 Code Diagnosis Note [id number] [facility] [place] [address] [place] [address] 10/28/2020 00:00:00 10/28/2020 16:13:03 [id number] [facility] [place] [address] [place] [address] 04/17/2021 00:00:00 04/17/2021 15:41:51 [id number] [facility] [place] [address] [facility] [address] , [place] [address] 08/21/2021 00:00:00 08/21/2021 15:11:54 [id number] [facility] [place] [address] [facility] [address] , [place] [address] 12/18/2021 00:00:00 12/18/2021 15:12:56 [id number] [facility] [place] [address] [facility] [place] [address] 04/23/2022 00:00:00 04/23/2022 15:32:43 [id number] [facility] [place] [address] [facility] [address] , [place] [address] 08/27/2022 00:00:00 08/27/2022 15:36:25 [id number] Remy An MD [facility] [place] [address] [place] [address] 09/17/2022 16:20:37 09/17/2022 17:09:51 Transition of care [id number] 105 Z75.8 Transition Care Management Questionna ireDate of Discharge 09/14/22Admi ssion Date: 09/11/22Date of Contact: 1st attempt: Family called into office on 09/15/22Reas on for Admission: Shortness of breath, rabdomyoly sisDischar ge Facility Name: [facility] Type inpatient acute care [facility] Diagnosis( es): Diffuse wheezing, rhabdomyol ysisDiagno stic Test(s) Performed: cardiovasc ular testing (EKG, chest xray), Other: lab work, blood culturesDi d your hospital physician prescribe any new medicines upon discharge? yes: Cefdinir, Doxycyclin e, Prednisone Did you hop picker your prescripti on(s) and begin taking them as the doctor prescribed ? yesDo you have any questions about your new medication s? noDid the hospital set up a follow up appointmen t with your PCP? no (Family called and scheduled appointmen t for 09/17/22.)D id the hospital set up an appointmen t up with any specialist s? noDid the hospital set up Home Health Care or Outpatient therapy? noDid the hospital set you up with any equipment before discharge? noDo you have all the equipment you need to perform daily living activities ? yesPerform ed by: (include credential s) Josefina Gaytan RN Aortic valve stenosis 60 291543 I35.0 Atrial fibrillation 4943 6004 I48.91 Alzheimer's disease 2692 9004 G30.9 Dyspnea 167660717 R06.00 [id number] Remy An MD [facility] Internal [facility] [place] [address] [place] [address] 12/31/2022 14:56:50 12/31/2022 15:59:33 Alzheimer's disease 36213679 G30.9 Atrial fibrillation 4943 6004 I48.91 Aortic valve stenosis 60 666621 I35.0 Essential hypertension 45934368 I10 Pure hypercholesterolemia 970729954 E78.00 [id number] Remy An MD [facility] Internal Med [place] [address] [facility] [address] , [place] [address] 05/06/2023 14:48:52 05/06/2023 16:03:53 Administration of influenza vaccine [id number] Z23 Aortic valve stenosis 60 896627 I35.0 Essential hypertension 62842179 I10 Extrapyram idal disease 64070173 G25.9 Pure hypercholesterolemia 123768553 E78.00 Disorder of prostate 302 89325 N42.9 [id number] Remy An MD [facility] Internal Med [place] [address] [facility] [address] , [place] [address] 09/09/2023 14:58:34 09/09/2023 15:52:22 Alzheimer's disease 71893452 G30.9 Atrial fibrillation 4943 6004 I48.91 Aortic valve stenosis 60 305378 I35.0 Chronic ki dney disease stage 3 260012219 N18.30 Essential hypertension 37591895 I10 Obese class II 782842872 1 50842 E66.9 Pure hypercholesterolemia 530169438 E78.00 [id number] Remy An MD [facility] Internal Med [place] [address] [facility] , [place] [address] 02/23/2024 14:27:52 02/23/2024 15:30:56 Aortic valve stenosis 04616109 I35.0 Atrial fibrillation 4943 6004 I48.91 Chronic ki dney disease stage 3 304129058 N18.30 Essential hypertension 41674921 I10 Pure hypercholesterolemia 904252995 E78.00 Dementia 03049262 F03.90 [id number] Remy An MD [facility] Primary [facility] [place] [address] [facility] [address] [place] [address] 06/28/2024 14:11:23 06/28/2024 15:48:43 Administration of pneumococcal vaccine 99247791 Z23 Alzheimer's disease 2692 9004 G30.9 Aortic valve stenosis 60 790241 I35.0 Atrial fibrillation 4943 6004 I48.91 Essential hypertension 27636715 I10 Health Concerns Section Related Observation LastModified by Organization Detai ls LastModified Time None Recorded Concern Status LastModified by Organization Details LastModified Time None Recorded Advance Directives Directive Y: Payers Encounter Date Sequence Insurance Name Policy Number Policy Lorenzo Covered Member ID Lorenzo Member ID Guarantor Name 12/31/2022 1 [employer] (MEDICARE REPLACEMENT PPO) [id number] Boo Matute [id number] Boo Matute 05/06/2023 1 [employer] (MEDICARE REPLACEMENT PPO) [id number] Boo Matute [id number] Boo Matute 09/09/2023 1 [employer] (MEDICARE REPLACEMENT PPO) [id number] Boo Matute [id number] Boo Matute 02/23/2024 1 [employer] (MEDICARE REPLACEMENT PPO) [id number] Boo Matute [id number] Boo Matute 06/28/2024 1 [employer] (MEDICARE REPLACEMENT PPO) [id number] Boo Matute [id number] Boo Matute Notes Date Note Type Note Provider Name and Address Organization Details Recorded Time 3 text/html Patient Name: Boo MatuteDate Of Service: Tuesday ( 12.31.2022 ): 1940 Age: 82 Vital Signs:Blood Pressure: Sitting Rt. Arm 122/74Pulse: Sitting 68 /min and RegularRespirations: 12Height 69 in or 1.8 mWeight 237 lb or 107.5 kgBMI 35.0Temperature: 97.6 F or 36.4 CPulse Oximetry: 97 % at rest on no oxygen Chief Complaint: Addressed in HPI Problems or conditions discussed in the HPI were the only ones reviewed during the encounter.Only social and family history addressed in the HPI were reviewed during this encounter. Attendant(s): None Constitutional and Systemic Symptoms: none Medication Reconciliation: from medication list. Jbynrrbnuzb89/03/2023: 09/09/2022: Chest x-ray shows some atelectatic changes in the bases possibly suggestive some mild pneumonia. However the CT pulmonary angiogram failed to disclose any significant infiltrates and/or pulmonary emboli.09/10/2022: 09/10/2022: Transesophageal echocardiogram demonstrates an ejection fraction of greater than 70%. Severe aortic valve stenosis is noted with a calculated aortic valve area of 0.8 sq cm. Mean gradient 32 mm of mercury. History of Present Illness #1. Essential Hypertension: Stage: Stage I Interval Neurological Complaints no headaches, dizziness, weakness, visual changes, ataxia, aphasia and apraxia. No shortness of breath, orthopnea or cardiovascular symptoms. No other symptoms related to end organ damage. Pressure has been under excellent control. Currently normal. No other end organ symptoms or findings. Therapy reviewed regarding management of hypertension and includes salt restriction and Bystolic. #2. Atrial Fibrillation: Type: Paroxysmal with recurrent episodes lasting less than 7 days. Further classification: Non-valvular. Associated history of essential hypertension. No attending hx of any shortness of breath, palpitations, syncopal or neurological symptoms. Current medications: Bystolic and Flecainide Acetate. Rate control: controlled ventricular response [id number] Criteria: Age > 75 and and considered moderate risk for embolic phenomenon. Anticoagulation: ASA per cardiology #3. Aortic Stenosis: Symptoms: atrial fibrillation and Shortness of breath with exertion Hx of calcified aortic stenosis. No interval complaints of any chest pain, shortness of breath, palpitations or syncope. No palpitations. No change in exercise tolerance. Last echocardiogram was less than six months ago. Currently Possibly scheduled to see Cardiology next week a repeat echocardiogram. #4. Type II Hypercholesterolaemia: Currently taking medication and tolerating well. No interval complaints of any muscle pain or arthralgia. No significant liver changes with medications. Last lipid panel: fair control. Therapy reviewed regarding treatment of cholesterol management and include diet and Crestor. #5. Hx of dementia. Currently stable. There has been no clinical change in cognitive functions. Performance of activities of daily living has remained unchanged. Currently taking Aricept and Namenda Mini-Cog Score: Severe Cognitive ImpairmentMedication List Reviewed and Reconciled 12/31/2022Trazodone 100 MG (TABLET - ORAL) One At BedtimLasix 20 MG (TABLET - ORAL) B-p-zJcxpqrrefz 20 MG (TABLET - ORAL) One DailyAspirin 325 MG One DailyCrestor 20 MG TABLET, FILM COATED One Daily For CholesterolFlecainide Acetate 50 MG (TABLET - ORAL) One Bid For Atrial FibrillationNamzaric 10 MG-28 MG (CAPSULE, EXTENDED RELEASE - ORAL) One DailyNebivolol 2.5 MG TABLET DailyBystolic 2.5 MG (TABLET - ORAL) Once DailyVitamin B-complex DailySeroquel 25 MG TABLET, FILM COATED One Three Times DailyADRs List Reviewed 3Keflex RashCelebrex RashVaccination and Djllkzhuxxgc8675-32 Qxetzzcwr9168-68 Covid Booster Kmuegw9465-04 Covid Jvdhfx7447-72 Prevnar 037257-08 PneumovaxSurgical HistoryRight Elbow Cubital Tunnel, Right CTS, Right CataractPreventative Testing Confirmed by Our Pshulzf0212/30/2021 ALBUMIN 4.0 G/DL12/30/2021 PSA 1.75 NG/ML06/28/[address] HLLGXF9409/18/2004 PSASocial HistoryDoes not smoke. Drinks socially. 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 Arm 132/80Pulse: Sitting 53 /min and RegularRespiratory Rate: 12Temperature: 97 F or 36.1 CPulse Oximetry: 98 % at rest on no oxygen Chief Complaint: Addressed in HPI Problems or conditions discussed in the HPI were the only ones reviewed during the encounter.Only social and family history addressed in the HPI were reviewed during this encounter. Attendant(s): NoneConstitutional and Systemic Symptoms:none Medication Reconciliation: from medication list. History of Present Illness #1. Essential Hypertension: Stage: Stage I Interval Neurological Complaints no headaches, dizziness, weakness, visual changes, ataxia, aphasia and apraxia. No shortness of breath, orthopnea or cardiovascular symptoms. No other symptoms related to end organ damage. Pressure has been under excellent control. Currently normal. No other end organ symptoms or findings. Therapy reviewed regarding management of hypertension and includes salt restriction and Bystolic and Nebivolol. #2. Aortic Stenosis: Symptoms: atrial fibrillation Hx of valvular aortic stenosis. No interval complaints of any chest pain, shortness of breath, palpitations or syncope. No palpitations. No change in exercise tolerance. Last echocardiogram was less than six months ago. Currently does not need a repeat echocardiogram. #3. Type II Hypercholesterolaemia: Currently taking medication and tolerating well. No interval complaints of any muscle pain or arthralgia. No significant liver changes with medications. Last lipid panel: fair control. Therapy reviewed regarding treatment of cholesterol management and include diet and Crestor. #4. Some symptoms of early parkinsonism manifested by the shuffling gait as well as some early cogwheeling noted in the upper extremities. According to PT at the group home he is showing more progressive problems with ambulation with shuffling steps initiating and stopping movement. Will give a trial some Sinemet 10 100 t.i.d. To see if there is any clinical improvement.:Medication List Reviewed and Reconciled 05/06/2023Trazodone 100 MG (TABLET - ORAL) One At BedtimLasix 20 MG (TABLET - ORAL) C-j-rHhxqqjeurm 20 MG (TABLET - ORAL) One DailyAspirin 325 MG One DailyCrestor 20 MG TABLET, FILM COATED One Daily For CholesterolFlecainide Acetate 50 MG (TABLET - ORAL) One Bid For Atrial FibrillationNamzaric 10 MG-28 MG (CAPSULE, EXTENDED RELEASE - ORAL) One DailyNebivolol 2.5 MG TABLET DailyBystolic 2.5 MG (TABLET - ORAL) Once DailyVitamin B-complex DailySeroquel 25 MG TABLET, FILM COATED One Four Times A DayADRs List Reviewed 3Keflex RashCelebrex RashVaccination and Vecmohsuajms8654-74 Zkafpthqh6328-00 Covid Booster Dshqis2526-42 Covid Lclfth1737-05 Prevnar 13 Jl2351-84 PneumovaxSurgical HistoryRight Elbow Cubital Tunnel, Right CTS, Right CataractPreventative Testing Confirmed by Our Zuelgwr2912/30/2021 ALBUMIN 4.0 G/DL N012/30/2021 PSA 1.75 NG/ML N108/29/[address] THORAXSocial HistoryDoes not smoke. Drinks socially. 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 This represents approximately a 1.3% change in weight. Weight change attributable to lifestyle changes. Vital Signs:Blood Pressure: Sitting Rt. Arm 120/74Pulse: Sitting 58 /min and RegularRespiratory Rate: 12Height 69 in or 1.8 mWeight 240 lb or 108.9 kgBMI 35.4Temperature: 97.4 F or 36.3 CPulse Oximetry: 93 % at rest on no oxygen Chief Complaint: Addressed in HPI Problems or conditions discussed in the HPI were the only ones reviewed during the encounter.Only social and family history addressed in the HPI were reviewed during this encounter. Attendant(s): WifeConstitutional and Systemic Symptoms:none Medication Reconciliation: from medication list. Asmknndzzle38/02/2023: Chest x-ray shows some atelectatic changes in the bases possibly suggestive some mild pneumonia. However the CT pulmonary angiogram failed to disclose any significant infiltrates and/or pulmonary emboli. 09/10/2022: Transesophageal echocardiogram demonstrates an ejection fraction of greater than 70%. Severe aortic valve stenosis is noted with a calculated aortic valve area of 0.8 sq cm. Mean gradient 32 mm of mercury. History of Present Illness #1. Essential Hypertension: Stage: Stage I Interval Neurological Complaints no headaches. No shortness of breath, orthopnea or cardiovascular symptoms. No other symptoms related to end organ damage. Pressure has been under fair control. Currently normal. No other end organ symptoms or findings. Therapy reviewed regarding management of hypertension and includes salt restriction and Bystolic, Lasix and Nebivolol. #2. Atrial Fibrillation: Type: Paroxysmal with recurrent episodes lasting less than 7 days. Further classification: Non-valvular. Associated history of essential hypertension. No attending hx of any shortness of breath, palpitations, syncopal or neurological symptoms. Current medications: Flecainide Acetate. Rate control: controlled ventricular response [id number] Criteria: hypertension, Age > 75 and and considered moderate risk for embolic phenomenon. Anticoagulation: Eliquis #3. Aortic Stenosis: Symptoms: no cardiac symptoms Hx of calcified aortic stenosis. No interval complaints of any chest pain, shortness of breath, palpitations or syncope. No palpitations. No change in exercise tolerance. Last echocardiogram was does not need. Currently not followed a repeat echocardiogram. #4. History of chronic renal failure currently doing well. Currently is CKD-3a by a advertising sales manager. Stage: A1. Albumin Stage: Namzaric. There has been no change in urine output or color. No fever or chills. #5. Hx of dementia. Currently stable. There has been no clinical change in cognitive functions. Performance of activities of daily living has remained unchanged. Currently taking Severe Cognitive Impairment Mini-Cog Score: Class 2 Obesity BMI 35-39.99 #6. Hx of obesity. Currently No. Has tried numerous dietary support and supplements with no benefit. Instructed on the health consequences of the obese status particularly cancer - diabetes and heart disease. Discussed new modalities of weight loss including GLP-1 medications that are used to treat diabetes. Potential candidate for bariatric surgery: No and was offered to be evaluated and instructed by commissary assistant on weight loss diet. Wishes to be evaluated by Dietary: No and was offered to be evaluated and instructed by commissary assistant on weight loss diet.#7. Hyperlipidemia clinically stable. Will check a lipid panel. Otherwise doing reasonably well. Active Medication ListTrazodone 100 MG (TABLET - ORAL) One At BedtimLasix 20 MG (TABLET - ORAL) J-r-nZdfzrplkdw 20 MG (TABLET - ORAL) One DailyAspirin 325 MG One DailyCrestor 20 MG TABLET, FILM COATED One Daily For CholesterolFlecainide Acetate 50 MG (TABLET - ORAL) One Bid For Atrial FibrillationNamzaric 10 MG-28 MG (CAPSULE, EXTENDED RELEASE - ORAL) One DailyNebivolol 2.5 MG TABLET DailyBystolic 2.5 MG (TABLET - ORAL) Once DailyVitamin B-complex DailySeroquel 25 MG TABLET, FILM COATED One Four Times A Day Adverse Drug Reactions ReviewedKeflex RashCelebrex Rash Vaccination and Fzedkzzwyitu3660-91 Kvliulfqa2907-89 Covid Booster Futsdn8959-02 Covid Sibsrh7508-67 Prevnar 13 Kt5523-33 Pneumovax Surgical Ohkgsrc1334-24 Right Elbow Cubital Tqryqe3646-76 Right ZNO8336-02 Right Cataract Preventative Hmhqcoi3305/25/2023 HAIC 6.0 % OF TOTAL HGB H107/12/2022 ALBUMIN 4.1 G/DL N11 PSA TNP N108/29/[address] THORAX Social HistoryDoes not smoke. Drinks socially. 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 Family HistoryMother at 81 from CVAFather at 77 from Alzheimer'sOne brother living [place] of larynx Active Medication ListTrazodone 100 MG (TABLET - ORAL) One At BedtimLasix 20 MG (TABLET - ORAL) Q-v-aFdjrmyzbvg 20 MG (TABLET - ORAL) One DailyAspirin 325 MG One DailyCrestor 20 MG TABLET, FILM COATED One Daily For CholesterolFlecainide Acetate 50 MG (TABLET - ORAL) One Bid For Atrial FibrillationNamzaric 10 MG-28 MG (CAPSULE, EXTENDED RELEASE - ORAL) One DailyNebivolol 2.5 MG TABLET DailyBystolic 2.5 MG (TABLET - ORAL) Once DailyVitamin B-complex DailySeroquel 25 MG TABLET, FILM COATED One Four Times A Day Adverse Drug Reactions ReviewedKeflex RashCelebrex Rash Vaccination and Bdadppabeiuk3305-51 Ozowhftsr4683-82 Covid Booster Wemque0754-02 Covid Pzdkyf0596-49 Prevnar 13 Gs4503-39 Pneumovax Surgical Kmadcmx6812-61 Right Elbow Cubital Pkkveu0763-71 Right MWZ0661-73 Right Cataract Preventative Xkruiky5005/25/2023 HAIC 6.0 % OF TOTAL HGB H107/12/2022 ALBUMIN 4.1 G/DL N107/12/2022 PSA TNP N108/29/[address] THORAX Social HistoryDoes not smoke. Drinks socially. 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 Family HistoryMother at 81 from CVAFather at 77 from Alzheimer'sOne brother living [place] of larynx Remy An MD [address] [facility], [place], [address], [facility] [employer] 09/09/2023 15:34:41 4 text/html Patient Name: Boo Desai Of Service: February ( 02.23.2024 ): 1940 Age: 84 Vital Signs:Blood Pressure: Sitting Rt. Arm 120/74Pulse: Sitting 60 /min and RegularRespiratory Rate: 14Height 69 in or 1.8 mWeight 240 lb or 108.9 kgBMI 35.4Temperature: 97.4 F or 36.3 CPulse Oximetry: 92 % at rest on no oxygen Chief Complaint: Addressed in HPI Problems or conditions discussed in the HPI were the only ones reviewed during the encounter.Only social and family history addressed in the HPI were reviewed during this encounter. Attendant(s): NoneConstitutional and Systemic Symptoms:none Medication Reconciliation: from medication list. Bshevdruttg94/02/2023: Chest x-ray shows some atelectatic changes in the bases possibly suggestive some mild pneumonia. However the CT pulmonary angiogram failed to disclose any significant infiltrates and/or pulmonary emboli. 09/10/2022: Transesophageal echocardiogram demonstrates an ejection fraction of greater than 70%. Severe aortic valve stenosis is noted with a calculated aortic valve area of 0.8 sq cm. Mean gradient 32 mm of mercury. History of Present Illness #1. Essential Hypertension: Stage: Stage I Interval Neurological Complaints no headaches, dizziness, weakness, visual changes, ataxia, aphasia and apraxia. No shortness of breath, orthopnea or cardiovascular symptoms. No other symptoms related to end organ damage. Pressure has been under excellent control. Currently well controlled. No other end organ symptoms or findings. Therapy reviewed regarding management of hypertension and includes salt restriction and Bystolic and Nebivolol. #2. Type II Hypercholesterolaemia: Currently taking medication and tolerating well. No interval complaints of any muscle pain or arthralgia. No significant liver changes with medications. Last lipid panel: fair control. Therapy reviewed regarding treatment of cholesterol management and include diet and Crestor. #3. Atrial Fibrillation: Type: Paroxysmal with recurrent episodes lasting less than 7 days. Further classification: Non-valvular. Associated history of HTN. No attending hx of any shortness of breath, palpitations, syncopal or neurological symptoms. Current medications: Bystolic and Flecainide Acetate. Rate control: rapid ventricular response [id number] Criteria: hypertension, Age > 75 and and considered moderate risk for embolic phenomenon. Anticoagulation: ASA per cardiology #4. Aortic Stenosis: Symptoms: atrial fibrillation Hx of calcified aortic stenosis. No interval complaints of any chest pain, shortness of breath, palpitations or syncope. No palpitations. No change in exercise tolerance. Severity severe. Last echocardiogram was less than six months ago. Followed by Cardiology: yes Currently does not need a repeat echocardiogram. #5. History of chronic renal failure currently doing well. Currently is followed by a advertising sales manager. Stage: CKD-3b. Albumin Stage: A1. There has been no change in urine output or color. No fever or chills. #6. Hx of dementia. Currently stable. There has been no clinical change in cognitive functions. Performance of activities of daily living has remained unchanged. Currently taking Namzaric Mini-Cog Score: Severe Cognitive Impairment Active Medication ListTrazodone 100 MG (TABLET - ORAL) One At BedtimLasix 20 MG (TABLET - ORAL) A-m-zVdvsoshkfr 20 MG (TABLET - ORAL) One DailyAspirin 325 MG One DailyCrestor 20 MG TABLET, FILM COATED One Daily For CholesterolFlecainide Acetate 50 MG (TABLET - ORAL) One Bid For Atrial FibrillationNamzaric 10 MG-28 MG (CAPSULE, EXTENDED RELEASE - ORAL) One DailyNebivolol 2.5 MG TABLET DailyBystolic 2.5 MG (TABLET - ORAL) Once DailyVitamin B-complex DailySeroquel 25 MG TABLET, FILM COATED 50mg Am & 100mg Pm Adverse Drug Reactions ReviewedKeflex RashCelebrex Rash Vaccination and Vfmrbefrmhtb6652-92 Oheucweds6535-52 Covid Booster Vocrxl3008-93 Covid Fwheih7113-78 Prevnar 13 Ta8818-12 Pneumovax Surgical Aglrznb9746-62 Right Elbow Cubital Qizuie5699-30 Right LZD6164-71 Right Cataract Preventative Testing( ) 01/25/2024 CT Thorax( ) 05/25/2023 HAIC 6.0 % OF TOTAL HGB H( ) 05/12/2023 Albumin 4.1 G/DL N( ) 05/12/2023 PSA TNP N 05/12/2025(X) 06/28/2013 Colonoscopy 06/28/2023 Social HistoryDoes not smoke. Drinks socially. 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 Family HistoryMother at 81 from CVAFather at 77 from Alzheimer'sOne brother living [place] of larynx Remy An MD [address] [facility], [facility] [address], [place], [address], [facility] [employer] 02/23/2024 15:10:55 4 text/html Patient Name: Boo Desai Of Service: June ( 06.28.2024 ): 1940 Age: 84 Vital Signs:Blood Pressure: Sitting Rt. Arm 118/68Pulse: Sitting 56 /min and RegularRespiratory Rate: 16Height 69 in or 1.8 mWeight 240 lb or 108.9 kgBMI 35.4Temperature: 97 F or 36.1 CPulse Oximetry: 96 % at rest on no oxygen Chief Complaint: Addressed in HPI Problems or conditions discussed in the HPI were the only ones reviewed during the encounter.Only social and family history addressed in the HPI were reviewed during this encounter. Attendant(s): WifeConstitutional and Systemic Symptoms:none Medication Reconciliation: from medication list. Lbgnvmxotiz78/02/2023: Chest x-ray shows some atelectatic changes in the bases possibly suggestive some mild pneumonia. However the CT pulmonary angiogram failed to disclose any significant infiltrates and/or pulmonary emboli. 09/10/2022: Transesophageal echocardiogram demonstrates an ejection fraction of greater than 70%. Severe aortic valve stenosis is noted with a calculated aortic valve area of 0.8 sq cm. Mean gradient 32 mm of mercury. History of Present Illness #1. History of progressive dementia. The patient is barely able to perform any type of activities of daily living without some major assistance. Is clinically stable on medications more to control his behavior. Overall is doing well. Is not a candidate by Medicare standards for any type of therapy as far as assisting him in balance and gait training. Will continue on current medications.: #2. Aortic Stenosis: Symptoms: atrial fibrillation Hx of calcified aortic stenosis. No interval complaints of any chest pain, shortness of breath, palpitations or syncope. No palpitations. No change in exercise tolerance. Severity severe. Last echocardiogram was one year ago. Followed by Cardiology: yes Currently Does not need a repeat echo since he is not considered a candidate for any aggressive form of therapy because of his advanced dementia a repeat echocardiogram. #3. Atrial Fibrillation: Type: Paroxysmal with recurrent episodes lasting less than 7 days. Further classification: Non-valvular. Associated history of HTN. No attending hx of any shortness of breath, palpitations, syncopal or neurological symptoms. Current medications: Bystolic and Flecainide Acetate. Rate control: controlled ventricular response [id number] Criteria: hypertension, Age > 75 and and considered moderate risk for embolic phenomenon. Anticoagulation: ASA per cardiology #4. Essential Hypertension: Stage: Stage I Interval Neurological Complaints no headaches, dizziness, weakness, visual changes, ataxia, aphasia and apraxia. No shortness of breath, orthopnea or cardiovascular symptoms. No other symptoms related to end organ damage. Pressure has been under excellent control. Currently normal. No other end organ symptoms or findings. Therapy reviewed regarding management of hypertension and includes salt restriction and Bystolic. Active Medication ListTrazodone 100 MG (TABLET - ORAL) One At BedtimLasix 20 MG (TABLET - ORAL) Y-d-xUlkhmgdcrx 20 MG (TABLET - ORAL) One DailyAspirin 325 MG One DailyCrestor 20 MG TABLET, FILM COATED One Daily For CholesterolFlecainide Acetate 50 MG (TABLET - ORAL) One Bid For Atrial FibrillationNamzaric 10 MG-28 MG (CAPSULE, EXTENDED RELEASE - ORAL) One DailyNebivolol 2.5 MG TABLET DailyBystolic 2.5 MG (TABLET - ORAL) Once DailyVitamin B-complex DailySeroquel 25 MG TABLET, FILM COATED 50mg Am & 100mg Pm Adverse Drug Reactions ReviewedKeflex RashCelebrex Rash Vaccination and Immunization( ) 2008- PNEUMOVAX( ) 2024-06 INFLUENZA( ) 2024-06 TETANUS BOOSTER( ) 2016-04 PREVNAR 13 GC( ) 2020-08 COVID PFIZER(X) 2021-04 COVID BOOSTER PFIZER( ) 2024-06 PREVNAR 20 Surgical [id number] Right Elbow Cubital [id number] Right [id number] Right Cataract Preventative Testing( ) 01/25/2024 CT Thorax( ) 05/25/2023 HAIC 6.0 % OF TOTAL HGB H( ) 05/12/2023 Albumin 4.1 G/DL N( ) 05/12/2023 PSA TNP N( ) 06/28/2013 Colonoscopy Social HistoryDoes not smoke. Drinks socially. 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 Family HistoryMother at 81 from CVAFather at 77 from Alzheimer'sOne brother living CA of larynx Remy An MD [address], [facility] [address], [place], [address], [facility] 06/28/2024 15:02:00
--- OUTSIDE RECORDS SUMMARY | 2024-08-23 09:37 | XMS_ITS | Patient Health Record ---
Author Organization [facility] Address [address] [place] [address] Care Team Providers Care Cardroom Hand Name Role Phone Katey Chavez Unavailable [phone] Migration, Provider Unavailable Unavailable Allergies Allergen (clinical drug ingredient) Drug/Non Drug Allergy documented on EMR Reaction Allergy Type Onset Date Status celecoxib CeleBREX Unknown Drug Allergy 10/19/2023 Active Keflex Unknown Drug Allergy 10/19/2023 Active Reason For Referral No Information Medications Medication SIG (Take, Route, Frequency, Duration) Notes Start Date End Date Status QUEtiapine Fumarate 50 MG 1 tablet every morning Orally Once a day for 90 days Active NEBIVOLOL 2.5 MG TABLET *Reorder from [employer] for eRx and Interaction Alerts* 10/19/2023 Active Ketoconazole 2% External 10/19/2023 Act margarita Rosuvastatin Calcium 20 MG Oral 10/19/2023 Active Flecainide Acetate 50 MG Oral 10/19/2023 Active Namzaric 28-10 MG 1 capsule in the evening Oral Once a day for 90 days 10/19/2023 Active Trintellix 20 MG 1 tablet Oral Once a day for 90 days 10/19/2023 Active QUEtiapine Fumarate 100 MG 1 tablet at bedtime Oral Once a day for 90 days Active Furosemide 20 MG Oral 10/19/2023 Ac tive Social History Tobacco Use: Social History Observation Description Date Details (start date - stop date) Never Smoker NA - NA Sex Assigned At : Social History Observation Description Sex Assigned At Male Tobacco Control (Standard) Question Answer Notes Tobacco use: Nonsmoker Problems Problem Type SNOMED Code ICD Code Onset Dates Problem Status W/U Status Risk Notes Problem Recurrent major depression in full remission (19735493) Major depressive disorder, recurrent, in full remission (F33.42) Active confirmed Problem Alzheimer's disease (58360111) Alzheimer's disease, unspecified (G30.9) Active confirmed Vital Signs Heart Rate 55 /min 10/19/2023 Height-cm 175.26 cm 10/19/2023 Blood pressure diastolic 56 mm Hg 10/19/2023 Weight-kg 109.45 kg 10/19/2023 Height 69.00 in 10/19/2023 Blood pressure systolic 100 mm Hg 10/19/2023 Weight 241.30 lbs 10/19/2023 BMI 35.6 kg/m2 10/19/2023 Encounters Encounter Location Date Provider Diagnosis [facility] [employer] [place] [id number] [address] 10/19/2023 Katey Scott Alzheimer's disease, unspecified G30.9 and Major depressive disorder, recurrent, in full remission F33.42 [facility] [employer] [address] [address] 04/18/2024 Katey Scott Alzheimer's disease, unspecified G30.9 and Major depressive disorder, recurrent, in full remission F33.42 [facility] [employer] [address] [address] 10/10/2023 Provider Migration [facility] [employer] [address] 11/01/2023 Provider Migration [facility] [employer] [address] [address] 11/26/2023 Provider Migration [facility] [employer] [address] [address] 11/27/2023 Provider Migration Assessments Encounter Date Diagnosis (ICD Code) Assessment Notes Treatment Notes Treatment Clinical Notes Section Notes 04/18/2024 Alzheimer's disease, unspecified (ICD-10 - G30.9) 10/19/2023 Major depressive disorder, recurrent, in full remission (ICD-10 - F33.42) 10/19/2023 Alzheimer's disease, unspecified (ICD-10 - G30.9) 04/18/2024 Major depressive disorder, recurrent, in full remission (ICD-10 - F33.42) 04/18/2024 Other Overall stable, continue current medications. Refills sent in today. Patient educated on all medications including potential benefits, side effects, risks. Educated on proper dosing schedule and importance of compliance. SLUMS completed today Plan Of Treatment Next Appt Details Provider Name:Katey Chavez, 10/17/2024 02:00:00 PM, [address], [address], [place], [address], Insurance Providers Payer Name Payer Address Payer Phone Subscriber Number Group Number Insured Name Patient Relationship to Insured Coverage Start Date Coverage End Date [employer] Medicare Replacemen t/Advantag e - Ppo [address] [place] [address] [id number] ANT HARRISON Self - patient is the insured Medical (General) History Surgical History Surgery Date(Month/Year) Tonsilectomy/adenoids 04/10/1946 Cataract surgery (07130) 04/10/2007
--- OUTSIDE RECORDS SUMMARY | 2024-08-23 09:37 | XMS_ITS | Referral Summary ---
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); PAF (paroxysmal atrial fibrillation) (CMS/HCC) (HCC); Encounter for monitoring flecainide therapy from Last 3 Months Allergies Active Allergy Reactions Criticality Noted Date Comments Celecoxib Hives,Rash Medium 12/27/2013 Cephalexin Hives,Rash Medium 12/27/2013 Medications nebivoloL (BYSTOLIC) 2.5 mg tablet daily 05/18/20 19 Active Namzaric 28-10 mg capsule,sprink le,ER 24hr extended release capsule Take 1 capsule by mouth daily 10/23/19 21 Active Trintellix 20 mg tablet Take 1 tablet (20 mg total) by mouth daily 10/21/19 21 Active furosemide (LASIX) 20 mg tabletIndicati ons:Nonrheumat ic aortic valve stenosis,CHAUHAN (dyspnea on exertion) Take 1 tablet (20 mg total) by mouth daily as needed (swelling) 30 tablet 1 07/26/19 24 Active furosemide (LASIX) 20 mg tabletIndicati ons:Nonrheumat ic aortic valve stenosis TAKE 1 TABLET BY MOUTH ON MONDAYS, WEDNESDAYS AND FRIDAYS 15 tablet 5 03/23/20 24 Active flecainide (TAMBOCOR) 50 mg tablet TAKE 1 TABLET(50 MG) BY MOUTH TWICE DAILY 180 tablet 1 08/06/19 25 Active ergocalciferol (VITAMIN D) 50,000 unit capsule Vitamin D2 1,250 mcg (50,000 unit) capsule Take 2 capsules every week by oral route. 07/21/19 24 Active SeroqueL 25 mg tablet Take 1 tablet (25 mg total) by mouth nightly 04/12/20 22 Active rosuvastatin (Crestor) 10 mg tablet Take 1 tablet (10 mg total) by mouth daily Active aspirin 81 mg enteric coated tablet Take 1 tablet (81 mg total) by mouth daily 025 Discontinued(Th erapy completed) rosuvastatin (CRESTOR) 20 mg tablet Take 0.5 tablets (10 mg total) by mouth daily 10/22/19 22 025 Discontinued(Al ternate therapy) ergocalciferol (VITAMIN D) 50,000 unit capsule Take 1 capsule (50,000 Units total) by mouth once a week 05/10/20 23 025 Discontinued(Th erapy completed) QUEtiapine (SEROquel) 100 mg tablet Take 1 tablet (100 mg total) by mouth nightly at bedtime 10/19/19 24 025 Discontinued(Al ternate therapy) flecainide (TAMBOCOR) 50 mg tablet TAKE 1 TABLET(50 MG) BY MOUTH TWICE DAILY 180 tablet 1 02/13/20 24 025 Discontinued Active Problems Problem Noted Date Diagnosed Date Late onset Alzheimer's disea se without behavioral disturbance 11/10/2020 History of COVID-19 11/10/2020 CHAUHAN (dyspnea on exertion) 11/10/2020 RBBB 11/10/2020 PAF (paroxysmal atrial fibrillation) (CMS/HCC) 0 11/10/2020 Nonrheumatic aortic valve stenosis 11/10/2020 Major depressive disorder, single episode, sever e 11/08/2013 Social History Tobacco Use Types Packs/Day Years Used Date Smoking Tobacco: Never Smokeless Tobacco: Never AUDIT-C Answer Date Recorded Q1: How often do you have a drink containing alcohol? 4 or more times a week 11/10/2020 Q2: How many drinks containi ng alcohol do you have on a typical day when you are drinking? 1 or 2 Q3: How often do you have si x or more drinks on one occasion? Never 11/10/2020 Sex and Gender Information Value Date Recorded Sex Assigned at Not on file Legal Sex Male 8:25 PM [employer] Gender Identity Not on file Sexual Orientation Not on file Last Filed Vital Signs Vital Sign Reading Time Taken Comments Blood Pressure 92/62 08/20/2024 11:51 AM [employer] Pulse 59 08/20/2024 11:51 AM [employer] Temperature - - Respiratory Rate - - Oxygen Saturation 95% 08/20/2024 11:51 AM [employer]ERCISE [employer] Inhaled Oxygen Concentration - - Weight 103.4 kg (228 lb) 08/20/2024 11:51 AM [employer] Height 175.3 cm (5' 9 ) 08/20/2024 11:51 AM [employer]ERC[employer] Body Mass Index 33.67 08/20/2024 11:51 AM [employer] Plan of Treatment Not on file Procedures Procedure Name Priority Date/Time Associated Diagnosis Comments ECG 12-LEAD Routine 08/20/2024 Encounter for monitoring flecainide therapy from Last 3 Months Results * ECG 12 lead (08/20/2024) 08/20/2024 Coral Armendariz NP ECG ORDERABLES Final Res ult from Last 3 Months Insurance [facility] MEDICARE T MEDICARE Care Teams Head Up Operator Relationship Specialty Start Date End Date Remy An MD [address] [facility] [address] [place] [address] PCP - General Internal Medicine 03/31/20
--- OUTSIDE RECORDS SUMMARY | 2024-08-23 09:37 | XMS_ITS | Clinical Summary ---
Author Organization [facility] Address [address] [place] [address] Phone Care Team Providers Care Pleater Name Role Phone Remy An MD Primary Care Provider [phone] Medications ergocalciferol 1.25 MG (35986 UT) capsule Take 1 capsule (50,000 Units total) by mouth 1 (one) time per week 12 capsule 1 10/24/2023 Active Encounters Date Type Department Care Team Description 07/31/2024 2:15 PM PLATFORM MILL SUPERVISOR Office Visit [facility] [address] [facility] [address] [place] [address] Jose Alberto Vuong DO Stage 3 chronic kidney disease, not otherwise specified (HCC) (Primary Dx); Diastolic dysfunction; Aortic stenosis, non-rheumatic; Permanent atrial fibrillation (HCC); 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, psychotic disturbance, mood disturbance, 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); Hypertensive chronic kidney disease 07/25/2024 [facility] [address] [address] Jose Alberto Vuong DO 07/24/2024 Travel from Last 3 Months Social History Tobacco Use Types Packs/Day Years Used Date Smoking Tobacco: Never Assessed Sex and Gender Information Value Date Recorded Sex Assigned at Not on file Legal Sex Male 1:30 PM EST Gender Identity Not on file Sexual Orientation Not on file Last Filed Vital Signs Vital Sign Reading Time Taken Comments Blood Pressure 90/50 07/31/2024 2:14 PM PLATFORM MILL SUPERVISOR Pulse 68 07/31/2024 2:14 PM PLATFORM MILL SUPERVISOR Temperature 36.1 C (97 F) 07/31/2024 2:14 PM PLATFORM MILL SUPERVISOR Respiratory Rate 18 07/31/2024 2:14 PM PLATFORM MILL SUPERVISOR Oxygen Saturation 97% 07/31/2024 2:14 PM PLATFORM MILL SUPERVISOR Inhaled Oxygen Concentration - - Weight 108 kg (238 lb) 02/14/2024 1:15 PM CDT Height 175.3 cm (5' 9 ) 08/10/2022 12:52 PM PLATFORM MILL SUPERVISOR Body Mass Index 35.15 08/10/2022 12:52 PM PLATFORM MILL SUPERVISOR Plan of Treatment Upcoming Encounters Date Type Department Care Team (Late st Contact Info) Description 12/04/2024 1:00 PM CDT Office Visit [facility], [facility] [address] [facility] [address] [place] [address] Jose Alberto Vuong DO [address] [place] [address] Health Maintenance Due Date Last Done Comments Pneumococcal Vaccine: 65+ Ye ars (1 of 2 - PCV) 1946 Influenza Vaccine (#1) 2024 Hepatitis B Vaccine Aged Out No longe r eligible based on patient's age to complete this topic Procedures Procedure Name Priority Date/Time Associated Diagnosis Comments CBC AND DIFFERENTIAL Routine 07/25/2024 12:38 PM PLATFORM MILL SUPERVISOR COMPREHENSIVE METABOLIC PANEL Routine 07/25/2024 12:38 PM PLATFORM MILL SUPERVISOR PHOSPHATE ( PHOSPHORUS) Routine 07/25/2024 12:38 PM PLATFORM MILL SUPERVISOR MAGNESIUM Routine 07/25/2024 12:38 PM PLATFORM MILL SUPERVISOR from Last 3 Months Results * (ABNORMAL) CBC and Differential (07/25/2024 12:38 PM PLATFORM MILL SUPERVISOR) WBC 5.2 3.8 - 10.8 Thousand/ uL See order comments RBC 4.67 4.20 - 5.80 Million/u L See order comments Hemoglobin 15.3 13.2 - 17.1 g/dL See order comments Hematocrit 46.9 38.5 - 50.0 % See order comments MCV 100.4(H) 80.0 - 100.0 fL See order comments MCH 32.8 27.0 - 33.0 pg See order comments MCHC 32.6 32.0 - 36.0 g/dL See order comments Comment: For adults, a slight decrease in the calculated MCHC value (in the range of 30 to 32 g/dL) is most likely not clinically significant; however, it should be interpreted with caution in correlation with other red cell parameters and the patient's clinical condition. RDW 12.4 11.0 - 15.0 % See order comments Platelets 185 140 - 400 Thousand/ uL See order comments MPV 10.8 7.5 - 12.5 fL See order comments Neutrophils Absolute 2,933 1,500 - 7,800 cells/uL See order comments Band Neutrophils Absolute, Manual Count CANCELED 0 - 750 cells/uL See order comments Comment:Result canceled by t he ancillary. Metamyelocytes Absolute CANCELED 0 cells/uL See order comments Comment:Result canceled by t he ancillary. Absolute Myelocytes CANCELED 0 cells/uL See order comments Comment:Result canceled by t he ancillary. Absolute Promyelocytes CANCELED 0 cells/uL See order comments Comment:Result canceled by t he ancillary. Lymphocytes Absolute 1,758 850 - 3,900 cells/uL See order comments Monocytes Absolute 369 200 - 950 cells/uL See order comments Eosinophils Absolute 99 15 - 500 cells/uL See order comments Basophils Absolute 42 0 - 200 cells/uL See order comments Blasts Absolute CANCELED 0 cells/uL See order comments Comment:Result canceled by t he ancillary. NRBC Absolute CANCELED 0 cells/uL See order comments Comment:Result canceled by t he ancillary. Neutrophils Relative 56.4 % See order comments Bands Absolute CANCELED % See o rder comments Comment:Result canceled by t he ancillary. Metamyelocytes Percent CANCELED % See order comments Comment:Result canceled by t he ancillary. Myelocytes Relative CANCELED % See order comments Comment:Result canceled by t he ancillary. Promyelocytes Relative CANCELED % See order comments Comment:Result canceled by t he ancillary. Lymphocytes 33.8 % See orde r comments Variant lymphocytes/100 WBC (Bld) CANCELED 0 - 10 % See order comments Comment:Result canceled by t he ancillary. Monocytes 7.1 % See order comments Eosinophils 1.9 % See orde r comments Basophils Relative 0.8 % S ee order comments Blasts CANCELED % See order comments Comment:Result canceled by t he ancillary. nRBC CANCELED 0 /100 WBC See order comments Comment:Result canceled by t he ancillary. Comment(s) CANCELED See order comments Comment:Result canceled by t he ancillary. 07/25/2024 12:3 8 PM PLATFORM MILL SUPERVISOR 07/25/2024 12:40 PM PLATFORM MILL SUPERVISOR Narrative Resulting Agency Comment Performing Organization Information: Site ID: Name: [facility] Address: [facility] [place] [address] Director: Simon Garcia Jose Alberto Vuong DO LAB BLOOD ORDERABLES Final R esult Performing Organization Address [facility] Co de Phone Number [address] See order comments [place] [address] * Phosphorus (07/25/2024 12:38 PM PLATFORM MILL SUPERVISOR) Phosphorus 3.2 2.1 - 4.3 mg/dL See order comments 07/25/2024 12:3 8 PM PLATFORM MILL SUPERVISOR 07/25/2024 12:40 PM PLATFORM MILL SUPERVISOR Narrative Resulting Agency Comment Performing Organization Information: Site ID: Name: [facility] Address: [address] [place] [address] Director: Simon Garcia Jose Albertochauncey Vuong DO LAB BLOOD ORDERABLES Final R esult Performing Organization Address City/[facility]/ZIP Co de Phone Number [address] See order comments [place] [address] * Magnesium (07/25/2024 12:38 PM PLATFORM MILL SUPERVISOR) Magnesium 2.3 1.5 - 2.5 mg/dL See order comments 07/25/2024 12:3 8 PM PLATFORM MILL SUPERVISOR 07/25/2024 12:40 PM PLATFORM MILL SUPERVISOR Narrative Resulting Agency Comment Performing Organization Information: Site ID: Name: [facility] Address: [address] [place] [address] Director: Simon Garcia us Jose Alberto Vuong DO LAB BLOOD ORDERABLES Final R esult [place] [place] See order comments [place] [address] * (ABNORMAL) Comprehensive Metabolic Panel (07/25/2024 12:38 PM PLATFORM MILL SUPERVISOR) Glucose 170(H) 65 - 99 mg/dL See order comments Comment: Fasting reference interval For someone without known diabetes, a glucose value >125 mg/dL indicates that they may have diabetes and this should be confirmed with a follow-up test. BUN 20 7 - 25 mg/dL See order comments Creatinine 1.19 0.70 - 1.22 mg/dL See order comments eGFR CKD-EPI CR 2020 61 > OR = 60 mL/min/1. 73m2 See order comments BUN/Creatinine Ratio SEE NOTE: 6 - 22 (calc) See order comments Comment: Not Reported: BUN and Creatinine are within reference range. Sodium 139 135 - 146 mmol/L See order comments Potassium 4.7 3.5 - 5.3 mmol/L See order comments Chloride 103 98 - 110 mmol/L See order comments Bicarbonate (CO2) 32 20 - 32 mmol/L See order comments Calcium 9.0 8.6 - 10.3 mg/dL See order comments Total Protein 7.3 6.1 - 8.1 g/dL See order comments Albumin 3.8 3.6 - 5.1 g/dL See order comments Globulin, Total 3.5 1.9 - 3.7 g/dL (calc) See order comments A/G Ratio 1.1 1.0 - 2.5 (calc) See order comments Total Bilirubin 0.6 0.2 - 1.2 mg/dL See order comments Alkaline Phosphatase 184(H) 35 - 144 U/L See order comments AST (SGOT) 90(H) 10 - 35 U/L See order comments ALT (SGPT) 72(H) 9 - 46 U/L See order comments 07/25/2024 12:3 8 PM PLATFORM MILL SUPERVISOR 07/25/2024 12:40 PM PLATFORM MILL SUPERVISOR Narrative Resulting Agency Comment Performing Organization Information: Site ID: SL Name: [facility] Address: [address] [place], [place] [address] Director: Simon Garcia us Jose Alberto Vuong DO LAB BLOOD ORDERABLES Final R esult [facility] See order comments [place] [address] from Last 3 Months Insurance [employer] MCR ADV PPO ([id number]) Care Teams Pleater Relationship Specialty Start Date End Date Remy An MD [address] [facility] [address] [place] [address] PCP - General Internal Medicine 06/23/21
--- OUTSIDE RECORDS SUMMARY | 2024-08-23 09:37 | XMS_ITS | Clinical Summary ---
Author Organization [facility] [address] [facility] [address] Address [address] [place] [address] Care Team Providers Care Marine Fisheries Technician Name Role Phone Remy An MD Primary Care Provider Allergies Active Allergy Reactions Criticality Noted Date [...] mouth once a week 05/10/20 23 025 Discontinued( erapy completed) QUEtiapine (SEROquel) 100 mg tablet [...] depressive disorder, single episode, sever e 11/08/2013 Encounters Date Type Department Care Team Description 08/20/2024 11:00 AM TEAM PSYCHOLOGIST Office Visit [facility] [address] [place] [address] Coral Armendariz NP Nonrheumatic aortic valve stenosis (Primary Dx); Elevated liver enzymes; Late 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 behavioral disturbance (HCC); PAF (paroxysmal atrial fibrillation) (CMS/HCC) (HCC); Encounter for monitoring flecainide therapy from Last 3 Months Surgical History Surgery Date Site/Laterality Comments CATARACT EXTRACTION 2007 Medical History Medical History Date Comments Arrhythmia Anxiety and depression Cataract 2007 Chronic kidney disease 2021 Family History Medical History Relation Name Comments Alzheimer's disease Father Boo Matute Sr Heart attack Mother Darcy Matute Hypertension Mother Darcy Matute Stroke Mother Darcy Matute Relation Name Status Comments Father Boo Matute Sr (Age 78) Mother Darcy Matute (Age 81) Social History Tobacco Use Types Packs/Day Years [...] on file Legal Sex Male 8:25 PM TEAM PSYCHOLOGIST Gender Identity Not on file Sexual Orientation Not on file Obstetrics History Last Filed Vital Signs Vital Sign Reading Time Taken Comments Blood Pressure 92/62 08/20/2024 11:51 AM TEAM PSYCHOLOGIST Pulse 59 08/20/2024 11:51 AM TEAM PSYCHOLOGIST Temperature - - Respiratory Rate - - Oxygen Saturation 95% 08/20/2024 11:51 AM TEAM PSYCHOLOGIST Inhaled Oxygen Concentration - - Weight 103.4 kg (228 lb) 08/20/2024 11:51 AM TEAM PSYCHOLOGIST Height 175.3 cm (5' 9 ) 08/20/2024 11:51 AM TEAM PSYCHOLOGIST Body Mass Index 33.67 08/20/2024 11:51 AM TEAM PSYCHOLOGIST Plan of Treatment Health Maintenance Due Date Last Done Comments Depression Screening 1940 Fall Risk Assessment 1940 DTaP/Tdap/Td Vaccine (1 - Tdap) 02/07/1952 Hepatitis B Screening 1959 Well Visit 65+ 2006 Pneumococcal vaccine 65+ (2 of 2 - PPSV23 or PCV20) 04/15/2017 04/15/2016, 10/30/2014 Zoster Vaccine (2 of 2) 06/03/2018 04/08/2018 Influenza Vaccine (#1) 2024 0, 04/27/2017, 04/16/2015, Additional history exists Procedures Procedure Name Priority Date/Time Associated Diagnosis Comments ECG 12-LEAD Routine 08/20/2024 Encounter for monitoring flecainide therapy from Last 3 Months Results * ECG 12 lead (08/20/2024) 08/20/2024 Coral Armendariz PIPE LINER ECG ORDERABLES Final Res ult from Last 3 Months Insurance AETNA MEDICARE AETNA MEDICARE Care Teams Marine Fisheries Technician Relationship Specialty Start Date End Date Remy An MD [address] [address] PCP - General Internal Medicine 03/31/20
--- OUTSIDE RECORDS SUMMARY | 2024-08-23 09:37 | XMS_ITS ---
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 Name Role Phone Katey Chavez Unavailable [phone] Allergies Allergen (clinical drug ingredient) Drug/Non Drug Allergy documented on EMR Reaction Allergy Type Onset Date Status celecoxib CeleBREX Unknown Drug Allergy 10/19/2023 Active Keflex Unknown Drug Allergy 10/19/2023 Active REASON FOR VISIT follow up Medications Medication SIG (Take, Route, Frequency, Duration) Notes Start Date End Date Status Rosuvastatin Calcium 20 MG Oral 10/19/2023 Active Namzaric 28-10 MG 1 capsule in the evening Oral Once a day for 90 days 10/19/2023 Active Trintellix 20 MG 1 tablet Oral Once a day for 90 days 10/19/2023 Active QUEtiapine Fumarate 50 MG 1 tablet every morning Orally Once a day for 90 days Active NEBIVOLOL 2.5 MG TABLET *Reorder from [facility] for eRx and Interaction Alerts* 10/19/2023 Active Ketoconazole 2% External 10/19/2023 Act margarita Flecainide Acetate 50 MG Oral 10/19/2023 Active Furosemide 20 MG Oral 10/19/2023 Ac tive QUEtiapine Fumarate 100 MG 1 tablet at bedtime Oral Once a day for 90 days Active Social History Tobacco Use: Social History Observation Description Date Details (start date - stop date) Never Smoker NA - NA Sex Assigned At : Social History Observation Description Sex Assigned At Male Tobacco Control (Standard) Question Answer Notes Tobacco use: Nonsmoker Problems Problem Type SNOMED Code ICD Code Onset Dates Problem Status W/U Status Risk Notes Problem Alzheimer's disease (99899896) Alzheimer's disease, unspecified (G30.9) Active confirmed Problem Recurrent major depression in full remission (50848822) Major depressive disorder, recurrent, in full remission (F33.42) Active confirmed Encounters Encounter Location Date Provider Diagnosis [facility] [address] [place] [address] 04/18/2024 Katey Chavez Alzheimer's disease, unspecified G30.9 and Major depressive disorder, recurrent, in full remission F33.42 Assessments Encounter Date Diagnosis (ICD Code) Assessment Notes Treatment Notes Treatment Clinical Notes Section Notes 04/18/2024 Alzheimer's disease, unspecified (ICD-10 - G30.9) 04/18/2024 Major depressive disorder, recurrent, in full remission (ICD-10 - F33.42) 04/18/2024 Other Overall stable, continue current medications. Refills sent in today. Patient educated on all medications including potential benefits, side effects, risks. Educated on proper dosing schedule and importance of compliance. [facility] completed today Plan Of Treatment Medication Medication Name Sig Start Date Stop Date Notes Namzaric 28-10 MG 1 capsule in the phoebe axel Oral Once a day for 90 days 10/19/2023 Trintellix 20 MG 1 tablet Oral Once a day for 90 days 10/19/2023 QUEtiapine Fumarate 50 MG 1 tablet every morning Orally Once a day for 90 days QUEtiapine Fumarate 100 MG 1 tablet at b edtime Oral Once a day for 90 days Treatment Notes Assessment Notes Other Overall stable, continue current medications. Refills sent in today. Patient educated on all medications including potential benefits, side effects, risks. Educated on proper dosing schedule and importance of compliance. [facility] completed today Next Appt Details Follow Up: 6 Months, Reason: med follow up Provider Name:Katey Chavez, 10/17/2024 02:00:00 PM, [address], [address], [place], [address], Progress Notes * BROOK HARRISONOB:1940 (84 yo M)Acc No.[id number]:04/18/2024 Patient: ANT CABRAL Provider: MAXIMO BRAXTON :1940 A ge:84 Y S ex:Male Date:04/18/2024 Address:[address], [place], [id number] Subjective: * Chief Complaints: * 1 . Follow up. * HPI: H istory of Presenting Problem: Anxiety d enies feeling anxious . D epression n ot feeling depressed. M ood lability n o hx taniya. P sychosis n o hx psychosis.?Suicidal ideation d enies. M philly S hort term memory impaired, prison memory impaired S LUMS=6 04/18/2024. Here for follow up. Quetiapine increased last apt. present with him today. She reports he is doing well, no concerns today. He is pleasant throughout the interview. Mood is fine . reports he has had one outburst , reports this came from a misunderstanding and when she explained the situation to him again he calmed down. He is still going to day program three days weekly. Sleep is good, getting about 7 hours nightly. Energy is fair. Appetite is good. D epression Screening: SUMAYA-7 (2018 Edition) F eeling nervous, anxious, or on edge?Not at all. C [place]-Suicide Severity Rating Scale: Suicide Risk (CSRS-screener) i n the past one month Have you wished you were or wished you could go to sleep and not wake up? N o, i n the past one month Have you actually had any thoughts of killing yourself? N o. D epression screening: PHQ-9 L ittle interest or pleasure in doing things N ot at all, F eeling down, depressed, or hopeless N ot at all, T rouble falling or staying asleep, or sleeping too much N ot at all, F eeling tired or having little energy N ot at all, P oor appetite or overeating N ot at all, F eeling bad about yourself or that you are a failure, or have let yourself or your family down N ot at all, T rouble concentrating on things, such as reading the newspaper or watching television N ot at all, M oving or speaking so slowly that other people could have noticed; or the opposite, being so fidgety or restless that you have been moving around a lot more than usual N ot at all, T houghts that you would be better off or of hurting yourself in some way N ot at all. I ntervention D epression Screening Findings N egative, F ollow-Up for Depression M ental health care management, A dditional Evaluation for Depression P sychiatric interview and evaluation, N elias of the standardized tool used for adult depression screening: [facility] (PHQ-9). * ROS: P sychiatric: Patient denies s uicidal thoughts, taniya, psychosis, auditory / visual hallucinations, delusions, panic attacks, anxiety. C jermain Saavedra [facility] for details. 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 * Surgical History: T onsilectomy/adenoids 04/10/1946, Cataract surgery (35002) 04/10/2007. * Family History: F ather: Alzheimer's disease . M other: Cerebrovascular accident , Anxiety disorder . * Social History: T obacco Use: T obacco Control (Standard) T obacco use: N onsmoker. M igrated Social History: M igrated Social History: Alcohol Intake: Occasional 08/26/2022,Tobacco Years: Never smoker 08/26/2022. M iscellaneous: A dvance Care Planning A re you your own decision-maker N o, D o you have Power of Telephone Assembler for Health or Medical? Y es. * Medications: T aking Namzaric 28-10 MG Capsule Extended Release 24 Hour Oral , Taking Flecainide Acetate 50 MG Tablet Oral , Taking Furosemide 20 MG Tablet Oral , Taking NEBIVOLOL 2.5 MG TABLET , Notes to Pharmacist: *Reorder from [facility] for eRx and Interaction Alerts*, Taking Trintellix 20 MG Tablet Oral , Taking Ketoconazole 2% Cream External , Taking Rosuvastatin Calcium 20 MG Tablet Oral , Taking QUEtiapine Fumarate 100 MG Tablet TAKE 1 TABLET BY MOUTH EVERY DAY AT BEDTIME , Taking QUEtiapine Fumarate 50 MG Tablet 1 tablet every morning Orally Once a day , Discontinued Ergocalciferol 1.25 MG (34252 UT) Capsule Oral , Discontinued QUEtiapine Fumarate 25 MG Tablet Oral , Medication List reviewed and reconciled with the patient * Allergies: C eleBREX: Allergy - Onset Date 10/19/2023, Keflex: Allergy - Onset Date 10/19/2023. Objective: * Vitals: * Examination: P sychiatry: Dementia . Appearance: w ell-groomed. Abnormal body movements: n one. Affect / mood: a ppropriate. Attention: g ood. Attitude: c ooperative. Homicidal ideation: n one. Suicidal ideation: n one. Degree of awareness of surroundings: w ithin normal limits.? Delusions: n o. Hallucinations: n o. Insight: g ood. Judgement: g ood. Orientation: a wake, alert and oriented x 3. Perceptual disorders: n o perceptual disorder noted. Psychomotor activity: w ithin normal range. Speech / language: n ormal rate, volume, and articulation (RVR), clear and coherent. Thought content: a ppropriate. Thought process: i ntact. F unctional Assessment: Silva Index of ADL . Physical Functioning . 1 point for independence, 0 for help. N eurology: Cognition . Cognition Assessment Tools Used . Assessment: * Assessment: 1. A lzheimer's disease, unspecified - G30.9 (Primary) 2 . M ajor depressive disorder, recurrent, in full remission - F33.42 Plan: * Treatment: 2. M ajor depressive disorder, recurrent, in full remission Refill Trintellix Tablet, 20 MG, 1 tablet, Oral, Once a day, 90 days, 90 Tablet, Refills 1; R efill QUEtiapine Fumarate Tablet, 100 MG, 1 tablet at bedtime, Oral, Once a day, 90 days, 90 Tablet, Refills 1; R efill QUEtiapine Fumarate Tablet, 50 MG, 1 tablet every morning, Orally, Once a day, 90 days, 90, Refills 1. 3. O thers Notes: Overall stable, continue current medications. Refills sent in today. Patient educated on all medications including potential benefits, side effects, risks. Educated on proper dosing schedule and importance of compliance. [facility] completed today * Procedure Codes: 9 6127 BEHAV ASSMT W/SCORE & DOCD/STAND INSTRUMENT, G2211 VISIT COMPLEXITY INHERENT TO ONGOING CARE RELATED TO A PATIENT'S SINGLE, SERIOUS CONDITION OR A COMPLEX CONDITION, G8431 CLIN DEPRESSION SCREEN DOC * Preventive Medicine: Screenings: D epression screening H ave you had a recent depression screening??Yes, D ate of depression screenin . * Follow Up: 6 Months (Reason: med follow up) * Billing Information: * Visit Code: 28637 OFFICE OUTPATIENT VISIT 15 MINUTES EXPANDED HISTORY AND EXAM/LOW MEDICAL DECISION MAKING. * Procedure Codes: 67619 BEHAV ASSMT W/SCORE & DOCD/STAND INSTRUMENT. G2211 VISIT COMPLEXITY INHERENT TO ONGOING CARE RELATED TO A PATIENT'S SINGLE, SERIOUS CONDITION OR A COMPLEX CONDITION. G8431 CLIN DEPRESSION SCREEN DOC. * Sign off status: Completed true * Provider: MAXIMO BRAXTON Date: 1 Generated for Katrina hatfield/Saleem/Jakubitting on: 0 08/23/2024 09:36 AM BLANKMAKER History and Physical Notes * HPI (History of Present Illness) Category Sub-Category Detail Notes Category Not es History of Presenting Problem Anxiety denies feeling anxious Here for follow up. Quetiapine increased last apt. present with him today. She reports he is doing well, no concerns today. He is pleasant throughout the interview. Mood is fine . reports he has had one outburst , reports this came from a misunderstanding and when she explained the situation to him again he calmed down. He is still going to day program three days weekly. Sleep is good, getting about 7 hours nightly. Energy is fair. Appetite is good. 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 SLUMS=6 04/18/2024 Depression screening PHQ-9 Little inte rest or pleasure in doing things: Not at all Feeling down, depressed, or hopeless: No t at all Trouble falling or staying asleep, or sl eeping too much: Not at all Feeling tired or having little energy: N ot at all Poor appetite or overeating: Not at all Feeling bad about yourself o r that you are a failure, or have let yourself or your family down: Not at all Trouble concentrating on thi ngs, such as reading the newspaper or watching television: Not at all Moving or speaking so slowly that other people could have noticed; or the opposite, being so fidgety or restless that you have been moving around a lot more than usual: Not at all Thoughts that you would be b narendra off or of hurting yourself in some way: Not at all Intervention Depression Screening Findings: N egative Follow-Up for Depression: Mental health care management Additional Evaluation for Depression: Ps ychiatric interview and evaluation Name of the standardized too l used for adult depression screening:: Patient Health Questionnaire (PHQ-9) Depression Screening SUMAYA-7 (2018 Edition) Feelin g nervous, anxious, or on edge: Not at all Independence-Suicide Severity Rating Scale Suicide Risk (CSRS-screener) in the past one month Have you wished you were or wished you could go to sleep and not wake up?: No in the past one month Have y ou actually had any thoughts of killing yourself?: No Examination Category Sub-Category Detail Notes Category Not es Neurology Cognition ASSESSMENT:: Ass essment and interpretation of higher cerebral function, cognitive testing, Psychologic cognitive testing and assessment Cognition Assessment Tools Used Total score SLUM S: 6 Psychiatry Appearance: well-groomed Attitude: cooperative Psychomotor activity: within normal rang e Abnormal body movements: none Attention: good Degree of awareness of surroundings: wit hin normal limits Orientation: awake, alert and ivett ented x 3 Affect / mood: appropriate Speech / language: normal rate, volume, and articulation (RVR), clear and coherent Insight: good Judgement: good Thought process: intact Thought content: appropriate Perceptual disorders: no perceptual diso rder noted Suicidal ideation: none Homicidal ideation: none Delusions: no Hallucinations: no Dementia Safety concern scree axel for dangerousness to self and environment risks provided:: Yes What action was taken to mitigate the risk?: Education provided Topics discussed for environmental risks:: Home safety risks that could arise from cooking or smoking, Access to firearms or other weapons, Access to potentially dangerous chemicals and other materials Topics discussed for dangerousness to self:: Medication misuse, Financial mismanagement Safety concern mitigation recommendation provided:: Not required Screening Result:: Negative Caregiver education and support provided : Yes Functional Assessment Silva Index of ADL Score:: 1 1 point for independence, 0 for help 1 point for independence, 0 for help Physical Functioning Personal hygiene: i ncluding combing hair, brushing teeth, shaving, applying makeup, washing/drying face and hands (exclude baths and showers): Limited assistance Bathing: how client takes fu ll-body bath/shower or sponge bath (exclude washing of back and hair). Includes how each part of body is bathed: arms, upper and lower legs, chest, abdomen, perineal area. (code for most dependent episode in last 7 days): Extensive assistance Dressing upper body: how cli ent dresses and undresses (street clothes, underwear) above the waist, includes prostheses, orthotics, fasteners, pullovers, etc.: Limited assistance Dressing lower body: how cli ent dresses and undresses (street clothes, underwear), from the waist down, includes prostheses, orthotics, belts, pants, skirts, shoes, and fasteners: Limited assistance Eating - Including taking in food by any method, including tube feedings: Supervision Toilet use: including using the toilet room or commode, bedpan, urinal, transferring on/off toilet, cleaning self after toilet use or incontinent episode, changing pad, managing any special devices required (ostomy or catheter), and adjusting clothes.: Limited assistance Transfer: including moving t o and between surfaces--to/from bed, chair, wheelchair, standing position (excludes to/from bath/toilet): Extensive assistance Transportation: Some difficulty Continence:: Independent (1)
--- OUTSIDE RECORDS SUMMARY | 2024-08-23 09:37 | XMS_ITS | Continuity of Care Document ---
Author Organization [facility] Address [address] [place] [address] [place] [address] Phone Care Team Providers Care Beet Flumer Name Role Phone Silvia Harris Unavailable Unavailable Procedures Procedure Date Office/outpatient Visit, Est Post-op Follow-up Visit Post-op Follow-up Visit Remove Cataract, Insert Lens PreOp Assessment Performed Echo Exam Of Eye Office/outpatient Visit, Est Eye Exam & Treatment Refraction Eye Exam & Treatment Refraction Eye Exam & Treatment Refraction Advance Directives Directive Yes / No Effective Date File Name No Information Encounters Encounter Description Practice Location Reason(s) For Visit Diagnoses Date Provider Providers Copied on Encounter Office/outpat ient Visit, Est [facility], [address] [place] [address] [address], [place], [place], [id number], [place] tel:[phone] [facility] No Information 0 Kimberly Vega. [facility] [place] , [address], [place], [address], [place]. tel:[phone] Referring Provider: [facility] [address], [place], [address]. tel:[phone] [facility], [address] [place] [address] [address], [place], [place], [id number], [place] tel:[phone] [facility] No Information 0 Kimebrly Fischer [address] [facility] , [address], [place], [address], [place]. tel:[phone] [facility], [address], [place], [place], [id number], [place] tel:[phone] [facility] No Information 0 Kimberly Fischer [address] , [address], [place], [place], [facility], [place]. tel:[phone] [facility], [address], [place], [place], [address], [place] tel:[phone] [facility] No Information 0 Kimberly Fischer [address] [facility] , [address], [place], [place], [facility], [place]. tel:[phone] [facility], [address], [place], [place], [address], [place] tel:[phone] [facility] No Information 0 Kimberly Fischer [address] [facility] , [address], [place], [place], [facility], [place]. tel:[phone] Referring Provider: Silvia Gordon, [address], [place], [place], [facility]. tel:[phone] Office/outpat ient Visit, Est [facility], [address], [place], [place], [id number], [place] tel:[phone] [facility] No Information 0 Kimberly Fischer [address] [facility] , [address], [place], [address], [place]. tel:[phone] [facility], [address], [place], [place], [address], [place] tel:[phone] [facility] No Information 5-200 9 Kimberly Vega. [address] [facility] [place] , [address], [place], [place], [facility], . tel:[phone] [facility], [address] [place] [address] [address], [place], [place], [id number], tel:[phone] [facility] [place] No Information 0-200 8 Kimberly Vega. [address] [facility] [place] , [address], [place], [place], [facility], [place]. tel:[phone] [facility], [address] [place] [address] [address], [place], [place], [id number], tel:[phone] [facility] [place] No Information 4-200 7 Kimberly Vega. [address] [facility] , [address], [place], [address], . tel:[phone] Family History Family Member Type Diagnosis Age At Onset No Information Payers Payer name Insurance type Covered republican ID Authoriza tion(s) [place] [id number] Social History Type Description Quantity Date Captured Comments Sex Male Smoking Status No Information Chief Complaint And Reason For Visit No Information Reason For Referral Reason For Referral No Information History Of Present Illness Encounter Date Complaint History Of Prese nt Illness No Information Functional Status Date Functional Assessmen t No Information Instructions Date Instruction Additional Infor mation No Information Assessments Type Assessment Date No Information Patient Care Teams Name Effective Dates (start - stop) Status Members No Information
--- NOTE | 2024-08-23 09:48 | ED_ITS ---
HPI - General Adult General Chief complaint: Fall Stated complaint: fall Time Seen by Provider: 08/23/24 09:08 History of Present Illness HPI narrative: Boo Matute is a 84-year-old male who presents via EMS from assisted living. Per report patient has history of Alzheimer's and is alert which she was on a baseline has history of multiple falls and lives in the same room as his who is reported bedbound. called for EMS for a lift help because he had fallen in the night at an unknown time and was found ground when EMS got there his blood pressure was a little low. is that his blood pressure usually does run low in the 90s systolic but decided to send him here for workup. Patient here is alert and oriented x1 he denies any pain anywhere and does not know why he is here. Related Data Home Medications ?Medication ?Instructions ?Recorded ?Confirmed ?Last Taken ?Type aspirin 81 mg chewable tablet 81 mg PO DAILY 03/31/20 09/10/22 Unknown History memantine ER 7 mg-donepezil 10 mg 1 cap PO DAILY 03/31/20 09/10/22 Unknown History capsule sprinkle,ext.release 24 hour (Namzaric) nebivolol 2.5 mg tablet (Bystolic) 2.5 mg PO DAILY 03/31/20 09/10/22 Unknown History vortioxetine 20 mg tablet 20 mg PO DAILY 03/31/20 09/10/22 Unknown History (Trintellix) furosemide 20 mg tablet 20 mg PO 3XW 06/05/22 09/10/22 Unknown History rosuvastatin 10 mg tablet 10 mg PO 10/28/22 Unknown History Allergies Allergy/AdvReac Type Severity Reaction Status Date / Time cephalexin (From Keflex) Allergy Unknown Verified 10/28/22 15:17 Review of Systems 2 Review of Systems: All systems reviewed & are unremarkable except as noted in HPI and below PMFSH Past Medical History Medical History Stage 3 chronic kidney disease CHF (congestive heart failure) Atrial fibrillation Dementia Surgical History Surgical History Surgical history unknown Family History Family History Mother Acute myocardial infarction Cerebrovascular accident Father Dementia Social History Social History Social History: patient is resident of [facility] with his Norma Matute. Smoking status: Never smoker Alcohol intake: never Substance use: never Substance use type: does not use Gender identity (if verbalized by the patient): Male Spiritual care concerns: No Exam 2 Narrative: GENERAL: Well-appearing, well-nourished, and in no acute distress. HEAD: Normocephalic, atraumatic. EYES: PERRLA and EOMI. ENT: Nares clear, no rhinorrhea or epistaxis. Mucous membranes moist. Oropharynx without tonsillar hypertrophy exudate or other lesions. Bilateral TMs pearly alarcon nonbulging NECK: Supple. No adenopathy or masses. No carotid bruits or JVD CHEST: Clear with mild crackles in the bases more on the right lower to auscultation. No respiratory distress. No wheezes rales or rhonchi HEART: Regular rate and rhythm. No murmur heard. Normal peripheral pulses. ABDOMEN: Soft, nontender, nondistended, normal active bowel sounds. EXTREMITIES: Normal range of motion. No edema. + avulsion to the left second toe, some dried blood around the toenail of the right great toe, both knees are noted to be reddened SKIN: Warm, dry, no rash. NEURO: Confused oriented X1 - no unilateral weakness noted on exam PSYCH: Normal mood and affect. Course Vital Signs Vital signs: Vital Signs Temperature 36.9 C 08/23/24 09:11 Pulse Rate 55 L 08/23/24 09:11 Respiratory Rate 15 08/23/24 09:11 Blood Pressure 110/58 L 08/23/24 09:11 Pulse Oximetry 97 08/23/24 09:11 Oxygen Delivery Room Air 08/23/24 09:11 Temperature 36.9 C 08/23/24 09:11 Pulse Rate 53 L 08/23/24 11:33 Respiratory Rate 29 H 08/23/24 11:33 Blood Pressure 103/58 L 08/23/24 11:31 Pulse Oximetry 96 08/23/24 11:33 Oxygen Delivery Room Air 08/23/24 09:11 Medical Decision Making MDM Narrative Medical decision making narrative: 84-year-old with history of Alzheimer's who is oriented x1 at baseline presents via EMS from assisted living after being found down had a fall from his bed at some point in the middle of the night. He is currently at his baseline orientation. On exam there is no obvious trauma noted to his face head trunk. Respirations even nonlabored there is mild crackles noted in the bases of the lungs overall more on the right than the left with a a productive cough intermittently noted during exam. Abdomen is soft and nontender with palpation No pain noted with a pelvic palpation Patient is able to move all extremities well and equally there is redness noted over both knees There is small avulsion not bleeding to the left 2nd toe There is some dried blood around the toenail of the right great toe All distal pulses are intact and strong No cervical, thoracic, lumbar pain with palpation and no obvious deformity or step-off noted No CVA tenderness on exam Patient continues to deny any pain or complaints however with his history of dementia and orientation I will continue to check lab work and imaging. It does not appear that patient is on any blood thinners. Plan to do CT scan of head and cervical spine Plan to check x-ray of chest hips pelvis knee and feet. CBC- no leukocytosis / hemodynamically stable CMP- Bicarb 21, gap 14, BUN 21, creat 1.34, GFR 51, AST 114, ALT 72 - similar from previous labs UA- unremarkable Imaging - no acute findings He is now at the bedside who helps care for him and I discussed the with her the findings of the imaging and the labs and regarding to have polymyalgia I offered that he could be admitted and evaluated for closer monitoring and placement somewhere that has 2 more 24 hour care to prevent him falling. She states that she stays in his room and she is working on that with the facility that they are and she preferred that they return back to their facility and she is working on getting someone to care for the time being because he only follows at night. Using shared decision-making he will be sent back to his nursing facility again I let the know that if she does change her mind and feels like she needs help with getting him more care and monitoring at the facility we had the correct him here to help with. She declines that she needs that right now but she would like to be tested for COVID before he goes. Medical Records Medical records reviewed: Yes I reviewed the external patient's medical records. Vital Signs Vital Signs: Vital Signs Temperature 36.9 C 02/13/25 09:11 Pulse Rate 55 L 08/23/24 09:11 Respiratory Rate 15 08/23/24 09:11 Blood Pressure 110/58 L 08/23/24 09:11 Pulse Oximetry 97 08/23/24 09:11 Oxygen Delivery Room Air 08/23/24 09:11 Temperature 36.9 C 08/23/24 09:11 Pulse Rate 53 L 08/23/24 11:33 Respiratory Rate 29 H 08/23/24 11:33 Blood Pressure 103/58 L 08/23/24 11:31 Pulse Oximetry 96 08/23/24 11:33 Oxygen Delivery Room Air 08/23/24 09:11 Vitals reviewed by em Lab Data Lab results reviewed: Yes I reviewed the patient's lab results. 08/23/24 10:48 08/23/24 10:48 Labs: Lab Results 08/23/24 08/23/24 Range/Units 10:48 11:04 WBC 8.3 (4.5-10.0) K/mm3 RBC 4.65 (4.6-6.20) M/mm3 Hgb 15.0 (14.0-18.0) g/dL Hct 45.7 (42.0-52.0) % MCV 98.3 (80-100) fl MCH 32.3 (26-34) pg MCHC 32.8 (32-36) g/dl RDW 13.2 (11.5-14.5) % Plt Count 185 (150-375) k/mm3 MPV 10.0 (7.4-10.4) fl Immature Gran % (Auto) 0.4 (0-0.5) % Neut % (Auto) 67.8 (45.5-73.1) % Lymph % (Auto) 20.6 (18.3-44.2) % [place] % (Auto) 10.4 H (2.6-8.5) % Eos % (Auto) 0.2 (0-4.4) % Baso % (Auto) 0.6 (0.2-1.2) % Lymph # (Auto) 1.72 (0.9-3.2) K/mm3 [place] # (Auto) 0.9 H (0.1-0.6) K/mm3 Eos # (Auto) 0.0 (0-0.3) K/mm3 Baso # (Auto) 0.1 (0.0-0.1) K/mm3 Abs Immat Gran (auto) 0.03 (0.00-0.031) K/mm3 Absolute Neuts (auto) 5.6 (1.3-6.7) K/mm3 Absolute Nucleated RBC 0.000 (0.0-0.012) K/mm3 Nucleated RBC % 0.0 (0.0-0.2) % PT 14.6 (11.1-14.7) Seconds INR 1.1 APTT 28.0 (22.3-36.8) Seconds Sodium 141 (137-145) mmol/L Potassium 4.2 (3.4-5.0) mmol/L Chloride 106 (98-107) mmol/L Carbon Dioxide 21 L (22-30) mmol/L Anion Gap 14 H (4-12) mmol/L BUN 21 H D (9-20) mg/dL Creatinine 1.34 H (0.7-1.3) mg/dL Estim Creat Clear Calc 46 ml/min Estimated GFR 51 L (59 - ) Glucose 107 (65-110) mg/dL Calcium 9.6 (8.4-10.2) mg/dL Magnesium 2.2 (1.6-2.3) mg/dL Total Bilirubin 1.0 (0.2-1.3) mg/dL AST 114 H (17-59) U/L ALT 72 H (6-50) U/L Alkaline Phosphatase 229 H (38-126) U/L Total Creatine Kinase 598 H (55-170) U/L Total Protein 8.0 (6.3-8.2) g/dL Albumin 3.8 (3.5-5.1) g/dL Urine Color Yellow (Yellow) Urine Appearance Clear (Clear) Urine pH 6.5 (5.0-9.0) Ur Specific [place] 1.016 (1.001-1.035) Urine Protein 1+ H (Negative) mg/dL Urine Glucose (UA) Negative (Negative) mg/dL Urine Ketones Negative (Negative) mg/dL Ur Blood (Man) Negative (Negative) Urine Nitrate Negative (Negative) Urine Bilirubin Negative (Negative) Urine Urobilinogen 1.0 (<2.0) mg/dL Add Ur Microanalysis Reviewed Leukocyte Esterase Rfl Negative (Negative) WILFRIDO/UL Urine RBC 0-2 (0-2) /hpf Urine WBC 0-5 (0-3) /hpf Ur Squamous Epith Cells None seen (Few) /hpf Urine Bacteria None seen /hpf Urine Casts 11-20 Hyaline Casts Present (None) /lpf Imaging Data Radiologist's impression: Impressions Head CT 08/23/24 10:04 IMPRESSION: 1. Stable moderate nonspecific cerebral white matter disease, which likely represents chronic small vessel ischemic disease. Cervical Spine CT 08/23/24 10:17 Impression: No fracture or subluxation of the cervical spine. Degenerative spondylosis, as above. Knee X-Ray 08/23/24 10:38 IMPRESSION: 1. Small right knee joint effusion. No acute osseous abnormality. Foot X-Ray 08/23/24 10:47 Impression: Unremarkable right foot radiographs. Hip/Pelvis X-Ray 08/23/24 10:47 Impression: No acute abnormality. Degenerative changes, as above. Foot X-Ray 08/23/24 10:48 Impression: Unremarkable left foot radiographs. Knee X-Ray 08/23/24 10:48 Impression: Unremarkable left knee radiographs. Chest X-Ray 08/23/24 10:49 IMPRESSION: 1. Small lung volumes with mild atelectasis in left midlung zone. Discharge Plan Discharge Clinical Impression: Fall Qualifiers: Encounter type: initial encounter Qualified Code(s): W19.XXXA - Unspecified fall, initial encounter Patient Disposition: NH Intermediate/Asst Living Condition: Stable Instructions: Antibiotic Form Additional Instructions: Continue to push hydration and home medications Please continue to work towards getting him closer care/ monitoring at bedtime. If he has any worsening symptoms/ falls/ complaints then return to the ER> Patient Language: Belgian Prescriptions: No Action rosuvastatin 10 mg tablet 10 mg PO aspirin 81 mg Tablet,Chewable 81 mg PO DAILY nebivolol [Bystolic] 2.5 mg Tablet 2.5 mg PO DAILY Trintellix 20 mg Tablet 20 mg PO DAILY Namzaric 7-10 mg Capsule,Sprinkle,Er 24hr 1 cap PO DAILY furosemide 20 mg tablet 20 mg PO 3XW Rx Instructions: m/w/f Follow-up/Referrals: Juve,Remy Trujillo MD [Primary Care Provider] - 3 Days Stand Alone Forms: Half-Way Discharge Time of Disposition: 12:38
[2024-08-23 11:00] LABS: Basophils Absolute Auto 0.1 K/mm3 (0.0-0.1); Basophils Percent Auto 0.6 % (0.2-1.2); Eosinophils Percent Auto 0.2 % (0-4.4); Hematocrit 45.7 % (42.0-52.0); Immature Granulocyte Absolute 0.03 K/mm3 (0.00-0.031); Immature Granulocyte Percent A 0.4 % (0-0.5); Lymphocytes Absolute Auto 1.72 K/mm3 (0.9-3.2); Lymphocytes Percent Auto 20.6 % (18.3-44.2); Mean Corpuscular HGB Conc 32.8 g/dl (32-36); Mean Corpuscular Hemoglobin 32.3 pg (26-34); Mean Corpuscular Volume 98.3 fl (80-100); Monocytes Absolute Auto 0.9 K/mm3 (0.1-0.6); Monocytes Percent Auto 10.4 % (2.6-8.5); Neutrophils Absolute Auto 5.6 K/mm3 (1.3-6.7); Neutrophils Percent Auto 67.8 % (45.5-73.1); Platelet Count Result 185 k/mm3 (150-375); Red Blood Count 4.65 M/mm3 (4.6-6.20); Red Cell Distribution Width 13.2 % (11.5-14.5); White Blood Count 8.3 K/mm3 (4.5-10.0)
[2024-08-23 11:15] LABS: INR 1.1; Prothrombin Time 14.6 Seconds (11.1-14.7)
[2024-08-23 11:31] LABS: Alanine Aminotransferase 72 U/L (6-50); Albumin Level 3.8 g/dL (3.5-5.1); Alkaline Phosphatase 229 U/L (38-126); Anion Gap 14 mmol/L (4-12); Aspartate Amino Transferase 114 U/L (17-59); Blood Urea Nitrogen 21 mg/dL (9-20); Calcium 9.6 mg/dL (8.4-10.2); Carbon Dioxide 21 mmol/L (22-30); Chloride 106 mmol/L (98-107); Creatine Kinase 598 U/L (55-170); Estimated CRCL calculation 46 ml/min; Estimated Glomerular Filt Rate 51; Glucose 107 mg/dL (65-110); Magnesium 2.2 mg/dL (1.6-2.3); Potassium 4.2 mmol/L (3.4-5.0); Sodium 141 mmol/L (137-145)
[2024-08-23 11:45] LABS: Add Urine Microscopic? YES; Appearance Urine Clear (Clear); Bacteria Urine None Seen /hpf; Bilirubin Urine Negative (Negative); Blood Urine Negative (Negative); Color Urine Yellow (Yellow); Glucose Urine UA Negative (Negative); Hyaline Casts Urine Present /lpf; Ketones Urine Negative (Negative); Leukocyte Esterase Ur Negative LEU/UL (Negative); Need Manual Microscopic Reviewed; Nitrate Urine Negative (Negative); Protein Urine 1+ mg/dL (Negative); RBC Urine 0-2 /hpf (0-2); Specific Grav Ur 1.016 (1.001-1.035); Squamous Epithelial Cell Urine None Seen /hpf (Few); WBC Urine 0-5 /hpf (0-3); pH Urine 6.5 (5.0-9.0)
[2024-08-23 13:41] LABS: Influenza A QL RT-PCR Negative (Negative); Influenza B QL RT-PCR Negative (Negative); RSV RNA, RT-PCR Negative (Negative); SARS-CoV-2 RNA PCR Negative (Negative)
== END 2024-08-23 15:55 ==
PROVIDERS: Emergency Provider Nurse Practitioner Family; PCP Internal Medicine
DX: Z04.3 Encounter for examination and observation following other accident (principal); Z11.52 Encounter for screening for COVID-19; R29.6 Repeated falls; G30.9 Alzheimer's disease, unspecified; F02.80 Dementia in other diseases classified elsewhere, unspecified severity, without behavioral disturbance, psychotic disturbance, mood disturbance, and anxiety; N18.30 Chronic kidney disease, stage 3 unspecified; I50.9 Heart failure, unspecified; I48.91 Unspecified atrial fibrillation; W19.XXXA Unspecified fall, initial encounter
CPT/HCPCS: 36415; 70450; 71046; 72125; 73521; 73562; 73630; 80053; 81001; 82550; 83735; 85025; 85610; 85730; 87637; 99284

== ENCOUNTER 2025-02-16 13:07 | Inpatient (IN) | payer MEDICARE, SELFPAY ==
[2025-02-16] VITALS (14 sets, daily range): BP systolic 110–123; BP diastolic 52–76; PULSE 65–74; RESP 16–35; TEMP 36.4–37.1; O2SAT 94–97; BMI 31.1
--- NOTE | ~2025-02-16 | US_ITS ---
EXAMINATION: US abdomen limited DATE: 02/17/2025 08:25 INDICATION: Elevated liver function tests and hyperbilirubinemia TECHNIQUE: Multiple grayscale and Doppler ultrasound images of the abdomen were obtained. COMPARISON: None FINDINGS: Region of the pancreas is obscured. Liver has normal echogenicity and contour, with a smooth surface. No liver lesion identified. No intrahepatic biliary duct dilation suspected. Portal venous flow was seen in the hepatopetal, normal direction and has normal Doppler waveform. The gallbladder is normal in appearance. There is no cholelithiasis. The common bile duct unable to be visualized, likely nond ilated. Sonographic Wallace sign was reported as negative by the quotation clerk.Fluid-filled loops of bow el are seen in all 4 quadrants of the abdomen. There is a trace amount of ascites along side the thom l in the right upper quadrant. There are no dilatation of the quotation clerk assessment was technically limited by uncooperative patient restraints and unable to hold respirations along with AED pads at th e midline of the abdomen. IMPRESSION: 1. Limited abdominal ultrasound demonstrating a fluid-filled loops of bowel in all 4 quadrants of the abdomen with minimal ascites in the right upper quadrant. 2. Gallbladder and liver are unremarkable with no evident intrahepatic biliary ductal dilation and no nvisualized common bile duct. Reviewed, dictated and finalized at location A. IMPRESSION: 1. Limited abdominal ultrasound demonstrating a fluid-filled loops of bowel in all 4 quadrants of the abdomen with minimal ascites in the right upper quadrant . 2. Gallbladder and liver are unremarkable with no evident intrahepatic biliary ductal dilation and nonvisualized common bile duct.
--- NOTE | ~2025-02-16 | US_ITS ---
EXAMINATION: US renal BI DATE: 02/17/2025 13:32 INDICATION: Acute renal insufficiency. TECHNIQUE: Multiple ultrasound grayscale images of the kidneys were obtained. COMPARISON: None. FINDINGS: The right kidney measures 9.6 x 5.8 x 5.1 cm. The left kidney measures 9.0 x 4.7 x 5.6 cm. The kidney s demonstrate normal echogenicity. 2.7 cm anechoic cyst at the lower pole of the right kidney. There is no hydronephrosis in either kidney. No stones identified. The bladder is clearly visualized, like ly decompressed with a Lobo catheter reportedly in place.. IMPRESSION: 1. 2.7 cm right renal cyst. Otherwise normal kidneys with no hydronephrosis. Reviewed, dictated and finalized at location A.
--- NOTE | ~2025-02-16 | XR_ITS ---
XR chest 1V portable 02/19/2025 00:50 Indication: Changing in lung sounds. Procedure: AP portable chest Comparison: Comparison to multiple prior studies sequentially, with oldest reviewed study dated 08/2022. Findings: Left basilar airspace disease. Elevated right diaphragm appears chronic. Stable cardiomedia stinal silhouette. NG tube in the stomach. No pneumothorax. Impression: 1: Left basilar airspace disease may represent atelectasis and/or pneumonia. Reviewed, dictated and finalized at location A. Impression: 1: Left basilar airspace disease may represent atelectasis and/or pneumonia.
--- NOTE | ~2025-02-16 | XR_ITS ---
Exam: X-ray abdomen/KUB one view. CLINICAL HISTORY: Follow-up possible SBO. TECHNIQUE: 3 portable images of the abdomen were obtained. COMPARISON: x-ray abdomen 05/30/2025 FINDINGS: Nasogastric tube courses below the diaphragm, its tip projects over the left upper abdomen likely wit hin the cardia of the stomach. Redemonstration of several air-filled loops of dilated small bowel similar to the study from February 082024. IMPRESSION: 1.Redemonstration of several air-filled loops of dilated small bowel similar to the study from February 18, 2025. 2.Nasogastric tube courses below the diaphragm, its tip projects over the left upper abdomen likely w ithin the cardia of the stomach. Reviewed, dictated and finalized at location A. IMPRESSION: 1.Redemonstration of several air-filled loops of dilated small bowel similar to the study from February 18, 2025. 2.Nasogastric tube courses below the diaphragm, its tip projects over the left upper abdomen likely within the cardia of the stomach.
--- NOTE | ~2025-02-16 | XR_ITS ---
XR abdomen gastric tube insert INDICATION: Evaluate position. TECHNIQUE: Limited KUB perform for evaluating NG tube . COMPARISON: NG tube 02/17/2025 FINDINGS: NG tube tip in the stomach. There are dilated small bowel loops, consistent with obstructio n.. IMPRESSION: 1: NG tube tip in the stomach. Reviewed, dictated and finalized at location A.
--- NOTE | ~2025-02-16 | CT_ITS ---
EXAMINATION: CT brain wo con DATE: 02/16/2025 14:16 INDICATION: ALTERED MENTAL STATUS . TECHNIQUE: Computed tomography (CT) of the head was performed without intravenous contrast. The mA wa s adjusted according to patient size. Iterative reconstruction technique was employed. The dose-lengt h product was 1513.33 mGy-cm. COMPARISON: 08/23/2024. FINDINGS: No acute intracranial hemorrhage or extra-axial fluid collection. No hydrocephalus, mass, or herniation. No acute ischemic infarct. Unremarkable dural venous sinus attenuation. No acute osseous abnormality. The aerated spaces are clear. Moderate atrophy and chronic white matter change. Atherosclerotic intracranial calcification. Bilater al lens replacements. IMPRESSION: No acute intracranial process. Reviewed, dictated and finalized at location K.
--- NOTE | ~2025-02-16 | XR_ITS ---
Aborted small bowel study TECHNIQUE: Cloth Calender imaging was performed demonstrating nasogastric tube projecting over the stomach with significa nt small bowel dilatation measuring up to 5.7 cm in caliber, mural thickening and a paucity of bowel gas within the right lower quadrant. Oral contrast was given via nasogastric tube infusion into the stomach. Sequential imaging was then performed for a total of 2 hours prior to the absence of progression and significant dilatation of small bowel prompting a CT examination. FINDINGS: Significantly dilated small bowel with lack of progression of oral contrast, as detailed above. Examination was aborted after 2 hours, prior to CT imaging. IMPRESSION: Findings suggesting high-grade small bowel obstruction with lack of progression of oral contrast beyo nd the duodenal sweep for which dedicated CT examination will be performed. Reviewed, dictated and finalized at location A. IMPRESSION: Findings suggesting high-grade small bowel obstruction with lack of progression of oral contrast beyond the duodenal sweep for which dedicated CT examination will be performed.
--- NOTE | ~2025-02-16 | XR_ITS ---
EXAMINATION: XR chest 1V Exam Date/Time: 02/16/2025 14:15 CDT HISTORY: WEAKNESS Comparison: 08/23/2024. RESULT: Lines, tubes, and devices: None. Lungs and pleura: Low volumes with crowding. Streaky left mid and bilateral lower lung opacities Cardiomediastinal silhouette: Stable. Other: No acute osseous or upper abdominal finding. IMPRESSION: Low volumes with crowding. Subsegmental bibasilar and left midlung atelectasis/consolidation. Conside r repeat examination in full inspiration. Reviewed, dictated and finalized at location K. IMPRESSION: Low volumes with crowding. Subsegmental bibasilar and left midlung atelectasis/ consolidation. Consider repeat examination in full inspiration.
--- NOTE | ~2025-02-16 | CT_ITS ---
EXAMINATION: CT abdomen pelvis wo con DATE: 02/18/2025 16:00 INDICATION: Small bowel obstruction TECHNIQUE: Computed tomography (CT) of the abdomen and pelvis was performed without intravenous contr ast. Automated exposure control and iterative reconstruction technique were employed. The dose-length product was 1557.23 mGy-cm. COMPARISON: None FINDINGS: Small bilateral pleural effusions with mild dependent atelectasis in both lower lobes. Cardiomegaly. Atherosclerotic coronary artery calcium location. Aortic valve calcific lesion. No pericardial effusi on. Cardiac pacemaker lead in the right atrium along the anterior margin of the mitral valve plane. M oderate bilateral gynecomastia. There is a large amount of oral contrast material in the stomach which limits evaluation of the upper abdomen and lung bases due to prominent streak artifact. Liver, gallbladder, spleen, bilateral adren al glands and kidneys are normal. Multiple dystrophic calcifications throughout the pancreas consiste nt with sequela of chronic pancreatitis. There are couple small nonloculated fluid collections the right lower quadrant along with some inflam matory stranding along side the appendix which is dilated to 2.0 cm consistent with acute appendiciti s, potentially ruptured but without extraluminal gas to more specifically suggest this.. Additional o ral contrast material seen within multiple loops of small bowel dilated to 4 cm. The contrast diluted more distally as the bowel progressively decreases in caliber in the right lower quadrant but withou t a single discrete transition point and would favor a secondary ileus related to the ruptured append icitis as opposed to bowel obstruction. The colon is relatively decompressed aside from 6.5 similar b all of stool at the rectum. Lobo catheter and some excreted contrast in the partially decompressed b ladder. There is additional small amount of nonloculated perihepatic ascites in the right upper quadr ant. No organized abscess or free intraperitoneal gas. No pathologically enlarged abdominal or pelvic lymphadenopathy. Mild to moderate lumbar and lower thoracic spondylosis with chronic T11 and T12 com pression fractures and chronic L2 and L4 burst fractures. There is some heterotopic opacification the soft tissues posterior to the left posterior iliac spine. IMPRESSION: 1. Findings consistent with acute appendicitis, potentially ruptured given the prominence of the surr ounding inflammatory stranding in the presence of a couple small nonloculated fluid collections in th e right lower quadrant. Findings were discussed with Lela Meza, the nurse caring for the patient, at 5:06 PM. 2. Multiple mildly dilated loops of small bowel with slow progression of contrast on immediately prio r small bowel follow-through study but without a discrete transition point and favor a secondary reac tive ileus over a partial small bowel obstruction. 3. Small bilateral pleural effusions. Reviewed, dictated and finalized at location A. IMPRESSION: 1. Findings consistent with acute appendicitis, potentially ruptured given the prominence of the surrounding inflammatory stranding in the presence of a coupl e small nonloculated fluid collections in the right lower quadrant. Findings we re discussed with Lela Meza, the nurse caring for the patient, at 5:06 PM. 2. Multiple mildly dilated loops of small bowel with slow progression of contra st on immediately prior small bowel follow-through study but without a discrete transition point and favor a secondary reactive ileus over a partial small bow el obstruction. 3. Small bilateral pleural effusions.
--- NOTE | ~2025-02-16 | XR_ITS ---
EXAMINATION: XR abdomen gastric tube insert DATE: 02/17/2025 11:11 INDICATION: Nasogastric tube placement TECHNIQUE: A supine view of the abdomen and lower chest was obtained for evaluation of feeding tube placement. COMPARISON: None. FINDINGS: Nasogastric tube tip in the body the stomach with proximal side-port near the gastroesophageal juncti on. Transvenous cardiac pacemaker with lead tip at the inferior right atrium. Coarse dystrophic pancr eatic calcifications consistent with sequela of chronic pancreatitis. Multiple loops of gas-filled sm all bowel, one loop appearing mildly dilated. IMPRESSION: 1. Nasogastric tube in the body the stomach. Consider advancement by [address] proximal side-port be low the level of the gastroesophageal junction. 2. Nonspecific bowel gas pattern which could be due to ileus or early/partial small bowel obstruction . Reviewed, dictated and finalized at location A. IMPRESSION: 1. Nasogastric tube in the body the stomach. Consider advancement by [address] proximal side-port below the level of the gastroesophageal junction. 2. Nonspecific bowel gas pattern which could be due to ileus or early/partial s mall bowel obstruction.
--- NOTE | ~2025-02-16 | XR_ITS ---
EXAMINATION: XR abdomen obstructive series DATE: 02/18/2025 10:09 INDICATION: Ileus versus partial obstruction TECHNIQUE: Supine and upright views of the abdomen. FINDINGS: 02/17/2025 The visualized lung parenchyma is normal.. There are dilated small bowel loops throughout the mid abd omen, consistent with obstruction. There are pancreatic calcifications, consistent with chronic pancr eatitis. Gas and stool are seen throughout the colon to the level of the rectum. There is no free ai r. IMPRESSION: 1. Small bowel obstruction. Reviewed, dictated and finalized at location A. IMPRESSION: 1. Small bowel obstruction.
--- NOTE | ~2025-02-16 | US_ITS ---
US arterial duplex [facility] 02/17/2025 13:33 Indication: Cold right foot Procedure: Arterial duplex ultrasound bilateral lower extremities Comparison: No prior studies for comparison. Findings: Triphasic Doppler waveforms are demonstrated throughout the arterial system of both lower e xtremities. There is focal atherosclerotic plaque measuring 1.5 cm in the right common femoral artery . No evidence for hemodynamically significant stenosis or occlusion. Normal triphasic flow in the run off vessels. Impression: 1: Focal 1.5 cm atherosclerotic plaque in the right common femoral artery without evidence of occlusi on or significant stenosis. Otherwise normal bilateral lower extremity arterial duplex with triphasic flow throughout. Reviewed, dictated and finalized at location A. Impression: 1: Focal 1.5 cm atherosclerotic plaque in the right common femoral artery witho ut evidence of occlusion or significant stenosis. Otherwise normal bilateral lo wer extremity arterial duplex with triphasic flow throughout.
--- NOTE | ~2025-02-16 | XR_ITS ---
EXAMINATION: XR abdomen obstructive series DATE: 02/17/2025 09:17 INDICATION: Abdominal distention and tenderness TECHNIQUE: Frontal supine and upright views of the abdomen were obtained. COMPARISON: None. FINDINGS: Small amount of gas in the stomach and colon. A few mildly dilated and not frankly dilated loops of g as-filled small bowel in the central abdomen. No free intraperitoneal gas. No free intraperitoneal ga s. Coarse calcifications throughout the pancreas consistent with sequela of chronic pancreatitis. Vis ualized lung bases are clear. IMPRESSION: 1. Mildly dilated and nondilated loops of gas-filled small bowel in the central abdomen which could represent early/partial small bowel obstruction or ileus. 2. Coarse pancreatic callus location consistent with sequela of chronic pancreatitis. Reviewed, dictated and finalized at location A. IMPRESSION: 1. Mildly dilated and nondilated loops of gas-filled small bowel in the centra l abdomen which could represent early/partial small bowel obstruction or ileus. 2. Coarse pancreatic callus location consistent with sequela of chronic pancrea titis.
--- NOTE | ~2025-02-16 | XR_ITS ---
EXAMINATION: XR chest 1V portable DATE: 02/17/2025 05:21 INDICATION: Altered mental status. Assess for pneumonia TECHNIQUE: frontal view of the chest was obtained. COMPARISON: Chest radiograph dated 02/16/[address] dated 01/25/2024 FINDINGS: Unchanged small lung volumes particularly on the right but there is additional relative elevation of the right hemidiaphragm. Opacities in the left mid and bilateral lower lung zones which could represe nt atelectasis or pneumonia. Correlation with relatively recent prior CT demonstrates corresponding a telectasis at these locations which would be favored. Calcified nodule right lower lung zone and calc ified right hilar lymph nodes consistent with old granulomatous disease. No pleural effusion or pneum othorax. Cardiomegaly. Temporary cardiac pacemaker via right internal jugular access with distal lead tip likely in the right atrium projecting over the midline of the lower thoracic spine. Dystrophic p ancreatic parenchymal calcifications likely sequela of chronic pancreatitis. IMPRESSION: 1. Persistent small lung volumes with opacities in the left mid and and bilateral lower lung zones an d favor atelectasis/scarring over pneumonia. 2. Pancreatic parenchymal calcifications consistent with chronic pancreatitis. Reviewed, dictated and finalized at location A. IMPRESSION: 1. Persistent small lung volumes with opacities in the left mid and and bilater al lower lung zones and favor atelectasis/scarring over pneumonia. 2. Pancreatic parenchymal calcifications consistent with chronic pancreatitis.
--- NOTE | 2025-02-16 13:13 | ECG_ITS ---
Test Date: 2025-02-16 13:28:23 Measurements Intervals [place] Rate: 65 P: 15 [place]: 245 QRS: -57 QRSD: 153 T: 15 QT: 453 QTc: 471 Interpretive Statements SINUS RHYTHM WITH FIRST DEGREE AV BLOCK RIGHT BUNDLE BRANCH BLOCK LEFT ANTERIOR FASCICULAR BLOCK MINIMAL Q WAVES- HIGH LATERAL LEADS BASELINE ARTIFACT- II, III ABNORMAL ECG No previous ECG available for comparison Electronically Signed On 02-16-2025 14:50:54 CDT by Burt Villalobos D.O.
--- NOTE | 2025-02-16 13:17 | ED_ITS ---
HPI - General Adult General Chief complaint: Weakness Stated complaint: increased confusion & weakness Time Seen by Provider: 02/16/25 13:16 Source: patient Mode of arrival: ambulatory Limitations: no limitations History of Present Illness HPI narrative: PATIENT CAME FROM INDEPENDENT LIVING WITH GENERAL WEAKNESS FOR THE LAST 2 DAYS. HISTORY OF ALZHEIMER. NO FAMILY MEMBERS AT THE BEDSIDE, NO PAPER INDICATING THE HISTORY OR THE MEDICATION. Later on patient's daughter came to the emergency room, states that patient is less active, less responsive, generally weak, compared to 1 week ago when she saw him last She reports patient had history of aphasia 1 month ago of unknown etiology She reported that patient was sitting on the floor for few hours few days ago and the staff was not able to pull him of the floor. Related Data Home Medications ?Medication ?Instructions ?Recorded ?Confirmed ?Last Taken ?Type aspirin 81 mg chewable tablet 81 mg PO DAILY 03/31/20 09/10/22 Unknown History memantine ER 7 mg-donepezil 10 mg 1 cap PO DAILY 03/31/20 09/10/22 Unknown History capsule sprinkle,ext.release 24 hour (Namzaric) nebivolol 2.5 mg tablet (Bystolic) 2.5 mg PO DAILY 03/31/20 09/10/22 Unknown History vortioxetine 20 mg tablet 20 mg PO DAILY 03/31/20 09/10/22 Unknown History (Trintellix) furosemide 20 mg tablet 20 mg PO 3XW 06/05/22 09/10/22 Unknown History rosuvastatin 10 mg tablet 10 mg PO 10/28/22 Unknown History Allergies Allergy/AdvReac Type Severity Reaction Status Date / Time cephalexin (From Keflex) Allergy Unknown Verified 10/28/22 15:17 Review of Systems 2 Review of Systems: ROS unobtainable: Yes unobtainable due to medical condition and unobtainable due to mental status PMFSH Past Medical History Medical History Stage 3 chronic kidney disease CHF (congestive heart failure) Atrial fibrillation Dementia Surgical History Surgical History Surgical history unknown Family History Family History Mother Acute myocardial infarction Cerebrovascular accident Father Dementia Social History Social History Social History: patient is resident of [place] lives with his Norma Matute. Smoking status: Never smoker Alcohol intake: never Substance use: never Substance use type: does not use Gender identity (if verbalized by the patient): Male Spiritual care concerns: No Course Vital Signs Vital signs: Vital Signs Temperature 36.9 C 02/16/25 13:14 Pulse Rate 74 02/16/25 13:14 Respiratory Rate 25 H 02/16/25 13:14 Blood Pressure 110/66 02/16/25 13:14 Pulse Oximetry 94 02/16/25 13:14 Oxygen Delivery Room Air 02/16/25 13:14 Temperature 36.9 C 02/16/25 13:14 Pulse Rate 67 02/16/25 13:41 Respiratory Rate 25 H 02/16/25 13:14 Blood Pressure 110/66 02/16/25 13:14 Pulse Oximetry 94 02/16/25 13:14 Oxygen Delivery Room Air 02/16/25 13:14 Medical Decision Making [facility] Narrative Medical decision making narrative: PATIENT CAME WITH GENERAL WEAKNESS, VITAL SIGNS ARE STABLE PHYSICAL EXAMINATION SHOWING THAT THE PATIENT IS AWAKE, ALERT, DOES NOT FOLLOW VERBAL COMMANDS PROBABLY UNABLE TO UNDERSTAND QUESTIONS DIFFERENTIAL DIAGNOSIS CVA, ADVANCED DEMENTIA, ELECTROLYTE IMBALANCE, DEHYDRATION, URINARY TRACT INFECTION, PNEUMONIA BLOOD WORKUP TODAY INCLUDES SEPTIC PROTOCOL, WBC 11.4, BUN 24, creatinine 1.5, total bilirubin 2.1, CPK 981 URINALYSIS SHOWED no significant abnormality EKG SHOWED CHEST X-RAY SHOWED no acute abnormalities CT HEAD WITHOUT CONTRAST SHOWED no acute abnormalities Diagnosis: Rhabdomyolysis, SHARON, altered mental status, general weakness, aphasia Differential Diagnosis Differential Diagnosis: As above Vital Signs Vital Signs: Vital Signs Temperature 36.9 C 02/16/25 13:14 Pulse Rate 74 02/16/25 13:14 Respiratory Rate 25 H 02/16/25 13:14 Blood Pressure 110/66 02/16/25 13:14 Pulse Oximetry 94 02/16/25 13:14 Oxygen Delivery Room Air 02/16/25 13:14 Temperature 36.9 C 02/16/25 13:14 Pulse Rate 67 02/16/25 13:41 Respiratory Rate 25 H 02/16/25 13:14 Blood Pressure 110/66 02/16/25 13:14 Pulse Oximetry 94 02/16/25 13:14 Oxygen Delivery Room Air 02/16/25 13:14 Lab Data 02/16/25 13:29 02/16/25 13:29 Labs: Lab Results 02/16/25 02/16/25 02/16/25 Range/Units 13:29 13:43 13:47 WBC 11.4 H (4.5-10.0) K/mm3 RBC 4.66 (4.6-6.20) M/mm3 Hgb 15.3 (14.0-18.0) g/dL Hct 45.7 (42.0-52.0) % MCV 98.1 (80-100) fl MCH 32.8 (26-34) pg MCHC 33.5 (32-36) g/dl RDW 14.6 H (11.5-14.5) % Plt Count 179 (150-375) k/mm3 MPV 9.4 (7.4-10.4) fl Immature Gran % (Auto) 0.5 (0-0.5) % Neut % (Auto) 82.2 H (45.5-73.1) % Lymph % (Auto) 8.2 L (18.3-44.2) % [place] % (Auto) 8.7 H (2.6-8.5) % Eos % (Auto) 0.1 (0-4.4) % Baso % (Auto) 0.3 (0.2-1.2) % Lymph # (Auto) 0.94 (0.9-3.2) K/mm3 [place] # (Auto) 1.0 H (0.1-0.6) K/mm3 Eos # (Auto) 0.0 (0-0.3) K/mm3 Baso # (Auto) 0.0 (0.0-0.1) K/mm3 Abs Immat Gran (auto) 0.06 H (0.00-0.031) K/mm3 Absolute Neuts (auto) 9.4 H (1.3-6.7) K/mm3 Absolute Nucleated RBC 0.000 (0.0-0.012) K/mm3 Nucleated RBC % 0.0 (0.0-0.2) % Sodium 134 L (137-145) mmol/L Potassium 4.4 (3.4-5.0) mmol/L Chloride 103 (98-107) mmol/L Carbon Dioxide 22 (22-30) mmol/L Anion Gap 9 (4-12) mmol/L BUN 24 H (9-20) mg/dL Creatinine 1.54 H (0.7-1.3) mg/dL Estim Creat Clear Calc 35 ml/min Estimated GFR 43 L (59 - ) Glucose 157 H (65-110) mg/dL POC Capillary Glucose 158 H (65-105) mg/dl Calcium 9.3 (8.4-10.2) mg/dL Total Bilirubin 2.1 H (0.2-1.3) mg/dL AST 72 H (17-59) U/L ALT 57 H (6-50) U/L Alkaline Phosphatase 190 H (38-126) U/L Ammonia (9-30) umol/L Total Creatine Kinase (55-170) U/L Troponin I (0.000-0.034) ng/mL Total Protein 8.3 H (6.3-8.2) g/dL Albumin 4.0 (3.5-5.1) g/dL TSH Urine Color Dark yellow (Yellow) Urine Appearance Clear (Clear) Urine pH 5.5 (5.0-9.0) Ur Specific [place] 1.025 (1.001-1.035) Urine Protein 2+ H (Negative) mg/dL Urine Glucose (UA) Negative (Negative) mg/dL Urine Ketones Negative (Negative) mg/dL Ur Blood (Man) 2+ H (Negative) Urine Nitrate Negative (Negative) Urine Bilirubin 1+ H (Negative) Urine Urobilinogen 2.0 H (<2.0) mg/dL Leukocyte Esterase Rfl Trace H (Negative) WILFRIDO/UL Urine RBC 0-2 (0-2) /hpf Urine WBC 0-5 (0-3) /hpf Ur Squamous Epith Cells None seen (Few) /hpf Urine Bacteria None seen /hpf Urine Casts 3-5 02/16/25 Range/Units 13:57 WBC (4.5-10.0) K/mm3 RBC (4.6-6.20) M/mm3 Hgb (14.0-18.0) g/dL Hct (42.0-52.0) % MCV (80-100) fl MCH (26-34) pg MCHC (32-36) g/dl RDW (11.5-14.5) % Plt Count (150-375) k/mm3 MPV (7.4-10.4) fl Immature Gran % (Auto) (0-0.5) % Neut % (Auto) (45.5-73.1) % Lymph % (Auto) (18.3-44.2) % [place] % (Auto) (2.6-8.5) % Eos % (Auto) (0-4.4) % Baso % (Auto) (0.2-1.2) % Lymph # (Auto) (0.9-3.2) K/mm3 [place] # (Auto) (0.1-0.6) K/mm3 Eos # (Auto) (0-0.3) K/mm3 Baso # (Auto) (0.0-0.1) K/mm3 Abs Immat Gran (auto) (0.00-0.031) K/mm3 Absolute Neuts (auto) (1.3-6.7) K/mm3 Absolute Nucleated RBC (0.0-0.012) K/mm3 Nucleated RBC % (0.0-0.2) % Sodium (137-145) mmol/L Potassium (3.4-5.0) mmol/L Chloride (98-107) mmol/L Carbon Dioxide (22-30) mmol/L Anion Gap (4-12) mmol/L BUN (9-20) mg/dL Creatinine (0.7-1.3) mg/dL Estim Creat Clear Calc ml/min Estimated GFR (59 - ) Glucose (65-110) mg/dL POC Capillary Glucose (65-105) mg/dl Calcium (8.4-10.2) mg/dL Total Bilirubin (0.2-1.3) mg/dL AST (17-59) U/L ALT (6-50) U/L Alkaline Phosphatase (38-126) U/L Ammonia < 9 L (9-30) umol/L Total Creatine Kinase 981 H (55-170) U/L Troponin I < 0.012 (0.000-0.034) ng/mL Total Protein (6.3-8.2) g/dL Albumin (3.5-5.1) g/dL TSH Pending Urine Color (Yellow) Urine Appearance (Clear) Urine pH (5.0-9.0) Ur Specific [place] (1.001-1.035) Urine Protein (Negative) mg/dL Urine Glucose (UA) (Negative) mg/dL Urine Ketones (Negative) mg/dL Ur Blood (Man) (Negative) Urine Nitrate (Negative) Urine Bilirubin (Negative) Urine Urobilinogen (<2.0) mg/dL Leukocyte Esterase Rfl (Negative) WILFRIDO/UL Urine RBC (0-2) /hpf Urine WBC (0-3) /hpf Ur Squamous Epith Cells (Few) /hpf Urine Bacteria /hpf Urine Casts Imaging Data Radiologist's impression: Impressions Head CT 02/16/25 14:17 IMPRESSION: No acute intracranial process. Chest X-Ray 02/16/25 14:21 IMPRESSION: Low volumes with crowding. Subsegmental bibasilar and left midlung atelectasis/consolidation. Consider repeat examination in full inspiration. ECG Data EKG #1: Attestation: I personally reviewed and interpreted this ECG as follows: ECG completion date: 02/16/25 Interpretation: Normal sinus rhythm at 65 beats per minute with first-degree heart block, right bundle-branch block, left anterior fascicular block, abnormal EKG, no previous EKG available for comparison Critical Care Time Critical Care Time Critical Care Time: Yes Total Critical Care Time: 30 Discharge Plan Discharge Clinical Impression: Acute alteration in mental status, Rhabdomyolysis, SHARON (acute kidney injury), Aphasia, Family history of Alzheimer disease Patient Disposition: Still a Patient Condition: Stable Additional Instructions: Admit to hospitalist Patient Language: Romansh Prescriptions: No Action rosuvastatin 10 mg tablet 10 mg PO aspirin 81 mg Tablet,Chewable 81 mg PO DAILY nebivolol [Bystolic] 2.5 mg Tablet 2.5 mg PO DAILY Trintellix 20 mg Tablet 20 mg PO DAILY Namzaric 7-10 mg Capsule,Sprinkle,Er 24hr 1 cap PO DAILY furosemide 20 mg tablet 20 mg PO 3XW Rx Instructions: m/w/f Follow-up/Referrals: Juve,Remy Trujillo MD [Primary Care Provider] -
[2025-02-16 13:34] LABS: Hematocrit 45.7 % (42.0-52.0); Hemoglobin 15.3 g/dL (14.0-18.0); Immature Granulocyte Percent A 0.5 % (0-0.5); Lymphocytes Absolute Auto 0.94 K/mm3 (0.9-3.2); Mean Corpuscular HGB Conc 33.5 g/dl (32-36); Mean Corpuscular Hemoglobin 32.8 pg (26-34); Mean Corpuscular Volume 98.1 fl (80-100); Nucleated Red Blood Cells Absolute Auto 0.000 K/mm3 (0.0-0.012); Nucleated Red Blood Cells Perc 0.0 % (0.0-0.2); Platelet Count Result 179 k/mm3 (150-375); Red Blood Count 4.66 M/mm3 (4.6-6.20); White Blood Count 11.4 K/mm3 (4.5-10.0)
[2025-02-16 13:49] LABS: Alanine Aminotransferase 57 U/L (6-50); Albumin Level 4.0 g/dL (3.5-5.1); Alkaline Phosphatase 190 U/L (38-126); Anion Gap 9 mmol/L (4-12); Aspartate Amino Transferase 72 U/L (17-59); Bilirubin,Total 2.1 mg/dL (0.2-1.3); Blood Urea Nitrogen 24 mg/dL (9-20); Calcium 9.3 mg/dL (8.4-10.2); Carbon Dioxide 22 mmol/L (22-30); Chloride 103 mmol/L (98-107); Estimated CRCL calculation 35 ml/min; Estimated Glomerular Filt Rate 43; Glucose 157 mg/dL (65-110); Potassium 4.4 mmol/L (3.4-5.0); Sodium 134 mmol/L (137-145); Total Protein 8.3 g/dL (6.3-8.2)
[2025-02-16] MEDS: SODIUM CHLORIDE 0.9% IV 1,000 ML 125 ML IV CONT ×2 (13:51→22:30)
--- OUTSIDE RECORDS SUMMARY | 2025-02-16 13:55 | XMS_ITS | Clinical Summary ---
Author Organization [facility] Address [address] [place] [address] Care Team Providers Care Supervisory Examiner Name Role Phone Remy An MD Primary Care Provider [phone] Source Comments [facility],non-[facility] Affiliates and Associated Physician Practices is amultiple site organization consisting of ambulatory clinics and hospital sitesin [place], [place], [place] and [place]. This disclosure is being madepursuant to the Care Everywhere program and may not contain all information available regarding this patient. 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 Gender Identity Not on file Sexual Orientation [...] 8:28 AM CDT Height 175.3 cm (5' 9) 12/09/2014 8:28 AM CDT Body Mass Index 27.32 12/09/2014 8:28 AM CDT Plan of Treatment Health Maintenance Due Date Last Done Comments DTAP/TDAP/TD VACCINES (1 - Tdap) 02/07/1960 PNEUMOCOCCAL VACCINE 50+ (1 of 1 - PCV) 1991 ZOSTER VACCINE (1 of 2) 1991 Respiratory Syncytial Virus (RSV) Vaccine Pt: or over 60 yrs (1 - 1-dose 75+ series) 02/07/2016 COVID-19 VACCINE (1 - 2023-2 5 season) 2024 DEPRESSION SCREENING 07/11/2024 MEDICARE AWV CALENDAR YEAR 2024 INFLUENZA VACCINE (#1) 2025 HEPATITIS B VACCINE Aged Out No longe r eligible based on patient's age to complete this topic HIB VACCINE Aged Out No longer eligi ble based on patient's age to complete this topic HPV VACCINE Aged Out No longer eligi ble based on patient's age to complete this topic MENINGOCOCCAL (Group B) VACC INE SHARED DECISION-MAKING Aged Out No longer eligibl e based on patient's age to complete this topic MENINGOCOCCAL GROUPS A/C/Y/W VACCINE Aged Out No longer eligible b ased on patient's age to complete this topic Insurance [employer] [address] [id number] [employer] MEDICARE ADV [facility] MANAGED MEDICARE ADV Care Teams Supervisory Examiner Relationship Specialty Start Date End Date Remy An MD [address] [place] [address] [address] [place] [address] PCP - General Internal Medicine 11/15/17
--- OUTSIDE RECORDS SUMMARY | 2025-02-16 13:55 | XMS_ITS | Encounter Summary ---
Author Organization 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 Gender Identity Not on file Sexual Orientation Not on file documented as of this encounter Plan of Treatment Not on file documented as of this encounter Procedures Procedure Name Priority Date/Time Associated Diagnosis Comments DERMATOPATHOLOGY Routine 09/05/2019 12:0 0 AM [employer]IVERBO[employer] MASTER documented in this encounter Results * DERMATOPATHOLOGY (09/05/2019 12:00 AM [employer] MASTER) Case Report Dermatopathology Report Case: [id number] Authorizing Provider: See Joseph MD Collected: 09/05/2019 12:00 AM Ordering Location: [facility] Received: 09/06/2019 01:46 PM Pathologist: Mckay Little MD Specimens: A) - Skin, right ext FA B) - Skin, left med distal thigh 0 12:51 PM [facility] DERMAT[facility]OLOGY [facility]ORAT[facility] Final Diagnosis Specimen A. SKIN, right ext FA: HYPERPLASTIC (HYPERTROPHIC) ACTINIC KERATOSIS (L57.0) EPIDERMAL NECROSIS SUGGESTIVE OF EXCORIATION (L98.499) Specimen B. SKIN, left med distal thigh: HYPERPLASTIC (HYPERTROPHIC) ACTINIC KERATOSIS WITH ASSOCIATED CHANGES OF PRURIGO NODULARIS (L57.0) 0 12:51 PM [facility] DERMATOPATHOLOGY LABORATORY at [address] [employer] Clinical History A-B: R/O LSC. 0 12:51 PM [facility] DERMATOPATHOLOGY LABORATORY Gross Description Specimen A: Received is one formalin filled container labeled with the patient's name and designated right ext FA. The specimen consists of a shave biopsy measuring [id number]. Jar 0. Specimen B: Received is one formalin filled container labeled with the patient's name and designated left med distal thigh. The specimen consists of a shave biopsy measuring [id number]. Jar 0. 0 12:51 PM [facility] DERMATOPATHOLOGY LABORATORY Microscopic Description Specimen A. SKIN, [...] superficial perivascular lymphohistiocytic infiltrate. 0 12:51 PM [facility] DERMATOPATHOLOGY LABORATORY Disclaimer An external and internal positive and negative controls are appropriate for the histochemical, immunohistochemical and immunofluorescence stain(s) in this case (if any), except where stated explicitly. The performance characteristics of the stain(s) cited in this report were developed and its performance characteristic determined by the Dermatopathology Laboratory at [facility], directed by Dr. Hermelindo Little. These tests need not be, and therefore are not, approved by the [place] Food and Drug Administration. The tests are used for clinical purposes. Billing Codes Specimen Charges Stain Charges 55807 31965 1 1 0 12:51 PM [employer] DERMATOPATHOLOGY LABORATORY Embedded Images 0 12:51 PM [employer] [facility] DERMATOPATHOLOGY LABORATORY Pathology/Cytology TISSUE SPECIMEN FROM SKIN / Unknown 09/05/2019 09/06/2019 1:46 PM [employer] Miscellaneous samples (specimen) TISSUE SPECIMEN FROM SKIN / Unknown 09/05/2019 09/06/2019 1:46 PM RIVER[employer] MA[employer] See Joseph MD LAB - PATHOLOGY/CYTOLOGY ORD ERABLES Final Result DERMATOPATHOLOGY LABORATORY [facility] - Department of Dermatology [address] [place] [address], [address] Floor Lab [address] [phone] documented in this encounter Visit Diagnoses Not on filedocumented in this encounter Care Teams Welding Teacher Relationship Specialty Start Date End Date Remy An MD [address] [place] [address] [address] [place] [address] PCP - General Internal Medicine 11/15/17 documented as of this encounter
--- OUTSIDE RECORDS SUMMARY | 2025-02-16 13:55 | XMS_ITS | Encounter Summary ---
Author Organization [facility] Address [address] [place] 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 Gender Identity Not on file Sexual Orientation Not on file documented as of this encounter Plan of Treatment Not on file documented as of this encounter Procedures Procedure Name Priority Date/Time Associated Diagnosis Comments DERMATOPATHOLOGY Routine 12/16/2021 12:0 0 AM CDT documented in this encounter Results * DERMATOPATHOLOGY (12/16/2021 12:00 AM CDT) Case Report Dermatopathology Report Case: [id number] Authorizing Provider: See Joseph MD Collected: 12/16/2021 12:00 AM Ordering Location: [facility] Care [facility] Lab Received: 12/17/2021 01:43 PM Pathologist: Lela Lux MD Specimen: Skin, right anti helix 2 3:09 PM CDT DERMATOPATHOLOGY LABORATORY Final Diagnosis Specimen A. SKIN, right anti helix: SEBORRHEIC KERATOSIS, INFLAMED (L82.0) 2 3:09 PM CDT DERMATOPATHOLOGY LABORATORY at 1509 CDT Clinical History R/O SCC, BCC 2 3:09 PM CDT DERMATOPATHOLOGY LABORATORY Gross Description Specimen A: Received is one formalin filled container labeled with the patient's name and designated right anti helix. The specimen consists of a shave biopsy measuring [id number] and another piece of tissue measuring [id number]. Jar 0. 2 3:09 PM CDT DERMATOPATHOLOGY [...] determined by the Dermatopathology Laboratory at [facility], directed by Dr. Hermelindo Little. These tests need not be, and therefore are not, approved by the [place] Food and Drug Administration. The tests are used for clinical purposes. Billing Codes Specimen Charges Stain Charges 20940 1 2 3:09 PM CDT DERMATOPATHOLOGY LABORATORY Embedded Images 2 3:09 PM CDT DERMATOPATHOLOGY LABORATORY Pathology/Cytolog y TISSUE SPECIMEN FROM SKIN / Unknown 12/16/2021 12/17/2021 1:43 PM CDT us See Joseph MD LAB - PATHOLOGY/CYTOLOGY ORD ERABLES Final Result DERMATOPATHOLOGY LABORATORY [facility] - Department of Dermatology [address], [address] [phone] documented in this encounter Visit Diagnoses Not on filedocumented in this encounter Care Teams Cutter Barrel Drum Relationship Specialty Start Date End Date Remy An MD [address] [place] [address] [address] [place] [address] PCP - General Internal Medicine 11/15/17 documented as of this encounter
--- OUTSIDE RECORDS SUMMARY | 2025-02-16 13:55 | XMS_ITS ---
Author Name Auto Generated, Auto Generated Organization [facility] Address [address] [place] [address] Phone [phone] Care Team Providers Care Wire Frame Lampshade Maker Name Role Phone Remy An Unavailable [phone] Wilfrido Gunn Unavailable [phone] Lamont Johnson Unavailable [phone] Functional Status No Results Mental Status No Results Allergies and Intolerances Name Onset Date Reaction Severity Keflex (Allergy) TueApr 02 16:01:00 EDT 2019 Encounters Program Name Primary Diagnosis Admission Date/Time Dis charge Date/Time [facility] TueJul 23 19:00:00 EST 2024Oct 18 18:00:00 EDT 2024 [facility] TueFeb 02 20:00:00 EDT 2023Jun 09 18:59:00 EST 2023 [facility] TueDec 16 20:00:00 EDT 2024 null TueJun 29 19:00 :00 EST 2019 Medications Medication Directions Start Date End Date QUEtiapine 50 mg tablet 1 tab TABLET Ora l 1 Time Daily Indication: Behaviors TueJan 27 07:00:00 EDT 2023Jan 26 16:16:00 EDT 2023 QUEtiapine 100 mg tablet 1 tab TABLET Or al 1 Time Daily Indication: behaviors TueJan 26 11:36:00 EDT 2023Jan 26 16:18:00 EDT 2023 QUEtiapine 50 mg tablet 1 tab TABLET Ora l 1 Time Daily Indication: Behaviors TueJan 26 16:00:00 EDT 2023Feb 02 01:00:00 EDT 2023 QUEtiapine 100 mg tablet 1 tab TABLET Or al 1 Time Daily Indication: behaviors TueJan 26 16:00:00 EDT 2023Feb 02 01:00:00 EDT 2023 TubersoL 5 tub. unit/0.1 mL intradermal injection solution 0.1 ml VIAL (ML) Intradermal 1 Time Weekly for 2 Weeks Indication: Rule out TB 1st injection on admission, then one week after. Read between 48 and 72 hours TueJan 26 16:00:00 EDT 2023Feb 02:00:00 EDT 2023 TubersoL 5 tub. unit/0.1 mL intradermal injection solution Read Results VIAL (ML) Other 1 Time Weekly for 2 Weeks Indication: Rule out TB Read results between 48-72 hours after 1st and 2nd (1 week apart). If positive do chest x-ray. TueJan 26 16:00:00 EDT 2023Feb 02:00:00 EDT 2023 carbidopa 10 mg-levodopa 100 mg tablet 1 tab TABLET Oral 3 Times Daily Indication: Tremors TueJan 25 18:00:00 EDT 2023Feb 02:00:00 EDT 2023 ergocalciferol (vitamin D2) 1,250 mcg (50,000 unit) capsule 1 capsule CAPSULE Oral 1 Time Weekly Indication: Vit D deficiency TueJan 25 18:00:00 ED2023Feb 02:00:00 EDT 2023 flecainide 50 mg tablet 1 tablet TABLET Oral 2 Times Daily Indication: Afib TueJan 25 18:00:00 EDT 2023Feb 02:00:00 EDT 2023 furosemide 20 mg tablet 1 tablet TABLET Oral 3 Times Weekly Indication: CHF TueJan 25 18:00:00 2023Feb 02:00:00 EDT 2023 Namzaric 28 mg-10 mg capsule sprinkle,extended release 1 capsule CAPSULE SPRINKLE, EXTENDED RELEASE 24 HR Oral 1 Time Daily Indication: dementia TueJan 25 18:00:00 ED2023Jan 25 18:22:00 EDT 2023 Namzaric 28 mg-10 mg capsule sprinkle,extended release 1 capsule CAPSULE SPRINKLE, EXTENDED RELEASE 24 HR Oral 1 Time Daily Indication: dementia TueJan 25 18:19:00 EDT 2023Feb 02 01:00:00 EDT 2023 nebivoloL 2.5 mg tablet 1 tablet TABLET Oral 1 Time Daily Indication: Afib TueJan 25 18:00:00 EDT 2023Feb 02 01:00:00 EDT 2023 QUEtiapine 25 mg tablet 1 tablet TABLET Oral 3 Times Daily Indication: DD TueJan 25 18:00:00 EDT 2023Jan 26 11:35:00 EDT 2023 rosuvastatin 20 mg tablet 1 tablet TABLE T Oral 1 Time Daily Indication: HLD TueJan 25 18:00:00 EDT 2023Feb 02 01:00:00 EDT 2023 Trintellix 20 mg tablet 1 tablet TABLET Oral 1 Time Daily Indication: DD TueJan 25 18:00:00 EDT 2023Feb 02 01:00:00 EDT 2023 Paxlovid 150 mg-100 mg tablets in a dose pack (Renal Dose) 2 tablets TABLET, DOSE PACK Oral 2 Times Daily for 5 Days Indication: Take both tablets from one blister card together, twice daily (in morning & evening) for 5 days COVID (+) TueJan 25 07:00:00 EDT 2023Jan 30 06:59:00 EDT 2023 TUBErsoL 5 tub. unit/0.1 mL intradermal injection solution 0.1 ml VIAL (ML) Intradermal 1 Time Weekly for 2 Weeks Indication: TB Test 1st injection on admission, then one week after. Read between 48 and 72 hours TueJun 08 15:00:00 EST 2021Jun 22 01:00:00 EST 2021 TUBErsoL 5 tub. unit/0.1 mL intradermal injection solution Read Results VIAL (ML) Other 1 Time Weekly for 2 Weeks Indication: TB Test Read results between 48-72 hours after 1st and 2nd (1 week apart). If positive do chest x-ray. TueJun 08 09:00:00 EST 2021Jun 22 01:00:00 EST 2021 benzonatate 100 mg capsule 1 CAPSULE CAP KEENA Oral 3 Times Daily for 7 Days Indication: COUGH TueJun 07 15:30:00 EST 2021Jun 14 15:29:00 EST 2021 Namzaric 7 mg-10 mg capsule sprinkle,extended release 1 CAPSULE CAPSULE SPRINKLE, EXTENDED RELEASE 24 HR Oral 1 Time Daily Indication: DEMENTIA TueJun 07 15:30:00 2021Jun 22 01:00:00 EST 2021 Trintellix 20 mg tablet 1 TABLET TABLET Oral 1 Time Daily Indication: DEPRESSION TueJun 07 15:30:00 2021Jun 22 01:00:00 EST 2021 aspirin 81 mg chewable tablet 1 TABLET TABLET,CHEWABLE Oral 1 Time Daily Indication: PROPHYLAXIS TueJun 07 15:30:00 2021Jun 22 01:00:00 EST 2021 flecainide 50 mg tablet 1 TABLET TABLET Oral Every 12 Hours Indication: ARRHYTHMIAS TueJun 07 15:30:00 2021Jun 22 01:00:00 EST 2021 nebivoloL 2.5 mg tablet 1 TABLET TABLET Oral 1 Time Daily Indication: HYPERTENSION TueJun 07 15:30:00 2021Jun 22 01:00:00 EST 2021 atorvastatin 20 mg tablet 1 TABLET TABLE T Oral 1 Time Daily Indication: HYPERLIPIDEMIA TueJun 07 15:30:00 2021Jun 22 01:00:00 EST 2021 QUEtiapine 25 mg tablet 1 TABLET TABLET Oral 3 Times Daily Indication: DEPRESSION TueJun 07 15:30:00 2021Jun 22 01:00:00 EST 2021 furosemide 20 mg tablet 1 TABLET TABLET Oral 3 Times Weekly Indication: FLUID RETENTION TueJun 07 15:30:00 2021Jun 22 01:00:00 EST 2021 benzonatate 100 mg capsule 1 cap CAPSULE Oral PRN Every 6 Hours PRN q6hrs cough TueApr 23 14:00:00 EDT 2019May 01 01:00:00 EDT 2019 TUBErsoL 5 tub. unit/0.1 mL intradermal injection solution 0.1 ml VIAL (ML) Intradermal 1 Time Weekly for 2 Weeks (PPD) 1st injection upon admission. Read between 48 and 72 hours and give 2nd injection 1 week after the 1st if result is negative. If positive result, proceed with chest x-ray to rule out active disease. TueApr 14 09:00:00 EDT 2019Apr 28 08:59:00 EDT 2019 TUBErsoL 5 tub. unit/0.1 mL intradermal injection solution Read Results VIAL (ML) Other 1 Time Weekly for 2 Weeks Read results between 48-72 hours after 1st and 2nd 1 week apart. If positive do chest x-ray to rule out active disease. TueApr 14 09:00:00 2019Apr 28 08:59:00 2019 hydrOXYzine HCL 50 mg tablet 50mg TABLET Oral 3 Times Daily Tue Sep 29 12:00:00 2019Apr 14 11:10:00 2019 hydrOXYzine HCL 50 mg tablet 50mg TABLET Oral 3 Times Daily Dx: Anxiety TueApr 14 11:00:00 2019May 01 01:00:00 2019 ergocalciferol (vitamin D2) 1,250 mcg (50,000 unit) capsule 2 caps CAPSULE Oral 1 Time Daily for 1 Day 2 caps x 1 dose then 1 cap weekly TueApr 09 09:00:00 2019Apr 10 08:59:00 2019 ergocalciferol (vitamin D2) 1,250 mcg (50,000 unit) capsule 2 caps CAPSULE Oral 1 Time Weekly 1 cap p.o. weekly TueApr 16 09:00:00 2019May 01 01:00:00 2019 atorvastatin 20 mg tablet 1 tab TABLET O ral 1 Time Daily HLD TueApr 07 21:00:00 2019May 01 01:00:00 2019 hydrOXYzine HCL 25 mg tablet 1 tab TABLET Oral 3 Times Daily Mood Sat Sep 26 20:00:00 2019 Tue Sep 29 12:25:00 2019 LORazepam 1 mg tablet 1mg TABLET Oral 1 Time Daily for 1 Day Anxiety Sat Sep 26 18:45:00 2019 Sun Sep 27 18:44:00 2019 LORazepam 0.5 mg tablet 0.5 mg 0.5mg TABLET Oral PRN Every 8 Hours Anxiety Sat Sep 26 18:00:00 2019Apr 14 11:08:00 2019 LORazepam 0.5 mg tablet 0.5mg TABLET Ora l PRN Every 8 Hours Dx: AnxietyMD to re-evaluate the use of medication 07/04/20. TueApr 14 11:00:00 2019May 01 01:00:00 2019 ProAir HFA 90 mcg/actuation aerosol inhaler 1-2 puffs HFA AEROSOL WITH ADAPTER (GRAM) Inhalation PRN 4 Times Daily SOB TueApr 04 15:00:00 2019u Oct 01:00:00 2019 hydrOXYzine HCL 25 mg tablet 1 tab TABLET Oral 2 Times Daily TueApr 04 21:00:00 2019 Sep 18:20:00 2019 Trintellix 20 mg tablet 20mg TABLET Oral 1 Time Daily Depression TueApr 02 16:00:00 2019u May 01 01:00:00 2019 Namzaric 7 mg-10 mg capsule sprinkle,extended release 1 capsule CAPSULE SPRINKLE, EXTENDED RELEASE 24 HR Oral 1 Time Daily Dementia TueApr 02 16:00:00 2019u Oct 01:00:00 2019 aspirin 81 mg chewable tablet 81mg TABLET,CHEWABLE Oral 1 Time Daily DVT proph TueApr 02 16:00:00 2019May 01 01:00:00 2019 flecainide 50 mg tablet 50mg TABLET Oral Every 12 Hours A-fib TueApr 02 16:00:00 2019u May 01 01:00:00 2019 Bystolic 2.5 mg tablet 2.5mg TABLET Oral 1 Time Daily HTN TueApr 02 16:00:00 2019u May 01 01:00:00 2019 traZODone 100 mg tablet 100mg TABLET Ora l 1 Time Daily Insomnia TueApr 02 16:00:00 2019Apr 02 16:46:00 2019 Problems Active Concerns * Repeated falls* Code: * Start Date: TueApr 02 00:00:00 2019 * End Date: * Text: * Heart failure, unspecified* Code: * Start Date: TueApr 02 00:00:00 2019 * End Date: * Text: * Alzheimer's disease, unspecified* Code: * Start Date: TueApr 02 00:00:00 2019 * End Date: * Text: * Major depressive disorder, single episode, unspecified* Code: * Start Date: TueApr 02 00:00:00 2019 * End Date: * Text: * Insomnia, unspecified* Code: * Start Date: TueApr 02 00:00:00 2019 * End Date: * Text: * COVID-19* Code: * Start Date: TueJun 07 00:00:00 EST 2021 * End Date: * Text: * Weakness* Code: * Start Date: TueJun 07 00:00:00 EST 2021 * End Date: * Text: * Age-related physical debility* Code: * Start Date: TueJun 07 00:00:00 EST 2021 * End Date: * Text: * Chronic fatigue, unspecified* Code: * Start Date: TueJun 07 00:00:00 EST 2021 * End Date: * Text: * Personal history of (healed) traumatic fracture* Code: * Start Date: TueJun 07 00:00:00 EST 2021 * End Date: * Text: * Unspecified urinary incontinence* Code: * Start Date: TueJun 07 00:00:00 EST 2021 * End Date: * Text: * Muscle weakness (generalized)* Code: * Start Date: TueJun 23 00:00:00 EST 2021 * End Date: * Text: * Polymyositis with myopathy* Code: * Start Date: TueJul 18 00:00:00 EST 2023 * End Date: * Text: * Personal history of COVID-19* Code: * Start Date: TueJan 25 00:00:00 EDT 2023 * End Date: * Text: * Pure hypercholesterolemia, unspecified* Code: * Start Date: TueJan 25 00:00:00 EDT 2023 * End Date: * Text: * Unspecified osteoarthritis, unspecified site* Code: * Start Date: TueJan 25 00:00:00 EDT 2023 * End Date: * Text: * Extrapyramidal and movement disorder, unspecified* Code: * Start Date: TueJan 25 00:00:00 EDT 2023 * End Date: * Text: * Gastro-esophageal reflux disease without esophagitis* Code: * Start Date: TueJan 25 00:00:00 EDT 2023 * End Date: * Text: * Paroxysmal atrial fibrillation* Code: * Start Date: TueJan 25 00:00:00 EDT 2023 * End Date: * Text: * group home (current) use of anticoagulants* Code: * Start Date: TueJan 25 00:00:00 EDT 2023 * End Date: * Text: * Nonrheumatic aortic (valve) stenosis* Code: * Start Date: TueJan 25 00:00:00 EDT 2023 * End Date: * Text: * Chronic kidney disease, stage 3a* Code: * Start Date: TueJan 25 00:00:00 EDT 2023 * End Date: * Text: * Dementia in other diseases classified elsewhere, unspecified severity, with mood disturbance* Code: * Start Date: TueJan 25 00:00:00 EDT 2023 * End Date: * Text: * Hypertensive chronic kidney disease with stage 1 through stage 4 chronic kidney disease, or unspecified chronic kidney disease* Code: * Start Date: TueJan 25 00:00:00 EDT 2023 * End Date: * Text: * Other obesity due to excess calories* Code: * Start Date: TueJan 25 00:00:00 EDT 2023 * End Date: * Text: * Body mass index [BMI] 36.0-36.9, adult* Code: * Start Date: TueJan 25 00:00:00 EDT 2023 * End Date: * Text: * Unsteadiness on feet* Code: * Start Date: TueJan 25 00:00:00 EDT 2023 * End Date: * Text: * Other fatigue* Code: * Start Date: TueJan 25 00:00:00 EDT 2023 * End Date: * Text: * Need for assistance with personal care* Code: * Start Date: TueJan 25 00:00:00 EDT 2023 * End Date: * Text: * Unspecified abnormalities of gait and mobility* Code: * Start Date: TueJul 24 00:00:00 EST 2024 * End Date: * Text: * Cognitive communication deficit* Code: * Start Date: TueDec 17 00:00:00 EDT 2024 * End Date: * Text: * Aphasia* Code: * Start Date: TueDec 17 00:00:00 EDT 2024 * End Date: * Text: Reason for Referral Past Medical History
--- OUTSIDE RECORDS SUMMARY | 2025-02-16 13:55 | XMS_ITS | Encounter Summary ---
Author Organization [facility] Address [address] [place] [place] [address] Care Team Providers Care Mutuel Department Manager Name Role Phone Remy An MD Primary Care Provider [phone] Encounter Details Date Type Department Care Team (Late st Contact Info) Description 12/09/2022 Lab Requisition [facility] - DermPath Lab [address] [place] [address] See Joseph MD [address] [place] [address] Social History Tobacco Use Types Packs/Day Years Used Date Smoking Tobacco: Never Assessed Sex and Gender Information Value Date Recorded Sex Assigned at Not on file 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 Gender Identity Not on file Sexual Orientation Not on file documented as of this encounter Plan of Treatment Not on file documented as of this encounter Procedures Procedure Name Priority Date/Time Associated Diagnosis Comments DERMATOPATHOLOGY Routine 12/08/2022 12:0 0 AM CDT documented in this encounter Results * DERMATOPATHOLOGY (12/08/2022 12:00 AM CDT) Case Report Dermatopathology Report Case: [id number] Authorizing Provider: See Joseph MD Collected: 12/08/2022 12:00 AM Ordering Location: [facility] Derm[facility] Lab Received: 12/09/2022 02:05 PM Pathologist: Mckay Little MD Specimens: A) - Skin, left styloid process B) - Skin, left chin 11:56 AM T DERMATOPATHOLOGY LABORATORY Final Diagnosis Specimen A. SKIN, left styloid process: BENIGN VERRUCOUS KERATOSIS (L82.1) DERMAL FIBROSIS (L90.5) Specimen B. SKIN, left chin: BASAL CELL CARCINOMA, NODULAR TYPE (C44.319) 11:56 AM T DERMATOPATHOLOGY LABORATORY at 1156 CDT Clinical History A-B: R/O SCC 11:56 AM [...] cytoplasmic ratio and peripheral palisading. 11:56 AM T DERMATOPATHOLOGY LABORATORY Disclaimer An external and internal positive and negative controls are appropriate for the histochemical, immunohistochemical and immunofluorescence stain(s) in this case (if any), except where stated explicitly. The performance characteristics of the stain(s) cited in this report were developed and its performance characteristic determined by the Dermatopathology Laboratory at [facility], directed by Dr. Hermelindo Little. These tests need not be, and therefore are not, approved by the [place] Food and Drug Administration. The tests are used for clinical purposes. Billing Codes Specimen Charges Stain Charges 06633 [id number] 1 1 11:56 AM CDT DERMATOPATHOLOGY LABORATORY Embedded Images 06/02/202 3 11:56 AM CDT DERMATOPATHOLOGY LABORATORY Pathology/Cytology TISSUE SPECIMEN FROM SKIN / Unknown 12/08/2022 12/09/2022 2:05 PM CDT Miscellaneous samples (specimen) TISSUE SPECIMEN FROM SKIN / Unknown 12/08/2022 12/09/2022 2:05 PM CDT See Joseph MD LAB - PATHOLOGY/CYTOLOGY ORD ERABLES Final Result DERMATOPATHOLOGY LABORATORY [facility] - Department of Dermatology [facility] [address] [place] [address], [address] [phone] documented in this encounter Visit Diagnoses Not on filedocumented in this encounter Care Teams Mutuel Department Manager Relationship Specialty Start Date End Date Remy An [place] [address] [place] [id number] PCP - General Internal Medicine 11/15/17 documented as of this encounter
--- OUTSIDE RECORDS SUMMARY | 2025-02-16 13:56 | XMS_ITS | Clinical Summary ---
Author Organization [facility] [employer] [facility] [employer] [facility] Address [address] [place] [address] Phone Care Team Providers Care Laborer Cook House Name Role Phone Remy An MD Primary Care Provider [phone] Encounters Date Type Department Care Team Description 12/04/2024 1:00 PM CDT Office Visit [facility] [address] [facility] [address] [place] [address] Jose Alberto Vuong DO Stage 3 chronic kidney disease, not otherwise specified (HCC) (Primary Dx); Diastolic dysfunction; Aortic stenosis, non-rheumatic; Permanent atrial fibrillation (HCC); 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, psychotic disturbance, mood disturbance, 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); Hypertensive chronic kidney disease 11/23/2024 Orders Only [facility] [place] [address] [place] [address] Jose Alberto Vuong DO 11/21/2024 Orders Only [facility] [place] [address] [address] Jose Alberto Vuong DO from Last 3 Months Social History Tobacco Use Types Packs/Day Years Used Date Smoking Tobacco: Never Assessed Sex and Gender Information Value Date Recorded Sex Assigned at Not on file Legal Sex Male 1:30 PM EST Gender Identity Not on file Sexual Orientation Not on file Last Filed Vital Signs Vital Sign Reading Time Taken Comments Blood Pressure 112/63 12/04/2024 1:02 PM CDT Pulse 60 12/04/2024 1:02 PM CDT Temperature 36.1 C (97 F) 07/31/2024 2:14 PM STEM ROLLER Respiratory Rate 18 12/04/2024 1:02 PM CDT Oxygen Saturation 97% 07/31/2024 2:14 PM STEM ROLLER Inhaled Oxygen Concentration - - Weight 108 kg (238 lb) 02/14/2024 1:15 PM CDT Height 175.3 cm (5' 9) 12/04/2024 1:02 PM CDT Body Mass Index 35.15 08/10/2022 12:52 PM STEM RO[facility] Plan of Treatment Health Maintenance Due Date Last Done Comments Pneumococcal Vaccine: 50+ Ye ars (1 of 2 - PCV) 02/07/1959 Influenza Vaccine (#1) 2025 Hepatitis B Vaccine Aged Out No longe r eligible based on patient's age to complete this topic Procedures Procedure Name Priority Date/Time Associated Diagnosis Comments PROTEIN / CREATININE RATIO, URINE Routine 11/23/2024 10:14 AM CDT URINE ALBUMIN / CREATININE RATIO Routine 11/23/2024 10:14 AM CDT VITAMIN D 25 HYDROXY Routine 11/21/2024 12:54 PM CDT CYSTATIN C WITH EGFR Routine 11/21/2024 12:54 PM CDT CBC AND DIFFERENTIAL Routine 11/21/2024 12:54 PM CDT RENAL FUNCTION PANEL Routine 11/21/2024 12:54 PM CDT MAGNESIUM Routine 11/21/2024 12:54 PM CDT PTH, INTACT AND CALCIUM Routine 11/21/2024 12:54 PM CDT from Last 3 Months Results * (ABNORMAL) Protein, Total, Random Urine w/Creatinine (Protein/Creat Ratio) (11/23/2024 10:14 AM CDT) Creatinine, Ur 32 20 - 320 mg/dL [facility] Urine Protein/Creati nine Ratio 313(H) 25 - 148 mg/g creat [facility] Protein/Creati nine Ratio, Urine 0.313(H) 0.025 - 0.148 mg/mg creat [facility] Protein Urine Random 10 5 - 25 mg/dL [facility] 11/23/2024 10:1 4 AM CDT 11/23/2024 10:15 AM CDT Narrative [facility] - 11/24/2024 6:06 AM CDT SPLIT 11/21/2024 FROM [id number] FASTING:NO FASTING: NO Resulting Agency Comment Performing Organization Information: Site ID: MARYA Name: [facility] Address: [address] [place] [address] [place] [address] Director: Simon Garcia MD us Jose Alberto Vuong DO LAB URINE ORDERABLES Final R esult [facility] [address] [place] [address] [place] [address] * Urine Albumin / Creatinine Ratio (11/23/2024 10:14 AM CDT) Creatinine, Ur 32 20 - 320 mg/dL [facility] Urine Microalbumin 0.2 See Note: mg/dL [facility] Comment: Reference Range: Reference Range Not established Microalb/Creat Ratio 6 <30 mg/g creat [facility] Comment: The ADA defines abnormalities in albumin excretion as follows: Albuminuria Category Result (mg/g creatinine) Normal to Mildly increased <30 Moderately increased 30-299 Severely increased > OR = 300 The ADA recommends that at least two of three specimens collected within a 3-6 month period be abnormal before considering a patient to be within a diagnostic category. 11/23/2024 10:1 4 AM CDT 11/23/2024 10:15 AM CDT Narrative [facility] - 11/24/2024 6:06 AM CDT SPLIT 11/21/2024 FROM [id number] FASTING:NO FASTING: NO Resulting Agency Comment Performing Organization Information: Site ID: MARYA Name: [facility] Address: [address] [place] [address] Director: Simon aGrcia MD Jose Alberto Vuong DO LAB URINE ORDERABLES Final R formerly [facility] Performing Organization Address [facility] Co de Phone Number [facility] [place] [address] [place] [address] * (ABNORMAL) Cystatin C w/GFR (11/21/2024 12:54 PM CDT) Cystatin C 1.86(H) 0.52 - 1.13 mg/L [facility] eGFR (Calc) 31(L) > OR = 60 mL/min/1.73 m2 [facility] 11/21/2024 12:5 4 PM CDT 11/21/2024 12:57 PM CDT Narrative [facility] - 11/23/2024 5:14 AM CDT COLLECTION KIT GIVEN TO PATIENT. PATIENT ADVISED TO RETURN. Resulting Agency Comment Performing Organization Information: Site ID: [place] Name: [facility] Address: [address] [place] [address] Director: Simon Garcia MD Jose Alberto Vuong DO LAB BLOOD ORDERABLES Final R formerly [facility] Performing Organization Address [facility] de Phone Number [facility] TH[facility] [address] [place] [address] * PTH, Intact and Calcium (11/21/2024 12:54 PM CDT) Parathyroid Hormone, Intact 54 16 - 77 pg/mL [facility] Comment: Interpretive Guide Intact PTH Calcium ------- Normal Parathyroid Normal Normal Hypoparathyroidism Low or Low Normal Low Hyperparathyroidism Primary Normal or High High Secondary High Normal or Low Tertiary High High Non-Parathyroid Hypercalcemia Low or Low Normal High Calcium 9.2 8.6 - 10.3 mg/dL [facility] 11/21/2024 12:5 4 PM CDT 11/21/2024 12:57 PM CDT Narrative [facility] - 11/23/2024 5:14 AM CDT COLLECTION KIT GIVEN TO PATIENT. PATIENT ADVISED TO RETURN. Resulting Agency Comment Performing Organization Information: Site ID: MARYA Name: [facility] Address: [address] [place] [address] [place] [address] Director: Simon Garcia MD Jose Alberto Vuong DO LAB BLOOD ORDERABLES Final R esult [facility] [employer] [address] * Vitamin D 25 Hydroxy (11/21/2024 12:54 PM CDT) Vitamin D, 25-OH, Total, IA 73 30 - 100 ng/mL [facility] Comment: Vitamin D Status 25-OH Vitamin D: Deficiency: <20 ng/mL Insufficiency: 20 - 29 ng/mL Optimal: > or = 30 ng/mL For 25-OH Vitamin D testing on patients on D2-supplementation and patients for whom quantitation of D2 and D3 fractions is required, the QuestAssureD(TM) 25-OH VIT D, (D2,D3), LC/MS/MS is recommended: order code [id number] (patients >2yrs). See Note 1 Note 1 For additional information, please refer to http://education.[employer]/faq/TQV945 (This link is being provided for informational/ educational purposes only.) 11/21/2024 12:5 4 PM CDT 11/21/2024 12:57 PM CDT Narrative [facility] - 11/23/2024 5:14 AM CDT COLLECTION KIT GIVEN TO PATIENT. PATIENT ADVISED TO RETURN. Resulting Agency Comment Performing Organization Information: Site ID: MARYA Name: [facility] Address: [address] [place] [address] Director: Simon Garcia MD Jose Alberto Vuong DO LAB BLOOD ORDERABLES Final R esult [facility] [address] [address] [address] * (ABNORMAL) CBC and Differential (11/21/2024 12:54 PM CDT) WBC 4.5 3.8 - 10.8 Thousand/ uL [facility] RBC 5.14 4.20 - 5.80 Million/u L [facility] Hemoglobin 16.7 13.2 - 17.1 g/dL [facility] Hematocrit 51.0(H) 38.5 - 50.0 % [facility] MCV 99.2 80.0 - 100.0 fL [facility] MCH 32.5 27.0 - 33.0 pg [facility] MCHC 32.7 32.0 - 36.0 g/dL [facility] Comment: For adults, a slight decrease in the calculated MCHC value (in the range of 30 to 32 g/dL) is most likely not clinically significant; however, it should be interpreted with caution in correlation with other red cell parameters and the patient's clinical condition. RDW 12.8 11.0 - 15.0 % [facility] Platelets 182 140 - 400 Thousand/ uL [facility] MPV 10.1 7.5 - 12.5 fL [facility] Neutrophils Absolute 2,525 1,500 - 7,800 cells/uL [facility] Band Neutrophils Absolute, Manual Count CANCELED 0 - 750 cells/uL [facility] Comment:Result canceled by t he ancillary. Metamyelocytes Absolute CANCELED 0 cells/uL [facility] Comment:Result canceled by t he ancillary. Absolute Myelocytes CANCELED 0 cells/uL [facility] Comment:Result canceled by t he ancillary. Absolute Promyelocytes CANCELED 0 cells/uL [facility] Comment:Result canceled by t he ancillary. Lymphocytes Absolute 1,467 850 - 3,900 cells/uL [facility] Monocytes Absolute 338 200 - 950 cells/uL [facility] Eosinophils Absolute 131 15 - 500 cells/uL [facility] Basophils Absolute 41 0 - 200 cells/uL [facility] Blasts Absolute CANCELED 0 cells/uL [facility] Comment:Result canceled by t he ancillary. NRBC Absolute CANCELED 0 cells/uL [facility] Comment:Result canceled by t he ancillary. Neutrophils Relative 56.1 % [facility] Bands Absolute CANCELED % [facility] Comment:Result canceled by t he ancillary. Metamyelocytes Percent CANCELED % [facility] Comment:Result canceled by t he ancillary. Myelocytes Relative CANCELED % [facility] Comment:Result canceled by t he ancillary. Promyelocytes Relative CANCELED % [facility] Comment:Result canceled by t he ancillary. Lymphocytes 32.6 % [facility] Variant lymphocytes/100 WBC (Bld) CANCELED 0 - 10 % [facility] Comment:Result canceled by t he ancillary. Monocytes 7.5 % [facility] Eosinophils 2.9 % [facility] Basophils Relative 0.9 % [facility] Blasts CANCELED % [facility] Comment:Result canceled by t he ancillary. nRBC CANCELED 0 /100 WBC [facility] Comment:Result canceled by t he ancillary. Comment(s) CANCELED [facility] Comment:Result canceled by t he ancillary. 11/21/2024 12:5 4 PM CDT 11/21/2024 12:57 PM CDT Narrative [facility] - 11/23/2024 5:14 AM CDT COLLECTION KIT GIVEN TO PATIENT. PATIENT ADVISED TO RETURN. Resulting Agency Comment Performing Organization Information: Site ID: [place] Name: [facility] Address: [address] [address] Director: Simon Garcia Jose Alberto Vuong DO LAB BLOOD ORDERABLES Final R esult [facility] [address] [address] [address] * Magnesium (11/21/2024 12:54 PM CDT) Pathologist [facility] Magnesium 2.4 1.5 - 2.5 mg/dL [facility] 11/21/2024 12:5 4 PM CDT 11/21/2024 12:57 PM CDT [facility]ative [facility] - 11/23/2024 5:14 AM CDT COLLECTION KIT GIVEN TO PATIENT. PATIENT ADVISED TO RETURN. Resulting Agency Comment Performing Organization Information: Site ID: Name: [facility] Address: [address] [address] Director: Simon Garcia Jose Alberto Vuong DO LAB BLOOD ORDERABLES Final R esult [facility] [address] [address] [address] * (ABNORMAL) Renal Function Panel (11/21/2024 12:54 PM CDT) Pathologist [facility] Glucose 141(H) 65 - 99 mg/dL [facility] Comment: Fasting reference interval For someone without known diabetes, a glucose value >125 mg/dL indicates that they may have diabetes and this should be confirmed with a follow-up test. BUN 19 7 - 25 mg/dL [facility] Creatinine 1.13 0.70 - 1.22 mg/dL [facility] [place] eGFR CKD-EPI CR 2020 64 > OR = 60 mL/min/1. 73m2 [email or web address] BUN/Creatinine Ratio SEE NOTE: 6 - 22 (calc) [facility] [place] Comment: Not Reported: BUN and Creatinine are within reference range. Sodium 138 135 - 146 mmol/L [facility] [place] Potassium 4.3 3.5 - 5.3 mmol/L [facility] [place] Chloride 102 98 - 110 mmol/L [facility] [place] Bicarbonate (CO2) 26 20 - 32 mmol/L [facility] Calcium 9.6 8.6 - 10.3 mg/dL [facility] Phosphorus 3.5 2.1 - 4.3 mg/dL [facility] Albumin 4.0 3.6 - 5.1 g/dL [facility] 11/21/2024 12:5 4 PM CDT 11/21/2024 12:57 PM CDT Narrative [facility] - 11/23/2024 5:14 AM CDT COLLECTION KIT GIVEN TO PATIENT. PATIENT ADVISED TO RETURN. Resulting Agency Comment Performing Organization Information: Site ID: [place] Name: [facility] Address: [address] [address] [address] Director: Simon Garcia us Jose Alberto Vuong DO LAB BLOOD ORDERABLES Final R esult [facility] [address] [address] [address] from Last 3 Months Insurance Aetna MCR Adv PPO [id number]) Care Teams Laborer Cook House Relationship Specialty Start Date End Date Remy An MD [address], [facility] [address] [place] [address] PCP - General Internal Medicine 06/23/21
--- OUTSIDE RECORDS SUMMARY | 2025-02-16 13:56 | XMS_ITS | Continuity of Care Document ---
Author Organization [facility] Address [address] [place] [address] [place] [address] Phone Care Team Providers Care Furnace Feeder Name Role Phone Silvia Harris Unavailable Unavailable [...] Copied on Encounter Office/outpat ient Visit, Est Formerly [facility], [address] [place] [address] [address], [place], [place], [id number], [place] tel:[phone] [facility] No Information 0 Kimberly Vega. [facility] [place] , [address], [place], [address], [place]. tel:[phone] Referring Provider: [address] [facility] [address], [place], [address]. tel:[phone] Formerly [facility], [address] [place] [address] [address], [place], [place], [id number], [place] tel:[phone] [facility] No Information 0 Kimberly Fischer [address] [facility] , [address], [place], [address], [place]. tel:[phone] Formerly [facility] Eye [facility], [address], [place], [place], [id number], [place] tel:[phone] [facility] No Information 0 Kimberly [address] , [address], [place], [place], [facility], [place]. tel:[phone] Formerly [facility] Eye [facility], [address], [place], [place], [id number], [place] tel:[phone] Nov[facility] No Information 0 Kimberly Fischer [address] [facility] , [address], [place], [facility], [place]. tel:[phone] Formerly [facility], [address], [place], [place], [id number], [place] tel:[phone] [facility] No Information 0 Kimberly Fischer [address] [facility] , [address], [place], [facility], [place]. tel:[phone] Referring Provider: Silvia Gordon, [address], [place], [facility]. tel:[phone] Office/outpat ient Visit, Est Formerly [facility], [address], [place], [place], [id number], [place] tel:[phone] [facility] No Information 0 Kimberly Fischer [address] [facility] , [address], [place], [address], [place]. tel:[phone] Formerly [facility], [address], [place], [place], [address], [place] tel:[phone] [facility] No Information 5-200 9 Kimberly Vega. [address] [facility] [place] , [address], [place], [facility], . tel:[phone] Formerly [facility] Eye [facility], [address] [place] [address] [address], [place], [place], [id number], tel:[phone] [facility] [place] No Information 0-200 8 Kimberly Vega. [address] [facility] [place] , [address], [place], [facility], [place]. tel:[phone] Formerly [facility] Eye [facility], [address] [place] [address] [address], [place], [place], [id number], tel:[phone] [facility] [place] No Information 4-200 7 Kimberly Vega. [address] [facility] , [address], [place], [address], . tel:[phone] Family History Family Member Type Diagnosis Age At Onset No Information Payers Payer name Insurance type Covered democrat ID Authoriza tion(s) [place] [id number] Social History Type Description Quantity Date Captured [...]
--- OUTSIDE RECORDS SUMMARY | 2025-02-16 13:56 | XMS_ITS | Patient Health Record ---
Author Organization [facility] Address [address] [place] [address] Care Team Providers Care Podiatric Aide Name Role Phone Katey Kimble Unavailable [phone] Allergies Allergen (clinical drug ingredient) Drug/Non Drug Allergy documented on EMR Reaction Allergy Type Onset Date Status celecoxib CeleBREX Unknown Drug Allergy 10/19/2023 Active Keflex Unknown Drug Allergy 10/19/2023 Active Reason For Referral No Information Medications Medication SIG (Take, Route, Frequency, Duration) Notes Start Date End Date Status QUE[facility] Fumarate 100 MG TAKE 1 TABLET BY MOUTH DAILY AT BEDTIME; Duration: 90 Active Rosuvastatin Calcium 20 MG Oral 10/19/2023 Active NEBIVOLOL 2.5 MG TABLET *Reorder from [employer] for eRx and Interaction Alerts* 10/19/2023 Active Ketoconazole 2% External 10/19/2023 Act margarita QUE[facility]apine Fumarate 50 MG 1 tablet every morning Orally Once a day; Duration: 90 days Active Flecainide Acetate 50 MG Oral 10/19/2023 Active Furosemide 20 MG Oral 10/19/2023 Ac tive Trintellix 20 MG 1 tablet Oral Once a day; Duration: 90 days Active Namzaric 28-10 MG 1 capsule in the evening Oral Once a day; Duration: 90 days Active Social History Tobacco Use: Social History Observation Description Date Details (start date - stop date) Never Smoker NA - NA Sex Assigned At : Social History Observation Description Sex Assigned At Male Household Question Answer Notes Marital status: Tobacco Control (Standard) Question Answer Notes Tobacco use: Nonsmoker Problems Problem Type SNOMED Code ICD Code Onset Dates Problem Status W/U Status Risk Notes Problem Recurrent major depression in full remission (33477816) Major depressive disorder, recurrent, in full remission (F33.42) Active confirmed Problem Alzheimer's disease (24801560) Alzheimer's disease, unspecified (G30.9) Active confirmed Vital Signs Heart Rate 62 /min 10/17/2024 Height-cm 175.26 cm 10/17/2024 Blood pressure diastolic 65 mm Hg 10/17/2024 Weight-kg 104.33 kg 10/17/2024 Height 69.00 in 10/17/2024 Blood pressure systolic 95 mm Hg 10/17/2024 Weight 230 lbs 10/17/2024 BMI 33.96 kg/m2 10/17/2024 Encounters Encounter Location Date Provider Diagnosis [facility] [employer] [place] [address] [address] [facility] [address] [facility] [address] [place] [address] 04/18/2024 Katey Kimble Alzheimer's disease, unspecified G30.9 and Major depressive disorder, recurrent, in full remission F33.42 [facility] [employer] [place] [address] [facility] [address] [place] [address] 10/17/2024 Katey Kimble Encounter for screen ing for depression Z13.31 ; Encounter for screening for cardiovascular disorders Z13.6 ; Alzheimer's disease, unspecified G30.9 and Major depressive disorder, recurrent, in full remission F33.42 Assessments Encounter Date Diagnosis (ICD Code) Assessment Notes Treatment Notes Treatment Clinical Notes Section Notes 04/18/2024 Alzheimer's disease, unspecified (ICD-10 - G30.9) 04/18/2024 Major depressive disorder, recurrent, in full remission (ICD-10 - F33.42) 10/17/2024 Encounter for screening for depression (ICD-10 - Z13.31) 10/17/2024 Encounter for screening for cardiovascular disorders (ICD-10 - Z13.6) 10/17/2024 Alzheimer's disease, unspecified (ICD-10 - G30.9) 10/17/2024 Major depressive disorder, recurrent, in full remission (ICD-10 - F33.42) 04/18/2024 Other Overall stable, continue current medications. Refills sent in today. Patient educated on all medications including potential benefits, side effects, risks. Educated on proper dosing schedule and importance of compliance. SLUMS completed today 10/17/2024 Other Stable, continue current medications. -refills sent in today. Patient educated on all medications including potential benefits, side effects, risks. Educated on proper dosing schedule and importance of compliance. -Assessment and treatment plan reviewed with patient. -Compliance with treatment plan importance discussed. -Discussed the risks/benefits of this medication -Discussed medication side effects. -Contact office if symptoms worsen. -Discussed that it can take up to 6-8 weeks to see full therapeutic effects of psychotropic medications. -Crisis prevention hotline 128. Plan Of Treatment Next Appt Details Provider Name:Katey go, 04/17/2025 02:00:00 PM, [address], [place], [address], Insurance Providers Payer Name Payer Address Payer Phone Subscriber Number Group Number Insured Name Patient Relationship to Insured Coverage Start Date Coverage End Date A[employer]na Medicare Replacemen t/Advantag e - Ppo [address] [place] [address] [id number] ANT HARRISON Self - patient is the insured Medical (General) History Medical History History ICD Code Problems: Dementia of the Alzheimer type with behavioral disturbance Recurrent major depression in full remis [place] , Surgical History Surgery Date(Month/Year) Tonsilectomy/adenoids 04/10/1946 Cataract surgery (47173) 04/10/2007
--- OUTSIDE RECORDS SUMMARY | 2025-02-16 13:56 | XMS_ITS | Clinical Summary ---
Author Organization [facility] [place] [address] Address [address] [place] [address] Care Team Providers Care Technical Delivery Manager Name Role Phone Remy An MD Primary Care Provider Allergies Active Allergy Reactions Criticality Noted Date Comments Celecoxib Hives,Rash Medium 12/27/2013 Cephalexin Hives,Rash Medium 12/27/2013 Medications Namzaric 28-10 mg capsule,sprink le,ER 24hr extended release capsule Take 1 capsule by mouth daily 10/23/19 21 Active Trintellix 20 mg tablet Take 1 tablet (20 mg total) by mouth daily 10/21/19 21 Active ergocalciferol (VITAMIN D) 50,000 unit capsule Vitamin D2 1,250 mcg (50,000 unit) capsule Take 2 capsules every week by oral route. 07/21/19 24 Active SeroqueL 25 mg tablet Take 1 tablet (25 mg total) by mouth nightly 04/12/20 22 Active rosuvastatin (Crestor) 10 mg tablet Take 1 tablet (10 mg total) by mouth daily Active furosemide (LASIX) 20 mg tabletIndicati ons:Nonrheumat ic aortic valve stenosis TAKE 1 TABLET BY MOUTH ON MONDAYS, WEDNESDAYS AND FRIDAYS 15 tablet 5 10/23/19 25 Active flecainide (TAMBOCOR) 50 mg tablet TAKE 1 TABLET(50 MG) BY MOUTH TWICE DAILY 180 tablet 1 02/12/20 25 Active flecainide (TAMBOCOR) 50 mg tablet TAKE 1 TABLET(50 MG) BY MOUTH TWICE DAILY 180 tablet 1 08/06/19 25 025 Discontinued Active Problems Problem Noted Date Diagnosed Date Late onset Alzheimer's disea se without behavioral disturbance 11/10/2020 History of COVID-19 11/10/2020 CHAUHAN (dyspnea on exertion) 11/10/2020 RBBB 11/10/2020 PAF (paroxysmal atrial fibrillation) 11/10/2020 Nonrheumatic aortic valve stenosis 11/10/2020 Major depressive disorder, single episode, sever e 11/08/2013 Surgical History Surgery Date Site/Laterality Comments CATARACT [...] on file Legal 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 Gender Identity Not on file Sexual Orientation Not on file Obstetrics History Last Filed Vital Signs Vital Sign Reading Time Taken Comments Blood Pressure 92/62 08/20/2024 11:51 AM GAS ENGINE MECHANIC Pulse 59 08/20/2024 11:51 AM GAS ENGINE MECHANIC Temperature - - Respiratory Rate - - Oxygen Saturation 95% 08/20/2024 11:51 AM GAS ENGINE MECHANIC Inhaled Oxygen Concentration - - Weight 103.4 kg (228 lb) 08/20/2024 11:51 AM GAS ENGINE MECHANIC Height 175.3 cm (5' 9) 08/20/2024 11:51 AM GAS ENGINE MECHANIC Body Mass Index 33.67 08/20/2024 11:51 AM GAS ENGINE MECHANIC Plan of Treatment Health Maintenance Due Date Last Done Comments Depression Screening 1941 Fall Risk Assessment 1940 DTaP/Tdap/Td Vaccine (1 - Tdap) 02/07/1952 Hepatitis B Screening 1959 Well Visit 65+ 2006 Pneumococcal vaccine 65+ (2 of 2 - PPSV23) 04/15/2017 04/15/2016, 10/30/2014 Zoster Vaccine (2 of 2) 06/03/2018 04/08/2018 Influenza Vaccine (#1) 2025 , 04/27/2017, 04/16/2015, Additional history exists Insurance [facility] Care Teams Technical Delivery Manager Relationship Specialty Start Date End Date Remy An MD [address] [facility] [facility] [place] [address] (work) PCP - General Internal Medicine 03/31/20
[2025-02-16 13:58] LABS: Add Urine Microscopic? YES; Appearance Urine Clear (Clear); Glucose Urine UA Negative (Negative); Leukocyte Esterase Ur Trace LEU/UL (Negative); Nitrate Urine Negative (Negative); Specific Grav Ur 1.025 (1.001-1.035)
[2025-02-16 14:11] LABS: Ammonia < 9 umol/L (9-30)
[2025-02-16 14:14] LABS: Creatine Kinase 981 U/L (55-170)
[2025-02-16 14:27] LABS: Troponin I < 0.012 ng/mL (0.000-0.034)
[2025-02-16 14:46] LABS: Thyroid Stimulating Hormone 1.970 uIU/mL (0.465-4.680)
[2025-02-16] MEDS: SODIUM CHLORIDE 0.9% IV 1,000 ML 999 ML IV CONT (15:02)
--- NOTE | 2025-02-16 15:35 | P.HP_ITS ---
H&P: HPI History of Present Illness Date/Time: 02/16/25 15:35 Chief Complaint: Altered mental Status and weakness Narrative: 85-year-old male past medical history of CKD stage 3,dementia presents the hospital with altered mental status and weakness from independent living. Patient complains of generalized weakness for last 2 days. According to the daughter the patient has been less active and less responsive of from last week. Daughter states that last week the patient was sitting on the floor and was unable to get up. It took staff while to find him down. HPI is limited because patient is extremely hard to understand. In the ED leukocytosis 11.4, sodium of 134, BUN of 24, creatinine of 1.54 with baseline being 1.3, glucose 158, total bili 2.1, AST 72, ALT 57, alkaline phos 190, CK 981, troponin negative, UA shows trace leukocyte esterase no bacteria negative for nitrates. Head CT shows no acute process. Chest x-ray shows segmental basilar left midline atelectasis/consolidation. EKG shows sinus rhythm with first-degree AV block and right bundle branch block. Review of Systems Review of Systems: ROS unobtainable: Yes unobtainable due to mental status [facility] Past Medical History Medical History (Updated 02/16/25 @ 15:45 by Yasmin Trevizo, ELLIOTT) Stage 3 chronic kidney disease CHF (congestive heart failure) Atrial fibrillation Dementia Surgical History Surgical History Surgical history unknown Family History Family History Mother Acute myocardial infarction Cerebrovascular accident Father Dementia Social History Social History Social History: patient is resident of [place] lives with his Norma Matute. Smoking status: Never smoker Alcohol intake: never Substance use: never Substance use type: does not use Gender identity (if verbalized by the patient): Male Spiritual care concerns: No Meds Home Medications and Allergies Home Medications ?Medication ?Instructions ?Recorded ?Confirmed ?Type aspirin 81 mg chewable tablet 81 mg PO DAILY 03/31/20 02/16/25 History memantine ER 7 mg-donepezil 10 mg 1 cap PO DAILY 03/31/20 02/16/25 History capsule sprinkle,ext.release 24 hour (Namzaric) vortioxetine 20 mg tablet 20 mg PO DAILY 03/31/20 02/16/25 History (Trintellix) furosemide 20 mg tablet 20 mg PO 3XW 06/05/22 02/16/25 History rosuvastatin 10 mg tablet 10 mg PO DAILY 10/28/22 02/16/25 History docusate sodium 100 mg capsule 100 mg PO BID 02/16/25 02/16/25 History (Col-Rite) flecainide 50 mg tablet 50 mg PO DAILY 02/16/25 02/16/25 History qtxpy-0r-jyp-epa-fish oil-vit D3 1 cap PO DAILY 02/16/25 02/16/25 History 350 mg-400 mg-1,000 unit capsule quetiapine 100 mg tablet 100 mg PO QHS 02/16/25 02/16/25 History quetiapine 50 mg tablet 50 mg PO QAM 02/16/25 02/16/25 History Allergies Allergy/AdvReac Type Severity Reaction Status Date / Time cephalexin (From Swift Identity) Allergy Unknown Verified 10/28/22 15:17 Vital Signs Vital Signs - 24 hr 02/16/25 13:12 02/16/25 13:14 02/16/25 13:16 Temperature 98.4 F Pulse Rate 74 74 68 Respiratory Rate 33 H 25 H 31 H Blood Pressure 120/68 110/66 110/66 Pulse Oximetry 95 94 95 Oxygen Delivery Room Air 02/16/25 13:31 02/16/25 13:41 02/16/25 13:51 Temperature Pulse Rate 66 67 66 Respiratory Rate 35 H 24 H Blood Pressure 113/76 122/59 L Pulse Oximetry 96 96 Oxygen Delivery 02/16/25 14:01 02/16/25 14:31 02/16/25 15:01 Temperature Pulse Rate 65 67 67 Respiratory Rate 31 H 20 22 H Blood Pressure 114/59 L 116/59 L 111/62 Pulse Oximetry 96 96 96 Oxygen Delivery Exam Narrative: General: well appearing, appears stated age. HEENT: normocephalic, atraumatic. Mucous membranes moist. EOMI, PERRLA, bilateral sclera anicteric, no conjunctival injection. Neck supple without JVD, lymphadenopathy, or bruit. Respiratory: clear to ascultation bilaterally. No rales/rhonic/wheezes. Cardiovascular: Regular rate and rhythm, normal S1-S2 upon ascultation. No murmurs, rubs, or clicks. PMI is nondisplaced, capillary refill less than 3 second. Abdomen: Soft, round, no pulsatile masses, nondistended and nontender. No rebound, no guarding. No CVA tenderness, no hepatosplenomegaly. Bowel sounds present to all four quadrants. No high pitch or tinkling sounds, resonant to percussion. Extremities: No cyanosis, clubbing, or edema present. Pulses are palpable 2/2. Active ROM to all four extremities. Neuro: Alert and orientated x 1. PERRLA. Cranial nerves 2-12 intact without focal deficit. Skin: Warm, dry, and intact, without rash, erythema, or lesion. Psych: pleasant, cooperative, normal speech, normal affect, no hallucinations, no dysarthia H&P: Results Labs Labs: Short CBC 02/16/25 Range/Units 13:29 WBC 11.4 H (4.5-10.0) K/mm3 Hgb 15.3 (14.0-18.0) g/dL Hct 45.7 (42.0-52.0) % Plt Count 179 (150-375) k/mm3 BMP 02/16/25 13:29 Sodium 134 L Potassium 4.4 Chloride 103 Carbon Dioxide 22 BUN 24 H Creatinine 1.54 H Glucose 157 H Calcium 9.3 Cardiac Enzymes 02/16/25 Range/Units 13:57 Total Creatine Kinase 981 H (55-170) U/L Troponin I < 0.012 (0.000-0.034) ng/mL Liver Function 02/16/25 Range/Units 13:29 Total Bilirubin 2.1 H (0.2-1.3) mg/dL AST 72 H (17-59) U/L ALT 57 H (6-50) U/L Alkaline Phosphatase 190 H (38-126) U/L Albumin 4.0 (3.5-5.1) g/dL Urine 02/16/25 Range/Units 13:47 Urine Color Dark yellow (Yellow) Urine Appearance Clear (Clear) Urine pH 5.5 (5.0-9.0) Ur Specific [place] 1.025 (1.001-1.035) Urine Protein 2+ H (Negative) mg/dL Urine Glucose (UA) Negative (Negative) mg/dL Assessment and Plan Assessment and plan (1) Altered mental status: Code(s): R41.82 - Altered mental status, unspecified Status: Acute Assessment and Plan: MRI brain pending Blood cultures pending Chest x-ray does not appear to have acute process No signs of soft tissue infection Neurology consult (2) Rhabdomyolysis: Code(s): M62.82 - Rhabdomyolysis Status: Acute Assessment and Plan: IV fluids for hydration Repeat CK in the a.m. (3) Frequent falls: Code(s): R29.6 - Repeated falls Status: Acute Assessment and Plan: PT OT eval and treat (4) Atrial fibrillation: Qualifiers: Atrial fibrillation type: unspecified Qualified Code(s): I48.91 - Unspecified atrial fibrillation Code(s): I48.91 - Unspecified atrial fibrillation Status: Acute Assessment and Plan: Rate controlled (5) Dementia: Qualifiers: Dementia behavioral disturbance: without behavioral disturbance Dementia type: unspecified type Qualified Code(s): F03.90 - Unspecified dementia without behavioral disturbance Code(s): F03.90 - Unspecified dementia, unspecified severity, without behavioral disturbance, psychotic disturbance, mood disturbance, and anxiety Status: Acute Assessment and Plan: Continue Seroquel (6) CHF (congestive heart failure): Code(s): I50.9 - Heart failure, unspecified Status: Acute Assessment and Plan: Continue home Lasix Monitor for fluid overload while receiving IV fluids Patient appears euvolemic right now (7) Stage 3 chronic kidney disease: Code(s): N18.30 - Chronic kidney disease, stage 3 unspecified Status: Acute Assessment and Plan: BMP in the morning (8) Liver enzyme elevation: Code(s): R74.8 - Abnormal levels of other serum enzymes Status: Acute Assessment and Plan: CMP in a.m. Quality VTE Prophylaxis VTE prophylaxis: mechanical ordered and pharmacologic ordered Hospitalist MIPS Advance Care Plan I have confirmed that the patient's Advanced Care Plan is present, code status is documented, or surrogate decision maker is listed in patient medical record.: Yes Medication Reconciliation I have utilized all available resources to obtain, update and review the patients current medications (includes all prescriptions, OTC, herbals, cannabis, and nutritional supplements).: Yes
[2025-02-16 15:58] LABS: INR 1.3; Partial Thromboplastin Time 32.1 Seconds (22.3-36.8); Prothrombin Time 16.0 Seconds (11.1-14.7)
--- NOTE | 2025-02-16 16:00 | ADMGEN ---
This patient, Boo Matute, was admitted to 2 Medical Room 256-. Patient/family oriented to hospital policies and general routines including ID bracelet, bed and alarms, visiting hours, pain management, procedures, bathroom and other care routines, personal items, smoking policy, room service/diet, and visiting hours. Information on how to activate the Rapid Response Team has been discussed. Patient/Family are encouraged to report perceived risks to care and to ask questions if they do not understand what they are told or what they should do.
[2025-02-16] MEDS: DOCUSATE SODIUM 100 MG CAPSULE PO (17:09)
[2025-02-17] VITALS (38 sets, daily range): BP systolic 84–111; BP diastolic 43–72; PULSE 38–74; RESP 14–37; TEMP 36.8–38.3; O2SAT 91–98
--- NOTE | 2025-02-17 01:14 | ECG_ITS ---
Test Date: 2025-02-17 01:18:15 Measurements Intervals Ger[place] Rate: 38 P: 0 KS: 0 QRS: 72 QRSD: 138 T: -50 QT: 550 QTc: 442 Interpretive Statements SINUS RHYTHM WITH COMPLETE HEART BLOCK WITH SLOW VENTRICULAR RESPONSE AT 38 BPM RIGHT BUNDLE BRANCH BLOCK ST-T WAVE ABNORMALITY IN ANTEROLATERAL LEADS- CONSIDER ISCHEMIA BASELINE ARTIFACT- I, II, III, AVR, AVL , AVF ABNORMAL ECG Compared to ECG 02/16/2025 13:28:23 COMPLETE HEART BLOCK NOW PRESENT POSSIBLE ISCHEMIA NOW PRESENT Electronically Signed On 02-17-2025 08:00:55 CDT by Burt Villalobos D.O.
[2025-02-17] MEDS: IPRATROPIUM 0.5 MG/ALBUTEROL SULFATE 2.5 MG AMPUL.NEB 3 ML INHALATION ×4 (01:30→21:12)
--- NOTE | 2025-02-17 01:31 | P.PNCROSS_ITS ---
Event Note Event Note Event Note: Rapid response was called due to bradycardia. Patient has baseline dementia. Ab le to communicate. BP in 100/60 and pulse in 40's. Given Atropine 1 mg x 1. Order EKG and labs including lactic acid and TSH. Consulted Cardiology for further recommendation. Advised to transfer the patient to IMU for close monitoring.
[2025-02-17 01:33] LABS: Hematocrit 41.6 % (42.0-52.0); Hemoglobin 13.9 g/dL (14.0-18.0); Immature Granulocyte Percent A 0.4 % (0-0.5); Lymphocytes Absolute Auto 1.68 K/mm3 (0.9-3.2); Mean Corpuscular HGB Conc 33.4 g/dl (32-36); Mean Corpuscular Hemoglobin 32.8 pg (26-34); Mean Corpuscular Volume 98.1 fl (80-100); Nucleated Red Blood Cells Absolute Auto 0.000 K/mm3 (0.0-0.012); Nucleated Red Blood Cells Perc 0.0 % (0.0-0.2); Platelet Count Result 174 k/mm3 (150-375); Red Blood Count 4.24 M/mm3 (4.6-6.20); White Blood Count 12.3 K/mm3 (4.5-10.0)
[2025-02-17 01:51] LABS: Alanine Aminotransferase 53 U/L (6-50); Albumin Level 3.5 g/dL (3.5-5.1); Alkaline Phosphatase 180 U/L (38-126); Anion Gap 10 mmol/L (4-12); Aspartate Amino Transferase 74 U/L (17-59); Bilirubin,Total 2.3 mg/dL (0.2-1.3); Blood Urea Nitrogen 20 mg/dL (9-20); Calcium 8.5 mg/dL (8.4-10.2); Carbon Dioxide 18 mmol/L (22-30); Chloride 107 mmol/L (98-107); Creatine Kinase 1172 U/L (55-170); Estimated CRCL calculation 47 ml/min; Estimated Glomerular Filt Rate 56; Glucose 132 mg/dL (65-110); Potassium 3.9 mmol/L (3.4-5.0); Sodium 135 mmol/L (137-145); Total Protein 7.3 g/dL (6.3-8.2)
--- NOTE | 2025-02-17 01:54 | PC.NURSE ---
0105: PT FOUND DIAPHORETIC, WRETCHING WITH NON-PRODUCTIVE COUGH, AUDIBLE END EXPIRATORY WHEEZES HEARD W / INCREASE IN ALTERATION OF MENTAL STATUS. HR PER EKG 40. SBP 101. 0109: RAPID RESPONSE CALLED FOR SYMPTOMATIC BRADYCARDIA. HOSPITALIST AND RR TEAM AT BEDSIDE. EKG DONE. LABS DONE. ATROPINE 1MG TOTAL GIVEN WITH NO RESPONSE IN HR. 0127:[facility] CALLED; EKG SHOWS 3DEGREE AV BLOCK; [facility] RECOMMENDS CALL TO ON-CALL INTERVENTIONAL CARDIO FOR IMMED. TEMPORARY PACER PLACEMENT W/ INTERVENTIONAL CARDIO OR TRANSCUTANEOUS PACING IN ICU. PREETI ICU CHARGE CONTACTING INTERVENTIONAL CARDIO; 1357: HR 38. PT PLACED ON TEMP PACER PADS TO PREPARE FOR IMMED. TRANSCUTANEOUS PACING IF HR BELOW 30 OR PT BECOMES NON-RESPONSIVE. 0202:PT TRANSPORTED TO ICU ON MONITOR. CARDIAC EXTENSION SERVICE SPECIALIST CALLED IN FOR EMERGENT TEMP PACER. 0202: PT SON CALLED; ATTEMPTS X2-MESSAGE LEFT
--- NOTE | 2025-02-17 02:18 | PC.NURSE ---
Rapid response called at 0109 for room 256. Patient bradycardic with reduced responsiveness. 1mg atropine unsuccessful. Dr FRIEDMAN ordered cardiology consult and move to IMU. Telemetry shows 7 sec pause at 0059 followed by second 3 more pauses and then 3rd degree block. Expressed concern for 3rd degree heart block and that patients symptoms are unchanged; suggest cardiology be called now. Libia VIRK spoke to Dr Villalobos who reviewed chart and would like temporary pacer placed if possible-if not, patient needs to be externally placed. This nurse called Maya who after reviewing labs and EKG states to call in label drier to place temporary pacer. Kortney Charles RN called and she is calling in label drier. Informed Dr Trejo that BP is currently systolic in the 80s and heart rate down to 34 and that were were preparing to externally pace. Dr Trejo gives verbal to order to not externally pace unless heart rate less than [address] FRIEDMAN informed of plan and that patient needs to be transferred to ICU status and Dr Palacios needs to be notified. Dr FRIEDMAN states he will call Dr Palacios. Kortney VIRK informed this nurse that label drier staff is on their way in.
--- NOTE | 2025-02-17 02:58 | PC.NURSE ---
0253 This RN and Nadiya Martinez updated patient's daugher, Mary Kay Marks. Mary Kay states she is patient's medical POA and gave phone consent for insertion of a temporary pacemaker. All questions answered.
--- NOTE | 2025-02-17 03:03 | PC.NURSE ---
0300 Patient taken to animal laboratory helper
--- NOTE | 2025-02-17 03:08 | P.CONCA_ITS ---
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 Avoid AV rosana blocking agent and d/c flecainide Serial lactic acid Follow-up CK and kidney function TTE History of Present Illness History of Present Illness Consult date/time: 02/17/25 03:08 Reason For Visit: altered mental status,weakness,rhabdomyolysis Narrative: 85-year-old male patient presents to the hospital was also metastasis. Patient has history of dementia cannot give detailed history. History was obtained from the chart. According to the daughter patient become less responsive with decreased mental status. He was admitted to the hospital for evaluation for altered mental status and found to have mildly worsening kidney function, and CT brain was negative for acute intracranial bleed or infarction. Patient was admitted to telemetry and noted to have pauses up to 7 seconds. Following that patient has a deterioration in her mental status and blood pressure dropped. The patient developed complete heart block with junctional escape with heart rate in the 30s. pateint with Hx of sever aortic stenosis diagnsed in 2022 TTE. Adelaida braswell has HX of paroxysmal a fib per chart review and has been on flecainide Review of Systems 2 Review of Systems: ROS unobtainable: Yes unobtainable due to mental status PMFSH Past Medical History Medical History (Updated 02/17/25 @ 03:34 by William Trejo MD) Stage 3 chronic kidney disease CHF (congestive heart failure) Atrial fibrillation Dementia Surgical History Surgical History Surgical history unknown Family History Family History Mother Acute myocardial infarction Cerebrovascular accident Father Dementia Social History Social History Social History: patient is resident of [place] lives with his Norma Matute. Smoking status: Never smoker Alcohol intake: never Substance use: never Substance use type: does not use Gender identity (if verbalized by the patient): Male Spiritual care concerns: No Meds Home Medications and Allergies Home Medications ?Medication ?Instructions ?Recorded ?Confirmed ?Type aspirin 81 mg chewable tablet 81 mg PO DAILY 03/31/20 02/16/25 History memantine ER 7 mg-donepezil 10 mg 1 cap PO DAILY 03/31/20 02/16/25 History capsule sprinkle,ext.release 24 hour (Namzaric) vortioxetine 20 mg tablet 20 mg PO DAILY 03/31/20 02/16/25 History (Trintellix) furosemide 20 mg tablet 20 mg PO 3XW 06/05/22 02/16/25 History rosuvastatin 10 mg tablet 10 mg PO DAILY 10/28/22 02/16/25 History docusate sodium 100 mg capsule 100 mg PO BID 02/16/25 02/16/25 History (Col-Rite) flecainide 50 mg tablet 50 mg PO DAILY 02/16/25 02/16/25 History vszga-4c-ksh-epa-fish oil-vit D3 1 cap PO DAILY 02/16/25 02/16/25 History 350 mg-400 mg-1,000 unit capsule quetiapine 100 mg tablet 100 mg PO QHS 02/16/25 02/16/25 History quetiapine 50 mg tablet 50 mg PO QAM 02/16/25 02/16/25 History Allergies Allergy/AdvReac Type Severity Reaction Status Date / Time cephalexin (From Keflex) Allergy Unknown Verified 10/28/22 15:17 Vital Signs Vital Signs - 24 hr 02/16/25 13:12 02/16/25 13:14 02/16/25 13:16 Temperature 36.9 C Pulse Rate 74 74 68 Respiratory Rate 33 H 25 H 31 H Blood Pressure 120/68 110/66 110/66 Pulse Oximetry 95 94 95 Oxygen Delivery Room Air Oxygen Flow Rate 02/16/25 13:31 02/16/25 13:41 02/16/25 13:51 Temperature Pulse Rate 66 67 66 Respiratory Rate 35 H 24 H Blood Pressure 113/76 122/59 L Pulse Oximetry 96 96 Oxygen Delivery Oxygen Flow Rate 02/16/25 14:01 02/16/25 14:31 02/16/25 15:01 Temperature Pulse Rate 65 67 67 Respiratory Rate 31 H 20 22 H Blood Pressure 114/59 L 116/59 L 111/62 Pulse Oximetry 96 96 96 Oxygen Delivery Oxygen Flow Rate 02/16/25 16:00 02/16/25 16:00 02/16/25 16:15 Temperature 36.4 C L Pulse Rate 66 65 Respiratory Rate 20 Blood Pressure 123/52 L Pulse Oximetry 97 Oxygen Delivery Room Air Oxygen Flow Rate 02/16/25 18:05 02/16/25 20:00 02/16/25 20:00 Temperature Pulse Rate 74 74 Respiratory Rate 16 Blood Pressure Pulse Oximetry 95 Oxygen Delivery Room Air Room Air Oxygen Flow Rate 02/16/25 20:29 02/16/25 22:17 02/17/25 01:10 Temperature 37.1 C 36.9 C Pulse Rate 67 40 L Respiratory Rate 16 18 Blood Pressure 115/63 101/50 L Pulse Oximetry 95 95 91 Oxygen Delivery Room Air Oxygen Flow Rate 02/17/25 01:14 02/17/25 01:24 02/17/25 01:30 Temperature 37.0 C Pulse Rate 43 L 39 L 39 L Respiratory Rate 16 18 Blood Pressure 104/51 L 90/46 L Pulse Oximetry 91 98 Oxygen Delivery Oxygen Flow Rate 02/17/25 01:36 02/17/25 01:46 02/17/25 01:59 Temperature Pulse Rate 39 L 38 L Respiratory Rate 18 Blood Pressure 84/43 L Pulse Oximetry 94 96 Oxygen Delivery Nasal Cannula Oxygen Flow Rate 2 02/17/25 02:11 02/17/25 02:16 02/17/25 02:30 Temperature Pulse Rate 74 39 L Respiratory Rate 16 14 Blood Pressure 86/43 L 93/47 L Pulse Oximetry 97 97 97 Oxygen Delivery Nasal Cannula Oxygen Flow Rate 3 Exam 2 Const: General: comfortable and no acute distress Other: Able to lie flat HENMT: Face/Nose/Sinus: Normal nares present and no epistaxis Mouth: Yes moist mucous membranes Eyes: Sclera: sclerae normal Pupils: Equal, round and reactive pupils present Neck: Neck: supple and no JVD Carotids: no bruits Resp: Auscultation: clear to auscultation bilaterally and lung sounds not diminished Other: No chest wall tenderness Cardio: Rate: regular rate Rhythm: regular rhythm Heart sounds: no gallops, no murmurs and no rubs GI: GI Palp: Yes Soft to palpation and No Tenderness to palpation present (GI) Auscultation: normal bowel sounds Skin: General skin exam: normal color, rashes and/or lesions noted and no erythema Other: Warm Neuro: Cranial nerves: Yes Equal, round and reactive pupils present Speech: normal speech Other: No obvious focal deficit or facial asymmetry Extrem: General: no edema Other: Normal capillary refills Intact distal pulses. Results Labs and Meds 02/17/25 01:28 02/17/25 01:28 Lab results: Cardiac Enzymes 02/16/25 02/16/25 02/17/25 Range/Units 13:29 13:57 01:28 AST 72 H 74 H (17-59) U/L Troponin I < 0.012 (0.000-0.034) ng/mL Coagulation 02/16/25 Range/Units 13:57 PT 16.0 H (11.1-14.7) Seconds APTT 32.1 (22.3-36.8) Seconds CBC 02/16/25 02/17/25 Range/Units 13:29 01:28 WBC 11.4 H 12.3 H (4.5-10.0) K/mm3 RBC 4.66 4.24 L (4.6-6.20) M/mm3 Hgb 15.3 13.9 L (14.0-18.0) g/dL Hct 45.7 41.6 L (42.0-52.0) % Plt Count 179 174 (150-375) k/mm3 Lymph # (Auto) 0.94 1.68 (0.9-3.2) K/mm3 [place] # (Auto) 1.0 H 1.2 H (0.1-0.6) K/mm3 Eos # (Auto) 0.0 0.0 (0-0.3) K/mm3 Baso # (Auto) 0.0 0.0 (0.0-0.1) K/mm3 Comprehensive Metabolic Panel 02/16/25 02/17/25 Range/Units 13:29 01:28 Sodium 134 L 135 L (137-145) mmol/L Potassium 4.4 3.9 (3.4-5.0) mmol/L Chloride 103 107 (98-107) mmol/L Carbon Dioxide 22 18 L (22-30) mmol/L BUN 24 H 20 (9-20) mg/dL Creatinine 1.54 H 1.23 (0.7-1.3) mg/dL Glucose 157 H 132 H (65-110) mg/dL Calcium 9.3 8.5 (8.4-10.2) mg/dL AST 72 H 74 H (17-59) U/L ALT 57 H 53 H (6-50) U/L Alkaline Phosphatase 190 H 180 H (38-126) U/L Total Protein 8.3 H 7.3 (6.3-8.2) g/dL Albumin 4.0 3.5 (3.5-5.1) g/dL Intake and Output 02/16/25 02/16/25 02/17/25 15:59 23:59 07:59 Intake Total 1890 100 Output Total 300 Balance 1890 -200 Intake: Oral 1889 100 Output: Urine 300 Other: # Unmeasured Voids 0 Number of Bowel Movements Today 1
--- NOTE | 2025-02-17 03:09 | PC.NURSE ---
0248 This RN left voicemail for Norma Matute, spouse, emergency contact.
--- NOTE | 2025-02-17 03:12 | WPDCARDPROC ---
Cardiac Cath Procedure Note Date of procedure:: 02/17/25 Performing physician:: William Trejo MD Indication:: Complete heart block Procedure Procedure performed:: Temporary transvenous pacer Sedation/Medication given:: no sedation used because of low BP and AMS Access site:: Right IJ Estimated blood loss:: Less than 10 Procedure note:: X-rays obtained with ultrasound guidance through right IJ. Six Polish sheath was inserted. Then a transvenous was advanced under fluoroscopy guidance into the RV. Testing for threshold revealed threshold for pacing less than 1 mV. Good sensitivity for ventricular activity. Patient was brought to rate of 60 beats per minute and output of 5 mV. Sheath sutured in place. Findings:: Complete heart block status post temporary transvenous pacer Conclusion:: Continue observation ICU and plan for permanent pacemaker Bedrest Assessment and Plan Assessment and plan (1) CHB (complete heart block): Code(s): I44.2 - Atrioventricular block, complete Status: Acute Plan Permanent pacemaker
[2025-02-17 03:59] LABS: Magnesium 2.0 mg/dL (1.6-2.3)
--- NOTE | 2025-02-17 04:06 | PC.NURSE ---
0248: SPOKE W/ DTR LIZA TO UPDATE; ATTEMPTED EARLIER W/ MESSAGE LEFT. FAMILY RETURNED THE CALL. 0321: SPOKE W/ SON BUCK TO UPDATE; ATTEMPTED EARLIER W/ MESSAGE LEFT. FAMILY RETURNED THE CALL.
[2025-02-17 04:11] LABS: NT Pro B Type Natriuretic Pept 697 pg/mL (19.9-100); Troponin I 0.017 ng/mL (0.000-0.034)
[2025-02-17 04:30] LABS: Thyroid Stimulating Hormone Reflex 2.590 uIU/mL (0.465-4.68)
[2025-02-17 06:39] LABS: NT Pro B Type Natriuretic Pept 1320 pg/mL (19.9-100)
[2025-02-17 07:48] LABS: Alanine Aminotransferase 46 U/L (6-50); Albumin Level 3.1 g/dL (3.5-5.1); Alkaline Phosphatase 160 U/L (38-126); Anion Gap 9 mmol/L (4-12); Aspartate Amino Transferase 68 U/L (17-59); Bilirubin,Total 1.8 mg/dL (0.2-1.3); Blood Urea Nitrogen 22 mg/dL (9-20); Calcium 8.3 mg/dL (8.4-10.2); Carbon Dioxide 16 mmol/L (22-30); Chloride 109 mmol/L (98-107); Creatine Kinase 879 U/L (55-170); Estimated CRCL calculation 42 ml/min; Estimated Glomerular Filt Rate 49; Glucose 135 mg/dL (65-110); Potassium 4.2 mmol/L (3.4-5.0); Sodium 134 mmol/L (137-145); Total Protein 6.6 g/dL (6.3-8.2)
--- NOTE | 2025-02-17 08:23 | WPDCNINT ---
Assessment and Plan Assessment and plan (1) CHB (complete heart block): Code(s): I44.2 - Atrioventricular block, complete Status: Acute Assessment and Plan: 02/16: Patient presented with generalized weakness was admitted to the medical floor, where he developed bradycardia and complete heart block. Cardiology was notified, received it temporary venous pacemaker -will hold all AV rosana blockers -I discontinued flecainide this morning -cardiology following the patient -ppm likely 02/18/2025 (2) Aortic stenosis, moderate: Code(s): I35.0 - Nonrheumatic aortic (valve) stenosis Status: Acute Assessment and Plan: Echocardiogram September 2022: Severe aortic stenosis with mean gradient of 32 mmHg and aortic valve area of 0.8 cm2, EF was 70% at that time on echo done in September 2022. -will repeat echocardiogram -cardiology following (3) Atrial fibrillation: Qualifiers: Atrial fibrillation type: unspecified Qualified Code(s): I48.91 - Unspecified atrial fibrillation Code(s): I48.91 - Unspecified atrial fibrillation Status: Acute Assessment and Plan: History of atrial fibrillation, -patient was in complete heart block, requiring temporary of venous pacemaker (4) CHF (congestive heart failure): Code(s): I50.9 - Heart failure, unspecified Status: Acute Assessment and Plan: Patient has a history of CHF, echocardiogram in September 2022 showed an EF of 70%, grade 1 diastolic dysfunction -proBNP 1320 -unknown if patient had a repeat echocardiogram in between -will obtain another echocardiogram on this admission (5) Liver enzyme elevation: Code(s): R74.8 - Abnormal levels of other serum enzymes Status: Acute Assessment and Plan: Elevated liver enzymes and hyperbilirubinemia along with abdominal distension, right upper quadrant tenderness -will check RUQ ultrasound -check hepatitis panel (6) Acute worsening of stage 3 chronic kidney disease: Code(s): N18.30 - Chronic kidney disease, stage 3 unspecified Status: Acute Assessment and Plan: Patient presented with acute on chronic kidney disease stage 3 (baseline creatinine 0.90 -1.10) -patient presented with a creatinine 1.54 -patient received adequate amount of IV fluids due to elevated CK level, possible rhabdomyolysis -will obtain urine lytes, urine eosinophils - urine output has been low -non anion gap metabolic acidosis -will obtain renal ultrasound -consult nephrology -continue to monitor renal function, electrolytes and urine output (7) Rhabdomyolysis: Code(s): M62.82 - Rhabdomyolysis Status: Acute Assessment and Plan: Elevated rhabdomyolysis, patient was found on the floor last week according the daughter which are mentioned in the records -patient may be having residual rhabdomyolysis -adequately fluid-resuscitated -patient slightly congested likely due to aortic stenosis -IV fluids discontinued -will start bicarb infusion at 50 mL/hour for total of 1000 mL (8) Altered mental status: Code(s): R41.82 - Altered mental status, unspecified Status: Acute Assessment and Plan: Unknown baseline, patient has dementia, awake, alert, oriented to self (9) Dementia: Qualifiers: Dementia behavioral disturbance: without behavioral disturbance Dementia type: unspecified type Qualified Code(s): F03.90 - Unspecified dementia without behavioral disturbance Code(s): F03.90 - Unspecified dementia, unspecified severity, without behavioral disturbance, psychotic disturbance, mood disturbance, and anxiety Status: Acute Assessment and Plan: History of dementia unknown baseline -will discuss with daughter regarding his baseline (10) Frequent falls: Code(s): R29.6 - Repeated falls Status: Acute Assessment and Plan: Has a history of frequent falls -will have PT OT evaluate the patient for discharge planning (11) Hearing loss, bilateral: Code(s): H91.93 - Unspecified hearing loss, bilateral Status: Acute Assessment and Plan: Chronic Plan DVT prophylaxis: Lovenox Stress ulcer prophylaxis: Nutrition: NPO for now Code Status: Full code Critical Care Time Spent: 49 minutes Due to a high probability of clinically significant, life threatening deterioration, the patient required my highest level of preparedness to intervene emergently and I personally spent this critical care time directly and personally managing the patient. This critical care time included obtaining a history; examining the patient; pulse oximetry; ordering and review of studies; arranging urgent treatment with development of a management plan; evaluation of patient's response to treatment; frequent reassessment; and discussions with other providers. It was exclusive of separately billable procedures and treating other patients and teaching time. Please see Assessment and Plan section and the rest of the note for further information on patient assessment and treatment This dictation may have been done utilizing a voice recognition system. Attempts have been made to correct errors. However, there may be uncorrected grammatical, spelling, and recognitions errors present. Hospital Director Consult Note Consult date: 02/17/25 Reason for consult: Complete heart block, generalized weakness, altered mental status, right upper quadrant pain, hyperbilirubinemia elevated LFTs, acute kidney injury HPI: Boo Matute is a 85 year old male with significant past medical history of stage 3 chronic kidney disease, CHF, atrial fibrillation, dementia presented the ED from an independent living on 02/16/2025 with complains of generalized weakness, confusion. Patient is a poor historian, information and history obtained from medical records, according to the ER and hospitalist documentation patient has been less active, less responsive and weak compared to 1 week ago. Daughter stated that last week patient was sitting on the floor and was unable to get up. Labs in the ER: WBC 11.4, hemoglobin 15.3, platelets 179, INR 1.3 a. Sodium 135, potassium 3.9, CO2 18, BUN 20, creatinine 1.23, blood glucose 132, lactic acid 1.6, total bilirubin 2.3, AST 74, ALT 53, ammonia < 9, total CK 981 and repeat was 1172. Troponin <0.012 and 0.017, proBNP 697 and 1320. TSH 2.590. UA showed 2+ protein, 2+ blood, 1+ urine bilirubin. Patient was admitted to the medical floor, initial EKG showed sinus rhythm with first-degree AV block, right bundle branch block, patient was bradycardic on the medical floor, EKG revealed complete heart block, Cardiology was notified, patient went to dairy lab technician for transvenous pacemaker and and was transferred to ICU for further management Patient seen and examined this morning in the ICU, patient is awake, alert, oriented to self only, denies any shortness of breath, chest pain. Complains of abdominal pain. Slow to answer with a soft voice. Hemodynamically stable, heart rate paced at 60, adequate O2 sats on 3 L nasal cannula. Low urine output, increasing BUN and creatinine. Review of Systems Review of Systems: All systems reviewed & are unremarkable except as noted in HPI and below PMFSH Past Medical History Medical History (Updated 02/17/25 @ 08:53 by Lalit Palacios MD) Stage 3 chronic kidney disease CHF (congestive heart failure) Atrial fibrillation Dementia Surgical History Surgical History Surgical history unknown Family History Family History Mother Acute myocardial infarction Cerebrovascular accident Father Dementia Social History Social History Social History: patient is resident of [place] lives with his Norma Matute. Smoking status: Never smoker Alcohol intake: never Substance use: never Substance use type: does not use Gender identity (if verbalized by the patient): Male Spiritual care concerns: No Meds Home Medications and Allergies Home Medications ?Medication ?Instructions ?Recorded ?Confirmed ?Type aspirin 81 mg chewable tablet 81 mg PO DAILY 03/31/20 02/16/25 History memantine ER 7 mg-donepezil 10 mg 1 cap PO DAILY 03/31/20 02/16/25 History capsule sprinkle,ext.release 24 hour (Namzaric) vortioxetine 20 mg tablet 20 mg PO DAILY 03/31/20 02/16/25 History (Trintellix) furosemide 20 mg tablet 20 mg PO 3XW 06/05/22 02/16/25 History rosuvastatin 10 mg tablet 10 mg PO DAILY 10/28/22 02/16/25 History docusate sodium 100 mg capsule 100 mg PO BID 02/16/25 02/16/25 History (Col-Rite) flecainide 50 mg tablet 50 mg PO DAILY 02/16/25 02/16/25 History [id number]-epa-fish oil-vit D3 1 cap PO DAILY 02/16/25 02/16/25 History 350 mg-400 mg-1,000 unit capsule quetiapine 100 mg tablet 100 mg PO QHS 02/16/25 02/16/25 History quetiapine 50 mg tablet 50 mg PO QAM 02/16/25 02/16/25 History Allergies Allergy/AdvReac Type Severity Reaction Status Date / Time cephalexin (From Keflex) Allergy Unknown Verified 10/28/22 15:17 Vital Signs Vital Signs - 24 hr 02/16/25 13:12 02/16/25 13:14 02/16/25 13:16 Temperature 98.4 F Pulse Rate 74 74 68 Respiratory Rate 33 H 25 H 31 H Blood Pressure 120/68 110/66 110/66 Pulse Oximetry 95 94 95 Oxygen Delivery Room Air Oxygen Flow Rate 02/16/25 13:31 02/16/25 13:41 02/16/25 13:51 Temperature Pulse Rate 66 67 66 Respiratory Rate 35 H 24 H Blood Pressure 113/76 122/59 L Pulse Oximetry 96 96 Oxygen Delivery Oxygen Flow Rate 02/16/25 14:01 02/16/25 14:31 02/16/25 15:01 Temperature Pulse Rate 65 67 67 Respiratory Rate 31 H 20 22 H Blood Pressure 114/59 L 116/59 L 111/62 Pulse Oximetry 96 96 96 Oxygen Delivery Oxygen Flow Rate 02/16/25 16:00 02/16/25 16:00 02/16/25 16:15 Temperature 97.5 F L Pulse Rate 66 65 Respiratory Rate 20 Blood Pressure 123/52 L Pulse Oximetry 97 Oxygen Delivery Room Air Oxygen Flow Rate 02/16/25 18:05 02/16/25 20:00 02/16/25 20:00 Temperature Pulse Rate 74 74 Respiratory Rate 16 Blood Pressure Pulse Oximetry 95 Oxygen Delivery Room Air Room Air Oxygen Flow Rate 02/16/25 20:29 02/16/25 22:17 02/17/25 01:10 Temperature 98.7 F 98.5 F Pulse Rate 67 40 L Respiratory Rate 16 18 Blood Pressure 115/63 101/50 L Pulse Oximetry 95 95 91 Oxygen Delivery Room Air Oxygen Flow Rate 02/17/25 01:14 02/17/25 01:24 02/17/25 01:30 Temperature 98.6 F Pulse Rate 43 L 39 L 39 L Respiratory Rate 16 18 Blood Pressure 104/51 L 90/46 L Pulse Oximetry 91 98 Oxygen Delivery Oxygen Flow Rate 02/17/25 01:36 02/17/25 01:46 02/17/25 01:59 Temperature Pulse Rate 39 L 38 L Respiratory Rate 18 Blood Pressure 84/43 L Pulse Oximetry 94 96 Oxygen Delivery Nasal Cannula Oxygen Flow Rate 2 02/17/25 02:11 02/17/25 02:16 02/17/25 02:30 Temperature Pulse Rate 74 39 L Respiratory Rate 16 14 Blood Pressure 86/43 L 93/47 L Pulse Oximetry 97 97 97 Oxygen Delivery Nasal Cannula Oxygen Flow Rate 3 02/17/25 04:00 02/17/25 04:00 02/17/25 04:00 Temperature 98.2 F Pulse Rate 60 60 Respiratory Rate 25 H Blood Pressure 98/58 L Pulse Oximetry 98 98 Oxygen Delivery Nasal Cannula Oxygen Flow Rate 3 02/17/25 06:00 02/17/25 07:33 02/17/25 08:00 Temperature 99.6 F Pulse Rate 60 60 Respiratory Rate 24 H 25 H Blood Pressure 100/59 L 97/60 L Pulse Oximetry 97 95 Oxygen Delivery Oxygen Flow Rate Exam Narrative: General: Elderly gentleman, currently in no acute distress HEENT:? Pupils are equal and reactive, sclera is clear, moist oral mucosa Neck:? Supple, right IJ line with temporary pacemaker Respiratory:? Coarse breath sounds bilaterally, decreased at bases, no wheezing, Cardiac:? S1-S2 is normal, paced rhythm, 2/6 systolic ejection murmur Abdomen:? Abdominal is distended and firm, right upper quadrant tenderness, hypoactive bowel sounds, tympanic on percussion Extremities:? Right foot cold with slight mottling noted, left foot was warm. Palpable pedal pulses bilaterally Neuro:? Patient is awake, alert, oriented to self, slow to answer with a soft voice, moves all extremities Skin:? Bruising noted Psych:? Flat affect Results Labs 02/17/25 01:28 02/17/25 06:09 Labs: Short CBC 02/16/25 02/17/25 Range/Units 13:29 01:28 WBC 11.4 H 12.3 H (4.5-10.0) K/mm3 Hgb 15.3 13.9 L (14.0-18.0) g/dL Hct 45.7 41.6 L (42.0-52.0) % Plt Count 179 174 (150-375) k/mm3 [facility] 02/16/25 02/17/25 02/17/25 13:29 01:28 06:09 Sodium 134 L 135 L 134 L Potassium 4.4 3.9 4.2 Chloride 103 107 109 H Carbon Dioxide 22 18 L 16 L BUN 24 H 20 22 H Creatinine 1.54 H 1.23 1.39 H Glucose 157 H 132 H 135 H Calcium 9.3 8.5 8.3 L Cardiac Enzymes 02/16/25 02/17/25 02/17/25 Range/Units 13:57 01:22 01:28 Total Creatine Kinase 981 H 1172 H (55-170) U/L Troponin I < 0.012 0.017 (0.000-0.034) ng/mL 02/17/25 02/17/25 Range/Units 06:09 06:09 Total Creatine Kinase 879 H Cancelled (55-170) U/L Troponin I (0.000-0.034) ng/mL Liver Function 02/16/25 02/17/25 02/17/25 Range/Units 13:29 01:28 06:09 Total Bilirubin 2.1 H 2.3 H 1.8 H (0.2-1.3) mg/dL AST 72 H 74 H 68 H (17-59) U/L ALT 57 H 53 H 46 (6-50) U/L Alkaline Phosphatase 190 H 180 H 160 H (38-126) U/L Albumin 4.0 3.5 3.1 L (3.5-5.1) g/dL Urine 02/16/25 Range/Units 13:47 Urine Color Dark yellow (Yellow) Urine Appearance Clear (Clear) Urine pH 5.5 (5.0-9.0) Ur Specific [place] 1.025 (1.001-1.035) Urine Protein 2+ H (Negative) mg/dL Urine Glucose (UA) Negative (Negative) mg/dL Quality VTE Prophylaxis VTE prophylaxis: pharmacologic ordered Hospitalist MIPS Advance Care Plan I have confirmed that the patient's Advanced Care Plan is present, code status is documented, or surrogate decision maker is listed in patient medical record.: Yes Medication Reconciliation I have utilized all available resources to obtain, update and review the patients current medications (includes all prescriptions, OTC, herbals, cannabis, and nutritional supplements).: Yes
[2025-02-17] MEDS: SODIUM BICARBONATE 8.4% 50 MEQ/50 ML SYRINGE IV PUSH (09:20)
[2025-02-17] MEDS: ENOXAPARIN 40 MG/0.4 ML SYRINGE SUB-Q (09:20)
--- NOTE | 2025-02-17 09:21 | P.PNIM_ITS ---
Progress Note: A&P Assessment and Plan (1) CHB (complete heart block): Code(s): I44.2 - Atrioventricular block, complete Status: Acute Assessment and Plan: 02/16: Patient presented with generalized weakness was admitted to the medical floor, where he developed bradycardia and complete heart block. Cardiology was notified, received it temporary venous pacemaker -holding all AV rosana blockers -cardiology consulting -ppm likely 02/18/2025 (2) Aortic stenosis, moderate: Code(s): I35.0 - Nonrheumatic aortic (valve) stenosis Status: Acute Assessment and Plan: Echocardiogram September 2022: Severe aortic stenosis with mean gradient of 32 mmHg and aortic valve area of 0.8 cm2, EF was 70% at that time on echo done in September 2022. f/u echo pending (3) Atrial fibrillation: Qualifiers: Atrial fibrillation type: unspecified Qualified Code(s): I48.91 - Unspecified atrial fibrillation Code(s): I48.91 - Unspecified atrial fibrillation Status: Acute Assessment and Plan: History of atrial fibrillation (4) CHF (congestive heart failure): Code(s): I50.9 - Heart failure, unspecified Status: Acute Assessment and Plan: Patient has a history of CHF, echocardiogram in September 2022 showed an EF of 70%, grade 1 diastolic dysfunction (5) Liver enzyme elevation: Code(s): R74.8 - Abnormal levels of other serum enzymes Status: Acute Assessment and Plan: Elevated liver enzymes and hyperbilirubinemia along with abdominal distension, right upper quadrant tenderness 8/10 RUQ u/s with unremarkable liver and gallbladder, small amount of ascites (6) Acute worsening of stage 3 chronic kidney disease: Code(s): N18.30 - Chronic kidney disease, stage 3 unspecified Status: Acute Assessment and Plan: Patient presented with acute on chronic kidney disease stage 3 (baseline creatinine 0.90 -1.10) -patient presented with a creatinine 1.54 -patient received adequate amount of IV fluids due to elevated CK level, possible rhabdomyolysis -8/10 creatinine improved to 1.39 (7) Rhabdomyolysis: Code(s): M62.82 - Rhabdomyolysis Status: Acute Assessment and Plan: Elevated rhabdomyolysis, patient was found on the floor last week according the daughter which are mentioned in the records IV bicarb infusion given (8) Altered mental status: Code(s): R41.82 - Altered mental status, unspecified Status: Acute Assessment and Plan: 02/17 Ox1, drowsy, follows simple commands (9) Dementia: Qualifiers: Dementia behavioral disturbance: without behavioral disturbance Dementia type: unspecified type Qualified Code(s): F03.90 - Unspecified dementia without behavioral disturbance Code(s): F03.90 - Unspecified dementia, unspecified severity, without behavioral disturbance, psychotic disturbance, mood disturbance, and anxiety Status: Acute Assessment and Plan: Baseline status uncertain (10) Frequent falls: Code(s): R29.6 - Repeated falls Status: Acute Assessment and Plan: PT/OT when able (11) Hearing loss, bilateral: Code(s): H91.93 - Unspecified hearing loss, bilateral Status: Acute Assessment and Plan: Chronic Subjective Date/time seen: 02/17/25 09:21 Interval history: Early AM received emergent transvenous pacer due to complete heart block. Tolerated well. Drowsy. Dementia with baseline Ox1. Unable to provide hx. Review of Systems Review of Systems: ROS unobtainable: Yes unobtainable due to medical condition Exam Narrative: HEENT: PERRL, sclerae nonicteric, pharyngeal mucosa pink and intact NECK: No JVD CHEST: NL effort, diffuse expiratory wheezes HEART: NL S1/S2, regular, 3/6 systolic murmur ABDOMEN: BS+, soft, tender RLQ, no palpable masses EXTREMITIES: Nonpitting 2+ edema of hands and feet NEUROLOGIC: CN intact and symmetric to inspection MUSCULOSKELETAL: No gross deformities to visual inspection PSYCH: Drowsy, oriented to person only, follows some simple commands, nonverbal Objective Data Vital Signs Vital Signs: Vital Signs - 24 hr 02/16/25 13:12 02/16/25 13:14 02/16/25 13:16 Temperature 98.4 F Pulse Rate 74 74 68 Respiratory Rate 33 H 25 H 31 H Blood Pressure 120/68 110/66 110/66 Pulse Oximetry 95 94 95 Oxygen Delivery Room Air Oxygen Flow Rate 02/16/25 13:31 02/16/25 13:41 02/16/25 13:51 Temperature Pulse Rate 66 67 66 Respiratory Rate 35 H 24 H Blood Pressure 113/76 122/59 L Pulse Oximetry 96 96 Oxygen Delivery Oxygen Flow Rate 02/16/25 14:01 02/16/25 14:31 02/16/25 15:01 Temperature Pulse Rate 65 67 67 Respiratory Rate 31 H 20 22 H Blood Pressure 114/59 L 116/59 L 111/62 Pulse Oximetry 96 96 96 Oxygen Delivery Oxygen Flow Rate 02/16/25 16:00 02/16/25 16:00 02/16/25 16:15 Temperature 97.5 F L Pulse Rate 66 65 Respiratory Rate 20 Blood Pressure 123/52 L Pulse Oximetry 97 Oxygen Delivery Room Air Oxygen Flow Rate 02/16/25 18:05 02/16/25 20:00 02/16/25 20:00 Temperature Pulse Rate 74 74 Respiratory Rate 16 Blood Pressure Pulse Oximetry 95 Oxygen Delivery Room Air Room Air Oxygen Flow Rate 02/16/25 20:29 02/16/25 22:17 02/17/25 01:10 Temperature 98.7 F 98.5 F Pulse Rate 67 40 L Respiratory Rate 16 18 Blood Pressure 115/63 101/50 L Pulse Oximetry 95 95 91 Oxygen Delivery Room Air Oxygen Flow Rate 02/17/25 01:14 02/17/25 01:24 02/17/25 01:30 Temperature 98.6 F Pulse Rate 43 L 39 L 39 L Respiratory Rate 16 18 Blood Pressure 104/51 L 90/46 L Pulse Oximetry 91 98 Oxygen Delivery Oxygen Flow Rate 02/17/25 01:36 02/17/25 01:46 02/17/25 01:59 Temperature Pulse Rate 39 L 38 L Respiratory Rate 18 Blood Pressure 84/43 L Pulse Oximetry 94 96 Oxygen Delivery Nasal Cannula Oxygen Flow Rate 2 02/17/25 02:11 02/17/25 02:16 02/17/25 02:30 Temperature Pulse Rate 74 39 L Respiratory Rate 16 14 Blood Pressure 86/43 L 93/47 L Pulse Oximetry 97 97 97 Oxygen Delivery Nasal Cannula Oxygen Flow Rate 3 02/17/25 04:00 02/17/25 04:00 02/17/25 04:00 Temperature 98.2 F Pulse Rate 60 60 Respiratory Rate 25 H Blood Pressure 98/58 L Pulse Oximetry 98 98 Oxygen Delivery Nasal Cannula Oxygen Flow Rate 3 02/17/25 06:00 02/17/25 07:33 02/17/25 08:00 Temperature 99.6 F Pulse Rate 60 60 Respiratory Rate 24 H 25 H Blood Pressure 100/59 L 97/60 L Pulse Oximetry 97 95 Oxygen Delivery Oxygen Flow Rate Intake/Output Intake/Output: Intake & Output 02/14/25 02/15/25 02/16/25 02/17/25 23:59 23:59 23:59 23:59 Intake Total 1890 808.3 Output Total 400 Balance 1890 408.3 Meds/Results Medications: Active Medications Generic Name Dose Route Start Last Admin Trade Name Freq PRN Reason Stop Dose Admin Acetaminophen 650 mg 02/16/25 14:52 Acetaminophen 325 Mg Tablet PO Q4H PRN Mild Pain (1-3) or Fever Albuterol/Ipratropium 3 ml 02/17/25 08:45 Ipratropium 0.5 Mg/Albuterol Sulfate 2.5 Mg Ampul.Neb 3 Ml INHALATION Q6HRT [facility] Aspirin 81 mg 02/17/25 09:00 Aspirin 81 Mg Chewable Tablet PO DAILY [facility] Docusate Sodium 100 mg 02/16/25 17:00 02/16/25 17:09 Docusate Sodium 100 Mg Capsule PO 100 mg BID [facility] Administration Enoxaparin Sodium 40 mg 02/17/25 09:00 Enoxaparin 40 Mg/0.4 Ml Syringe SUB-Q DAILY [facility] Albumin Human 100 mls @ 60 mls/hr 02/17/25 08:45 Albutein IVPB 02/17/25 10:24 ONCE ONE Sodium Bicarbonate 150 meq/ 1,100 mls @ 50 mls/hr 02/17/25 08:50 Dextrose IV CONT 02/18/25 04:49 .Q22H [facility] Pantoprazole Sodium 40 mg 02/18/25 09:00 Pantoprazole Sodium Iv 40 Mg Vial IV PUSH QAM [facility] Perflutren Lipid Microsphere 0 ml 02/17/25 04:59 Perflutren Lipid Microspheres 1.5 Ml Vial Diluted To 10 Ml Total Volume IV PU SH 02/20/25 05:00 ONCE PRN adequate visualization Protocol Rosuvastatin Calcium 10 mg 02/17/25 09:00 Rosuvastatin 10 Mg Tablet PO DAILY [facility] Radiology Results: ITS Impressions Head CT 02/16/25 14:17 IMPRESSION: No acute intracranial process. Chest X-Ray 02/17/25 07:35 IMPRESSION: 1. Persistent small lung volumes with opacities in the left mid and and bilateral lower lung zones and favor atelectasis/scarring over pneumonia. 2. Pancreatic parenchymal calcifications consistent with chronic pancreatitis. Abdomen Ultrasound 02/17/25 08:27 IMPRESSION: 1. Limited abdominal ultrasound demonstrating a fluid-filled loops of bowel in all 4 quadrants of the abdomen with minimal ascites in the right upper quadrant. 2. Gallbladder and liver are unremarkable with no evident intrahepatic biliary ductal dilation and nonvisualized common bile duct. Labs Labs: Laboratory Results - last 24 hr 02/16/25 02/16/25 02/16/25 13:29 13:43 13:47 WBC 11.4 H RBC 4.66 Hgb 15.3 Hct 45.7 MCV 98.1 MCH 32.8 MCHC 33.5 RDW 14.6 H Plt Count 179 MPV 9.4 Immature Gran % (Auto) 0.5 Neut % (Auto) 82.2 H Lymph % (Auto) 8.2 L [place] % (Auto) 8.7 H Eos % (Auto) 0.1 Baso % (Auto) 0.3 Lymph # (Auto) 0.94 Valley # (Auto) 1.0 H Eos # (Auto) 0.0 Baso # (Auto) 0.0 Abs Immat Gran (auto) 0.06 H Absolute Neuts (auto) 9.4 H Absolute Nucleated RBC 0.000 Nucleated RBC % 0.0 PT INR APTT Sodium 134 L Potassium 4.4 Chloride 103 Carbon Dioxide 22 Anion Gap 9 BUN 24 H Creatinine 1.54 H Estim Creat Clear Calc 35 Estimated GFR 43 L Glucose 157 H POC Capillary Glucose 158 H Lactic Acid Calcium 9.3 Phosphorus Magnesium Total Bilirubin 2.1 H AST 72 H ALT 57 H Alkaline Phosphatase 190 H Ammonia Total Creatine Kinase Troponin I NT-Pro-B Natriuret Pep Total Protein 8.3 H Albumin 4.0 TSH TSH (Reflex) Urine Color Dark yellow Urine Appearance Clear Urine pH 5.5 Ur Specific [place] 1.025 Urine Protein 2+ H Urine Glucose (UA) Negative Urine Ketones Negative Ur Blood (Man) 2+ H Urine Nitrate Negative Urine Bilirubin 1+ H Urine Urobilinogen 2.0 H Leukocyte Esterase Rfl Trace H Urine RBC 0-2 Urine WBC 0-5 Ur Squamous Epith Cells None seen Urine Bacteria None seen Urine Casts 3-5 02/16/25 02/17/25 02/17/25 13:57 01:16 01:22 WBC RBC Hgb Hct MCV MCH MCHC RDW Plt Count MPV Immature Gran % (Auto) Neut % (Auto) Lymph % (Auto) Valley % (Auto) Eos % (Auto) Baso % (Auto) Lymph # (Auto) [place] # (Auto) Eos # (Auto) Baso # (Auto) Abs Immat Gran (auto) Absolute Neuts (auto) Absolute Nucleated RBC Nucleated RBC % PT 16.0 H INR 1.3 APTT 32.1 Sodium Potassium Chloride Carbon Dioxide Anion Gap BUN Creatinine Estim Creat Clear Calc Estimated GFR Glucose POC Capillary Glucose 129 H Lactic Acid Calcium Phosphorus 2.7 Magnesium 2.0 Total Bilirubin AST ALT Alkaline Phosphatase Ammonia < 9 L Total Creatine Kinase 981 H Troponin I < 0.012 0.017 NT-Pro-B Natriuret Pep 697 H Total Protein Albumin TSH 1.970 TSH (Reflex) 2.590 Urine Color Urine Appearance Urine pH Ur Specific [place] Urine Protein Urine Glucose (UA) Urine Ketones Ur Blood (Man) Urine Nitrate Urine Bilirubin Urine Urobilinogen Leukocyte Esterase Rfl Urine RBC Urine WBC Ur Squamous Epith Cells Urine Bacteria Urine Casts 02/17/25 02/17/25 02/17/25 01:28 03:57 06:09 WBC 12.3 H RBC 4.24 L Hgb 13.9 L Hct 41.6 L MCV 98.1 MCH 32.8 MCHC 33.4 RDW 14.4 Plt Count 174 MPV 9.2 Immature Gran % (Auto) 0.4 Neut % (Auto) 76.0 H Lymph % (Auto) 13.6 L [place] % (Auto) 9.7 H Eos % (Auto) 0.1 Baso % (Auto) 0.2 Lymph # (Auto) 1.68 Valley # (Auto) 1.2 H Eos # (Auto) 0.0 Baso # (Auto) 0.0 Abs Immat Gran (auto) 0.05 H Absolute Neuts (auto) 9.4 H Absolute Nucleated RBC 0.000 Nucleated RBC % 0.0 PT INR APTT Sodium 135 L 134 L Potassium 3.9 4.2 Chloride 107 109 H Carbon Dioxide 18 L 16 L Anion Gap 10 9 BUN 20 22 H Creatinine 1.23 1.39 H Estim Creat Clear Calc 47 42 Estimated GFR 56 L 49 L Glucose 132 H 135 H POC Capillary Glucose Lactic Acid 1.6 Calcium 8.5 8.3 L Phosphorus Magnesium Total Bilirubin 2.3 H 1.8 H AST 74 H 68 H ALT 53 H 46 Alkaline Phosphatase 180 H 160 H Ammonia Total Creatine Kinase 1172 H 879 H Troponin I NT-Pro-B Natriuret Pep Total Protein 7.3 Albumin 3.5 TSH TSH (Reflex) Urine Color Urine Appearance Urine pH Ur Specific [place] Urine Protein Urine Glucose (UA) Urine Ketones Ur Blood (Man) Urine Nitrate Urine Bilirubin Urine Urobilinogen Leukocyte Esterase Rfl Urine RBC Urine WBC Ur Squamous Epith Cells Urine Bacteria Urine Casts 02/17/25 02/17/25 06:09 06:13 WBC RBC Hgb Hct MCV MCH MCHC RDW Plt Count MPV Immature Gran % (Auto) Neut % (Auto) Lymph % (Auto) Valley % (Auto) Eos % (Auto) Baso % (Auto) Lymph # (Auto) [place] # (Auto) Eos # (Auto) Baso # (Auto) Abs Immat Gran (auto) Absolute Neuts (auto) Absolute Nucleated RBC Nucleated RBC % PT INR APTT Sodium Potassium Chloride Carbon Dioxide Anion Gap BUN Creatinine Estim Creat Clear Calc Estimated GFR Glucose POC Capillary Glucose Lactic Acid 1.1 Calcium Phosphorus Magnesium Total Bilirubin AST ALT Alkaline Phosphatase Ammonia Total Creatine Kinase Cancelled Troponin I NT-Pro-B Natriuret Pep 1320 H Total Protein 6.6 Albumin 3.1 L TSH TSH (Reflex) Urine Color Urine Appearance Urine pH Ur Specific [place] Urine Protein Urine Glucose (UA) Urine Ketones Ur Blood (Man) Urine Nitrate Urine Bilirubin Urine Urobilinogen Leukocyte Esterase Rfl Urine RBC Urine WBC Ur Squamous Epith Cells Urine Bacteria Urine Casts
[2025-02-17 09:34] LABS: MRSA (PCR) NOT DETECTED (NOT DETECTE)
[2025-02-17] MEDS: SODIUM BICARBONATE 8.4% 150 MEQ in DEXTROSE 5% 1,000 ML 950 ML 50 MEQ IV CONT (09:48)
[2025-02-17] MEDS: ALBUMIN HUMAN 25% 25 GM/100 ML 100 ML IVPB (09:48)
[2025-02-17] MEDS: PANTOPRAZOLE SODIUM IV 40 MG VIAL IV PUSH (09:49)
--- NOTE | 2025-02-17 09:53 | PM.CNNEP ---
Assessment and Plan Assessment and plan (1) Acute worsening of stage 3 chronic kidney disease: Code(s): N18.30 - Chronic kidney disease, stage 3 unspecified Status: Acute Assessment and Plan: the patient has chronic kidney disease. This may be related to vascular disease, or possible chronic pre renal azotemia due to the severe aortic stenosis, there are other causes as well. Will check a renal ultrasound, immunofixation, and serology. Will also check a urine protein to creatinine ratio since he does have proteinuria. The patient is a creatinine which is a little higher now. He has multiple issues going on. He had been on the ground for a while and so his CK levels are elevated. These are not high enough in general to cause kidney damage but could be contributing a little. I agree with the bicarb drip. The patient has urinary retention and so could have an element of obstruction. He does have some blood in the urine. He probably should have Urology evaluate him when more stable or as an outpatient. He has some electrolyte issues. Sodium level is a little bit on the low side. This may indicate pre renal factors such as from the heart. It is not severe. We will watch this. We can get a TSH and a cortisol level. His bicarbonate level is low and his anion gap is normal. Generally his CO2 is normal as an outpatient for the most part. The low bicarbonate could be from poor ammonia production and also may have a component of dilution since he is receive some IV fluids since admission. the patient has a soft blood pressure as well. he is not febrile. His white count is mildly elevated. His urine shows no leukocytes. He has blood cultures pending. He is getting a small amount of IV fluids but we do not want to give him too much because of the aortic stenosis. He is also getting some albumin. Will see what the echocardiogram looks like. Discussed with Dr. Palacios (2) CHB (complete heart block): Code(s): I44.2 - Atrioventricular block, complete Status: Acute Assessment and Plan: The patient received a pacer last night (3) Liver enzyme elevation: Code(s): R74.8 - Abnormal levels of other serum enzymes Status: Acute Assessment and Plan: the patient's liver enzymes are elevated. This could be from some pathology in liver, especially since his bilirubin is elevated. Rhabdomyolysis can contribute some to the transaminase elevation. He is on a statin which can cause high CK and elevated liver enzymes as well. Will hold this. hepatitis studies have been ordered (4) Rhabdomyolysis: Code(s): M62.82 - Rhabdomyolysis Status: Acute Assessment and Plan: he is getting a bicarb drip. Will check another CK tomorrow (5) Aortic stenosis: Code(s): I35.0 - Nonrheumatic aortic (valve) stenosis Status: Acute Assessment and Plan: the patient has severe aortic stenosis. Repeat echo has been ordered. (6) Atrial fibrillation: Qualifiers: Atrial fibrillation type: unspecified Qualified Code(s): I48.91 - Unspecified atrial fibrillation Code(s): I48.91 - Unspecified atrial fibrillation Status: Acute Assessment and Plan: His heart rate is paced. History of Present Illness Reason for Consult Consult date: 02/17/25 Chief Complaint Chief complaint: altered mental status,weakness,rhabdomyolysis History of Present Illness Narrative: Boo is a very pleasant 85-year-old gentleman who has multiple medical problems including stage IIIA chronic kidney disease, congestive heart failure, atrial fibrillation, severe aortic stenosis, dementia. The patient lives in independent living. He apparently was found on the ground. He apparently fell and could not get up. His mental status had deteriorated since the week before when his daughter last saw him. He was brought to the emergency room. CT brain was negative for acute changes. CK was mildly elevated. Creatinine was mildly elevated but has been often on as an outpatient. EKG showed first-degree AV block with right bundle branch block. The patient was given some IV fluids and admitted to telemetry. There the patient developed lower heart rate. He was transferred to the ICU. Cardiology was consulted and a pacemaker was placed last night. CK was repeated and was found to be a little bit lower. His creatinine was a little bit higher this morning. He is being started on a bicarb drip protect him against the enzymes. His bladder shows retention so he is getting a Lobo catheter. renal consultation was requested liver enzymes are a bit high. He had an ultrasound of the gallbladder which did not show much. Review of Systems Review of Systems: ROS unobtainable: Yes unobtainable due to medical condition and unobtainable due to mental status PMFSH Past Medical History Medical History Stage 3 chronic kidney disease CHF (congestive heart failure) Atrial fibrillation Dementia Surgical History Surgical History Surgical history unknown Family History Family History Mother Acute myocardial infarction Cerebrovascular accident Father Dementia Social History Social History Social History: patient is resident of [place] lives with his Norma Matute. Smoking status: Never smoker Alcohol intake: never Substance use: never Substance use type: does not use Gender identity (if verbalized by the patient): Male Spiritual care concerns: No Meds Home Medications and Allergies Home Medications ?Medication ?Instructions ?Recorded ?Confirmed ?Type aspirin 81 mg chewable tablet 81 mg PO DAILY 03/31/20 02/16/25 History memantine ER 7 mg-donepezil 10 mg 1 cap PO DAILY 03/31/20 02/16/25 History capsule sprinkle,ext.release 24 hour (Namzaric) vortioxetine 20 mg tablet 20 mg PO DAILY 03/31/20 02/16/25 History (Trintellix) furosemide 20 mg tablet 20 mg PO 3XW 06/05/22 02/16/25 History rosuvastatin 10 mg tablet 10 mg PO DAILY 10/28/22 02/16/25 History docusate sodium 100 mg capsule 100 mg PO BID 02/16/25 02/16/25 History (Col-Rite) flecainide 50 mg tablet 50 mg PO DAILY 02/16/25 02/16/25 History [id number]-fish oil-vit D3 1 cap PO DAILY 02/16/25 02/16/25 History 350 mg-400 mg-1,000 unit capsule quetiapine 100 mg tablet 100 mg PO QHS 02/16/25 02/16/25 History quetiapine 50 mg tablet 50 mg PO QAM 02/16/25 02/16/25 History Allergies Allergy/AdvReac Type Severity Reaction Status Date / Time cephalexin (From Keflex) Allergy Unknown Verified 10/28/22 15:17 Vital Signs Vital Signs - 24 hr 02/16/25 13:12 02/16/25 13:14 02/16/25 13:16 Temperature 98.4 F Pulse Rate 74 74 68 Respiratory Rate 33 H 25 H 31 H Blood Pressure 120/68 110/66 110/66 Pulse Oximetry 95 94 95 Oxygen Delivery Room Air Oxygen Flow Rate 02/16/25 13:31 02/16/25 13:41 02/16/25 13:51 Temperature Pulse Rate 66 67 66 Respiratory Rate 35 H 24 H Blood Pressure 113/76 122/59 L Pulse Oximetry 96 96 Oxygen Delivery Oxygen Flow Rate 02/16/25 14:01 02/16/25 14:31 02/16/25 15:01 Temperature Pulse Rate 65 67 67 Respiratory Rate 31 H 20 22 H Blood Pressure 114/59 L 116/59 L 111/62 Pulse Oximetry 96 96 96 Oxygen Delivery Oxygen Flow Rate 02/16/25 16:00 02/16/25 16:00 02/16/25 16:15 Temperature 97.5 F L Pulse Rate 66 65 Respiratory Rate 20 Blood Pressure 123/52 L Pulse Oximetry 97 Oxygen Delivery Room Air Oxygen Flow Rate 02/16/25 18:05 02/16/25 20:00 02/16/25 20:00 Temperature Pulse Rate 74 74 Respiratory Rate 16 Blood Pressure Pulse Oximetry 95 Oxygen Delivery Room Air Room Air Oxygen Flow Rate 02/16/25 20:29 02/16/25 22:17 02/17/25 01:10 Temperature 98.7 F 98.5 F Pulse Rate 67 40 L Respiratory Rate 16 18 Blood Pressure 115/63 101/50 L Pulse Oximetry 95 95 91 Oxygen Delivery Room Air Oxygen Flow Rate 02/17/25 01:14 02/17/25 01:24 02/17/25 01:30 Temperature 98.6 F Pulse Rate 43 L 39 L 39 L Respiratory Rate 16 18 Blood Pressure 104/51 L 90/46 L Pulse Oximetry 91 98 Oxygen Delivery Oxygen Flow Rate 02/17/25 01:36 02/17/25 01:46 02/17/25 01:59 Temperature Pulse Rate 39 L 38 L Respiratory Rate 18 Blood Pressure 84/43 L Pulse Oximetry 94 96 Oxygen Delivery Nasal Cannula Oxygen Flow Rate 2 02/17/25 02:11 02/17/25 02:16 02/17/25 02:30 Temperature Pulse Rate 74 39 L Respiratory Rate 16 14 Blood Pressure 86/43 L 93/47 L Pulse Oximetry 97 97 97 Oxygen Delivery Nasal Cannula Oxygen Flow Rate 3 02/17/25 04:00 02/17/25 04:00 02/17/25 04:00 Temperature 98.2 F Pulse Rate 60 60 Respiratory Rate 25 H Blood Pressure 98/58 L Pulse Oximetry 98 98 Oxygen Delivery Nasal Cannula Oxygen Flow Rate 3 02/17/25 06:00 02/17/25 07:33 02/17/25 08:00 Temperature 99.6 F Pulse Rate 60 60 Respiratory Rate 24 H 25 H Blood Pressure 100/59 L 97/60 L Pulse Oximetry 97 95 Oxygen Delivery Oxygen Flow Rate Exam Narrative: Exam Narrative: Well developed well-nourished male lying in the hospital bed not very interactive in no acute distress Skin is warm and dry without rash Head normocephalic atraumatic Eyes normal sclerae and conjunctivae Mouth normal lips teeth and gums Neck no nodes no thyromegaly no carotid bruits Axillae no nodes Back no CVA tenderness Lungs symmetric and clear to auscultation and percussion Heart regular rate and rhythm without rub or gallop Abdomen bowel sounds positive soft nontender, no HSM, masses, or bruits. Extremities no cyanosis, clubbing, or edema Pulses 2+ equal in radial arteries Psychological not anxious or depressed Neuro not interactive. motor 5/5 cranial nerves 2-12 intact passively reflexes 2+ and equal in the biceps tendons cerebellar no seizure clonus or tremor Results Lab Results 02/17/25 01:28 02/17/25 06:09 Lab results: Most recent lab results Calcium 8.3 mg/dL (8.4-10.2) L 02/17/25 06:09 Phosphorus 2.7 mg/dL (2.5-4.5) 02/17/25 01:22 Magnesium 2.0 mg/dL (1.6-2.3) 02/17/25 01:22
[2025-02-17] MEDS: MEROPENEM 1 GM in SODIUM CHLORIDE 0.9% IV 100 ML 200 ML IVPB ×2 (11:09→20:33)
[2025-02-17 11:40] LABS: Thyroid Stimulating Hormone Reflex 2.870 uIU/mL (0.465-4.68)
[2025-02-17 11:55] LABS: Hepatitis B Surface Antigen Negative (Negative)
[2025-02-17 11:57] LABS: Urine Eos QC 2nd Tech Confirmed
[2025-02-17 12:00] LABS: HAV RESULT Negative (Negative); Hepatitis B Core IgM Result Negative (Negative)
[2025-02-17 12:12] LABS: Urea Random Urine 723 MG/DL
[2025-02-17 12:13] LABS: Total Protein Urine Random 131 mg/dL; Ur Ttl Prot Creatinine Ratio 1.27 mg/mg (0-0.20)
[2025-02-18] VITALS (26 sets, daily range): BP systolic 104–146; BP diastolic 50–89; PULSE 60–62; RESP 21–45; TEMP 37.7–38.4; O2SAT 91–99
--- NOTE | 2025-02-18 | ECHO_ITS ---
Patient Info Name: Boo Matute Age: 85 years : 1940 Gender: Male Ht: 70 in Wt: 216 lbs BSA: 2.23 m2 HR: 60 bpm BP: 129 / 89 mmHg Technical Quality: Fair Exam Date: 02/18/2025 11:00 AM Patient Status: I Admit Date: 02/17/2025 Exam Type: CA echo doppler color flow Complete two-dimensional, color flow and Doppler transthoracic echocardiogram is performed. Staff Referring Physician: Elisha Walls Tuber Machine Operator Helper: Trupti Daniel Attending Provider: Lincoln Villalobos MD Summary 1. Complete two-dimensional, color flow and Doppler transthoracic echocardiogram is performed. 2. The left ventricle is normal in size with hyperdynamic systolic function. The left ventricular ejection fraction is visually estimated to be greater than 70%. 3. The right ventricle is normal in size and systolic function. There is a pacemaker lead in the right ventricle. 4. The aortic valve is trileaflet and heavily calcified. There is severe aortic stenosis. SAMANTHA 0.7cm2 and previously 0.8cm2. There is mild aortic regurgitation. 5. The mitral valve leaflets are poorly visualized and there appears to be significant mitral annular calcification however there does not appear to be any mitral stenosis by Doppler gradients. Left Ventricle The left ventricle is normal in size with hyperdynamic systolic function. The left ventricular ejection fraction is visually estimated to be greater than 70%. Right Ventricle The right ventricle is normal in size and systolic function. There is a pacemaker lead in the right ventricle. Left Atria The left atrium is normal size. Right Atria The right atrium is normal size. Atrial Septum The atrial septum is not well visualized. Aortic Valve The aortic valve is trileaflet and heavily calcified. There is severe aortic stenosis. SAMANTHA 0.7cm2 and previously 0.8cm2. There is mild aortic regurgitation. Pulmonic Valve The pulmonic valve is not well visualized. There is no color Doppler evidence of pulmonic valve regurgitation. Mitral Valve The mitral valve leaflets are poorly visualized and there appears to be significant mitral annular calcification however there does not appear to be any mitral stenosis by Doppler gradients. Tricuspid Valve The tricuspid valve is grossly normal. There is trace tricuspid regurgitation. Pericardium/Pleural Pericardium is normal in appearance with no evidence for significant pericardial effusion. Inferior Vena Cava Inferior vena cava is not well visualized. Aorta The aortic root at the level of the sinus of Valsalva measures 3.1 cm in diameter. Left Ventricular Outflow Tract Name Value Normal LVOT 2D LVOT Diameter 1.9 cm LVOT Doppler LVOT Peak Velocity 99 cm/s LVOT Peak Gradient 4 mmHg LVOT Mean Gradient 3 mmHg LVOT VTI 25 cm LVOT VTI/AV VTI Ratio 0.2 LVOT Stroke Volume 73 ml LVOT CO 14.8 l/min LVOT CI 6.7 l/min/m2 Pulmonic Valve Name Value Normal PV Doppler PV Peak Velocity 127 cm/s PV Peak Gradient 6 mmHg Mitral Valve Name Value Normal MV Diastolic Function MV E Peak Velocity 80 cm/s MV A Peak Velocity 131 cm/s MV E/A 0.6 MV Decel Time (PW) 342 ms MV Annular TDI MV E/e' (Septal) 10.1 MV E/e' (Lateral) 9.8 MV E/e' (Average) 9.9 Tricuspid Valve Name Value Normal TV Regurgitation Doppler TR Peak Velocity 272 cm/s TR Peak Gradient 30 mmHg Estimated PAP/RSVP RA Pressure 15 mmHg <=5 PA Systolic Pressure 45 mmHg <36 RV Systolic Pressure 45 mmHg <36 TV Annular TDI TV Lateral Mary Kay s' Velocity 12.3 cm/s >=9.5 Aorta Name Value Normal Ascending Aorta Ao Root Diameter (MM) 3.1 cm Ao Root Diam Index (MM) 1.4 cm/m2 Aortic Valve Name Value Normal AV Doppler AV Peak Velocity 432 cm/s AV Peak Gradient 75 mmHg AV Mean Gradient 51 mmHg AV VTI 109 cm AV Area (Cont Eq VTI) 0.7 cm2 >=3.0 AV Area (Cont Eq Anton) 0.7 cm2 AV DI (Anton) 0.23 AV Regurgitation 2D LVOT Area 2.9 cm2 Ventricles Name Value Normal LV Dimensions 2D/MM IVS Diastolic Thickness (2D) 1.5 cm 0.6-1.0 LVID Diastole (2D) 3.6 cm 4.2-5.8 LVIW Diastolic Thickness (2D) 1.2 cm 0.6-1.0 LVID Systole (2D) 2.2 cm 2.5-4.0 LVOT Diameter 1.9 cm LV Mass (2D Cubed) 168.86 g 88.00-224.00 LV Mass Index (2D Cubed) 76 g/m2 49-115 Relative Wall Thickness (2D) 0.69 <=0.42 LV Fractional Shortening/Ejection Fraction 2D/MM LV Fractional Shortening (2D) 39 % 25-43 LV EF (2D Teichholz) 70 % LV Diastolic Volume (4C MOD) 88 ml LV EF (4C MOD) 78 % LV Diastolic Volume (2C MOD) 97 ml LV EF (2C MOD) 71 % LV Diastolic Volume (BP MOD) 95 ml 62-150 LV Diastolic Volume Index (BP MOD) 42 ml/m2 34-74 LV Systolic Volume (BP MOD) 23 ml 21-61 LV Systolic Volume Index (BP MOD) 11 ml/m2 11-31 LV EF (BP MOD) 75 % 52-72 LV Diastolic Length (4C) 8.7 cm LV Systolic Length (4C) 6.6 cm LV Stroke Volume (4C MOD) 69 ml RV Dimensions 2D/MM RVID Diastole (2D) 4.4 cm 2.1-3.5 Atria Name Value Normal LA Dimensions LA Dimension (MM) 3.6 cm 3.0-4.0 LA Volume (4C A-L) 51 ml LA Volume (BP A-L) 55 ml RA Dimensions RA Systolic Major Tilly Length (4C) 4.6 cm 2.1-2.7 RA Area (4C) 14.7 cm2 <=18.0 Report Signatures
[2025-02-18] MEDS: IPRATROPIUM 0.5 MG/ALBUTEROL SULFATE 2.5 MG AMPUL.NEB 3 ML INHALATION ×3 (02:24→19:40)
[2025-02-18 03:41] LABS: Hematocrit 42.0 % (42.0-52.0); Hemoglobin 13.7 g/dL (14.0-18.0); Immature Granulocyte Percent A 0.6 % (0-0.5); Lymphocytes Absolute Auto 1.39 K/mm3 (0.9-3.2); Mean Corpuscular HGB Conc 32.6 g/dl (32-36); Mean Corpuscular Hemoglobin 32.4 pg (26-34); Mean Corpuscular Volume 99.3 fl (80-100); Nucleated Red Blood Cells Absolute Auto 0.000 K/mm3 (0.0-0.012); Nucleated Red Blood Cells Perc 0.0 % (0.0-0.2); Platelet Count Result 165 k/mm3 (150-375); Red Blood Count 4.23 M/mm3 (4.6-6.20); White Blood Count 10.2 K/mm3 (4.5-10.0)
[2025-02-18 03:53] LABS: INR 1.3; Prothrombin Time 16.3 Seconds (11.1-14.7)
[2025-02-18 03:54] LABS: Partial Thromboplastin Time 30.5 Seconds (22.3-36.8)
[2025-02-18 04:05] LABS: Alanine Aminotransferase 44 U/L (6-50); Albumin Level 3.4 g/dL (3.5-5.1); Alkaline Phosphatase 157 U/L (38-126); Anion Gap 10 mmol/L (4-12); Aspartate Amino Transferase 52 U/L (17-59); Bilirubin,Total 2.0 mg/dL (0.2-1.3); Blood Urea Nitrogen 23 mg/dL (9-20); Calcium 8.8 mg/dL (8.4-10.2); Carbon Dioxide 23 mmol/L (22-30); Chloride 104 mmol/L (98-107); Creatine Kinase 497 U/L (55-170); Estimated CRCL calculation 42 ml/min; Estimated Glomerular Filt Rate 50; Glucose 137 mg/dL (65-110); Lipase 137 U/L (23-300); Magnesium 2.2 mg/dL (1.6-2.3); Potassium 3.6 mmol/L (3.4-5.0); Sodium 137 mmol/L (137-145); Total Protein 7.1 g/dL (6.3-8.2)
[2025-02-18] MEDS: LACTATED RINGERS 500 ML IV CONT (08:04)
[2025-02-18] MEDS: ENOXAPARIN 40 MG/0.4 ML SYRINGE SUB-Q (08:04)
[2025-02-18] MEDS: PANTOPRAZOLE SODIUM IV 40 MG VIAL IV PUSH (08:05)
[2025-02-18] MEDS: MEROPENEM 1 GM in SODIUM CHLORIDE 0.9% IV 100 ML 200 ML IVPB ×2 (09:11→20:13)
[2025-02-18] MEDS: LACTATED RINGERS 1,000 ML 75 ML IV CONT (09:11)
[2025-02-18] MEDS: LORazepam INJ (*CRX) 2 MG/ML VIAL 0.25 MG IV PUSH (11:42)
--- NOTE | 2025-02-18 11:47 | P.CONGS_ITS ---
Assessment and Plan Assessment and plan (1) Small bowel obstruction: Code(s): K56.609 - Unspecified intestinal obstruction, unspecified as to partial versus complete obstruction <Elisha Walls PA-C - Last Filed: 02/18/25 12:08> Status: Acute <Elisha Walls PA-C - Last Filed: 02/18/25 12:08> Assessment and Plan: Patient presented on 02/16 with altered mental status and weakness. Abdominal ultrasound was obtained due to elevated liver function tests and hyperbilirubinemia. This demonstrated fluid-filled loops of bowel in all 4 quadrants of the abdomen with minimal ascites in the right upper quadrant. Abdominal x-rays have since demonstrated small bowel obstruction. NG tube placed. Continue with NG decompression and IV fluid rehydration. NPO. Ordered small bowel series. Will follow up with results and continue to monitor labs. < Elisha Walls PA-C - Last Filed: 02/18/25 12:08> (2) Stage 3 chronic kidney disease: Code(s): N18.30 - Chronic kidney disease, stage 3 unspecified <Elisha Walls PA-C - Last Filed: 02/18/25 12:08> Status: Acute <Elisha Walls PA-C - Last Filed: 02/18/25 12:08> Assessment and Plan: Manage per Nephrology. Avoid IV contrast for imaging. <Elisha Walls PA-C - Last Filed: 02/18/25 12:08> (3) CHB (complete heart block): Code(s): I44.2 - Atrioventricular block, complete <JOSH Segura - Last Filed: 02/18/25 12:08> Status: Acute <Elisha Walls PA-C - Last Filed: 02/18/25 12:08> Assessment and Plan: Temporary transcutaneous pacer in place. Continue per cardiology recommendations. <Elisha Walls PA-C - Last Filed: 02/18/25 12:08> Assessment and Plan: Discussed patient's case and plan of care with Dr. De Jesus. <Elisha Walls PA-C - Last Filed: 02/18/25 12:08> History of Present Illness Consult details Consult date: 02/18/25 <Elisha Walls PA-C - Last Filed: 02/18/25 12:08> 02/18/25 <Ana Cristina De Jesus MD - Last Filed: 02/18/25 13:10> Reason for consult: other (Small bowel obstruction.) <Elisha Walls PA-C - Last Filed: 02/18/25 12:08> Requesting physician: Lalit Palacios MD <Elisha Walls PA-C - Last Filed: 02/18/25 12:08> Narrative: Patient is an 85-year-old male with history of stage III CKD and dementia who we have been asked to see in surgical consultation for small bowel obstruction. Patient 1st presented to the ED 2 days ago with altered mental status and weakness. EKG demonstrates sinus rhythm with complete heart block with slow ventricular response. Later on around 30 a.m. on 02/17 a rapid response was called on the patient due to bradycardia. He was given atropine 1 mg x 1. Emergency temporary transvenous pacer was placed by Cardiology. Patient was noted to have elevated liver enzymes and hyperbilirubinemia along with abdominal distension and right upper quadrant tenderness. Obstructive series was ordered and showed mildly dilated and nondilated loops of gas-filled small bowel in the central abdomen which could represent early/partial small bowel obstruction or ileus. Course pancreatic callus location consistent with sequelae of chronic pancreatitis. Per nursing staff, patient did have a large bowel movement overnight. No nausea or vomiting. Patient has been having low-grade fevers since last night, as well as tachypnea. Mildly hypotensive. WBC 10.2 today. Lactic acid elevated at 4.5. Of note, patient is demented so most of the history was obtained from nursing staff. NG tube placed at bedside upon visit today. <Elisha Walls PA-C - Last Filed: 02/18/25 12:08> [facility] Past Medical History Medical History: Medical History Stage 3 chronic kidney disease CHF (congestive heart failure) Atrial fibrillation Dementia <Elisha Walls PA-C - Last Filed: 02/18/25 12:08> Surgical History Surgical History: Surgical History Surgical history unknown <Elisha Walls PA-C - Last Filed: 02/18/25 12:08> Family History Family History: Family History Mother Acute myocardial infarction Cerebrovascular accident Father Dementia <Elisha Walls PA-C - Last Filed: 02/18/25 12:08> Social History Social History: Social History Social History: patient is resident of [place] lives with his Norma Matute. Smoking status: Never smoker Alcohol intake: never Substance use: never Substance use type: does not use Gender identity (if verbalized by the patient): Male Spiritual care concerns: No <Elisha Walls PA-C - Last Filed: 02/18/25 12:08> Meds Home Medications and Allergies Home medications: Home Medications ?Medication ?Instructions ?Recorded ?Confirmed ?Type aspirin 81 mg chewable tablet 81 mg PO DAILY 03/31/20 02/16/25 History memantine ER 7 mg-donepezil 10 mg 1 cap PO DAILY 03/31/20 02/16/25 History capsule sprinkle,ext.release 24 hour (Namzaric) vortioxetine 20 mg tablet 20 mg PO DAILY 03/31/20 02/16/25 History (Trintellix) furosemide 20 mg tablet 20 mg PO 3XW 06/05/22 02/16/25 History rosuvastatin 10 mg tablet 10 mg PO DAILY 10/28/22 02/16/25 History docusate sodium 100 mg capsule 100 mg PO BID 02/16/25 02/16/25 History (Col-Rite) flecainide 50 mg tablet 50 mg PO DAILY 02/16/25 02/16/25 History [id number]-fish oil-vit D3 1 cap PO DAILY 02/16/25 02/16/25 History 350 mg-400 mg-1,000 unit capsule quetiapine 100 mg tablet 100 mg PO QHS 02/16/25 02/16/25 History quetiapine 50 mg tablet 50 mg PO QAM 02/16/25 02/16/25 History <Elisha Walls PA-C - Last Filed: 02/18/25 12:08> Allergies/Adverse reactions: Allergies Allergy/AdvReac Type Severity Reaction Status Date / Time cephalexin (From Keflex) Allergy Unknown Verified 10/28/22 15:17 <Elisha Walls PA-C - Last Filed: 02/18/25 12:08> Vital Signs Vital Signs - 24 hr 02/17/25 12:00 02/17/25 12:00 02/17/25 12:00 Temperature 99.4 F Pulse Rate 60 60 Respiratory Rate 21 H Blood Pressure 98/72 L Pulse Oximetry 95 97 Oxygen Delivery Nasal Cannula Oxygen Flow Rate 2 02/17/25 14:00 02/17/25 14:00 02/17/25 14:47 Temperature 99.4 F Pulse Rate 60 60 60 Respiratory Rate 21 H 16 Blood Pressure 98/72 L Pulse Oximetry 95 Oxygen Delivery Oxygen Flow Rate 02/17/25 14:50 02/17/25 14:55 02/17/25 14:55 Temperature Pulse Rate 60 Respiratory Rate 21 H Blood Pressure Pulse Oximetry 97 96 Oxygen Delivery Nasal Cannula Room Air Oxygen Flow Rate 1 02/17/25 16:00 02/17/25 16:00 02/17/25 16:00 Temperature 99.6 F Pulse Rate 60 60 Respiratory Rate 17 Blood Pressure 105/46 L Pulse Oximetry 94 94 Oxygen Delivery Room Air Oxygen Flow Rate 02/17/25 16:00 02/17/25 17:58 02/17/25 18:00 Temperature 99.5 F Pulse Rate 59 L 60 60 Respiratory Rate 20 21 H Blood Pressure 91/54 L 94/64 L Pulse Oximetry 94 96 Oxygen Delivery Oxygen Flow Rate 02/17/25 18:06 02/17/25 20:00 02/17/25 20:00 Temperature 100.0 F H 100.4 F H Pulse Rate 59 L 60 60 Respiratory Rate 22 H 26 H Blood Pressure 94/64 L 90/71 L Pulse Oximetry 94 94 Oxygen Delivery Oxygen Flow Rate 02/17/25 20:00 02/17/25 21:12 02/17/25 21:15 Temperature Pulse Rate 60 Respiratory Rate 21 H Blood Pressure Pulse Oximetry 94 97 Oxygen Delivery Room Air Room Air Oxygen Flow Rate 02/17/25 21:19 02/17/25 22:00 02/18/25 00:00 Temperature 100.9 F H 101.1 F H Pulse Rate 60 60 60 Respiratory Rate 21 H 30 H 33 H Blood Pressure 109/50 L 118/53 L Pulse Oximetry 95 93 Oxygen Delivery Oxygen Flow Rate 02/18/25 00:00 02/18/25 00:00 02/18/25 00:30 Temperature Pulse Rate 60 Respiratory Rate 22 H Blood Pressure Pulse Oximetry 93 Oxygen Delivery Room Air Oxygen Flow Rate 02/18/25 01:15 02/18/25 02:00 02/18/25 02:25 Temperature 100.9 F H 100.6 F H Pulse Rate 60 60 60 Respiratory Rate 28 H 26 H 21 H Blood Pressure 107/54 L 116/57 L Pulse Oximetry 95 96 Oxygen Delivery Oxygen Flow Rate 02/18/25 02:32 02/18/25 04:00 02/18/25 04:00 Temperature 100.1 F H Pulse Rate 60 60 60 Respiratory Rate 21 H 31 H Blood Pressure 129/89 Pulse Oximetry 99 Oxygen Delivery Oxygen Flow Rate 02/18/25 04:00 02/18/25 04:00 02/18/25 06:00 Temperature 100.1 F H 100.0 F H Pulse Rate 60 60 Respiratory Rate 31 H 27 H Blood Pressure 129/89 146/50 H Pulse Oximetry 99 99 91 Oxygen Delivery Room Air Oxygen Flow Rate 02/18/25 08:00 02/18/25 08:00 02/18/25 08:21 Temperature 100.1 F H Pulse Rate 60 60 60 Respiratory Rate 24 H 30 H Blood Pressure 124/58 L Pulse Oximetry 92 Oxygen Delivery Oxygen Flow Rate 02/18/25 08:29 02/18/25 10:00 02/18/25 10:00 Temperature 100.1 F H Pulse Rate 60 60 60 Respiratory Rate 29 H 25 H Blood Pressure 104/56 L Pulse Oximetry 93 Oxygen Delivery Oxygen Flow Rate <Elisha Walls PA-C - Last Filed: 02/18/25 12:08> Exam 2 Const: General: no acute distress <Elisha Walls PA-C - Last Filed: 02/18/25 12:08> Eyes: General: appearance normal, both eyes and all related structures < DOM Segura Last Filed: 02/18/25 12:08> Neck: Neck: supple <DOM Segura Last Filed: 02/18/25 12:08> Resp: Other: Tachypneic. Patient anxious about NG tube placement. <DOM Segura Last Filed: 02/18/25 12:08> Cardio: Rate: regular rate <DOM Segura Last Filed: 02/18/25 12:08> GI: Inspection: distended <DOM Segura Last Filed: 02/18/25 12:08> GI Palp: Yes Firmness to palpation present (GI), No Tenderness to palpation present (GI) and No Hernia present <DOM Segura Last Filed: 02/18/25 12:08> Auscultation: abnormal bowel sounds (Hypoactive) <JOSH Segura Last Filed: 02/18/25 12:08> : General: Yes bladder normal to palpation <DOM Segura Last Filed: 02/18/25 12:08> Skin: General skin exam: normal color and no rashes or lesions noted < DOM Segura Last Filed: 02/18/25 12:08> Results Labs Result diagrams: 02/18/25 03:35 02/18/25 03:35 <DOM Segura Last Filed: 02/18/25 12:08> Labs: Abnormal lab results 02/17/25 02/17/25 02/18/25 Range/Units 11:29 23:22 03:35 WBC 10.2 H (4.5-10.0) K/mm3 RBC 4.23 L (4.6-6.20) M/mm3 Hgb 13.7 L (14.0-18.0) g/dL Immature Gran % (Auto) 0.6 H (0-0.5) % Neut % (Auto) 76.2 H (45.5-73.1) % Lymph % (Auto) 13.6 L (18.3-44.2) % [place] % (Auto) 9.3 H (2.6-8.5) % [place] # (Auto) 1.0 H (0.1-0.6) K/mm3 Abs Immat Gran (auto) 0.06 H (0.00-0.031) K/mm3 Absolute Neuts (auto) 7.8 H (1.3-6.7) K/mm3 PT 16.3 H (11.1-14.7) Seconds BUN 23 H (9-20) mg/dL Creatinine 1.37 H (0.7-1.3) mg/dL Estimated GFR 50 L (59 - ) Glucose 137 H (65-110) mg/dL POC Capillary Glucose 127 H (65-105) mg/dl Lactic Acid 3.8 H (0.7-2.0) mmol/L Total Bilirubin 2.0 H (0.2-1.3) mg/dL Alkaline Phosphatase 157 H (38-126) U/L Total Creatine Kinase 497 H (55-170) U/L Albumin 3.4 L (3.5-5.1) g/dL Protein/Creat Ratio 2 1.27 H (0-0.20) mg/mg 02/18/25 Range/Units 05:47 WBC (4.5-10.0) K/mm3 RBC (4.6-6.20) M/mm3 Hgb (14.0-18.0) g/dL Immature Gran % (Auto) (0-0.5) % Neut % (Auto) (45.5-73.1) % Lymph % (Auto) (18.3-44.2) % [place] % (Auto) (2.6-8.5) % [place] # (Auto) (0.1-0.6) K/mm3 Abs Immat Gran (auto) (0.00-0.031) K/mm3 Absolute Neuts (auto) (1.3-6.7) K/mm3 PT (11.1-14.7) Seconds BUN (9-20) mg/dL Creatinine (0.7-1.3) mg/dL Estimated GFR (59 - ) Glucose (65-110) mg/dL POC Capillary Glucose (65-105) mg/dl Lactic Acid 4.5 H* (0.7-2.0) mmol/L Total Bilirubin (0.2-1.3) mg/dL Alkaline Phosphatase (38-126) U/L Total Creatine Kinase (55-170) U/L Albumin (3.5-5.1) g/dL Protein/Creat Ratio 2 (0-0.20) mg/mg Diabetes panel 02/18/25 Range/Units 03:35 Sodium 137 (137-145) mmol/L Potassium 3.6 (3.4-5.0) mmol/L Chloride 104 (98-107) mmol/L Carbon Dioxide 23 (22-30) mmol/L BUN 23 H (9-20) mg/dL Creatinine 1.37 H (0.7-1.3) mg/dL Glucose 137 H (65-110) mg/dL Calcium 8.8 (8.4-10.2) mg/dL AST 52 (17-59) U/L ALT 44 (6-50) U/L Alkaline Phosphatase 157 H (38-126) U/L Total Protein 7.1 (6.3-8.2) g/dL Albumin 3.4 L (3.5-5.1) g/dL Calcium panel 02/18/25 Range/Units 03:35 Calcium 8.8 (8.4-10.2) mg/dL Phosphorus 2.5 (2.5-4.5) mg/dL Albumin 3.4 L (3.5-5.1) g/dL Pituitary panel 02/18/25 Range/Units 03:35 Sodium 137 (137-145) mmol/L Potassium 3.6 (3.4-5.0) mmol/L Chloride 104 (98-107) mmol/L Carbon Dioxide 23 (22-30) mmol/L BUN 23 H (9-20) mg/dL Creatinine 1.37 H (0.7-1.3) mg/dL Glucose 137 H (65-110) mg/dL Calcium 8.8 (8.4-10.2) mg/dL Adrenal panel 08/11/25 Range/Units 03:35 Sodium 137 (137-145) mmol/L Potassium 3.6 (3.4-5.0) mmol/L Chloride 104 (98-107) mmol/L Carbon Dioxide 23 (22-30) mmol/L BUN 23 H (9-20) mg/dL Creatinine 1.37 H (0.7-1.3) mg/dL Glucose 137 H (65-110) mg/dL Calcium 8.8 (8.4-10.2) mg/dL Total Bilirubin 2.0 H (0.2-1.3) mg/dL AST 52 (17-59) U/L ALT 44 (6-50) U/L Alkaline Phosphatase 157 H (38-126) U/L Total Protein 7.1 (6.3-8.2) g/dL Albumin 3.4 L (3.5-5.1) g/dL All other labs normal. <Elisha Walls PA-C - Last Filed: 02/18/25 12:08> Attestation Supervising Provider Attestation I, Ana Cristina De Jesus MD, have provided a substantive portion of the care of this patient. I performed the history, exam and/or medical decision making for this encounter. abd - S, mod dist, NT, labs reviewed, NG placed, will get CT and SBS for further eval Ana Cristina De Jesus MD 02/18/25;13:09 <Ana Cristina De Jesus MD - Last Filed: 02/18/25 13:10>
--- NOTE | 2025-02-18 11:47 | PM.PNCARD ---
Progress Note: A&P Assessment and Plan (1) Aortic stenosis: Code(s): I35.0 - Nonrheumatic aortic (valve) stenosis Status: Acute (2) CHB (complete heart block): Code(s): I44.2 - Atrioventricular block, complete Status: Acute (3) Atrial fibrillation: Qualifiers: Atrial fibrillation type: unspecified Qualified Code(s): I48.91 - Unspecified atrial fibrillation Code(s): I48.91 - Unspecified atrial fibrillation Status: Acute Plan 85-year-old man who is a patient of Dr. Kirkpatrick with severe aortic stenosis, chronic diastolic heart failure, advanced dementia, paroxysmal atrial fibrillation, and chronic kidney disease stage IIIA presented with generalized weakness who was found to have a 2nd pause followed by sinus rhythm with complete heart block for which a TVP was placed Sinus rhythm with complete heart block -pacing dependent -will review repeat transthoracic echocardiogram -will discuss with patient's family the idea of a permanent pacemaker likely a micro given his advanced dementia and likely inability to follow directions -will ensure his lactic acid is down trending and his possible small bowel obstruction is resolved prior to proceeding -will also allow 3 day washout period for flecainide Severe aortic stenosis -her records, it was decided by family that they would not proceed for with interventions given the patient's advanced dementia Paroxysmal atrial fibrillation -not on anticoagulation secondary to frequent falls -previously on flecainide which will be discontinued permanently Subjective Date/time seen: 02/18/25 11:47 Interval history: He has severe dementia and is unable to convey much subjective history. However at this time he explains that he feels okay without any complaints. Occasionally he will point to the board in his room and states that his name is on his board. Review of Systems Review of Systems: ROS unobtainable: Yes unobtainable due to medical condition Exam Const: General: comfortable HENMT: Mouth: Yes moist mucous membranes Eyes: EOM: EOMs intact bilaterally Neck: Neck: no JVD Other: TV P via the jugular vein Resp: Effort & Inspection: normal respiratory effort Auscultation: clear to auscultation bilaterally Cardio: Rate: regular rate Rhythm: regular rhythm Heart sounds: Murmur heart sound present Extrem: General: no pedal edema Objective Data Vital Signs Vital Signs: Vital Signs - 24 hr 02/17/25 12:00 02/17/25 12:00 02/17/25 12:00 Temperature 37.4 C Pulse Rate 60 60 Respiratory Rate 21 H Blood Pressure 98/72 L Pulse Oximetry 95 97 Oxygen Delivery Nasal Cannula Oxygen Flow Rate 2 02/17/25 14:00 02/17/25 14:00 02/17/25 14:47 Temperature 37.4 C Pulse Rate 60 60 60 Respiratory Rate 21 H 16 Blood Pressure 98/72 L Pulse Oximetry 95 Oxygen Delivery Oxygen Flow Rate 02/17/25 14:50 02/17/25 14:55 02/17/25 14:55 Temperature Pulse Rate 60 Respiratory Rate 21 H Blood Pressure Pulse Oximetry 97 96 Oxygen Delivery Nasal Cannula Room Air Oxygen Flow Rate 1 02/17/25 16:00 02/17/25 16:00 02/17/25 16:00 Temperature 37.6 C Pulse Rate 60 60 Respiratory Rate 17 Blood Pressure 105/46 L Pulse Oximetry 94 94 Oxygen Delivery Room Air Oxygen Flow Rate 02/17/25 16:00 02/17/25 17:58 02/17/25 18:00 Temperature 37.5 C Pulse Rate 59 L 60 60 Respiratory Rate 20 21 H Blood Pressure 91/54 L 94/64 L Pulse Oximetry 94 96 Oxygen Delivery Oxygen Flow Rate 02/17/25 18:06 02/17/25 20:00 02/17/25 20:00 Temperature 37.8 C H 38.0 C H Pulse Rate 59 L 60 60 Respiratory Rate 22 H 26 H Blood Pressure 94/64 L 90/71 L Pulse Oximetry 94 94 Oxygen Delivery Oxygen Flow Rate 02/17/25 20:00 02/17/25 21:12 02/17/25 21:15 Temperature Pulse Rate 60 Respiratory Rate 21 H Blood Pressure Pulse Oximetry 94 97 Oxygen Delivery Room Air Room Air Oxygen Flow Rate 02/17/25 21:19 02/17/25 22:00 02/18/25 00:00 Temperature 38.3 C H 38.4 C H Pulse Rate 60 60 60 Respiratory Rate 21 H 30 H 33 H Blood Pressure 109/50 L 118/53 L Pulse Oximetry 95 93 Oxygen Delivery Oxygen Flow Rate 02/18/25 00:00 02/18/25 00:00 02/18/25 00:30 Temperature Pulse Rate 60 Respiratory Rate 22 H Blood Pressure Pulse Oximetry 93 Oxygen Delivery Room Air Oxygen Flow Rate 02/18/25 01:15 02/18/25 02:00 02/18/25 02:25 Temperature 38.3 C H 38.1 C H Pulse Rate 60 60 60 Respiratory Rate 28 H 26 H 21 H Blood Pressure 107/54 L 116/57 L Pulse Oximetry 95 96 Oxygen Delivery Oxygen Flow Rate 02/18/25 02:32 02/18/25 04:00 02/18/25 04:00 Temperature 37.8 C H Pulse Rate 60 60 60 Respiratory Rate 21 H 31 H Blood Pressure 129/89 Pulse Oximetry 99 Oxygen Delivery Oxygen Flow Rate 02/18/25 04:00 02/18/25 04:00 02/18/25 06:00 Temperature 37.8 C H 37.8 C H Pulse Rate 60 60 Respiratory Rate 31 H 27 H Blood Pressure 129/89 146/50 H Pulse Oximetry 99 99 91 Oxygen Delivery Room Air Oxygen Flow Rate 02/18/25 08:00 02/18/25 08:00 02/18/25 08:21 Temperature 37.8 C H Pulse Rate 60 60 60 Respiratory Rate 24 H 30 H Blood Pressure 124/58 L Pulse Oximetry 92 Oxygen Delivery Oxygen Flow Rate 02/18/25 08:29 02/18/25 10:00 02/18/25 10:00 Temperature 37.8 C H Pulse Rate 60 60 60 Respiratory Rate 29 H 25 H Blood Pressure 104/56 L Pulse Oximetry 93 Oxygen Delivery Oxygen Flow Rate Intake/Output Intake/Output: Intake & Output 02/15/25 02/16/25 02/17/25 02/18/25 23:59 23:59 23:59 23:59 Intake Total 1890 1008.3 1200 Output Total 1200 450 Balance 1890 -191.7 750 Meds/Results Medications: Active Medications Generic Name Dose Route Start Last Admin Trade Name Freq PRN Reason Stop Dose Admin Acetaminophen 650 mg 02/16/25 14:52 Acetaminophen 325 Mg Tablet PO Q4H PRN Mild Pain (1-3) or Fever Albuterol/Ipratropium 3 ml 02/17/25 08:45 02/18/25 08:21 Ipratropium 0.5 Mg/Albuterol Sulfate 2.5 Mg Ampul.Neb 3 Ml INHALATION 3 ml Q6HRT GET Administration Enoxaparin Sodium 40 mg 02/17/25 09:00 02/18/25 08:04 Enoxaparin 40 Mg/0.4 Ml Syringe SUB-Q 40 mg DAILY GET Administration Meropenem 1 gm/ Sodium 100 mls @ 200 mls/hr 02/17/25 10:30 02/18/25 09:41 Chloride IVPB Infused Q12HR GET Infusion Lactated Ringer's 1,000 mls @ 75 mls/hr 02/18/25 07:45 02/18/25 09:11 Lr - Lactated Ringers Iv IV CONT 02/18/25 14:24 75 mls/hr .[id number] GET Administration Pantoprazole Sodium 40 mg 02/18/25 09:00 02/18/25 08:05 Pantoprazole Sodium Iv 40 Mg Vial IV PUSH 40 mg QAM GET Administration Perflutren Lipid Microsphere 0 ml 02/17/25 04:59 Perflutren Lipid Microspheres 1.5 Ml Vial Diluted To 10 Ml Total Volume IV PUSH 02/20/25 05:00 ONCE PRN adequate visualization Protocol Rosuvastatin Calcium 10 mg 02/17/25 09:00 02/17/25 10:58 Rosuvastatin 10 Mg Tablet PO Not Given DAILY GET Radiology Results: ITS Impressions Head CT 02/16/25 14:17 IMPRESSION: No acute intracranial process. Chest X-Ray 02/17/25 07:35 IMPRESSION: 1. Persistent small lung volumes with opacities in the left mid and and bilateral lower lung zones and favor atelectasis/scarring over pneumonia. 2. Pancreatic parenchymal calcifications consistent with chronic pancreatitis. Abdomen Ultrasound 02/17/25 08:27 IMPRESSION: 1. Limited abdominal ultrasound demonstrating a fluid-filled loops of bowel in all 4 quadrants of the abdomen with minimal ascites in the right upper quadrant. 2. Gallbladder and liver are unremarkable with no evident intrahepatic biliary ductal dilation and nonvisualized common bile duct. Renal Ultrasound 02/17/25 14:03 IMPRESSION: 1. 2.7 cm right renal cyst. Otherwise normal kidneys with no hydronephrosis. Duplex Scan Lower Extremity Artery 02/18/25 07:36 Impression: 1: Focal 1.5 cm atherosclerotic plaque in the right common femoral artery without evidence of occlusion or significant stenosis. Otherwise normal bilateral lower extremity arterial duplex with triphasic flow throughout. Abdomen X-Ray 02/18/25 10:11 IMPRESSION: 1. Small bowel obstruction. Labs Labs: Laboratory Results - last 24 hr 02/17/25 02/17/25 02/17/25 06:09 11:29 11:29 WBC RBC Hgb Hct MCV MCH MCHC RDW Plt Count MPV Immature Gran % (Auto) Neut % (Auto) Lymph % (Auto) [place] % (Auto) Eos % (Auto) Baso % (Auto) Lymph # (Auto) [place] # (Auto) Eos # (Auto) Baso # (Auto) Abs Immat Gran (auto) Absolute Neuts (auto) Absolute Nucleated RBC Nucleated RBC % PT INR APTT Sodium Potassium Chloride Carbon Dioxide Anion Gap BUN Creatinine Estim Creat Clear Calc Estimated GFR Glucose POC Capillary Glucose Lactic Acid Calcium Phosphorus Magnesium Total Bilirubin AST ALT Alkaline Phosphatase Total Creatine Kinase Total Protein Albumin Lipase Urine Eosinophils None seen U Random Total Protein 131 Ur Random Sodium 7 6 Ur Random Potassium 47.9 Ur Random Urea 723 Urine Creatinine 103.5 Protein/Creat Ratio 2 Hepatitis A IgM Ab Negative Hep Bs Antigen Negative Hep B Core IgM Ab Negative Hepatitis C Ab Screen Negative 02/17/25 02/17/25 02/18/25 11:29 23:22 03:35 WBC 10.2 H RBC 4.23 L Hgb 13.7 L Hct 42.0 MCV 99.3 MCH 32.4 MCHC 32.6 RDW 14.2 Plt Count 165 MPV 9.3 Immature Gran % (Auto) 0.6 H Neut % (Auto) 76.2 H Lymph % (Auto) 13.6 L [place] % (Auto) 9.3 H Eos % (Auto) 0.1 Baso % (Auto) 0.2 Lymph # (Auto) 1.39 [place] # (Auto) 1.0 H Eos # (Auto) 0.0 Baso # (Auto) 0.0 Abs Immat Gran (auto) 0.06 H Absolute Neuts (auto) 7.8 H Absolute Nucleated RBC 0.000 Nucleated RBC % 0.0 PT 16.3 H INR 1.3 APTT 30.5 Sodium 137 Potassium 3.6 Chloride 104 Carbon Dioxide 23 Anion Gap 10 BUN 23 H Creatinine 1.37 H Estim Creat Clear Calc 42 Estimated GFR 50 L Glucose 137 H POC Capillary Glucose 127 H Lactic Acid 3.8 H Calcium 8.8 Phosphorus 2.5 Magnesium 2.2 Total Bilirubin 2.0 H AST 52 ALT 44 Alkaline Phosphatase 157 H Total Creatine Kinase 497 H Total Protein 7.1 Albumin 3.4 L Lipase 137 Urine Eosinophils U Random Total Protein Ur Random Sodium Ur Random Potassium Ur Random Urea Urine Creatinine 102.8 Protein/Creat Ratio 2 1.27 H Hepatitis A IgM Ab Hep Bs Antigen Hep B Core IgM Ab Hepatitis C Ab Screen 02/18/25 05:47 WBC RBC Hgb Hct MCV MCH MCHC RDW Plt Count MPV Immature Gran % (Auto) Neut % (Auto) Lymph % (Auto) [place] % (Auto) Eos % (Auto) Baso % (Auto) Lymph # (Auto) [place] # (Auto) Eos # (Auto) Baso # (Auto) Abs Immat Gran (auto) Absolute Neuts (auto) Absolute Nucleated RBC Nucleated RBC % PT INR APTT Sodium Potassium Chloride Carbon Dioxide Anion Gap BUN Creatinine Estim Creat Clear Calc Estimated GFR Glucose POC Capillary Glucose Lactic Acid 4.5 H* Calcium Phosphorus Magnesium Total Bilirubin AST ALT Alkaline Phosphatase Total Creatine Kinase Total Protein Albumin Lipase Urine Eosinophils U Random Total Protein Ur Random Sodium Ur Random Potassium Ur Random Urea Urine Creatinine Protein/Creat Ratio 2 Hepatitis A IgM Ab Hep Bs Antigen Hep B Core IgM Ab Hepatitis C Ab Screen
--- NOTE | 2025-02-18 12:08 | P.PNNP_ITS ---
Progress Note: A&P Assessment and Plan (1) Acute kidney injury: Code(s): N17.9 - Acute kidney failure, unspecified Status: Acute Assessment and Plan: * as noted on admission * transiently improved * now elevated again but not as bad as on admission * suspect multifactorial etiology: * relative hypotension * heart block * prerenal factors (poor oral intake versus aortic stenosis versus combo of both?) * mild rhabdomyolysis * urinary retention * infection(?) * other (?) * evaluation to date noted: * urine electrolytes prerenal * renal ultrasound without obstruction * urine eosinophils negative * CPK trending down (but no high enough to affect kidney function) * ~ 1800mg of proteinuria * agree with gentle IVFs and IV albumin * follow trend of repeat labs and UOP (2) Stage 3a chronic kidney disease: Code(s): N18.31 - Chronic kidney disease, stage 3a Status: Chronic Assessment and Plan: * baseline creatinine runs ~ 0.9 - 1.3mg/dl * this causes him to fluctuate between CKD stage 2 and stage 3A * presumably due to vascular disease, CHF, aortic stenosis, and age-related change (3) CHB (complete heart block): Code(s): I44.2 - Atrioventricular block, complete Status: Acute Assessment and Plan: * as noted by events on 02/16 * s/p temporary venous pacemaker by Cardiology * holding all AV rosana blockers/agents * flecainide stopped as well * Cardiology following * possible need for PPM once more stable (4) Aortic stenosis, moderate: Code(s): I35.0 - Nonrheumatic aortic (valve) stenosis Status: Acute Assessment and Plan: * known history as noted by Echo in September 2022 * no intervention planned due to underlying dementia per family discussion * repeat Echo (02/18) noted: * left ventricular ejection fraction is visually estimated to be greaterthan 70% * right ventricle is normal in size and systolic function.; pacemaker lead in the right ventricle. * aortic valve is trileaflet and heavily calcified. There is severeaortic stenosis. SAMANTHA 0.7cm2 and previously 0.8cm2 * mild aortic regurgitation * mitral valve leaflets are poorly visualized and there appears to be significant mitral annular calcification however there does not appear to be any mitral stenosis by Doppler gradients (5) Small bowel obstruction: Code(s): K56.609 - Unspecified intestinal obstruction, unspecified as to partial versus complete obstruction Status: Acute Assessment and Plan: * suggested by abdominal obstructive series * NGT in place for decompression * bowel rest * gentle IVFs as tolerated * Surgery following with recommendations noted * CT of A/P ordered * continue current therapy (6) CHF (congestive heart failure): Code(s): I50.9 - Heart failure, unspecified Status: Acute Assessment and Plan: * known history of CHF * elevated proBNP * previous Echo noted * repeat Echo on this admission noted (see #4) * follow volume status closely (7) Liver enzyme elevation: Code(s): R74.8 - Abnormal levels of other serum enzymes Status: Acute Assessment and Plan: * noted with abdominal distension and RUQ tenderness * RUQ ultrasound negative for gallbladder/liver pathology * follow-up on hepatitis stidueis (8) Dementia: Qualifiers: Dementia behavioral disturbance: without behavioral disturbance D ementia type: unspecified type Qualified Code(s): F03.90 - Unspecified dementia without behavioral disturbance Code(s): F03.90 - Unspecified dementia, unspecified severity, without behavioral disturbance, psychotic disturbance, mood disturbance, and anxiety Status: Acute Assessment and Plan: * known history * baseline mental status not clear * follow mentation Will continue to follow. L Subjective Date/time seen: 02/18/25 12:08 Interval history: Follow-up for acute kidney injury/acute renal failure on chronic kidney disease. Chrat reviewed -- assuming care from Dr. Concepcion; remains pacer dependent at this time (via temporary pacemaker); remains hemodynamically stable; self dc'd NG tube but was successfully replaced; renal function/creatinine relatively stable with reasonable urine output noted; febrile overnight with a Tmax of 101.1; denies any shortness of breath, nausea, vomiting or pain at the time of my visit. Exam 2 Narrative: General:elderly but WD/WN male in NAD Heart: normal S1 and S2; no rub Lungs: coarse and decreased at bases Abdomen: firm and distended; hypoactive bowel sounds Extremities: no cyanosis or clubbing; no edema Skin: warm and dry, + bruising noted Objective Data Vital Signs Vital Signs: Vital Signs Temp Pulse Resp BP Pulse Ox O2 Del Method O2 Flow Rate 02/18/25 12:00 100.7 F H 60 21 H 126/88 94 02/18/25 10:00 60 02/18/25 10:00 100.1 F H 60 25 H 104/56 L 93 02/18/25 08:29 60 29 H 02/18/25 08:21 60 30 H 02/18/25 08:00 60 02/18/25 08:00 100.1 F H 60 24 H 124/58 L 92 02/18/25 06:00 100.0 F H 60 27 H 146/50 H 91 02/18/25 04:00 99 Room Air 02/18/25 04:00 100.1 F H 60 31 H 129/89 99 02/18/25 04:00 100.1 F H 60 31 H 129/89 99 02/18/25 04:00 60 02/18/25 02:32 60 21 H 02/18/25 02:25 60 21 H 02/18/25 02:00 100.6 F H 60 26 H 116/57 L 96 02/18/25 01:15 100.9 F H 60 28 H 107/54 L 95 02/18/25 00:30 22 H 02/18/25 00:00 93 Room Air 02/18/25 00:00 60 02/18/25 00:00 101.1 F H 60 33 H 118/53 L 93 02/17/25 22:00 100.9 F H 60 30 H 109/50 L 95 02/17/25 21:19 60 21 H 02/17/25 21:15 97 Room Air 02/17/25 21:12 60 21 H Intake/Output Intake/Output: Intake & Output 02/15/25 02/16/25 02/17/25 02/18/25 23:59 23:59 23:59 23:59 Intake Total 1890 1008.3 1200 Output Total 1200 1400 Balance 1890 -191.7 -200 Meds/Results Medications: Active Medications Generic Name Dose Route Start Last Admin Trade Name Freq PRN Reason Stop Dose Admin Acetaminophen 650 mg 02/16/25 14:52 Acetaminophen 325 Mg Tablet PO Q4H PRN Mild Pain (1-3) or Fever Albuterol/Ipratropium 3 ml 02/17/25 08:45 02/18/25 19:40 Ipratropium 0.5 Mg/Albuterol Sulfate 2.5 Mg Ampul.Neb 3 Ml INHALATION 3 ml Q6HRT GET Administration Enoxaparin Sodium 40 mg 02/17/25 09:00 02/18/25 08:04 Enoxaparin 40 Mg/0.4 Ml Syringe SUB-Q 40 mg DAILY GET Administration Meropenem 1 gm/ Sodium 100 mls @ 200 mls/hr 02/17/25 10:30 02/18/25 20:13 Chloride IVPB 200 mls/hr Q12HR GET Administration Lorazepam 0.5 mg 02/18/25 19:08 Lorazepam Inj (*Crx) 2 Mg/Ml Vial IV PUSH ONCE PRN agitation Pantoprazole Sodium 40 mg 02/18/25 09:00 02/18/25 08:05 Pantoprazole Sodium Iv 40 Mg Vial IV PUSH 40 mg QAM GET Administration Perflutren Lipid Microsphere 0 ml 02/17/25 04:59 Perflutren Lipid Microspheres 1.5 Ml Vial Diluted To 10 Ml Total Volume IV PUSH 02/20/25 05:00 ONCE PRN adequate visualization Protocol Rosuvastatin Calcium 10 mg 02/17/25 09:00 02/17/25 10:58 Rosuvastatin 10 Mg Tablet PO Not Given DAILY [facility] Radiology Results: ITS Impressions Head CT 02/16/25 14:17 IMPRESSION: No acute intracranial process. Chest X-Ray 02/17/25 07:35 IMPRESSION: 1. Persistent small lung volumes with opacities in the left mid and and bilateral lower lung zones and favor atelectasis/scarring over pneumonia. 2. Pancreatic parenchymal calcifications consistent with chronic pancreatitis. Abdomen Ultrasound 02/17/25 08:27 IMPRESSION: 1. Limited abdominal ultrasound demonstrating a fluid-filled loops of bowel in all 4 quadrants of the abdomen with minimal ascites in the right upper quadrant. 2. Gallbladder and liver are unremarkable with no evident intrahepatic biliary ductal dilation and nonvisualized common bile duct. Renal Ultrasound 02/17/25 14:03 IMPRESSION: 1. 2.7 cm right renal cyst. Otherwise normal kidneys with no hydronephrosis. Duplex Scan Lower Extremity Artery 02/18/25 07:36 Impression: 1: Focal 1.5 cm atherosclerotic plaque in the right common femoral artery without evidence of occlusion or significant stenosis. Otherwise normal bilateral lower extremity arterial duplex with triphasic flow throughout. Abdomen X-Ray 02/18/25 12:03 IMPRESSION: 1: NG tube tip in the stomach. Labs Labs: Laboratory Tests 02/18/25 03:35 02/18/25 03:35 PT 16.3 H INR 1.3 APTT 30.5 Lactic Acid 3.8 H Calcium 8.8 Phosphorus 2.5 Magnesium 2.2 Total Bilirubin 2.0 H AST 52 ALT 44 Alkaline Phosphatase 157 H Total Creatine Kinase 497 H Total Protein 7.1 Albumin 3.4 L Lipase 137 Microbiology 02/16/25 13:57 Blood Blood Culture - Preliminary 02/16/25 13:57 Blood Blood Culture - Preliminary
--- NOTE | 2025-02-18 12:53 | P.PNINT_ITS ---
Progress Note: A&P Assessment and Plan (1) CHB (complete heart block): Code(s): I44.2 - Atrioventricular block, complete Status: Acute Assessment and Plan: 02/16: Patient presented with generalized weakness was admitted to the medical floor, where he developed bradycardia and complete heart block. Cardiology was notified, received it temporary venous pacemaker -will hold all AV rosana blockers -I discontinued flecainide 02/17 -cardiology following the patient -cardiology and discuss with patient's family regarding permanent pacemaker, given the lactic acidosis and small-bowel obstruction, ppm will be deferred (2) Aortic stenosis, moderate: Code(s): I35.0 - Nonrheumatic aortic (valve) stenosis Status: Acute Assessment and Plan: Echocardiogram September 2022: Severe aortic stenosis with mean gradient of 32 mmHg and aortic valve area of 0.8 cm2, EF was 70% at that time on echo done in September 2022. -patient follows Dr. Kirkpatrick, according to cardiology progress note it was decided with the family that they would not proceed for any intervention given h is advanced dementia -cardiology following 02/18/2025: Echocardiogram Summary 1. Complete two-dimensional, color flow and Doppler transthoracic echocardiogram is performed. 2. The left ventricle is normal in size with hyperdynamic systolic function. The left ventricular ejection fraction is visually estimated to be greater than 70%. 3. The right ventricle is normal in size and systolic function. There is a pacemaker lead in the right ventricle. 4. The aortic valve is trileaflet and heavily calcified. There is severe aortic stenosis. SAMANTHA 0.7cm2 and previously 0.8cm2. There is mild aortic regurgitation. 5. The mitral valve leaflets are poorly visualized and there appears to be significant mitral annular calcification however there does not appear to be any mitral stenosis by Doppler gradients. (3) Atrial fibrillation: Qualifiers: Atrial fibrillation type: unspecified Qualified Code(s): I48.91 - Unspecified atrial fibrillation Code(s): I48.91 - Unspecified atrial fibrillation Status: Acute Assessment and Plan: History of atrial fibrillation, not on any anticoagulation due to fall -off flecainide -patient was in complete heart block, requiring temporary of venous pacemaker (4) CHF (congestive heart failure): Code(s): I50.9 - Heart failure, unspecified Status: Acute Assessment and Plan: Patient has a history of CHF, echocardiogram in September 2022 showed an EF of 70%, grade 1 diastolic dysfunction -proBNP 1320 -unknown if patient had a repeat echocardiogram in between -repeat echocardiogram this admission echocardiogram as above, EF 70% (5) Liver enzyme elevation: Code(s): R74.8 - Abnormal levels of other serum enzymes Status: Acute Assessment and Plan: Elevated liver enzymes and hyperbilirubinemia along with abdominal distension, right upper quadrant tenderness --02/17: RUQ ultrasound: Was unremarkable for gallbladder or liver pathology -check hepatitis panel (6) Acute worsening of stage 3 chronic kidney disease: Code(s): N18.30 - Chronic kidney disease, stage 3 unspecified Status: Acute Assessment and Plan: Patient presented with acute on chronic kidney disease stage 3 (baseline creatinine 0.90 -1.10) -patient presented with a creatinine 1.54 -patient received adequate amount of IV fluids due to elevated CK level, pos sible rhabdomyolysis -will obtain urine lytes, urine eosinophils - urine output has been low -non anion gap metabolic acidosis -will obtain renal ultrasound -consult nephrology -continue to monitor renal function, electrolytes and urine output (7) Rhabdomyolysis: Code(s): M62.82 - Rhabdomyolysis Status: Acute Assessment and Plan: Elevated rhabdomyolysis, patient was found on the floor last week according the daughter which are mentioned in the records -patient may be having residual rhabdomyolysis -adequately fluid-resuscitated -patient slightly congested likely due to aortic stenosis -IV fluids discontinued -will start bicarb infusion at 50 mL/hour for total of 1000 mL (8) Altered mental status: Code(s): R41.82 - Altered mental status, unspecified Status: Acute Assessment and Plan: Unknown baseline, patient has dementia, awake, alert, oriented to self (9) Dementia: Qualifiers: Dementia behavioral disturbance: without behavioral disturbance Dementia type: unspecified type Qualified Code(s): F03.90 - Unspecified dementia without behavioral disturbance Code(s): F03.90 - Unspecified dementia, unspecified severity, without behavioral disturbance, psychotic disturbance, mood disturbance, and anxiety Status: Acute Assessment and Plan: History of dementia unknown baseline -will discuss with daughter regarding his baseline (10) Frequent falls: Code(s): R29.6 - Repeated falls Status: Acute Assessment and Plan: Has a history of frequent falls -will have PT OT evaluate the patient for discharge planning (11) Hearing loss, bilateral: Code(s): H91.93 - Unspecified hearing loss, bilateral Status: Acute Assessment and Plan: Chronic (12) Small bowel obstruction: Code(s): K56.609 - Unspecified intestinal obstruction, unspecified as to partial versus complete obstruction Status: Acute Assessment and Plan: Patient with distended abdomen obstructive series showed small-bowel obstruction -bowel rest, NG tube decompression, gentle IV fluid hydration -appreciate surgery evaluation and recommendation -CT of the abdomen and pelvis with oral contrast has been ordered by surgery (13) Cold foot: Code(s): R20.9 - Unspecified disturbances of skin sensation Status: Acute Assessment and Plan: Right foot was cold, 02/17: Arterial duplex ultrasound: Focal 1.5 cm atherosclerotic plaque in the right common femoral artery without evidence of occlusion or significant stenosis. Otherwise normal bilateral lower extremity arterial duplex with triphasic flow throughout. Plan DVT prophylaxis: Lovenox Stress ulcer prophylaxis: Protonix Nutrition: NPO for now, NG tube to low intermittent suction Code Status: DNR/DNI Critical Care Time Spent: 34 minutes 02/17: Discussed with patient's , daughter and updated them with patient's condition and plan of care. They aware that he has multiple issues at this time, Complete heart block with transvenous pacemaker, severe aortic stenosis, elevated liver enzymes and bilirubin, abdominal distention, ileus and small- bowel obstruction, acute renal failure. Given his advanced age and advanced dementia they decided to make him a DNR/DNI. I answered all their questions Due to a high probability of clinically significant, life threatening deterioration, the patient required my highest level of preparedness to intervene emergently and I personally spent this critical care time directly and personally managing the patient. This critical care time included obtaining a history; examining the patient; pulse oximetry; ordering and review of studies; arranging urgent treatment with development of a management plan; evaluation of patient's response to treatment; frequent reassessment; and discussions with other providers. It was exclusive of separately billable procedures and treating other patients and teaching time. Please see Assessment and Plan section and the rest of the note for further information on patient assessment and treatment This dictation may have been done utilizing a voice recognition system. Attempts have been made to correct errors. However, there may be uncorrected grammatical, spelling, and recognitions errors present. Subjective Date/time seen: 02/18/25 12:53 Interval history: Reason for consult: Complete heart block, generalized weakness, altered mental status, right upper quadrant pain, hyperbilirubinemia, elevated LFTs, acute kidney injury, small-bowel loops to 02/18/2025: Patient seen examined the ICU, is awake, denies any pain, shortness of breath, nausea vomiting at this time. Patient did pull out his NG tube, it was reinserted. Urine output has been adequate, hemodynamically stable. Temporary pacemaker in place, patient is pacer dependent. Adequate blood pressures. Lactic acid elevated to 4.5. Creatinine elevated but stable, CK levels trending down, lipase within normal limits. White count has come down. Review of Systems Review of Systems: All systems reviewed & are unremarkable except as noted in HPI and below Exam Narrative: General: Elderly gentleman, currently in no acute distress HEENT:? Pupils are equal and reactive, sclera is clear, moist oral mucosa Neck:? Supple, right IJ line with temporary pacemaker Respiratory:? Coarse breath sounds bilaterally, decreased at bases, no wheezing, Cardiac:? S1-S2 is normal, paced rhythm, 2/6 systolic ejection murmur Abdomen:? Abdominal is distended and firm, right upper quadrant tenderness, hypoactive bowel sounds, tympanic on percussion Extremities:? Right foot more warm this morning with only the toes being cold on the right foot. Left foot is warm. Palpable pedal pulses bilaterally Neuro:? Patient is awake, alert, oriented to self, slow to answer with a soft voice, moves all extremities Skin:? Bruising noted Psych:? Flat affect Objective Data Vital Signs Vital Signs: Vital Signs - 24 hr 02/17/25 14:00 02/17/25 14:00 02/17/25 14:47 Temperature 99.4 F Pulse Rate 60 60 60 Respiratory Rate 21 H 16 Blood Pressure 98/72 L Pulse Oximetry 95 Oxygen Delivery Oxygen Flow Rate 02/17/25 14:50 02/17/25 14:55 02/17/25 14:55 Temperature Pulse Rate 60 Respiratory Rate 21 H Blood Pressure Pulse Oximetry 97 96 Oxygen Delivery Nasal Cannula Room Air Oxygen Flow Rate 1 02/17/25 16:00 02/17/25 16:00 02/17/25 16:00 Temperature 99.6 F Pulse Rate 60 60 Respiratory Rate 17 Blood Pressure 105/46 L Pulse Oximetry 94 94 Oxygen Delivery Room Air Oxygen Flow Rate 02/17/25 16:00 02/17/25 17:58 02/17/25 18:00 Temperature 99.5 F Pulse Rate 59 L 60 60 Respiratory Rate 20 21 H Blood Pressure 91/54 L 94/64 L Pulse Oximetry 94 96 Oxygen Delivery Oxygen Flow Rate 02/17/25 18:06 02/17/25 20:00 02/17/25 20:00 Temperature 100.0 F H 100.4 F H Pulse Rate 59 L 60 60 Respiratory Rate 22 H 26 H Blood Pressure 94/64 L 90/71 L Pulse Oximetry 94 94 Oxygen Delivery Oxygen Flow Rate 02/17/25 20:00 02/17/25 21:12 02/17/25 21:15 Temperature Pulse Rate 60 Respiratory Rate 21 H Blood Pressure Pulse Oximetry 94 97 Oxygen Delivery Room Air Room Air Oxygen Flow Rate 02/17/25 21:19 02/17/25 22:00 02/18/25 00:00 Temperature 100.9 F H 101.1 F H Pulse Rate 60 60 60 Respiratory Rate 21 H 30 H 33 H Blood Pressure 109/50 L 118/53 L Pulse Oximetry 95 93 Oxygen Delivery Oxygen Flow Rate 02/18/25 00:00 02/18/25 00:00 02/18/25 00:30 Temperature Pulse Rate 60 Respiratory Rate 22 H Blood Pressure Pulse Oximetry 93 Oxygen Delivery Room Air Oxygen Flow Rate 02/18/25 01:15 02/18/25 02:00 02/18/25 02:25 Temperature 100.9 F H 100.6 F H Pulse Rate 60 60 60 Respiratory Rate 28 H 26 H 21 H Blood Pressure 107/54 L 116/57 L Pulse Oximetry 95 96 Oxygen Delivery Oxygen Flow Rate 02/18/25 02:32 02/18/25 04:00 02/18/25 04:00 Temperature 100.1 F H Pulse Rate 60 60 60 Respiratory Rate 21 H 31 H Blood Pressure 129/89 Pulse Oximetry 99 Oxygen Delivery Oxygen Flow Rate 02/18/25 04:00 02/18/25 04:00 02/18/25 06:00 Temperature 100.1 F H 100.0 F H Pulse Rate 60 60 Respiratory Rate 31 H 27 H Blood Pressure 129/89 146/50 H Pulse Oximetry 99 99 91 Oxygen Delivery Room Air Oxygen Flow Rate 02/18/25 08:00 08/11/25 08:00 02/18/25 08:21 Temperature 100.1 F H Pulse Rate 60 60 60 Respiratory Rate 24 H 30 H Blood Pressure 124/58 L Pulse Oximetry 92 Oxygen Delivery Oxygen Flow Rate 02/18/25 08:29 02/18/25 10:00 02/18/25 10:00 Temperature 100.1 F H Pulse Rate 60 60 60 Respiratory Rate 29 H 25 H Blood Pressure 104/56 L Pulse Oximetry 93 Oxygen Delivery Oxygen Flow Rate 02/18/25 12:00 02/18/25 12:00 Temperature 100.7 F H Pulse Rate 60 60 Respiratory Rate 21 H Blood Pressure 126/88 Pulse Oximetry 94 Oxygen Delivery Oxygen Flow Rate Intake/Output Intake/Output: Intake & Output 02/15/25 02/16/25 02/17/25 02/18/25 23:59 23:59 23:59 23:59 Intake Total 1890 1008.3 1200 Output Total 1200 450 Balance 1890 -191.7 750 Meds/Results Medications: Active Medications Generic Name Dose Route Start Last Admin Trade Name Freq PRN Reason Stop Dose Admin Acetaminophen 650 mg 02/16/25 14:52 Acetaminophen 325 Mg Tablet PO Q4H PRN Mild Pain (1-3) or Fever Albuterol/Ipratropium 3 ml 02/17/25 08:45 02/18/25 08:21 Ipratropium 0.5 Mg/Albuterol Sulfate 2.5 Mg Ampul.Neb 3 Ml INHALATION 3 ml Q6HRT GET Administration Enoxaparin Sodium 40 mg 02/17/25 09:00 02/18/25 08:04 Enoxaparin 40 Mg/0.4 Ml Syringe SUB-Q 40 mg DAILY GET Administration Meropenem 1 gm/ Sodium 100 mls @ 200 mls/hr 02/17/25 10:30 02/18/25 09:41 Chloride IVPB Infused Q12HR GET Infusion Lactated Ringer's 1,000 mls @ 75 mls/hr 02/18/25 07:45 02/18/25 09:11 Lr - Lactated Ringers Iv IV CONT 02/18/25 14:24 75 mls/hr .[id number] GET Administration Pantoprazole Sodium 40 mg 02/18/25 09:00 02/18/25 08:05 Pantoprazole Sodium Iv 40 Mg Vial IV PUSH 40 mg QAM GET Administration Perflutren Lipid Microsphere 0 ml 02/17/25 04:59 Perflutren Lipid Microspheres 1.5 Ml Vial Diluted To 10 Ml Total Volume IV PUSH 02/20/25 05:00 ONCE PRN adequate visualization Protocol Rosuvastatin Calcium 10 mg 02/17/25 09:00 02/17/25 10:58 Rosuvastatin 10 Mg Tablet PO Not Given DAILY [facility] Radiology Results: ITS Impressions Head CT 02/16/25 14:17 IMPRESSION: No acute intracranial process. Chest X-Ray 02/17/25 07:35 IMPRESSION: 1. Persistent small lung volumes with opacities in the left mid and and bilateral lower lung zones and favor atelectasis/scarring over pneumonia. 2. Pancreatic parenchymal calcifications consistent with chronic pancreatitis. Abdomen Ultrasound 02/17/25 08:27 IMPRESSION: 1. Limited abdominal ultrasound demonstrating a fluid-filled loops of bowel in all 4 quadrants of the abdomen with minimal ascites in the right upper quadrant. 2. Gallbladder and liver are unremarkable with no evident intrahepatic biliary ductal dilation and nonvisualized common bile duct. Renal Ultrasound 02/17/25 14:03 IMPRESSION: 1. 2.7 cm right renal cyst. Otherwise normal kidneys with no hydronephrosis. Duplex Scan Lower Extremity Artery 02/18/25 07:36 Impression: 1: Focal 1.5 cm atherosclerotic plaque in the right common femoral artery without evidence of occlusion or significant stenosis. Otherwise normal bilateral lower extremity arterial duplex with triphasic flow throughout. Abdomen X-Ray 02/18/25 12:03 IMPRESSION: 1: NG tube tip in the stomach. Labs Labs: Laboratory Results - last 24 hr 02/17/25 02/18/25 02/18/25 23:22 03:35 05:47 WBC 10.2 H RBC 4.23 L Hgb 13.7 L Hct 42.0 MCV 99.3 MCH 32.4 MCHC 32.6 RDW 14.2 Plt Count 165 MPV 9.3 Immature Gran % (Auto) 0.6 H Neut % (Auto) 76.2 H Lymph % (Auto) 13.6 L [place] % (Auto) 9.3 H Eos % (Auto) 0.1 Baso % (Auto) 0.2 Lymph # (Auto) 1.39 [place] # (Auto) 1.0 H Eos # (Auto) 0.0 Baso # (Auto) 0.0 Abs Immat Gran (auto) 0.06 H Absolute Neuts (auto) 7.8 H Absolute Nucleated RBC 0.000 Nucleated RBC % 0.0 PT 16.3 H INR 1.3 APTT 30.5 Sodium 137 Potassium 3.6 Chloride 104 Carbon Dioxide 23 Anion Gap 10 BUN 23 H Creatinine 1.37 H Estim Creat Clear Calc 42 Estimated GFR 50 L Glucose 137 H POC Capillary Glucose 127 H Lactic Acid 3.8 H 4.5 H* Calcium 8.8 Phosphorus 2.5 Magnesium 2.2 Total Bilirubin 2.0 H AST 52 ALT 44 Alkaline Phosphatase 157 H Total Creatine Kinase 497 H Total Protein 7.1 Albumin 3.4 L Lipase 137 Quality VTE Prophylaxis VTE prophylaxis: pharmacologic ordered
[2025-02-19] VITALS (35 sets, daily range): BP systolic 90–152; BP diastolic 39–81; PULSE 44–464; RESP 16–60; TEMP 37.5–38.3; O2SAT 91–99
[2025-02-19] MEDS: IPRATROPIUM 0.5 MG/ALBUTEROL SULFATE 2.5 MG AMPUL.NEB 3 ML INHALATION ×5 (00:01→19:37)
[2025-02-19] MEDS: LIDOCAINE 1% PF INJ 5 ML VIAL XX (00:58)
--- NOTE | 2025-02-19 01:01 | PM.EVENT ---
Event Note Event Note Event Note: I was called by the [employer] TECHNICIAN taking care of Mr. Matute with a concern for persistent very harsh and uncontrolled cough that was present. Patient is NPO and has NG tube in place due to concern for ileus vs obstruction. He has been getting scheduled nebulizer treatments but the nurse wanted to give an additional neb due to cough and wheezing. There was also concern for aspiration of secretions. Ordered Duoneb which RT administered and atropine drops sublingual (since cannot use Robinol PO.) I received another call a while later with no change in patient condition. Ordered nebulized lidocaine 1%, total volume 5 mL. I went to evaluate patient and noted that cough has subsided and he was resting more comfortably. Ordered PRN nebulized lidocaine 1%, 3 mL q4h PRN.
[2025-02-19 03:39] LABS: Hematocrit 43.7 % (42.0-52.0); Hemoglobin 14.4 g/dL (14.0-18.0); Immature Granulocyte Percent A 0.4 % (0-0.5); Lymphocytes Absolute Auto 1.35 K/mm3 (0.9-3.2); Mean Corpuscular HGB Conc 33.0 g/dl (32-36); Mean Corpuscular Hemoglobin 32.6 pg (26-34); Mean Corpuscular Volume 98.9 fl (80-100); Nucleated Red Blood Cells Absolute Auto 0.000 K/mm3 (0.0-0.012); Nucleated Red Blood Cells Perc 0.0 % (0.0-0.2); Platelet Count Result 221 k/mm3 (150-375); Red Blood Count 4.42 M/mm3 (4.6-6.20); White Blood Count 11.1 K/mm3 (4.5-10.0)
[2025-02-19 04:14] LABS: Alanine Aminotransferase 38 U/L (6-50); Albumin Level 3.5 g/dL (3.5-5.1); Alkaline Phosphatase 152 U/L (38-126); Anion Gap 9 mmol/L (4-12); Aspartate Amino Transferase 54 U/L (17-59); Bilirubin,Total 1.7 mg/dL (0.2-1.3); Blood Urea Nitrogen 28 mg/dL (9-20); CRP 12.8 mg/dL (<1.0); Calcium 9.1 mg/dL (8.4-10.2); Carbon Dioxide 24 mmol/L (22-30); Chloride 108 mmol/L (98-107); Creatine Kinase 302 U/L (55-170); Estimated CRCL calculation 43 ml/min; Estimated Glomerular Filt Rate 50; Glucose 134 mg/dL (65-110); Lipase 69 U/L (23-300); Magnesium 2.4 mg/dL (1.6-2.3); Potassium 3.8 mmol/L (3.4-5.0); Sodium 141 mmol/L (137-145); Total Protein 7.3 g/dL (6.3-8.2)
[2025-02-19] MEDS: LIDOCAINE 1% PF INJ 5 ML VIAL 3 ML XX ×2 (06:54→17:10)
[2025-02-19] MEDS: PANTOPRAZOLE SODIUM IV 40 MG VIAL IV PUSH (08:13)
[2025-02-19] MEDS: ENOXAPARIN 40 MG/0.4 ML SYRINGE SUB-Q (08:13)
[2025-02-19] MEDS: MEROPENEM 1 GM in SODIUM CHLORIDE 0.9% IV 100 ML 200 ML IVPB ×2 (08:13→20:32)
--- NOTE | 2025-02-19 10:18 | PCPTNOTE ---
Pt continues to not be medically appropriate for safe participation in PT/OT. Dr. Palacios agreed to DC therapy orders until pt is medically stable to participate. Nursing aware.
--- NOTE | 2025-02-19 10:42 | P.PNGS_ITS ---
Progress Note: A&P Assessment and Plan (1) Acute perforated appendicitis: Code(s): K35.32 - Acute appendicitis with perforation, localized peritonitis, and gangrene, without abscess Status: Acute Assessment and Plan: * CT scan showed acute appendicitis, likely perforated with a few small non loculated fluid collections in the right lower quadrant. Patient is a poor surgical candidate. He is clinically improving with broad-spectrum IV antibiotics. Lactic acidosis resolved. WBC count 11,000 today. Will follow fevers. No signs of peritonitis on exam. * Continue IV meropenem and closely monitor with serial abdominal exams and labs for now (2) Small bowel obstruction: Code(s): K56.609 - Unspecified intestinal obstruction, unspecified as to partial versus complete obstruction Status: Acute Assessment and Plan: * CT scan yesterday showed no discrete transition point with mildly dilated small bowel, more likely an ileus secondary to the perforated appendicitis rather than a high-grade small-bowel obstruction. Will repeat KUB today to follow-up on the small-bowel series and evaluate for any contrast in the colon. (3) Sepsis: Code(s): A41.9 - Sepsis, unspecified organism Status: Acute Assessment and Plan: * Fever, tachypnea, leukocytosis, and lactic acidosis noted over the past 48 hours. Blood cultures from 02/16/2025 NGTD. Likely secondary to acute perforated appendicitis, see plan above. Blood pressure stable without any vasopressor requirements. * Continue IV meropenem (4) CHB (complete heart block): Code(s): I44.2 - Atrioventricular block, complete Status: Acute Assessment and Plan: * Temporary R IJ transvenous pacer in place. Cardiology eventually planning for permanent pacemaker. (5) Stage 3 chronic kidney disease: Code(s): N18.30 - Chronic kidney disease, stage 3 unspecified Status: Acute Plan Discussed patient's case and plan of care with Dr. De Jesus. Subjective Subjective Date/Time Seen: 02/19/25 10:42 Patient reports: bowel movement (Three bowel movements documented overnight and this morning) and fever (Still having fevers, T-max a 101? F around 2:00 a.m.) Interval history: Patient remains in the ICU. Blood pressure is stable and he is not on any vasopressors. Patient denies any abdominal pain. He is confused at baseline. No acute issues overnight per nursing. Lactic acid down to 1.9. WBC count 11,100 today. Exam Const: General: comfortable and no acute distress Orientation/consciousness: confusion GI: Inspection: distended GI Palp: Yes Soft to palpation and Yes Tenderness to palpation present (GI) (With Involuntary guarding in the right lower quadrant) Auscultation: absent bowel sounds and other (NG with thick bilious output) Objective Data Vital Signs Vital Signs: Vital Signs - 24 hr 02/18/25 12:00 02/18/25 12:00 02/18/25 13:58 Temperature 100.7 F H Pulse Rate 60 60 60 Respiratory Rate 21 H Blood Pressure 126/88 Pulse Oximetry 94 Oxygen Delivery Oxygen Flow Rate 02/18/25 14:00 02/18/25 14:30 02/18/25 16:00 Temperature 99.9 F H 99.8 F H Pulse Rate 62 60 Respiratory Rate 24 H 26 H Blood Pressure 130/70 Pulse Oximetry 93 Oxygen Delivery Oxygen Flow Rate 02/18/25 16:00 02/18/25 16:20 02/18/25 17:35 Temperature Pulse Rate 60 Respiratory Rate Blood Pressure 135/61 Pulse Oximetry 94 Oxygen Delivery Oxygen Flow Rate 02/18/25 18:00 02/18/25 18:00 02/18/25 19:41 Temperature 100.1 F H Pulse Rate 60 60 60 Respiratory Rate 24 H 42 H Blood Pressure 140/77 Pulse Oximetry 94 Oxygen Delivery Oxygen Flow Rate 02/18/25 19:48 02/18/25 19:49 02/18/25 20:00 Temperature 100.2 F H Pulse Rate 60 60 60 Respiratory Rate 42 H 30 H 26 H Blood Pressure 113/88 Pulse Oximetry 96 94 Oxygen Delivery Nasal Cannula Oxygen Flow Rate 2 02/18/25 20:00 02/18/25 20:00 02/18/25 22:00 Temperature Pulse Rate 60 60 Respiratory Rate Blood Pressure Pulse Oximetry 94 Oxygen Delivery Nasal Cannula Oxygen Flow Rate 2 02/18/25 22:00 02/18/25 22:00 02/19/25 00:00 Temperature 100.2 F H Pulse Rate 60 Respiratory Rate 45 H 32 H Blood Pressure 138/71 138/71 Pulse Oximetry 95 93 Oxygen Delivery Nasal Cannula Oxygen Flow Rate 2 02/19/25 00:00 02/19/25 00:00 02/19/25 00:02 Temperature 100.2 F H Pulse Rate 60 60 60 Respiratory Rate 21 H 24 H Blood Pressure 93/80 L Pulse Oximetry 99 Oxygen Delivery Oxygen Flow Rate 02/19/25 00:10 02/19/25 00:58 02/19/25 02:00 Temperature 101 F H Pulse Rate 95 60 60 Respiratory Rate 60 H 35 H 28 H Blood Pressure 132/61 Pulse Oximetry 93 Oxygen Delivery Oxygen Flow Rate 02/19/25 02:00 02/19/25 02:31 02/19/25 02:38 Temperature Pulse Rate 60 60 60 Respiratory Rate 28 H 24 H Blood Pressure Pulse Oximetry Oxygen Delivery Oxygen Flow Rate 02/19/25 03:00 02/19/25 04:00 02/19/25 04:00 Temperature 100.4 F H 99.9 F H Pulse Rate 60 60 Respiratory Rate 24 H Blood Pressure 152/77 H Pulse Oximetry 94 Oxygen Delivery Oxygen Flow Rate 02/19/25 04:00 02/19/25 06:00 02/19/25 06:00 Temperature 99.8 F H Pulse Rate 60 60 Respiratory Rate 23 H Blood Pressure 136/76 Pulse Oximetry 94 95 Oxygen Delivery Nasal Cannula Oxygen Flow Rate 2 02/19/25 06:56 02/19/25 07:06 02/19/25 08:29 Temperature Pulse Rate 60 60 Respiratory Rate 27 H 25 H Blood Pressure Pulse Oximetry 94 Oxygen Delivery Nasal Cannula Oxygen Flow Rate 2 02/19/25 08:29 02/19/25 08:38 Temperature Pulse Rate 60 60 Respiratory Rate 22 H 22 H Blood Pressure Pulse Oximetry Oxygen Delivery Oxygen Flow Rate Intake/Output Intake/Output: Intake & Output 02/16/25 02/17/25 02/18/25 02/19/25 23:59 23:59 23:59 23:59 Intake Total 1890 1008.3 2300 0 Output Total 1200 1400 275 Balance 1890 -191.7 900 -275 Meds/Results Medications: Active Medications Generic Name Dose Route Start Last Admin Trade Name Freq PRN Reason Stop Dose Admin Acetaminophen 650 mg 02/16/25 14:52 Acetaminophen 325 Mg Tablet PO Q4H PRN Mild Pain (1-3) or Fever Albuterol/Ipratropium 3 ml 02/17/25 08:45 02/19/25 08:28 Ipratropium 0.5 Mg/Albuterol Sulfate 2.5 Mg Ampul.Neb 3 Ml INHALATION 3 ml Q6HRT GET Administration Atropine Sulfate 1 drop 02/18/25 23:53 02/19/25 00:30 Atropine Sulfate 1% Ophth Soln 5 Ml Bottle SUBLINGUAL 1 drop Q4H PRN Administration Secretions Enoxaparin Sodium 40 mg 02/17/25 09:00 02/19/25 08:13 Enoxaparin 40 Mg/0.4 Ml Syringe SUB-Q 40 mg DAILY GET Administration Meropenem 1 gm/ Sodium 100 mls @ 200 mls/hr 02/17/25 10:30 02/19/25 08:13 Chloride IVPB 200 mls/hr Q12HR GET Administration Lidocaine HCl 3 ml 02/19/25 02:27 02/19/25 06:54 Lidocaine 1% Pf Inj 5 Ml Vial XX 3 ml Q4H PRN Administration COUGHING SPELLS Lorazepam 0.5 mg 02/18/25 19:08 Lorazepam Inj (*Crx) 2 Mg/Ml Vial IV PUSH ONCE PRN agitation Pantoprazole Sodium 40 mg 02/18/25 09:00 02/19/25 08:13 Pantoprazole Sodium Iv 40 Mg Vial IV PUSH 40 mg QAM GET Administration Perflutren Lipid Microsphere 0 ml 02/17/25 04:59 Perflutren Lipid Microspheres 1.5 Ml Vial Diluted To 10 Ml Total Volume IV PUSH 02/20/25 05:00 ONCE PRN adequate visualization Protocol Rosuvastatin Calcium 10 mg 02/17/25 09:00 02/17/25 10:58 Rosuvastatin 10 Mg Tablet PO Not Given DAILY GET Radiology Results: ITS Impressions Head CT 02/16/25 14:17 IMPRESSION: No acute intracranial process. Abdomen Ultrasound 02/17/25 08:27 IMPRESSION: 1. Limited abdominal ultrasound demonstrating a fluid-filled loops of bowel in all 4 quadrants of the abdomen with minimal ascites in the right upper quadrant. 2. Gallbladder and liver are unremarkable with no evident intrahepatic biliary ductal dilation and nonvisualized common bile duct. Renal Ultrasound 02/17/25 14:03 IMPRESSION: 1. 2.7 cm right renal cyst. Otherwise normal kidneys with no hydronephrosis. Duplex Scan Lower Extremity Artery 02/18/25 07:36 Impression: 1: Focal 1.5 cm atherosclerotic plaque in the right common femoral artery without evidence of occlusion or significant stenosis. Otherwise normal bilateral lower extremity arterial duplex with triphasic flow throughout. Abdomen/Pelvis CT 02/18/25 16:54 IMPRESSION: 1. Findings consistent with acute appendicitis, potentially ruptured given the prominence of the surrounding inflammatory stranding in the presence of a couple small nonloculated fluid collections in the right lower quadrant. Findings were discussed with Lela Meza, the nurse caring for the patient, at 5:06 PM. 2. Multiple mildly dilated loops of small bowel with slow progression of contrast on immediately prior small bowel follow-through study but without a discrete transition point and favor a secondary reactive ileus over a partial small bowel obstruction. 3. Small bilateral pleural effusions. Small Bowel X-Ray 02/18/25 23:14 IMPRESSION: Findings suggesting high-grade small bowel obstruction with lack of progression of oral contrast beyond the duodenal sweep for which dedicated CT examination will be performed. Chest X-Ray 02/19/25 05:31 Impression: 1: Left basilar airspace disease may represent atelectasis and/or pneumonia. Abdomen X-Ray 02/19/25 09:06 IMPRESSION: 1.Redemonstration of several air-filled loops of dilated small bowel similar to the study from February 18, 2025. 2.Nasogastric tube courses below the diaphragm, its tip projects over the left upper abdomen likely within the cardia of the stomach. Labs Labs: Laboratory Results - last 24 hr 02/18/25 02/19/25 23:33 03:33 WBC 11.1 H RBC 4.42 L Hgb 14.4 Hct 43.7 MCV 98.9 MCH 32.6 MCHC 33.0 RDW 14.1 Plt Count 221 MPV 9.2 Immature Gran % (Auto) 0.4 Neut % (Auto) 76.4 H Lymph % (Auto) 12.1 L [place] % (Auto) 10.6 H Eos % (Auto) 0.2 Baso % (Auto) 0.3 Lymph # (Auto) 1.35 [place] # (Auto) 1.2 H Eos # (Auto) 0.0 Baso # (Auto) 0.0 Abs Immat Gran (auto) 0.04 H Absolute Neuts (auto) 8.5 H Absolute Nucleated RBC 0.000 Nucleated RBC % 0.0 Sodium 141 Potassium 3.8 Chloride 108 H Carbon Dioxide 24 Anion Gap 9 BUN 28 H Creatinine 1.36 H Estim Creat Clear Calc 43 Estimated GFR 50 L Glucose 134 H POC Capillary Glucose 138 H Lactic Acid 1.9 Calcium 9.1 Phosphorus 3.1 Magnesium 2.4 H Total Bilirubin 1.7 H AST 54 ALT 38 Alkaline Phosphatase 152 H Total Creatine Kinase 302 H C-Reactive Protein 12.8 H Total Protein 7.3 Albumin 3.5 Lipase 69
--- NOTE | 2025-02-19 11:13 | P.PNNP_ITS ---
Progress Note: A&P Assessment and Plan (1) Acute kidney injury: Code(s): N17.9 - Acute kidney failure, unspecified Status: Acute Assessment and Plan: * as noted on admission * transiently improved * now elevated again but not as bad as on admission * suspect multifactorial etiology: * relative hypotension * heart block * prerenal factors (poor oral intake versus aortic stenosis versus combo of both?) * mild rhabdomyolysis * urinary retention * infection(?) * other (?) * evaluation to date noted: * urine electrolytes prerenal * renal ultrasound without obstruction * urine eosinophils negative * CPK trending down (but no high enough to affect kidney function) * ~ 1800mg of proteinuria * agree with gentle IVFs and IV albumin * follow trend of repeat labs and UOP (2) Stage 3a chronic kidney disease: Code(s): N18.31 - Chronic kidney disease, stage 3a Status: Chronic Assessment and Plan: * baseline creatinine runs ~ 0.9 - 1.3mg/dl * this causes him to fluctuate between CKD stage 2 and stage 3A * presumably due to vascular disease, CHF, aortic stenosis, and age-related change (3) CHB (complete heart block): Code(s): I44.2 - Atrioventricular block, complete Status: Acute Assessment and Plan: * as noted by events on 02/16 * s/p temporary venous pacemaker by Cardiology * holding all AV rosana blockers/agents * flecainide stopped as well * Cardiology following * possible need for PPM once more stable -- family no interested in pursuing this intervention... (4) Aortic stenosis, moderate: Code(s): I35.0 - Nonrheumatic aortic (valve) stenosis Status: Acute Assessment and Plan: * known history as noted by Echo in September 2022 * no intervention planned due to underlying dementia per family discussion * repeat Echo (02/18) noted: * left ventricular ejection fraction is visually estimated to be greaterthan 70% * right ventricle is normal in size and systolic function.; pacemaker lead in the right ventricle. * aortic valve is trileaflet and heavily calcified. There is severeaortic stenosis. SAMANTHA 0.7cm2 and previously 0.8cm2 * mild aortic regurgitation * mitral valve leaflets are poorly visualized and there appears to be significant mitral annular calcification however there does not appear to be any mitral stenosis by Doppler gradients (5) Small bowel obstruction: Code(s): K56.609 - Unspecified intestinal obstruction, unspecified as to partial versus complete obstruction Status: Acute Assessment and Plan: * suggested by abdominal obstructive series * NGT in place for decompression * bowel rest * gentle IVFs as tolerated * Surgery following with recommendations noted * CT of A/P noted: findings consistent with acute appendicitis, potentially ruptured given the prominence of the surrounding inflammatory stranding in the presence of a couple small nonloculated fluid collections in the right lower quadrant. * poor surgical candidate * continue current therapy (6) CHF (congestive heart failure): Code(s): I50.9 - Heart failure, unspecified Status: Acute Assessment and Plan: * known history of CHF * elevated proBNP * previous Echo noted * repeat Echo on this admission noted (see #4) * follow volume status closely (7) Liver enzyme elevation: Code(s): R74.8 - Abnormal levels of other serum enzymes Status: Acute Assessment and Plan: * noted with abdominal distension and RUQ tenderness * RUQ ultrasound negative for gallbladder/liver pathology * follow-up on hepatitis stidueis (8) Dementia: Qualifiers: Dementia behavioral disturbance: without behavioral disturbance D ementia type: unspecified type Qualified Code(s): F03.90 - Unspecified dementia without behavioral disturbance Code(s): F03.90 - Unspecified dementia, unspecified severity, without behavioral disturbance, psychotic disturbance, mood disturbance, and anxiety Status: Acute Assessment and Plan: * known history * baseline mental status not clear * follow mentation As per nursing, family considering moving patient to comfort care/hospice as they are leaning towards not pursuing a PPM placement in conjunction with the fact he now has a perforated appendicitis...alreayd DNR/DNI at this time. Will continue to follow. L Subjective Date/time seen: 02/19/25 11:13 Interval history: Follow-up for acute kidney injury/acute renal failure on chronic kidney disease. Renal function/creatinine about the same in the last 24 - 48 hours with reasonable urine output; results of CT of A/P noted with Surgery recommendations noted; per my discussion with nursing, family considering comfort care/hospice as they are not inclined to proceed with PPM placement. Exam 2 Narrative: General:elderly but WD/WN male in NAD Heart: normal S1 and S2; no rub Lungs: coarse and decreased at bases Abdomen: firm and distended; hypoactive bowel sounds Extremities: no cyanosis or clubbing; no edema Skin: warm and intact, + bruising noted Objective Data Vital Signs Vital Signs: Vital Signs Temp Pulse Resp BP Pulse Ox O2 Del Method O2 Flow Rate 02/19/25 10:00 99.5 F 60 22 H 115/55 L 92 02/19/25 08:38 60 22 H 02/19/25 08:29 60 22 H 02/19/25 08:29 94 Nasal Cannula 2 02/19/25 08:00 100.1 F H 60 21 H 146/81 H 92 02/19/25 08:00 60 24 H 93 Nasal Cannula 2 02/19/25 08:00 60 02/19/25 07:06 60 25 H 02/19/25 06:56 60 27 H 02/19/25 06:00 99.8 F H 60 23 H 136/76 95 02/19/25 06:00 60 02/19/25 04:00 94 Nasal Cannula 2 02/19/25 04:00 60 02/19/25 04:00 99.9 F H 60 24 H 152/77 H 94 02/19/25 03:00 100.4 F H 02/19/25 02:38 60 24 H 02/19/25 02:31 60 28 H 02/19/25 02:00 60 02/19/25 02:00 101 F H 60 28 H 132/61 93 02/19/25 00:58 60 35 H 02/19/25 00:10 95 60 H 02/19/25 00:02 60 24 H 02/19/25 00:00 60 02/19/25 00:00 100.2 F H 60 21 H 93/80 L 99 02/19/25 00:00 93 Nasal Cannula 2 02/18/25 22:00 32 H 138/71 02/18/25 22:00 100.2 F H 60 45 H 138/71 95 02/18/25 22:00 60 02/18/25 20:00 60 02/18/25 20:00 94 Nasal Cannula 2 02/18/25 20:00 100.2 F H 60 26 H 113/88 94 02/18/25 19:49 60 30 H 02/18/25 19:48 60 42 H 96 Nasal Cannula 2 02/18/25 19:41 60 42 H Intake/Output Intake/Output: Intake & Output 02/16/25 02/17/25 02/18/25 02/19/25 23:59 23:59 23:59 23:59 Intake Total 1890 1008.3 2300 100 Output Total 1200 1400 875 Balance 1890 -191.7 900 -775 Meds/Results Medications: Active Medications Generic Name Dose Route Start Last Admin Trade Name Freq PRN Reason Stop Dose Admin Acetaminophen 650 mg 02/16/25 14:52 Acetaminophen 325 Mg Tablet PO Q4H PRN Mild Pain (1-3) or Fever Albuterol/Ipratropium 3 ml 02/17/25 08:45 02/19/25 13:45 Ipratropium 0.5 Mg/Albuterol Sulfate 2.5 Mg Ampul.Neb 3 Ml INHALATION 3 ml Q6HRT GET Administration Atropine Sulfate 1 drop 02/18/25 23:53 02/19/25 00:30 Atropine Sulfate 1% Ophth Soln 5 Ml Bottle SUBLINGUAL 1 drop Q4H PRN Administration Secretions Enoxaparin Sodium 40 mg 02/17/25 09:00 02/19/25 08:13 Enoxaparin 40 Mg/0.4 Ml Syringe SUB-Q 40 mg DAILY GET Administration Meropenem 1 gm/ Sodium 100 mls @ 200 mls/hr 02/17/25 10:30 02/19/25 08:43 Chloride IVPB Infused Q12HR GET Infusion Lidocaine HCl 3 ml 02/19/25 02:27 02/19/25 17:10 Lidocaine 1% Pf Inj 5 Ml Vial XX 3 ml Q4H PRN Administration COUGHING SPELLS Lorazepam 0.5 mg 02/18/25 19:08 Lorazepam Inj (*Crx) 2 Mg/Ml Vial IV PUSH ONCE PRN agitation Pantoprazole Sodium 40 mg 02/18/25 09:00 02/19/25 08:13 Pantoprazole Sodium Iv 40 Mg Vial IV PUSH 40 mg QAM GET Administration Perflutren Lipid Microsphere 0 ml 02/17/25 04:59 Perflutren Lipid Microspheres 1.5 Ml Vial Diluted To 10 Ml Total Volume IV PUSH 02/20/25 05:00 ONCE PRN adequate visualization Protocol Rosuvastatin Calcium 10 mg 02/17/25 09:00 02/17/25 10:58 Rosuvastatin 10 Mg Tablet PO Not Given DAILY GET Radiology Results: ITS Impressions Head CT 02/16/25 14:17 IMPRESSION: No acute intracranial process. Abdomen Ultrasound 02/17/25 08:27 IMPRESSION: 1. Limited abdominal ultrasound demonstrating a fluid-filled loops of bowel in all 4 quadrants of the abdomen with minimal ascites in the right upper quadrant. 2. Gallbladder and liver are unremarkable with no evident intrahepatic biliary ductal dilation and nonvisualized common bile duct. Renal Ultrasound 02/17/25 14:03 IMPRESSION: 1. 2.7 cm right renal cyst. Otherwise normal kidneys with no hydronephrosis. Duplex Scan Lower Extremity Artery 02/18/25 07:36 Impression: 1: Focal 1.5 cm atherosclerotic plaque in the right common femoral artery without evidence of occlusion or significant stenosis. Otherwise normal bilateral lower extremity arterial duplex with triphasic flow throughout. Abdomen/Pelvis CT 02/18/25 16:54 IMPRESSION: 1. Findings consistent with acute appendicitis, potentially ruptured given the prominence of the surrounding inflammatory stranding in the presence of a couple small nonloculated fluid collections in the right lower quadrant. Findings were discussed with Lela Meza, the nurse caring for the patient, at 5:06 PM. 2. Multiple mildly dilated loops of small bowel with slow progression of contrast on immediately prior small bowel follow-through study but without a discrete transition point and favor a secondary reactive ileus over a partial small bowel obstruction. 3. Small bilateral pleural effusions. Small Bowel X-Ray 02/18/25 23:14 IMPRESSION: Findings suggesting high-grade small bowel obstruction with lack of progression of oral contrast beyond the duodenal sweep for which dedicated CT examination will be performed. Chest X-Ray 02/19/25 05:31 Impression: 1: Left basilar airspace disease may represent atelectasis and/or pneumonia. Abdomen X-Ray 02/19/25 09:06 IMPRESSION: 1.Redemonstration of several air-filled loops of dilated small bowel similar to the study from February 18, 2025. 2.Nasogastric tube courses below the diaphragm, its tip projects over the left upper abdomen likely within the cardia of the stomach. Labs Labs: Laboratory Tests 02/19/25 03:33 02/19/25 03:33 Lactic Acid 1.9 Calcium 9.1 Phosphorus 3.1 Magnesium 2.4 H Total Bilirubin 1.7 H AST 54 ALT 38 Alkaline Phosphatase 152 H Total Creatine Kinase 302 H C-Reactive Protein 12.8 H Total Protein 7.3 Albumin 3.5 Lipase 69 Microbiology 02/16/25 13:57 Blood Blood Culture - Preliminary 02/16/25 13:57 Blood Blood Culture - Preliminary
--- NOTE | 2025-02-19 12:06 | P.PNCA_ITS ---
Progress Note: A&P Assessment and Plan (1) Aortic stenosis: Code(s): I35.0 - Nonrheumatic aortic (valve) stenosis Status: Acute (2) Atrial fibrillation: Qualifiers: Atrial fibrillation type: unspecified Qualified Code(s): I48.91 - Unspecified atrial fibrillation Code(s): I48.91 - Unspecified atrial fibrillation Status: Acute (3) CHB (complete heart block): Code(s): I44.2 - Atrioventricular block, complete Status: Acute Plan 85-year-old man who is a patient of Dr. Kirkpatrick with severe aortic stenosis, chronic diastolic heart failure, advanced dementia, paroxysmal atrial fibrillation, and chronic kidney disease stage IIIA presented with generalized weakness who was found to have a 2nd pause followed by sinus rhythm with complete heart block for which a TVP was placed Sinus rhythm with complete heart block -pacer dependent without intrinsic escape rhythm and backup rate turned to 30 beats per minute -have discussed with family the idea of pacemaker should he recover from his small-bowel obstruction/appendicitis and they have agreed to proceed forward -we will plan for pacemaker implantation once he has recovered from his appendicitis and he is close to being ready for discharge; Dr. Medley will follow patient tomorrow Severe aortic stenosis -per records, it was decided by family that they would not proceed for with interventions given the patient's advanced dementia -mild worsening of aortic valve area from 0.8cm2 to 0.7cm2 -no episodes of syncope Paroxysmal atrial fibrillation -not on anticoagulation secondary to frequent falls -previously on flecainide which will be discontinued permanently Subjective Date/time seen: 02/19/25 12:06 Interval history: Is drowsy today sleeping. No new complaints. Review of Systems Cardiovascular: Cardiovascular: Reports as per HPI Respiratory: Respiratory: Reports as per HPI Exam Const: General: no acute distress HENMT: Mouth: Yes moist mucous membranes Neck: Neck: no JVD Resp: Effort & Inspection: normal respiratory effort Auscultation: clear to auscultation bilaterally Cardio: Rate: regular rate Rhythm: regular rhythm Heart sounds: Murmur heart sound present GI: Inspection: distended Extrem: General: no pedal edema Objective Data Vital Signs Vital Signs: Vital Signs - 24 hr 02/18/25 13:58 02/18/25 14:00 02/18/25 14:30 Temperature 37.7 C H Pulse Rate 60 62 Respiratory Rate 24 H Blood Pressure 130/70 Pulse Oximetry 93 Oxygen Delivery Oxygen Flow Rate 02/18/25 16:00 02/18/25 16:00 02/18/25 16:20 Temperature 37.7 C H Pulse Rate 60 60 Respiratory Rate 26 H Blood Pressure 135/61 Pulse Oximetry Oxygen Delivery Oxygen Flow Rate 02/18/25 17:35 02/18/25 18:00 02/18/25 18:00 Temperature 37.8 C H Pulse Rate 60 60 Respiratory Rate 24 H Blood Pressure 140/77 Pulse Oximetry 94 94 Oxygen Delivery Oxygen Flow Rate 02/18/25 19:41 02/18/25 19:48 02/18/25 19:49 Temperature Pulse Rate 60 60 60 Respiratory Rate 42 H 42 H 30 H Blood Pressure Pulse Oximetry 96 Oxygen Delivery Nasal Cannula Oxygen Flow Rate 2 02/18/25 20:00 02/18/25 20:00 02/18/25 20:00 Temperature 37.9 C H Pulse Rate 60 60 Respiratory Rate 26 H Blood Pressure 113/88 Pulse Oximetry 94 94 Oxygen Delivery Nasal Cannula Oxygen Flow Rate 2 02/18/25 22:00 02/18/25 22:00 02/18/25 22:00 Temperature 37.9 C H Pulse Rate 60 60 Respiratory Rate 45 H 32 H Blood Pressure 138/71 138/71 Pulse Oximetry 95 Oxygen Delivery Oxygen Flow Rate 02/19/25 00:00 02/19/25 00:00 02/19/25 00:00 Temperature 37.9 C H Pulse Rate 60 60 Respiratory Rate 21 H Blood Pressure 93/80 L Pulse Oximetry 93 99 Oxygen Delivery Nasal Cannula Oxygen Flow Rate 2 02/19/25 00:02 02/19/25 00:10 02/19/25 00:58 Temperature Pulse Rate 60 95 60 Respiratory Rate 24 H 60 H 35 H Blood Pressure Pulse Oximetry Oxygen Delivery Oxygen Flow Rate 02/19/25 02:00 02/19/25 02:00 02/19/25 02:31 Temperature 38.3 C H Pulse Rate 60 60 60 Respiratory Rate 28 H 28 H Blood Pressure 132/61 Pulse Oximetry 93 Oxygen Delivery Oxygen Flow Rate 02/19/25 02:38 02/19/25 03:00 02/19/25 04:00 Temperature 38.0 C H 37.7 C H Pulse Rate 60 60 Respiratory Rate 24 H 24 H Blood Pressure 152/77 H Pulse Oximetry 94 Oxygen Delivery Oxygen Flow Rate 02/19/25 04:00 02/19/25 04:00 02/19/25 06:00 Temperature Pulse Rate 60 60 Respiratory Rate Blood Pressure Pulse Oximetry 94 Oxygen Delivery Nasal Cannula Oxygen Flow Rate 2 02/19/25 06:00 02/19/25 06:56 02/19/25 07:06 Temperature 37.7 C H Pulse Rate 60 60 60 Respiratory Rate 23 H 27 H 25 H Blood Pressure 136/76 Pulse Oximetry 95 Oxygen Delivery Oxygen Flow Rate 02/19/25 08:00 02/19/25 08:00 02/19/25 08:00 Temperature 37.8 C H Pulse Rate 60 60 Respiratory Rate 21 H Blood Pressure 146/81 H Pulse Oximetry 60 L 92 Oxygen Delivery Nasal Cannula Oxygen Flow Rate 2 02/19/25 08:29 02/19/25 08:29 02/19/25 08:38 Temperature Pulse Rate 60 60 Respiratory Rate 22 H 22 H Blood Pressure Pulse Oximetry 94 Oxygen Delivery Nasal Cannula Oxygen Flow Rate 2 02/19/25 10:00 02/19/25 10:00 Temperature 37.5 C Pulse Rate 60 60 Respiratory Rate 22 H Blood Pressure 115/55 L Pulse Oximetry 92 Oxygen Delivery Oxygen Flow Rate Intake/Output Intake/Output: Intake & Output 02/16/25 02/17/25 02/18/25 02/19/25 23:59 23:59 23:59 23:59 Intake Total 1890 1008.3 2300 100 Output Total 1200 1400 275 Balance 1890 -191.7 900 -175 Meds/Results Medications: Active Medications Generic Name Dose Route Start Last Admin Trade Name Arnulfoq PRN Reason Stop Dose Admin Acetaminophen 650 mg 02/16/25 14:52 Acetaminophen 325 Mg Tablet PO Q4H PRN Mild Pain (1-3) or Fever Albuterol/Ipratropium 3 ml 02/17/25 08:45 02/19/25 08:28 Ipratropium 0.5 Mg/Albuterol Sulfate 2.5 Mg Ampul.Neb 3 Ml INHALATION 3 ml Q6HRT GET Administration Atropine Sulfate 1 drop 02/18/25 23:53 02/19/25 00:30 Atropine Sulfate 1% Ophth Soln 5 Ml Bottle SUBLINGUAL 1 drop Q4H PRN Administration Secretions Enoxaparin Sodium 40 mg 02/17/25 09:00 02/19/25 08:13 Enoxaparin 40 Mg/0.4 Ml Syringe SUB-Q 40 mg DAILY GET Administration Meropenem 1 gm/ Sodium 100 mls @ 200 mls/hr 02/17/25 10:30 02/19/25 08:43 Chloride IVPB Infused Q12HR GET Infusion Lidocaine HCl 3 ml 02/19/25 02:27 02/19/25 06:54 Lidocaine 1% Pf Inj 5 Ml Vial XX 3 ml Q4H PRN Administration COUGHING SPELLS Lorazepam 0.5 mg 02/18/25 19:08 Lorazepam Inj (*Crx) 2 Mg/Ml Vial IV PUSH ONCE PRN agitation Pantoprazole Sodium 40 mg 02/18/25 09:00 02/19/25 08:13 Pantoprazole Sodium Iv 40 Mg Vial IV PUSH 40 mg QAM GET Administration Perflutren Lipid Microsphere 0 ml 02/17/25 04:59 Perflutren Lipid Microspheres 1.5 Ml Vial Diluted To 10 Ml Total Volume IV PUSH 02/20/25 05:00 ONCE PRN adequate visualization Protocol Rosuvastatin Calcium 10 mg 02/17/25 09:00 02/17/25 10:58 Rosuvastatin 10 Mg Tablet PO Not Given DAILY GET Radiology Results: ITS Impressions Head CT 02/16/25 14:17 IMPRESSION: No acute intracranial process. Abdomen Ultrasound 02/17/25 08:27 IMPRESSION: 1. Limited abdominal ultrasound demonstrating a fluid-filled loops of bowel in all 4 quadrants of the abdomen with minimal ascites in the right upper quadrant. 2. Gallbladder and liver are unremarkable with no evident intrahepatic biliary ductal dilation and nonvisualized common bile duct. Renal Ultrasound 02/17/25 14:03 IMPRESSION: 1. 2.7 cm right renal cyst. Otherwise normal kidneys with no hydronephrosis. Duplex Scan Lower Extremity Artery 02/18/25 07:36 Impression: 1: Focal 1.5 cm atherosclerotic plaque in the right common femoral artery without evidence of occlusion or significant stenosis. Otherwise normal bilateral lower extremity arterial duplex with triphasic flow throughout. Abdomen/Pelvis CT 02/18/25 16:54 IMPRESSION: 1. Findings consistent with acute appendicitis, potentially ruptured given the prominence of the surrounding inflammatory stranding in the presence of a couple small nonloculated fluid collections in the right lower quadrant. Findings were discussed with Lela Meza, the nurse caring for the patient, at 5:06 PM. 2. Multiple mildly dilated loops of small bowel with slow progression of contrast on immediately prior small bowel follow-through study but without a discrete transition point and favor a secondary reactive ileus over a partial small bowel obstruction. 3. Small bilateral pleural effusions. Small Bowel X-Ray 02/18/25 23:14 IMPRESSION: Findings suggesting high-grade small bowel obstruction with lack of progression of oral contrast beyond the duodenal sweep for which dedicated CT examination will be performed. Chest X-Ray 02/19/25 05:31 Impression: 1: Left basilar airspace disease may represent atelectasis and/or pneumonia. Abdomen X-Ray 02/19/25 09:06 IMPRESSION: 1.Redemonstration of several air-filled loops of dilated small bowel similar to the study from February 18, 2025. 2.Nasogastric tube courses below the diaphragm, its tip projects over the left upper abdomen likely within the cardia of the stomach. Labs Labs: Laboratory Results - last 24 hr 02/18/25 02/19/25 23:33 03:33 WBC 11.1 H RBC 4.42 L Hgb 14.4 Hct 43.7 MCV 98.9 MCH 32.6 MCHC 33.0 RDW 14.1 Plt Count 221 MPV 9.2 Immature Gran % (Auto) 0.4 Neut % (Auto) 76.4 H Lymph % (Auto) 12.1 L [place] % (Auto) 10.6 H Eos % (Auto) 0.2 Baso % (Auto) 0.3 Lymph # (Auto) 1.35 [place] # (Auto) 1.2 H Eos # (Auto) 0.0 Baso # (Auto) 0.0 Abs Immat Gran (auto) 0.04 H Absolute Neuts (auto) 8.5 H Absolute Nucleated RBC 0.000 Nucleated RBC % 0.0 Sodium 141 Potassium 3.8 Chloride 108 H Carbon Dioxide 24 Anion Gap 9 BUN 28 H Creatinine 1.36 H Estim Creat Clear Calc 43 Estimated GFR 50 L Glucose 134 H POC Capillary Glucose 138 H Lactic Acid 1.9 Calcium 9.1 Phosphorus 3.1 Magnesium 2.4 H Total Bilirubin 1.7 H AST 54 ALT 38 Alkaline Phosphatase 152 H Total Creatine Kinase 302 H C-Reactive Protein 12.8 H Total Protein 7.3 Albumin 3.5 Lipase 69
[2025-02-19 13:08] LABS: ANA by IFA Rfx Titer/Pattern Negative (.)
--- NOTE | 2025-02-19 13:08 | PM.PNCARD ---
Progress Note: A&P Assessment and Plan (1) CHB (complete heart block): Code(s): I44.2 - Atrioventricular block, complete Status: Acute Plan 85-year-old man with high-grade AV block, symptomatic bradycardia but also with advanced dementia and critical aortic valve disease for which they have declined surgical treatment. It would be my recommendation to avoid device implantation in this situation and choose end of life care/hospice care etc.. Obviously implanting a pacemaker device will not improve his dementia nor have any impact on his critical aortic valve stenosis. I did indicate to his that if she felt otherwise in wished a pacemaker to be implanted I am willing to proceed with that. I indicated to her that we need to have a decision made this afternoon regarding this so I can make that preparations for procedure tomorrow morning if that is going to occur. If they decline pacemaker implant then the temporary wire should be removed from the right IJ and he will be treated conservatively. The patient already has DNR status on his chart which obviously is appropriate Jorge Medley MD [facility] Subjective Date/time seen: Date of service: 02/19/25 13:08 Interval history: Follow-up visit in this 85-year-old man with: critical aortic valve stenosis and advanced dementia. Patient is followed by my partner and has made the decision not to pursue aortic valve replacement because of comorbidities especially advanced dementia. He presents to the hospital with weakness and has been found to be in high-grade AV block. A temporary pacemaker has been placed over the weekend from the right IJ. I am seeing the patient now to discuss the option/advisability of implanting a permanent pacemaker device. Had a long conversation with the patient's who is medical power of business attorney. Exam Const: General: comfortable and no acute distress Other: Able to lie flat HENMT: Face/Nose/Sinus: Normal nares present and no epistaxis Mouth: Yes moist mucous membranes Eyes: Sclera: sclerae normal Pupils: Equal, round and reactive pupils present EOM: EOMs intact bilaterally Neck: Neck: supple and no JVD Carotids: no bruits Other: TV P via the jugular vein Resp: Effort & Inspection: normal respiratory effort Auscultation: clear to auscultation bilaterally and lung sounds not diminished Other: No chest wall tenderness Cardio: Rate: regular rate Rhythm: regular rhythm Heart sounds: no gallops, Murmur heart sound present and no rubs GI: Inspection: distended Auscultation: normal bowel sounds Skin: General skin exam: normal color, rashes and/or lesions noted and no erythema Other: Warm Neuro: Cranial nerves: Yes Equal, round and reactive pupils present Speech: normal speech Other: No obvious focal deficit or facial asymmetry Extrem: General: no edema and no pedal edema Other: Normal capillary refills Intact distal pulses. Objective Data Vital Signs Vital Signs: Vital Signs - 24 hr 02/18/25 13:58 02/18/25 14:00 02/18/25 14:30 Temperature 37.7 C H Pulse Rate 60 62 Respiratory Rate 24 H Blood Pressure 130/70 Pulse Oximetry 93 Oxygen Delivery Oxygen Flow Rate 02/18/25 16:00 02/18/25 16:00 02/18/25 16:20 Temperature 37.7 C H Pulse Rate 60 60 Respiratory Rate 26 H Blood Pressure 135/61 Pulse Oximetry Oxygen Delivery Oxygen Flow Rate 02/18/25 17:35 02/18/25 18:00 02/18/25 18:00 Temperature 37.8 C H Pulse Rate 60 60 Respiratory Rate 24 H Blood Pressure 140/77 Pulse Oximetry 94 94 Oxygen Delivery Oxygen Flow Rate 02/18/25 19:41 02/18/25 19:48 02/18/25 19:49 Temperature Pulse Rate 60 60 60 Respiratory Rate 42 H 42 H 30 H Blood Pressure Pulse Oximetry 96 Oxygen Delivery Nasal Cannula Oxygen Flow Rate 2 02/18/25 20:00 02/18/25 20:00 02/18/25 20:00 Temperature 37.9 C H Pulse Rate 60 60 Respiratory Rate 26 H Blood Pressure 113/88 Pulse Oximetry 94 94 Oxygen Delivery Nasal Cannula Oxygen Flow Rate 2 02/18/25 22:00 02/18/25 22:00 02/18/25 22:00 Temperature 37.9 C H Pulse Rate 60 60 Respiratory Rate 45 H 32 H Blood Pressure 138/71 138/71 Pulse Oximetry 95 Oxygen Delivery Oxygen Flow Rate 02/19/25 00:00 02/19/25 00:00 02/19/25 00:00 Temperature 37.9 C H Pulse Rate 60 60 Respiratory Rate 21 H Blood Pressure 93/80 L Pulse Oximetry 93 99 Oxygen Delivery Nasal Cannula Oxygen Flow Rate 2 02/19/25 00:02 02/19/25 00:10 02/19/25 00:58 Temperature Pulse Rate 60 95 60 Respiratory Rate 24 H 60 H 35 H Blood Pressure Pulse Oximetry Oxygen Delivery Oxygen Flow Rate 02/19/25 02:00 02/19/25 02:00 02/19/25 02:31 Temperature 38.3 C H Pulse Rate 60 60 60 Respiratory Rate 28 H 28 H Blood Pressure 132/61 Pulse Oximetry 93 Oxygen Delivery Oxygen Flow Rate 02/19/25 02:38 02/19/25 03:00 02/19/25 04:00 Temperature 38.0 C H 37.7 C H Pulse Rate 60 60 Respiratory Rate 24 H 24 H Blood Pressure 152/77 H Pulse Oximetry 94 Oxygen Delivery Oxygen Flow Rate 02/19/25 04:00 02/19/25 04:00 02/19/25 06:00 Temperature Pulse Rate 60 60 Respiratory Rate Blood Pressure Pulse Oximetry 94 Oxygen Delivery Nasal Cannula Oxygen Flow Rate 2 02/19/25 06:00 02/19/25 06:56 02/19/25 07:06 Temperature 37.7 C H Pulse Rate 60 60 60 Respiratory Rate 23 H 27 H 25 H Blood Pressure 136/76 Pulse Oximetry 95 Oxygen Delivery Oxygen Flow Rate 02/19/25 08:00 02/19/25 08:00 02/19/25 08:00 Temperature 37.8 C H Pulse Rate 60 60 60 Respiratory Rate 24 H 21 H Blood Pressure 146/81 H Pulse Oximetry 93 92 Oxygen Delivery Nasal Cannula Oxygen Flow Rate 2 02/19/25 08:29 02/19/25 08:29 02/19/25 08:38 Temperature Pulse Rate 60 60 Respiratory Rate 22 H 22 H Blood Pressure Pulse Oximetry 94 Oxygen Delivery Nasal Cannula Oxygen Flow Rate 2 02/19/25 10:00 02/19/25 10:00 02/19/25 12:00 Temperature 37.5 C 37.5 C Pulse Rate 60 60 60 Respiratory Rate 22 H Blood Pressure 115/55 L 104/77 Pulse Oximetry 92 93 Oxygen Delivery Oxygen Flow Rate 02/19/25 12:00 Temperature Pulse Rate 60 Respiratory Rate 22 H Blood Pressure Pulse Oximetry 95 Oxygen Delivery Nasal Cannula Oxygen Flow Rate 2 Intake/Output Intake/Output: Intake & Output 02/16/25 02/17/25 02/18/25 02/19/25 23:59 23:59 23:59 23:59 Intake Total 1890 1008.3 2300 100 Output Total 1200 1400 275 Balance 1890 -191.7 900 -175 Meds/Results Medications: Active Medications Generic Name Dose Route Start Last Admin Trade Name Freq PRN Reason Stop Dose Admin Acetaminophen 650 mg 02/16/25 14:52 Acetaminophen 325 Mg Tablet PO Q4H PRN Mild Pain (1-3) or Fever Albuterol/Ipratropium 3 ml 02/17/25 08:45 02/19/25 08:28 Ipratropium 0.5 Mg/Albuterol Sulfate 2.5 Mg Ampul.Neb 3 Ml INHALATION 3 ml Q6HRT GET Administration Atropine Sulfate 1 drop 02/18/25 23:53 02/19/25 00:30 Atropine Sulfate 1% Ophth Soln 5 Ml Bottle SUBLINGUAL 1 drop Q4H PRN Administration Secretions Enoxaparin Sodium 40 mg 02/17/25 09:00 02/19/25 08:13 Enoxaparin 40 Mg/0.4 Ml Syringe SUB-Q 40 mg DAILY GET Administration Meropenem 1 gm/ Sodium 100 mls @ 200 mls/hr 02/17/25 10:30 02/19/25 08:43 Chloride IVPB Infused Q12HR GET Infusion Lidocaine HCl 3 ml 02/19/25 02:27 02/19/25 06:54 Lidocaine 1% Pf Inj 5 Ml Vial XX 3 ml Q4H PRN Administration COUGHING SPELLS Lorazepam 0.5 mg 02/18/25 19:08 Lorazepam Inj (*Crx) 2 Mg/Ml Vial IV PUSH ONCE PRN agitation Pantoprazole Sodium 40 mg 02/18/25 09:00 02/19/25 08:13 Pantoprazole Sodium Iv 40 Mg Vial IV PUSH 40 mg QAM GET Administration Perflutren Lipid Microsphere 0 ml 02/17/25 04:59 Perflutren Lipid Microspheres 1.5 Ml Vial Diluted To 10 Ml Total Volume IV PUSH 02/20/25 05:00 ONCE PRN adequate visualization Protocol Rosuvastatin Calcium 10 mg 02/17/25 09:00 02/17/25 10:58 Rosuvastatin 10 Mg Tablet PO Not Given DAILY GET Radiology Results: ITS Impressions Head CT 02/16/25 14:17 IMPRESSION: No acute intracranial process. Abdomen Ultrasound 02/17/25 08:27 IMPRESSION: 1. Limited abdominal ultrasound demonstrating a fluid-filled loops of bowel in all 4 quadrants of the abdomen with minimal ascites in the right upper quadrant. 2. Gallbladder and liver are unremarkable with no evident intrahepatic biliary ductal dilation and nonvisualized common bile duct. Renal Ultrasound 02/17/25 14:03 IMPRESSION: 1. 2.7 cm right renal cyst. Otherwise normal kidneys with no hydronephrosis. Duplex Scan Lower Extremity Artery 02/18/25 07:36 Impression: 1: Focal 1.5 cm atherosclerotic plaque in the right common femoral artery without evidence of occlusion or significant stenosis. Otherwise normal bilateral lower extremity arterial duplex with triphasic flow throughout. Abdomen/Pelvis CT 02/18/25 16:54 IMPRESSION: 1. Findings consistent with acute appendicitis, potentially ruptured given the prominence of the surrounding inflammatory stranding in the presence of a couple small nonloculated fluid collections in the right lower quadrant. Findings were discussed with Lela Meza, the nurse caring for the patient, at 5:06 PM. 2. Multiple mildly dilated loops of small bowel with slow progression of contrast on immediately prior small bowel follow-through study but without a discrete transition point and favor a secondary reactive ileus over a partial small bowel obstruction. 3. Small bilateral pleural effusions. Small Bowel X-Ray 02/18/25 23:14 IMPRESSION: Findings suggesting high-grade small bowel obstruction with lack of progression of oral contrast beyond the duodenal sweep for which dedicated CT examination will be performed. Chest X-Ray 02/19/25 05:31 Impression: 1: Left basilar airspace disease may represent atelectasis and/or pneumonia. Abdomen X-Ray 02/19/25 09:06 IMPRESSION: 1.Redemonstration of several air-filled loops of dilated small bowel similar to the study from February 18, 2025. 2.Nasogastric tube courses below the diaphragm, its tip projects over the left upper abdomen likely within the cardia of the stomach. Labs Labs: Laboratory Results - last 24 hr 02/18/25 02/19/25 02/19/25 23:33 03:33 12:36 WBC 11.1 H RBC 4.42 L Hgb 14.4 Hct 43.7 MCV 98.9 MCH 32.6 MCHC 33.0 RDW 14.1 Plt Count 221 MPV 9.2 Immature Gran % (Auto) 0.4 Neut % (Auto) 76.4 H Lymph % (Auto) 12.1 L [place] % (Auto) 10.6 H Eos % (Auto) 0.2 Baso % (Auto) 0.3 Lymph # (Auto) 1.35 [place] # (Auto) 1.2 H Eos # (Auto) 0.0 Baso # (Auto) 0.0 Abs Immat Gran (auto) 0.04 H Absolute Neuts (auto) 8.5 H Absolute Nucleated RBC 0.000 Nucleated RBC % 0.0 Sodium 141 Potassium 3.8 Chloride 108 H Carbon Dioxide 24 Anion Gap 9 BUN 28 H Creatinine 1.36 H Estim Creat Clear Calc 43 Estimated GFR 50 L Glucose 134 H POC Capillary Glucose 138 H 143 H Lactic Acid 1.9 Calcium 9.1 Phosphorus 3.1 Magnesium 2.4 H Total Bilirubin 1.7 H AST 54 ALT 38 Alkaline Phosphatase 152 H Total Creatine Kinase 302 H C-Reactive Protein 12.8 H Total Protein 7.3 Albumin 3.5 Lipase 69
--- NOTE | 2025-02-19 13:40 | P.PNINT_ITS ---
Progress Note: A&P Assessment and Plan (1) Small bowel obstruction: Code(s): K56.609 - Unspecified intestinal obstruction, unspecified as to partial versus complete obstruction Status: Acute Assessment and Plan: Patient with distended abdomen obstructive series showed small-bowel obstruction -bowel rest, NG tube decompression, gentle IV fluid hydration -surgeries aware of the possible acute appendicitis with rupture, not a surgical candidate at this time, continue to move monitor and treat with antibiotics 02/18/2025: CT scan of the abdomen and pelvis without contrast IMPRESSION: 1. Findings consistent with acute appendicitis, potentially ruptured given the prominence of the surrounding inflammatory stranding in the presence of a couple small nonloculated fluid collections in the right lower quadrant. Findings were discussed with Lela Meza, the nurse caring for the patient, at 5:06 PM. 2. Multiple mildly dilated loops of small bowel with slow progression of contrast on immediately prior small bowel follow-through study but without a discrete transition point and favor a secondary reactive ileus over a partial small bowel obstruction. 3. Small bilateral pleural effusions. (2) CHB (complete heart block): Code(s): I44.2 - Atrioventricular block, complete Status: Acute Assessment and Plan: 02/16: Patient presented with generalized weakness was admitted to the medical floor, where he developed bradycardia and complete heart block. Cardiology was notified, received it temporary venous pacemaker -will hold all AV rosana blockers -I discontinued flecainide 02/17 -cardiology following the patient -Dr. Medley discussed with patient's , explained to her that he would not recommend placing permanent pacemaker as it would not improve his dementia or have any impact on his his critical aortic stenosis. The family is supposed to get back to us on that. (3) Aortic stenosis, moderate: Code(s): I35.0 - Nonrheumatic aortic (valve) stenosis Status: Acute Assessment and Plan: Echocardiogram September 2022: Severe aortic stenosis with mean gradient of 32 mmHg and aortic valve area of 0.8 cm2, EF was 70% at that time on echo done in September 2022. -patient follows Dr. Kirkpatrick, according to cardiology progress note it was decided with the family that they would not proceed for any intervention given his advanced dementia -cardiology following 02/18/2025: Echocardiogram Summary 1. Complete two-dimensional, color flow and Doppler transthoracic echocardiogram is performed. 2. The left ventricle is normal in size with hyperdynamic systolic function. The left ventricular ejection fraction is visually estimated to be greater than 70%. 3. The right ventricle is normal in size and systolic function. There is a pacemaker lead in the right ventricle. 4. The aortic valve is trileaflet and heavily calcified. There is severe aortic stenosis. SAMANTHA 0.7cm2 and previously 0.8cm2. There is mild aortic regurgitation. 5. The mitral valve leaflets are poorly visualized and there appears to be significant mitral annular calcification however there does not appear to be any mitral stenosis by Doppler gradients. (4) Atrial fibrillation: Qualifiers: Atrial fibrillation type: unspecified Qualified Code(s): I48.91 - Unspecified atrial fibrillation Code(s): I48.91 - Unspecified atrial fibrillation Status: Acute Assessment and Plan: History of atrial fibrillation, not on any anticoagulation due to fall -off flecainide -patient was in complete heart block, requiring temporary of venous pacemaker (5) CHF (congestive heart failure): Code(s): I50.9 - Heart failure, unspecified Status: Acute Assessment and Plan: Patient has a history of CHF, echocardiogram in September 2022 showed an EF of 70%, grade 1 diastolic dysfunction -proBNP 1320 -unknown if patient had a repeat echocardiogram in between -repeat echocardiogram this admission echocardiogram as above, EF 70% (6) Liver enzyme elevation: Code(s): R74.8 - Abnormal levels of other serum enzymes Status: Acute Assessment and Plan: Elevated liver enzymes and hyperbilirubinemia along with abdominal distension, right upper quadrant tenderness --02/17: RUQ ultrasound: Was unremarkable for gallbladder or liver pathology -hepatitis panel is normal -LFTs have normalized (7) Acute worsening of stage 3 chronic kidney disease: Code(s): N18.30 - Chronic kidney disease, stage 3 unspecified Status: Acute Assessment and Plan: Patient presented with acute on chronic kidney disease stage 3 (baseline creatinine 0.90 -1.10) -patient presented with a creatinine 1.54 -patient received adequate amount of IV fluids due to elevated CK level, possible rhabdomyolysis -urine lytes reflected prerenal picture, patient was given additional IV fluids with caution due to aortic stenosis - urine output has been low -renal ultrasound showed 2.7 cm right renal cyst otherwise normal kidneys with no hydronephrosis -appreciate Nephrology evaluation and recommendations -creatinine elevated but stable -continue to monitor renal function, electrolytes and urine output (8) Rhabdomyolysis: Code(s): M62.82 - Rhabdomyolysis Status: Acute Assessment and Plan: Elevated rhabdomyolysis, patient was found on the floor last week according the daughter which are mentioned in the records -patient may be having residual rhabdomyolysis -adequately fluid-resuscitated -patient slightly congested likely due to aortic stenosis -IV fluids discontinued -status post bicarb infusion at 50 mL/hour for total of 1000 mL -CK levels have been improving (9) Altered mental status: Code(s): R41.82 - Altered mental status, unspecified Status: Acute Assessment and Plan: Unknown baseline, patient has dementia, awake, alert, oriented to self (10) Dementia: Qualifiers: Dementia behavioral disturbance: without behavioral disturbance Dementia type: unspecified type Qualified Code(s): F03.90 - Unspecified dementia without behavioral disturbance Code(s): F03.90 - Unspecified dementia, unspecified severity, without behavioral disturbance, psychotic disturbance, mood disturbance, and anxiety Status: Acute Assessment and Plan: History of dementia unknown baseline -discussed with and daughter regarding his baseline, they stated that this is his new baseline as his cognitive function is declining rapidly (11) Frequent falls: Code(s): R29.6 - Repeated falls Status: Acute Assessment and Plan: Has a history of frequent falls -will have PT OT evaluate the patient for discharge planning (12) Hearing loss, bilateral: Code(s): H91.93 - Unspecified hearing loss, bilateral Status: Acute Assessment and Plan: Chronic (13) Cold foot: Code(s): R20.9 - Unspecified disturbances of skin sensation Status: Acute Assessment and Plan: Right foot was cold, 02/17: Arterial duplex ultrasound: Focal 1.5 cm atherosclerotic plaque in the right common femoral artery without evidence of occlusion or significant stenosis. Otherwise normal bilateral lower extremity arterial duplex with triphasic flow throughout. Plan DVT prophylaxis: Lovenox Stress ulcer prophylaxis: Protonix Nutrition: NPO for now, NG tube to low intermittent suction Code Status: DNR/DNI Critical Care Time Spent: 33 minutes 02/19: Discussed with patient's in details, she stated she has decided after discussed with her daughter and have concluded that patent not want a permanent pacemaker placed in the patient. The family is meeting with hospice on 02/20/2025, 02/17 and 02/18: Discussed with patient's , daughter and updated them with patient's condition and plan of care. They aware that he has multiple issues at this time, Complete heart block with transvenous pacemaker, severe aortic stenosis, elevated liver enzymes and bilirubin, abdominal distention, ileus and small-bowel obstruction, acute renal failure. Given his advanced age and advanced dementia they decided to make him a DNR/DNI. I answered all their questions Due to a high probability of clinically significant, life threatening deterioration, the patient required my highest level of preparedness to intervene emergently and I personally spent this critical care time directly and personally managing the patient. This critical care time included obtaining a history; examining the patient; pulse oximetry; ordering and review of studies; arranging urgent treatment with development of a management plan; evaluation of patient's response to treatment; frequent reassessment; and discussions with other providers. It was exclusive of separately billable procedures and treating other patients and teaching time. Please see Assessment and Plan section and the rest of the note for further information on patient assessment and treatment This dictation may have been done utilizing a voice recognition system. Attempts have been made to correct errors. However, there may be uncorrected grammatical, spelling, and recognitions errors present. Subjective Date/time seen: 02/19/25 13:40 Interval history: Reason for consult: Complete heart block, generalized weakness, altered mental status, right upper quadrant pain, hyperbilirubinemia, elevated LFTs, acute kidney injury, small-bowel loops to 02/19/2025: Patient seen examined the ICU, is awake, denies any pain, shortness of breath, nausea vomiting at this time. Temporary pacemaker in place, patient is pacer dependent. Adequate blood pressures. Lactic acid decreased to 1.9 this morning, Creatinine elevated but stable, CK levels trending down, lipase within normal limits. White blood cell count slightly elevated but stable. CT scan of the abdomen and pelvis yesterday showed acute appendicitis, potentially ruptured given the prominence of surrounding inflammatory stranding in the presence of couple small non loculated fluid collection in the right low er quadrant. Multiple mildly dilated loops of small bowel and slow progression of contrast, likely reactive ileus, small bilateral pleural effusions. Review of Systems Review of Systems: All systems reviewed & are unremarkable except as noted in HPI and below Exam Narrative: General: Elderly gentleman, currently in no acute distress HEENT:? Pupils are equal and reactive, sclera is clear, moist oral mucosa Neck:? Supple, right IJ line with temporary pacemaker Respiratory:? Coarse breath sounds bilaterally, decreased at bases, no wheezing, Cardiac:? S1-S2 is normal, paced rhythm, 2/6 systolic ejection murmur Abdomen:? Abdominal is distended and firm, right upper quadrant tenderness, hypoactive bowel sounds, tympanic on percussion Extremities:? Right foot more warm this morning with only the toes being cold on the right foot. Left foot is warm. Palpable pedal pulses bilaterally Neuro:? Patient is awake, alert, oriented to self, slow to answer with a soft voice, moves all extremities Skin:? Bruising noted Psych:? Flat affect Objective Data Vital Signs Vital Signs: Vital Signs - 24 hr 02/18/25 13:58 02/18/25 14:00 02/18/25 14:30 Temperature 99.9 F H Pulse Rate 60 62 Respiratory Rate 24 H Blood Pressure 130/70 Pulse Oximetry 93 Oxygen Delivery Oxygen Flow Rate 02/18/25 16:00 02/18/25 16:00 02/18/25 16:20 Temperature 99.8 F H Pulse Rate 60 60 Respiratory Rate 26 H Blood Pressure 135/61 Pulse Oximetry Oxygen Delivery Oxygen Flow Rate 02/18/25 17:35 02/18/25 18:00 02/18/25 18:00 Temperature 100.1 F H Pulse Rate 60 60 Respiratory Rate 24 H Blood Pressure 140/77 Pulse Oximetry 94 94 Oxygen Delivery Oxygen Flow Rate 02/18/25 19:41 02/18/25 19:48 02/18/25 19:49 Temperature Pulse Rate 60 60 60 Respiratory Rate 42 H 42 H 30 H Blood Pressure Pulse Oximetry 96 Oxygen Delivery Nasal Cannula Oxygen Flow Rate 2 02/18/25 20:00 02/18/25 20:00 02/18/25 20:00 Temperature 100.2 F H Pulse Rate 60 60 Respiratory Rate 26 H Blood Pressure 113/88 Pulse Oximetry 94 94 Oxygen Delivery Nasal Cannula Oxygen Flow Rate 2 02/18/25 22:00 02/18/25 22:00 02/18/25 22:00 Temperature 100.2 F H Pulse Rate 60 60 Respiratory Rate 45 H 32 H Blood Pressure 138/71 138/71 Pulse Oximetry 95 Oxygen Delivery Oxygen Flow Rate 02/19/25 00:00 02/19/25 00:00 02/19/25 00:00 Temperature 100.2 F H Pulse Rate 60 60 Respiratory Rate 21 H Blood Pressure 93/80 L Pulse Oximetry 93 99 Oxygen Delivery Nasal Cannula Oxygen Flow Rate 2 02/19/25 00:02 02/19/25 00:10 02/19/25 00:58 Temperature Pulse Rate 60 95 60 Respiratory Rate 24 H 60 H 35 H Blood Pressure Pulse Oximetry Oxygen Delivery Oxygen Flow Rate 02/19/25 02:00 02/19/25 02:00 02/19/25 02:31 Temperature 101 F H Pulse Rate 60 60 60 Respiratory Rate 28 H 28 H Blood Pressure 132/61 Pulse Oximetry 93 Oxygen Delivery Oxygen Flow Rate 02/19/25 02:38 02/19/25 03:00 02/19/25 04:00 Temperature 100.4 F H 99.9 F H Pulse Rate 60 60 Respiratory Rate 24 H 24 H Blood Pressure 152/77 H Pulse Oximetry 94 Oxygen Delivery Oxygen Flow Rate 02/19/25 04:00 02/19/25 04:00 02/19/25 06:00 Temperature Pulse Rate 60 60 Respiratory Rate Blood Pressure Pulse Oximetry 94 Oxygen Delivery Nasal Cannula Oxygen Flow Rate 2 02/19/25 06:00 02/19/25 06:56 02/19/25 07:06 Temperature 99.8 F H Pulse Rate 60 60 60 Respiratory Rate 23 H 27 H 25 H Blood Pressure 136/76 Pulse Oximetry 95 Oxygen Delivery Oxygen Flow Rate 02/19/25 08:00 02/19/25 08:00 02/19/25 08:00 Temperature 100.1 F H Pulse Rate 60 60 60 Respiratory Rate 24 H 21 H Blood Pressure 146/81 H Pulse Oximetry 93 92 Oxygen Delivery Nasal Cannula Oxygen Flow Rate 2 02/19/25 08:29 02/19/25 08:29 02/19/25 08:38 Temperature Pulse Rate 60 60 Respiratory Rate 22 H 22 H Blood Pressure Pulse Oximetry 94 Oxygen Delivery Nasal Cannula Oxygen Flow Rate 2 02/19/25 10:00 02/19/25 10:00 02/19/25 12:00 Temperature 99.5 F 99.5 F Pulse Rate 60 60 60 Respiratory Rate 22 H Blood Pressure 115/55 L 104/77 Pulse Oximetry 92 93 Oxygen Delivery Oxygen Flow Rate 02/19/25 12:00 Temperature Pulse Rate 60 Respiratory Rate 22 H Blood Pressure Pulse Oximetry 95 Oxygen Delivery Nasal Cannula Oxygen Flow Rate 2 Intake/Output Intake/Output: Intake & Output 02/16/25 02/17/25 02/18/25 02/19/25 23:59 23:59 23:59 23:59 Intake Total 1890 1008.3 2300 100 Output Total 1200 1400 275 Balance 1890 -191.7 900 -175 Meds/Results Medications: Active Medications Generic Name Dose Route Start Last Admin Trade Name Freq PRN Reason Stop Dose Admin Acetaminophen 650 mg 02/16/25 14:52 Acetaminophen 325 Mg Tablet PO Q4H PRN Mild Pain (1-3) or Fever Albuterol/Ipratropium 3 ml 02/17/25 08:45 02/19/25 08:28 Ipratropium 0.5 Mg/Albuterol Sulfate 2.5 Mg Ampul.Neb 3 Ml INHALATION 3 ml Q6HRT GET Administration Atropine Sulfate 1 drop 02/18/25 23:53 02/19/25 00:30 Atropine Sulfate 1% Ophth Soln 5 Ml Bottle SUBLINGUAL 1 drop Q4H PRN Administration Secretions Enoxaparin Sodium 40 mg 02/17/25 09:00 02/19/25 08:13 Enoxaparin 40 Mg/0.4 Ml Syringe SUB-Q 40 mg DAILY GET Administration Meropenem 1 gm/ Sodium 100 mls @ 200 mls/hr 02/17/25 10:30 02/19/25 08:43 Chloride IVPB Infused Q12HR GET Infusion Lidocaine HCl 3 ml 02/19/25 02:27 02/19/25 06:54 Lidocaine 1% Pf Inj 5 Ml Vial XX 3 ml Q4H PRN Administration COUGHING SPELLS Lorazepam 0.5 mg 02/18/25 19:08 Lorazepam Inj (*Crx) 2 Mg/Ml Vial IV PUSH ONCE PRN agitation Pantoprazole Sodium 40 mg 02/18/25 09:00 02/19/25 08:13 Pantoprazole Sodium Iv 40 Mg Vial IV PUSH 40 mg QAM GET Administration Perflutren Lipid Microsphere 0 ml 02/17/25 04:59 Perflutren Lipid Microspheres 1.5 Ml Vial Diluted To 10 Ml Total Volume IV PUSH 02/20/25 05:00 ONCE PRN adequate visualization Protocol Rosuvastatin Calcium 10 mg 02/17/25 09:00 02/17/25 10:58 Rosuvastatin 10 Mg Tablet PO Not Given DAILY GET Radiology Results: ITS Impressions Head CT 02/16/25 14:17 IMPRESSION: No acute intracranial process. Abdomen Ultrasound 02/17/25 08:27 IMPRESSION: 1. Limited abdominal ultrasound demonstrating a fluid-filled loops of bowel in all 4 quadrants of the abdomen with minimal ascites in the right upper quadrant. 2. Gallbladder and liver are unremarkable with no evident intrahepatic biliary ductal dilation and nonvisualized common bile duct. Renal Ultrasound 02/17/25 14:03 IMPRESSION: 1. 2.7 cm right renal cyst. Otherwise normal kidneys with no hydronephrosis. Duplex Scan Lower Extremity Artery 02/18/25 07:36 Impression: 1: Focal 1.5 cm atherosclerotic plaque in the right common femoral artery without evidence of occlusion or significant stenosis. Otherwise normal bilateral lower extremity arterial duplex with triphasic flow throughout. Abdomen/Pelvis CT 02/18/25 16:54 IMPRESSION: 1. Findings consistent with acute appendicitis, potentially ruptured given the prominence of the surrounding inflammatory stranding in the presence of a couple small nonloculated fluid collections in the right lower quadrant. Findings were discussed with Lela Meza, the nurse caring for the patient, at 5:06 PM. 2. Multiple mildly dilated loops of small bowel with slow progression of contrast on immediately prior small bowel follow-through study but without a discrete transition point and favor a secondary reactive ileus over a partial small bowel obstruction. 3. Small bilateral pleural effusions. Small Bowel X-Ray 02/18/25 23:14 IMPRESSION: Findings suggesting high-grade small bowel obstruction with lack of progression of oral contrast beyond the duodenal sweep for which dedicated CT examination will be performed. Chest X-Ray 02/19/25 05:31 Impression: 1: Left basilar airspace disease may represent atelectasis and/or pneumonia. Abdomen X-Ray 02/19/25 09:06 IMPRESSION: 1.Redemonstration of several air-filled loops of dilated small bowel similar to the study from February 18, 2025. 2.Nasogastric tube courses below the diaphragm, its tip projects over the left upper abdomen likely within the cardia of the stomach. Labs Labs: Laboratory Results - last 24 hr 02/17/25 02/18/25 02/19/25 10:31 23:33 03:33 WBC 11.1 H RBC 4.42 L Hgb 14.4 Hct 43.7 MCV 98.9 MCH 32.6 MCHC 33.0 RDW 14.1 Plt Count 221 MPV 9.2 Immature Gran % (Auto) 0.4 Neut % (Auto) 76.4 H Lymph % (Auto) 12.1 L [place] % (Auto) 10.6 H Eos % (Auto) 0.2 Baso % (Auto) 0.3 Lymph # (Auto) 1.35 [place] # (Auto) 1.2 H Eos # (Auto) 0.0 Baso # (Auto) 0.0 Abs Immat Gran (auto) 0.04 H Absolute Neuts (auto) 8.5 H Absolute Nucleated RBC 0.000 Nucleated RBC % 0.0 Sodium 141 Potassium 3.8 Chloride 108 H Carbon Dioxide 24 Anion Gap 9 BUN 28 H Creatinine 1.36 H Estim Creat Clear Calc 43 Estimated GFR 50 L Glucose 134 H POC Capillary Glucose 138 H Lactic Acid 1.9 Calcium 9.1 Phosphorus 3.1 Magnesium 2.4 H Total Bilirubin 1.7 H AST 54 ALT 38 Alkaline Phosphatase 152 H Total Creatine Kinase 302 H C-Reactive Protein 12.8 H Total Protein 7.3 Albumin 3.5 Lipase 69 ALLIE Screen Negative 02/19/25 12:36 WBC RBC Hgb Hct MCV MCH MCHC RDW Plt Count MPV Immature Gran % (Auto) Neut % (Auto) Lymph % (Auto) [place] % (Auto) Eos % (Auto) Baso % (Auto) Lymph # (Auto) [place] # (Auto) Eos # (Auto) Baso # (Auto) Abs Immat Gran (auto) Absolute Neuts (auto) Absolute Nucleated RBC Nucleated RBC % Sodium Potassium Chloride Carbon Dioxide Anion Gap BUN Creatinine Estim Creat Clear Calc Estimated GFR Glucose POC Capillary Glucose 143 H Lactic Acid Calcium Phosphorus Magnesium Total Bilirubin AST ALT Alkaline Phosphatase Total Creatine Kinase C-Reactive Protein Total Protein Albumin Lipase ALLIE Screen Quality VTE Prophylaxis VTE prophylaxis: pharmacologic ordered
[2025-02-20] VITALS (14 sets, daily range): BP systolic 103–142; BP diastolic 49–77; PULSE 46–59; RESP 16–29; TEMP 37.7–38.1; O2SAT 90–95
[2025-02-20] MEDS: LIDOCAINE 1% PF INJ 5 ML VIAL 3 ML XX (01:09)
[2025-02-20] MEDS: IPRATROPIUM 0.5 MG/ALBUTEROL SULFATE 2.5 MG AMPUL.NEB 3 ML INHALATION ×2 (01:10→09:44)
[2025-02-20 06:42] LABS: Hematocrit 42.1 % (42.0-52.0); Hemoglobin 13.6 g/dL (14.0-18.0); Immature Granulocyte Percent A 0.4 % (0-0.5); Lymphocytes Absolute Auto 1.84 K/mm3 (0.9-3.2); Mean Corpuscular HGB Conc 32.3 g/dl (32-36); Mean Corpuscular Hemoglobin 32.8 pg (26-34); Mean Corpuscular Volume 101.4 fl (80-100); Nucleated Red Blood Cells Absolute Auto 0.000 K/mm3 (0.0-0.012); Nucleated Red Blood Cells Perc 0.0 % (0.0-0.2); Platelet Count Result 212 k/mm3 (150-375); Red Blood Count 4.15 M/mm3 (4.6-6.20); White Blood Count 10.7 K/mm3 (4.5-10.0)
[2025-02-20 07:00] LABS: Magnesium 2.6 mg/dL (1.6-2.3)
[2025-02-20 07:02] LABS: Alanine Aminotransferase 34 U/L (6-50); Albumin Level 3.2 g/dL (3.5-5.1); Alkaline Phosphatase 139 U/L (38-126); Anion Gap 7 mmol/L (4-12); Aspartate Amino Transferase 48 U/L (17-59); Bilirubin,Total 1.2 mg/dL (0.2-1.3); Blood Urea Nitrogen 35 mg/dL (9-20); Calcium 9.1 mg/dL (8.4-10.2); Carbon Dioxide 27 mmol/L (22-30); Chloride 110 mmol/L (98-107); Estimated CRCL calculation 46 ml/min; Estimated Glomerular Filt Rate 55; Glucose 122 mg/dL (65-110); Potassium 3.5 mmol/L (3.4-5.0); Sodium 144 mmol/L (137-145); Total Protein 6.8 g/dL (6.3-8.2)
[2025-02-20] MEDS: ENOXAPARIN 40 MG/0.4 ML SYRINGE SUB-Q (08:36)
[2025-02-20] MEDS: PANTOPRAZOLE SODIUM IV 40 MG VIAL IV PUSH (08:37)
[2025-02-20] MEDS: MEROPENEM 1 GM in SODIUM CHLORIDE 0.9% IV 100 ML 200 ML IVPB (08:37)
--- NOTE | 2025-02-20 09:23 | P.PNINT_ITS ---
Progress Note: A&P Assessment and Plan (1) Small bowel obstruction: Code(s): K56.609 - Unspecified intestinal obstruction, unspecified as to partial versus complete obstruction Status: Acute Assessment and Plan: Patient with distended abdomen obstructive series showed small-bowel obstruction -bowel rest, NG tube decompression, gentle IV fluid hydration -surgery aware of the possible acute appendicitis with rupture, not a surgical candidate at this time, continue to move monitor and treat with antibiotics -02/20: Patient has had bowel movements overnight, this morning abdominal was less distended, soft, very hypoactive bowel sounds if any, mild diffuse tenderness -NG tube continues to have increased drainage 02/18/2025: CT scan of the abdomen and pelvis without contrast IMPRESSION: 1. Findings consistent with acute appendicitis, potentially ruptured given the prominence of the surrounding inflammatory stranding in the presence of a couple small nonloculated fluid collections in the right lower quadrant. Findings were discussed with Lela Meza, the nurse caring for the patient, at 5:06 PM. 2. Multiple mildly dilated loops of small bowel with slow progression of contrast on immediately prior small bowel follow-through study but without a discrete transition point and favor a secondary reactive ileus over a partial small bowel obstruction. 3. Small bilateral pleural effusions. (2) CHB (complete heart block): Code(s): I44.2 - Atrioventricular block, complete Status: Acute Assessment and Plan: 02/16: Patient presented with generalized weakness was admitted to the medical floor, where he developed bradycardia and complete heart block. Cardiology was notified, received it temporary venous pacemaker -will hold all AV rosana blockers -I discontinued flecainide 02/17 -cardiology following the patient -Dr. Medley discussed with patient's , explained to her that he would not recommend placing permanent pacemaker as it would not improve his dementia or have any impact on his his critical aortic stenosis. The family is supposed to get back to us on that. -temporary pacemaker has been sedated 40, patient does have sinus bradycardia in the mid 40s with his intrinsic rhythm (3) Aortic stenosis, moderate: Code(s): I35.0 - Nonrheumatic aortic (valve) stenosis Status: Acute Assessment and Plan: Echocardiogram September 2022: Severe aortic stenosis with mean gradient of 32 mmHg and aortic valve area of 0.8 cm2, EF was 70% at that time on echo done in September 2022. -patient follows Dr. Kirkpatrick, according to cardiology progress note it was decided with the family that they would not proceed for any intervention given his advanced dementia -cardiology following 02/18/2025: Echocardiogram Summary 1. Complete two-dimensional, color flow and Doppler transthoracic echocardiogram is performed. 2. The left ventricle is normal in size with hyperdynamic systolic function. The left ventricular ejection fraction is visually estimated to be greater than 70%. 3. The right ventricle is normal in size and systolic function. There is a pacemaker lead in the right ventricle. 4. The aortic valve is trileaflet and heavily calcified. There is severe aortic stenosis. SAMANTHA 0.7cm2 and previously 0.8cm2. There is mild aortic regurgitation. 5. The mitral valve leaflets are poorly visualized and there appears to be significant mitral annular calcification however there does not appear to be any mitral stenosis by Doppler gradients. (4) Atrial fibrillation: Qualifiers: Atrial fibrillation type: unspecified Qualified Code(s): I48.91 - Unspecified atrial fibrillation Code(s): I48.91 - Unspecified atrial fibrillation Status: Acute Assessment and Plan: History of atrial fibrillation, not on any anticoagulation due to fall -off flecainide -patient was in complete heart block, requiring temporary of venous pacemaker (5) CHF (congestive heart failure): Code(s): I50.9 - Heart failure, unspecified Status: Acute Assessment and Plan: Patient has a history of CHF, echocardiogram in September 2022 showed an EF of 70%, grade 1 diastolic dysfunction -proBNP 1320 -unknown if patient had a repeat echocardiogram in between -repeat echocardiogram this admission echocardiogram as above, EF 70% (6) Liver enzyme elevation: Code(s): R74.8 - Abnormal levels of other serum enzymes Status: Acute Assessment and Plan: Elevated liver enzymes and hyperbilirubinemia along with abdominal distension, right upper quadrant tenderness --02/17: RUQ ultrasound: Was unremarkable for gallbladder or liver pathology -hepatitis panel is normal -LFTs have normalized (7) Acute worsening of stage 3 chronic kidney disease: Code(s): N18.30 - Chronic kidney disease, stage 3 unspecified Status: Acute Assessment and Plan: Patient presented with acute on chronic kidney disease stage 3 (baseline creatinine 0.90 -1.10) -patient presented with a creatinine 1.54 -patient received adequate amount of IV fluids due to elevated CK level, possible rhabdomyolysis -urine lytes reflected prerenal picture, patient was given additional IV fluids with caution due to aortic stenosis - urine output has been low -renal ultrasound showed 2.7 cm right renal cyst otherwise normal kidneys with no hydronephrosis -appreciate Nephrology evaluation and recommendations -creatinine improving -continue to monitor renal function, electrolytes and urine output (8) Rhabdomyolysis: Code(s): M62.82 - Rhabdomyolysis Status: Acute Assessment and Plan: Elevated rhabdomyolysis, patient was found on the floor last week according the daughter which are mentioned in the records -patient may be having residual rhabdomyolysis -adequately fluid-resuscitated -patient slightly congested likely due to aortic stenosis -IV fluids discontinued -status post bicarb infusion at 50 mL/hour for total of 1000 mL -CK levels have been improving (9) Altered mental status: Code(s): R41.82 - Altered mental status, unspecified Status: Acute Assessment and Plan: Baseline dementia per family, which is rapidly progressing (10) Dementia: Qualifiers: Dementia behavioral disturbance: without behavioral disturbance Dementia type: unspecified type Qualified Code(s): F03.90 - Unspecified dementia without behavioral disturbance Code(s): F03.90 - Unspecified dementia, unspecified severity, without behavioral disturbance, psychotic disturbance, mood disturbance, and anxiety Status: Acute Assessment and Plan: History of dementia unknown baseline -discussed with and daughter regarding his baseline, they stated that this is his new baseline as his cognitive function is declining rapidly (11) Frequent falls: Code(s): R29.6 - Repeated falls Status: Acute Assessment and Plan: Has a history of frequent falls -patient has a transvenous pacemaker, PT/OT not evaluating the patient at this time (12) Hearing loss, bilateral: Code(s): H91.93 - Unspecified hearing loss, bilateral Status: Acute Assessment and Plan: Chronic (13) Cold foot: Code(s): R20.9 - Unspecified disturbances of skin sensation Status: Acute Assessment and Plan: Right foot was cold, 02/17: Arterial duplex ultrasound: Focal 1.5 cm atherosclerotic plaque in the right common femoral artery without evidence of occlusion or significant stenosis. Otherwise normal bilateral lower extremity arterial duplex with triphasic flow throughout. Plan DVT prophylaxis: Lovenox Stress ulcer prophylaxis: Protonix Nutrition: NPO for now, NG tube to low intermittent suction Code Status: DNR/DNI Critical Care Time Spent: 33 minutes 02/19: Discussed with patient's in details, she stated she has decided after discussed with her daughter and have concluded that patent not want a permanent pacemaker placed in the patient. The family is meeting with hospice on 02/20/2025, 02/17 and 02/18: Discussed with patient's , daughter and updated them with patient's condition and plan of care. They aware that he has multiple issues at this time, Complete heart block with transvenous pacemaker, severe aortic stenosis, elevated liver enzymes and bilirubin, abdominal distention, ileus and small-bowel obstruction, acute renal failure. Given his advanced age and advanced dementia they decided to make him a DNR/DNI. I answered all their questions Due to a high probability of clinically significant, life threatening deterioration, the patient required my highest level of preparedness to intervene emergently and I personally spent this critical care time directly and personally managing the patient. This critical care time included obtaining a history; examining the patient; pulse oximetry; ordering and review of studies; arranging urgent treatment with development of a management plan; evaluation of patient's response to treatment; frequent reassessment; and discussions with other providers. It was exclusive of separately billable procedures and treating other patients and teaching time. Please see Assessment and Plan section and the rest of the note for further information on patient assessment and treatment This dictation may have been done utilizing a voice recognition system. Attempts have been made to correct errors. However, there may be uncorrected grammatical, spelling, and recognitions errors present. Subjective Date/time seen: 02/20/25 09:23 Interval history: Reason for consult: Complete heart block, generalized weakness, altered mental status, right upper quadrant pain, hyperbilirubinemia, elevated LFTs, acute kidney injury, small-bowel loops to 02/20/2025: Patient seen and examined the ICU, denies any chest pain, shortness on breath, no nausea vomiting at this time. NG tube in place, temporary pacemaker in place, 740, patient does have intrinsic rhythm -sinus bradycardia. Urine output has been low, T-max 100.5?. Patient did have 2 large bowel movements overnight Review of Systems Review of Systems: All systems reviewed & are unremarkable except as noted in HPI and below Exam Narrative: General: Elderly gentleman, currently in no acute distress HEENT:? Pupils are equal and reactive, sclera is clear, moist oral mucosa, NG tube in place Neck:? Supple, right IJ line with temporary pacemaker Respiratory:? Coarse breath sounds bilaterally, decreased at bases, no wheezing, Cardiac:? S1-S2 is normal, paced rhythm, 2/6 systolic ejection murmur Abdomen:? Soft not distended this morning, mildly tender diffusely, very hypoactive bowel sounds if any Extremities:? Bilateral feet are warm, palpable pedal pulses Neuro:? Patient is awake, alert, oriented to self, slow to answer with a soft voice, moves all extremities Skin:? Bruising noted Psych:? Flat affect, dementia Objective Data Vital Signs Vital Signs: Vital Signs - 24 hr 02/19/25 10:00 02/19/25 10:00 02/19/25 12:00 Temperature 99.5 F 99.5 F Pulse Rate 60 60 60 Pulse Rate [Bilateral Pedal (Dorsalis Pedis) Palpation] Respiratory Rate 22 H Blood Pressure 115/55 L 104/77 Pulse Oximetry 92 93 Oxygen Delivery Oxygen Flow Rate Fraction of Inspired Oxygen 02/19/25 12:00 02/19/25 13:48 02/19/25 13:56 Temperature Pulse Rate 60 55 L 50 L Pulse Rate [Bilateral Pedal (Dorsalis Pedis) Palpation] Respiratory Rate 22 H 22 H 24 H Blood Pressure Pulse Oximetry 95 Oxygen Delivery Nasal Cannula Oxygen Flow Rate 2 Fraction of Inspired Oxygen 02/19/25 14:00 02/19/25 14:00 02/19/25 16:00 Temperature 99.6 F 99.6 F Pulse Rate 48 L 48 L 48 L Pulse Rate [Bilateral Pedal (Dorsalis Pedis) Palpation] Respiratory Rate 25 H 24 H Blood Pressure 115/54 L 104/53 L Pulse Oximetry 91 95 Oxygen Delivery Oxygen Flow Rate Fraction of Inspired Oxygen 02/19/25 16:00 02/19/25 16:00 02/19/25 16:00 Temperature 99.7 F H Pulse Rate 49 L 44 L 48 L Pulse Rate [Bilateral Pedal (Dorsalis Pedis) Palpation] Respiratory Rate 24 H 20 Blood Pressure 104/53 L Pulse Oximetry 94 95 Oxygen Delivery Nasal Cannula Oxygen Flow Rate 2 Fraction of Inspired Oxygen 02/19/25 17:11 02/19/25 17:22 02/19/25 18:00 Temperature Pulse Rate 45 L 53 L 49 L Pulse Rate [Bilateral Pedal (Dorsalis Pedis) Palpation] Respiratory Rate 21 H 24 H Blood Pressure Pulse Oximetry Oxygen Delivery Oxygen Flow Rate Fraction of Inspired Oxygen 02/19/25 18:00 02/19/25 19:37 02/19/25 19:39 Temperature 100.1 F H Pulse Rate 48 L 47 L 50 L Pulse Rate [Bilateral Pedal (Dorsalis Pedis) Palpation] Respiratory Rate 19 20 20 Blood Pressure 103/47 L Pulse Oximetry 92 91 Oxygen Delivery Nasal Cannula Oxygen Flow Rate 4 Fraction of Inspired Oxygen 36 02/19/25 19:46 02/19/25 19:47 02/19/25 19:55 Temperature Pulse Rate 47 L 47 L 47 L Pulse Rate [Bilateral Pedal (Dorsalis Pedis) Palpation] Respiratory Rate 22 H 22 H 27 H Blood Pressure 96/39 L Pulse Oximetry 93 93 Oxygen Delivery Nasal Cannula Oxygen Flow Rate 4 Fraction of Inspired Oxygen 02/19/25 20:00 02/19/25 20:00 02/19/25 21:00 Temperature 100.5 F H Pulse Rate 47 L 48 L 47 L Pulse Rate [Bilateral Pedal (Dorsalis Pedis) Palpation] Respiratory Rate 24 H Blood Pressure 90/67 L 128/45 L Pulse Oximetry 92 Oxygen Delivery Oxygen Flow Rate Fraction of Inspired Oxygen 02/19/25 22:00 02/19/25 22:00 02/19/25 23:40 Temperature Pulse Rate 44 L 45 L 46 L Pulse Rate [Bilateral Pedal (Dorsalis Pedis) Palpation] 46 L Respiratory Rate 25 H 24 H Blood Pressure 108/57 L 105/46 L Pulse Oximetry 92 92 Oxygen Delivery Oxygen Flow Rate Fraction of Inspired Oxygen 02/19/25 23:41 02/19/25 23:46 02/20/25 00:00 Temperature 99.9 F H Pulse Rate 464 H 46 L Pulse Rate [Bilateral Pedal (Dorsalis Pedis) Palpation] 47 L Respiratory Rate 16 16 Blood Pressure 120/54 L Pulse Oximetry 92 94 Oxygen Delivery Nasal Cannula Oxygen Flow Rate 4 Fraction of Inspired Oxygen 02/20/25 00:00 02/20/25 01:11 02/20/25 01:37 Temperature Pulse Rate 46 L 50 L 54 L Pulse Rate [Bilateral Pedal (Dorsalis Pedis) Palpation] Respiratory Rate 20 22 H Blood Pressure Pulse Oximetry Oxygen Delivery Oxygen Flow Rate Fraction of Inspired Oxygen 02/20/25 02:00 02/20/25 02:00 02/20/25 03:12 Temperature Pulse Rate 55 L 48 L 47 L Pulse Rate [Bilateral Pedal (Dorsalis Pedis) Palpation] 47 L Respiratory Rate 18 19 Blood Pressure 115/54 L 110/49 L Pulse Oximetry 92 95 Oxygen Delivery Oxygen Flow Rate Fraction of Inspired Oxygen 02/20/25 03:13 02/20/25 04:00 02/20/25 04:00 Temperature 100.4 F H Pulse Rate 47 L 46 L 47 L Pulse Rate [Bilateral Pedal (Dorsalis Pedis) Palpation] Respiratory Rate 19 19 Blood Pressure 120/51 L Pulse Oximetry 95 94 Oxygen Delivery Nasal Cannula Oxygen Flow Rate 4 Fraction of Inspired Oxygen 02/20/25 06:00 02/20/25 06:00 02/20/25 08:00 Temperature 100.2 F H 100.5 F H Pulse Rate 46 L 46 L 51 L Pulse Rate [Bilateral Pedal (Dorsalis Pedis) Palpation] Respiratory Rate 22 H 29 H Blood Pressure 103/71 109/75 Pulse Oximetry 92 92 Oxygen Delivery Oxygen Flow Rate Fraction of Inspired Oxygen Intake/Output Intake/Output: Intake & Output 02/17/25 02/18/25 02/19/25 02/20/25 23:59 23:59 23:59 23:59 Intake Total 1008.3 2300 200 0 Output Total 1200 1400 875 475 Balance -191.7 259 -677 -161 Meds/Results Medications: Active Medications Generic Name Dose Route Start Last Admin Trade Name Freq PRN Reason Stop Dose Admin Acetaminophen 650 mg 02/16/25 14:52 Acetaminophen 325 Mg Tablet PO Q4H PRN Mild Pain (1-3) or Fever Albuterol/Ipratropium 3 ml 02/17/25 08:45 02/20/25 01:10 Ipratropium 0.5 Mg/Albuterol Sulfate 2.5 Mg Ampul.Neb 3 Ml INHALATION 3 ml Q6HRT GET Administration Atropine Sulfate 1 drop 02/18/25 23:53 02/19/25 00:30 Atropine Sulfate 1% Ophth Soln 5 Ml Bottle SUBLINGUAL 1 drop Q4H PRN Administration Secretions Enoxaparin Sodium 40 mg 02/17/25 09:00 02/20/25 08:36 Enoxaparin 40 Mg/0.4 Ml Syringe SUB-Q 40 mg DAILY GET Administration Meropenem 1 gm/ Sodium 100 mls @ 200 mls/hr 02/17/25 10:30 02/20/25 08:37 Chloride IVPB 200 mls/hr Q12HR GET Administration Lidocaine HCl 3 ml 02/19/25 02:27 02/20/25 01:09 Lidocaine 1% Pf Inj 5 Ml Vial XX 3 ml Q4H PRN Administration COUGHING SPELLS Lorazepam 0.5 mg 02/18/25 19:08 Lorazepam Inj (*Crx) 2 Mg/Ml Vial IV PUSH ONCE PRN agitation Pantoprazole Sodium 40 mg 02/18/25 09:00 02/20/25 08:37 Pantoprazole Sodium Iv 40 Mg Vial IV PUSH 40 mg QAM GET Administration Rosuvastatin Calcium 10 mg 02/17/25 09:00 02/17/25 10:58 Rosuvastatin 10 Mg Tablet PO Not Given DAILY GET Radiology Results: ITS Impressions Head CT 02/16/25 14:17 IMPRESSION: No acute intracranial process. Abdomen Ultrasound 02/17/25 08:27 IMPRESSION: 1. Limited abdominal ultrasound demonstrating a fluid-filled loops of bowel in all 4 quadrants of the abdomen with minimal ascites in the right upper quadrant. 2. Gallbladder and liver are unremarkable with no evident intrahepatic biliary ductal dilation and nonvisualized common bile duct. Renal Ultrasound 02/17/25 14:03 IMPRESSION: 1. 2.7 cm right renal cyst. Otherwise normal kidneys with no hydronephrosis. Duplex Scan Lower Extremity Artery 02/18/25 07:36 Impression: 1: Focal 1.5 cm atherosclerotic plaque in the right common femoral artery without evidence of occlusion or significant stenosis. Otherwise normal bilateral lower extremity arterial duplex with triphasic flow throughout. Abdomen/Pelvis CT 02/18/25 16:54 IMPRESSION: 1. Findings consistent with acute appendicitis, potentially ruptured given the prominence of the surrounding inflammatory stranding in the presence of a couple small nonloculated fluid collections in the right lower quadrant. Findings were discussed with Lela Meza, the nurse caring for the patient, at 5:06 PM. 2. Multiple mildly dilated loops of small bowel with slow progression of contrast on immediately prior small bowel follow-through study but without a discrete transition point and favor a secondary reactive ileus over a partial small bowel obstruction. 3. Small bilateral pleural effusions. Small Bowel X-Ray 02/18/25 23:14 IMPRESSION: Findings suggesting high-grade small bowel obstruction with lack of progression of oral contrast beyond the duodenal sweep for which dedicated CT examination will be performed. Chest X-Ray 02/19/25 05:31 Impression: 1: Left basilar airspace disease may represent atelectasis and/or pneumonia. Abdomen X-Ray 02/19/25 09:06 IMPRESSION: 1.Redemonstration of several air-filled loops of dilated small bowel similar to the study from February 18, 2025. 2.Nasogastric tube courses below the diaphragm, its tip projects over the left upper abdomen likely within the cardia of the stomach. Labs Labs: Laboratory Results - last 24 hr 02/17/25 02/19/25 02/19/25 10:31 12:36 18:08 WBC RBC Hgb Hct MCV MCH MCHC RDW Plt Count MPV Immature Gran % (Auto) Neut % (Auto) Lymph % (Auto) Hardin % (Auto) Eos % (Auto) Baso % (Auto) Lymph # (Auto) Hardin # (Auto) Eos # (Auto) Baso # (Auto) Abs Immat Gran (auto) Absolute Neuts (auto) Absolute Nucleated RBC Nucleated RBC % Sodium Potassium Chloride Carbon Dioxide Anion Gap BUN Creatinine Estim Creat Clear Calc Estimated GFR Glucose POC Capillary Glucose 143 H 116 H Calcium Phosphorus Magnesium Total Bilirubin AST ALT Alkaline Phosphatase Total Protein Albumin ALLIE Screen Negative Tot Complement (CH50) >60 02/19/25 02/20/25 02/20/25 23:44 05:51 06:32 WBC 10.7 H RBC 4.15 L Hgb 13.6 L Hct 42.1 MCV 101.4 H MCH 32.8 MCHC 32.3 RDW 14.2 Plt Count 212 MPV 9.5 Immature Gran % (Auto) 0.4 Neut % (Auto) 71.6 Lymph % (Auto) 17.2 L Hardin % (Auto) 9.5 H Eos % (Auto) 0.8 Baso % (Auto) 0.5 Lymph # (Auto) 1.84 Hardin # (Auto) 1.0 H Eos # (Auto) 0.1 Baso # (Auto) 0.1 Abs Immat Gran (auto) 0.04 H Absolute Neuts (auto) 7.7 H Absolute Nucleated RBC 0.000 Nucleated RBC % 0.0 Sodium 144 Potassium 3.5 Chloride 110 H Carbon Dioxide 27 Anion Gap 7 BUN 35 H Creatinine 1.26 Estim Creat Clear Calc 46 Estimated GFR 55 L Glucose 122 H POC Capillary Glucose 76 121 H Calcium 9.1 Phosphorus 2.9 Magnesium 2.6 H Total Bilirubin 1.2 AST 48 ALT 34 Alkaline Phosphatase 139 H Total Protein 6.8 Albumin 3.2 L ALLIE Screen Tot Complement (CH50) Quality VTE Prophylaxis VTE prophylaxis: pharmacologic ordered
--- NOTE | 2025-02-20 11:04 | PM.PNCARD ---
Progress Note: A&P Assessment and Plan (1) CHB (complete heart block): Code(s): I44.2 - Atrioventricular block, complete Status: Acute Assessment and Plan: High-grade AV block and symptomatic bradycardia. His multitude of issues including bowel obstruction, advanced dementia, aortic valvular disease. Seen by Dr. Medley yesterday. At this point given his multitude of comorbidities, hospice is now involved and he is proceeding towards hospice care at this stage. Remove the temporary pacemaker wire if/when patient is enrolled in hospice Subjective Date/time seen: 02/20/25 11:04 Interval history: Follow-up visit in this 85-year-old man with: critical aortic valve stenosis and advanced dementia. Patient is followed by my partner and has made the decision not to pursue aortic valve replacement because of comorbidities especially advanced dementia. He presents to the hospital with weakness and has been found to be in high-grade AV block. A temporary pacemaker has been placed over the weekend from the right IJ. Date of service 02/20/2025: Hospice has been consulted and currently seeing the patient. Plan is for inpatient hospice Review of Systems Review of Systems: All systems reviewed & are unremarkable except as noted in HPI and below Constitutional: Constitutional: Denies body ache(s) Cardiovascular: Cardiovascular: Denies chest pain Exam Const: General: comfortable and no acute distress Other: Able to lie flat HENMT: Face/Nose/Sinus: Normal nares present and no epistaxis Mouth: Yes moist mucous membranes Eyes: Sclera: sclerae normal Pupils: Equal, round and reactive pupils present EOM: EOMs intact bilaterally Neck: Neck: supple and no JVD Carotids: no bruits Other: TV P via the jugular vein Resp: Effort & Inspection: normal respiratory effort Auscultation: clear to auscultation bilaterally and lung sounds not diminished Other: No chest wall tenderness Cardio: Rate: regular rate Rhythm: regular rhythm Heart sounds: no gallops, Murmur heart sound present and no rubs GI: Inspection: distended Auscultation: normal bowel sounds Skin: General skin exam: normal color, rashes and/or lesions noted and no erythema Other: Warm Neuro: Cranial nerves: Yes Equal, round and reactive pupils present Speech: normal speech Other: No obvious focal deficit or facial asymmetry Extrem: General: no edema and no pedal edema Other: Normal capillary refills Intact distal pulses. Objective Data Vital Signs Vital Signs: Vital Signs - 24 hr 02/19/25 12:00 02/19/25 12:00 02/19/25 13:48 Temperature 37.5 C Pulse Rate 60 60 55 L Pulse Rate [Bilateral Pedal (Dorsalis Pedis) Palpation] Respiratory Rate 22 H 22 H Blood Pressure 104/77 Pulse Oximetry 93 95 Oxygen Delivery Nasal Cannula Oxygen Flow Rate 2 Fraction of Inspired Oxygen 02/19/25 13:56 02/19/25 14:00 02/19/25 14:00 Temperature 37.6 C Pulse Rate 50 L 48 L 48 L Pulse Rate [Bilateral Pedal (Dorsalis Pedis) Palpation] Respiratory Rate 24 H 25 H Blood Pressure 115/54 L Pulse Oximetry 91 Oxygen Delivery Oxygen Flow Rate Fraction of Inspired Oxygen 02/19/25 16:00 02/19/25 16:00 02/19/25 16:00 Temperature 37.6 C 37.6 C H Pulse Rate 48 L 49 L 44 L Pulse Rate [Bilateral Pedal (Dorsalis Pedis) Palpation] Respiratory Rate 24 H 24 H Blood Pressure 104/53 L 104/53 L Pulse Oximetry 95 94 Oxygen Delivery Oxygen Flow Rate Fraction of Inspired Oxygen 02/19/25 16:00 02/19/25 17:11 02/19/25 17:22 Temperature Pulse Rate 48 L 45 L 53 L Pulse Rate [Bilateral Pedal (Dorsalis Pedis) Palpation] Respiratory Rate 20 21 H 24 H Blood Pressure Pulse Oximetry 95 Oxygen Delivery Nasal Cannula Oxygen Flow Rate 2 Fraction of Inspired Oxygen 02/19/25 18:00 02/19/25 18:00 02/19/25 19:37 Temperature 37.8 C H Pulse Rate 49 L 48 L 47 L Pulse Rate [Bilateral Pedal (Dorsalis Pedis) Palpation] Respiratory Rate 19 20 Blood Pressure 103/47 L Pulse Oximetry 92 Oxygen Delivery Oxygen Flow Rate Fraction of Inspired Oxygen 02/19/25 19:39 02/19/25 19:46 02/19/25 19:47 Temperature Pulse Rate 50 L 47 L 47 L Pulse Rate [Bilateral Pedal (Dorsalis Pedis) Palpation] Respiratory Rate 20 22 H 22 H Blood Pressure Pulse Oximetry 91 93 Oxygen Delivery Nasal Cannula Nasal Cannula Oxygen Flow Rate 4 4 Fraction of Inspired Oxygen 36 02/19/25 19:55 02/19/25 20:00 02/19/25 20:00 Temperature 38.1 C H Pulse Rate 47 L 47 L 48 L Pulse Rate [Bilateral Pedal (Dorsalis Pedis) Palpation] Respiratory Rate 27 H 24 H Blood Pressure 96/39 L 90/67 L Pulse Oximetry 93 92 Oxygen Delivery Oxygen Flow Rate Fraction of Inspired Oxygen 02/19/25 21:00 02/19/25 22:00 02/19/25 22:00 Temperature Pulse Rate 47 L 44 L 45 L Pulse Rate [Bilateral Pedal (Dorsalis Pedis) Palpation] Respiratory Rate 25 H Blood Pressure 128/45 L 108/57 L Pulse Oximetry 92 Oxygen Delivery Oxygen Flow Rate Fraction of Inspired Oxygen 02/19/25 23:40 02/19/25 23:41 02/19/25 23:46 Temperature Pulse Rate 46 L 464 H Pulse Rate [Bilateral Pedal (Dorsalis Pedis) Palpation] 46 L 47 L Respiratory Rate 24 H 16 Blood Pressure 105/46 L Pulse Oximetry 92 92 Oxygen Delivery Nasal Cannula Oxygen Flow Rate 4 Fraction of Inspired Oxygen 02/20/25 00:00 02/20/25 00:00 02/20/25 01:11 Temperature 37.7 C H Pulse Rate 46 L 46 L 50 L Pulse Rate [Bilateral Pedal (Dorsalis Pedis) Palpation] Respiratory Rate 16 20 Blood Pressure 120/54 L Pulse Oximetry 94 Oxygen Delivery Oxygen Flow Rate Fraction of Inspired Oxygen 02/20/25 01:37 02/20/25 02:00 02/20/25 02:00 Temperature Pulse Rate 54 L 55 L 48 L Pulse Rate [Bilateral Pedal (Dorsalis Pedis) Palpation] Respiratory Rate 22 H 18 Blood Pressure 115/54 L Pulse Oximetry 92 Oxygen Delivery Oxygen Flow Rate Fraction of Inspired Oxygen 02/20/25 03:12 02/20/25 03:13 02/20/25 04:00 Temperature 38.0 C H Pulse Rate 47 L 47 L 46 L Pulse Rate [Bilateral Pedal (Dorsalis Pedis) Palpation] 47 L Respiratory Rate 19 19 19 Blood Pressure 110/49 L 120/51 L Pulse Oximetry 95 95 94 Oxygen Delivery Nasal Cannula Oxygen Flow Rate 4 Fraction of Inspired Oxygen 02/20/25 04:00 02/20/25 06:00 02/20/25 06:00 Temperature 37.9 C H Pulse Rate 47 L 46 L 46 L Pulse Rate [Bilateral Pedal (Dorsalis Pedis) Palpation] Respiratory Rate 22 H Blood Pressure 103/71 Pulse Oximetry 92 Oxygen Delivery Oxygen Flow Rate Fraction of Inspired Oxygen 02/20/25 08:00 02/20/25 08:00 02/20/25 08:00 Temperature 38.1 C H Pulse Rate 51 L 46 L 46 L Pulse Rate [Bilateral Pedal (Dorsalis Pedis) Palpation] Respiratory Rate 29 H 22 H Blood Pressure 109/75 Pulse Oximetry 92 91 Oxygen Delivery Nasal Cannula Oxygen Flow Rate 4 Fraction of Inspired Oxygen 36 02/20/25 09:44 02/20/25 09:54 02/20/25 10:00 Temperature 38.0 C H Pulse Rate 46 L 50 L 46 L Pulse Rate [Bilateral Pedal (Dorsalis Pedis) Palpation] Respiratory Rate 26 H 26 H 29 H Blood Pressure 142/63 H Pulse Oximetry 90 91 Oxygen Delivery Nasal Cannula Oxygen Flow Rate 4 Fraction of Inspired Oxygen 36 02/20/25 10:00 02/20/25 10:07 Temperature Pulse Rate 46 L 46 L Pulse Rate [Bilateral Pedal (Dorsalis Pedis) Palpation] Respiratory Rate 22 H Blood Pressure Pulse Oximetry Oxygen Delivery Oxygen Flow Rate Fraction of Inspired Oxygen Intake/Output Intake/Output: Intake & Output 02/17/25 02/18/25 02/19/25 02/20/25 23:59 23:59 23:59 23:59 Intake Total 1008.3 2300 200 0 Output Total 1200 1400 879 475 Balance -191.7 900 -145 -530 Meds/Results Medications: Active Medications Generic Name Dose Route Start Last Admin Trade Name Freq PRN Reason Stop Dose Admin Acetaminophen 650 mg 02/16/25 14:52 Acetaminophen 325 Mg Tablet PO Q4H PRN Mild Pain (1-3) or Fever Albuterol/Ipratropium 3 ml 02/17/25 08:45 02/20/25 09:44 Ipratropium 0.5 Mg/Albuterol Sulfate 2.5 Mg Ampul.Neb 3 Ml INHALATION 3 ml Q6HRT GET Administration Atropine Sulfate 1 drop 02/18/25 23:53 02/19/25 00:30 Atropine Sulfate 1% Ophth Soln 5 Ml Bottle SUBLINGUAL 1 drop Q4H PRN Administration Secretions Enoxaparin Sodium 40 mg 02/17/25 09:00 02/20/25 08:36 Enoxaparin 40 Mg/0.4 Ml Syringe SUB-Q 40 mg DAILY GET Administration Meropenem 1 gm/ Sodium 100 mls @ 200 mls/hr 02/17/25 10:30 02/20/25 08:37 Chloride IVPB 200 mls/hr Q12HR EGT Administration Lidocaine HCl 3 ml 02/19/25 02:27 02/20/25 01:09 Lidocaine 1% Pf Inj 5 Ml Vial XX 3 ml Q4H PRN Administration COUGHING SPELLS Lorazepam 0.5 mg 02/18/25 19:08 Lorazepam Inj (*Crx) 2 Mg/Ml Vial IV PUSH ONCE PRN agitation Pantoprazole Sodium 40 mg 02/18/25 09:00 02/20/25 08:37 Pantoprazole Sodium Iv 40 Mg Vial IV PUSH 40 mg QAM GET Administration Rosuvastatin Calcium 10 mg 02/17/25 09:00 02/17/25 10:58 Rosuvastatin 10 Mg Tablet PO Not Given DAILY [facility] Radiology Results: ITS Impressions Head CT 02/16/25 14:17 IMPRESSION: No acute intracranial process. Abdomen Ultrasound 02/17/25 08:27 IMPRESSION: 1. Limited abdominal ultrasound demonstrating a fluid-filled loops of bowel in all 4 quadrants of the abdomen with minimal ascites in the right upper quadrant. 2. Gallbladder and liver are unremarkable with no evident intrahepatic biliary ductal dilation and nonvisualized common bile duct. Renal Ultrasound 02/17/25 14:03 IMPRESSION: 1. 2.7 cm right renal cyst. Otherwise normal kidneys with no hydronephrosis. Duplex Scan Lower Extremity Artery 02/18/25 07:36 Impression: 1: Focal 1.5 cm atherosclerotic plaque in the right common femoral artery without evidence of occlusion or significant stenosis. Otherwise normal bilateral lower extremity arterial duplex with triphasic flow throughout. Abdomen/Pelvis CT 02/18/25 16:54 IMPRESSION: 1. Findings consistent with acute appendicitis, potentially ruptured given the prominence of the surrounding inflammatory stranding in the presence of a couple small nonloculated fluid collections in the right lower quadrant. Findings were discussed with Lela Meza, the nurse caring for the patient, at 5:06 PM. 2. Multiple mildly dilated loops of small bowel with slow progression of contrast on immediately prior small bowel follow-through study but without a discrete transition point and favor a secondary reactive ileus over a partial small bowel obstruction. 3. Small bilateral pleural effusions. Small Bowel X-Ray 02/18/25 23:14 IMPRESSION: Findings suggesting high-grade small bowel obstruction with lack of progression of oral contrast beyond the duodenal sweep for which dedicated CT examination will be performed. Chest X-Ray 02/19/25 05:31 Impression: 1: Left basilar airspace disease may represent atelectasis and/or pneumonia. Abdomen X-Ray 02/19/25 09:06 IMPRESSION: 1.Redemonstration of several air-filled loops of dilated small bowel similar to the study from February 18, 2025. 2.Nasogastric tube courses below the diaphragm, its tip projects over the left upper abdomen likely within the cardia of the stomach. Labs Labs: Laboratory Results - last 24 hr 02/17/25 02/19/25 02/19/25 10:31 12:36 18:08 WBC RBC Hgb Hct MCV MCH MCHC RDW Plt Count MPV Immature Gran % (Auto) Neut % (Auto) Lymph % (Auto) [place] % (Auto) Eos % (Auto) Baso % (Auto) Lymph # (Auto) [place] # (Auto) Eos # (Auto) Baso # (Auto) Abs Immat Gran (auto) Absolute Neuts (auto) Absolute Nucleated RBC Nucleated RBC % Sodium Potassium Chloride Carbon Dioxide Anion Gap BUN Creatinine Estim Creat Clear Calc Estimated GFR Glucose POC Capillary Glucose 143 H 116 H Calcium Phosphorus Magnesium Total Bilirubin AST ALT Alkaline Phosphatase Total Protein Albumin ALLIE Screen Negative Tot Complement (CH50) >60 02/19/25 02/20/25 02/20/25 23:44 05:51 06:32 WBC 10.7 H RBC 4.15 L Hgb 13.6 L Hct 42.1 MCV 101.4 H MCH 32.8 MCHC 32.3 RDW 14.2 Plt Count 212 MPV 9.5 Immature Gran % (Auto) 0.4 Neut % (Auto) 71.6 Lymph % (Auto) 17.2 L [place] % (Auto) 9.5 H Eos % (Auto) 0.8 Baso % (Auto) 0.5 Lymph # (Auto) 1.84 [place] # (Auto) 1.0 H Eos # (Auto) 0.1 Baso # (Auto) 0.1 Abs Immat Gran (auto) 0.04 H Absolute Neuts (auto) 7.7 H Absolute Nucleated RBC 0.000 Nucleated RBC % 0.0 Sodium 144 Potassium 3.5 Chloride 110 H Carbon Dioxide 27 Anion Gap 7 BUN 35 H Creatinine 1.26 Estim Creat Clear Calc 46 Estimated GFR 55 L Glucose 122 H POC Capillary Glucose 76 121 H Calcium 9.1 Phosphorus 2.9 Magnesium 2.6 H Total Bilirubin 1.2 AST 48 ALT 34 Alkaline Phosphatase 139 H Total Protein 6.8 Albumin 3.2 L ALLIE Screen Tot Complement (CH50)
--- NOTE | 2025-02-20 11:37 | PM.PNGS ---
Progress Note: A&P Assessment and Plan (1) Acute perforated appendicitis: Code(s): K35.32 - Acute appendicitis with perforation, localized peritonitis, and gangrene, without abscess <Elisha Walls PA-C - Last Filed: 02/20/25 12:10> Status: Acute <Elisha Walls PA-C - Last Filed: 02/20/25 12:10> Assessment and Plan: CT scan from 02/18 demonstrated acute appendicitis, potentially ruptured a few small non loculated fluid collections in the right lower quadrant. Physical exam benign, with no abdominal pain when palpated. 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 Continue meropenem. Continue with comfort measures. General surgery team will sign off this time. Please call with any issues. <Elisha Walls PA-C - Last Filed: 02/20/25 12:10> (2) Small bowel obstruction: Code(s): K56.609 - Unspecified intestinal obstruction, unspecified as to partial versus complete obstruction <Elisha Walls PA-C - Last Filed: 02/20/25 12:10> Status: Acute <Elisha Walls PA-C - Last Filed: 02/20/25 12:10> Assessment and Plan: Abdominal x-ray yesterday demonstrated several air-filled loops of dilated small bowel similar to the study from the previous day. NG tube in proper position. CT from 02/18 showed no discrete transition point with mildly dilated small bowel, more likely an ileus secondary to the perforated appendicitis rather than a high-grade small-bowel obstruction. Patient and his family have chosen to undergo hospice measures. See plan above. <Elisha Walls PA-C - Last Filed: 02/20/25 12:10> (3) Sepsis: Code(s): A41.9 - Sepsis, unspecified organism <Elisha Walls PA-C - Last Filed: 02/20/25 12:10> Status: Acute <DOM Segura Last Filed: 02/20/25 12:10> Assessment and Plan: Fever, tachypnea, leukocytosis, and lactic acidosis noted over the past 48 hours. Blood cultures from 02/16/2025 NGTD. Lactic acidosis resolved. Likely secondary to acute perforated appendicitis, see plan above. Blood pressure stable without any vasopressor requirements. Continue IV meropenem <Elisha Walls PA-C - Last Filed: 02/20/25 12:10> (4) CHB (complete heart block): Code(s): I44.2 - Atrioventricular block, complete <Elisha Walls PA-C - Last Filed: 02/20/25 12:10> Status: Acute <Elisha Walls PA-C - Last Filed: 02/20/25 12:10> Assessment and Plan: Temporary R IJ transvenous pacer in place. Cardiology eventually planning for permanent pacemaker. <Elisha Walls PA-C - Last Filed: 02/20/25 12:10> (5) Stage 3 chronic kidney disease: Code(s): N18.30 - Chronic kidney disease, stage 3 unspecified <Elisha Walls PA-C - Last Filed: 02/20/25 12:10> Status: Acute <Elisha Walls PA-C - Last Filed: 02/20/25 12:10> Assessment and Plan: Discussed patient's case and plan of care with Dr. De Jesus. <Elisha Walls PA-C - Last Filed: 02/20/25 12:10> Subjective Subjective Date/Time Seen: 02/20/25 11:37 <Elisha Walls PA-C - Last Filed: 02/20/25 12:10> Patient reports: no new complaints <Elisha Walls PA-C - Last Filed: 02/20/25 12:10> Interval history: Patient does not have any new complaints today. No abdominal pain. He remains febrile at 100.4. Bradycardic and tachypneic. Low diastolic BP. The lactic acidosis resolved. Patient did have multiple bowel movements overnight. <Elisha Walls PA-C - Last Filed: 02/20/25 12:10> Exam Const: General: comfortable and no acute distress <Elisha Walls PA-C - Last Filed: 02/20/25 12:10> GI: GI Palp: Yes Soft to palpation, No Tenderness to palpation present (GI) and No Guarding due to palpation present (GI) <DOM Segura Last Filed: 02/20/25 12:10> Auscultation: abnormal bowel sounds (Hypoactive) <DOM Segura Last Filed: 02/20/25 12:10> Other: Patient less distended and more soft than yesterday. <DOM Segura Last Filed: 02/20/25 12:10> Objective Data Vital Signs Vital Signs: Vital Signs - 24 hr 02/19/25 12:00 02/19/25 12:00 02/19/25 13:48 Temperature 99.5 F Pulse Rate 60 60 55 L Pulse Rate [Bilateral Pedal (Dorsalis Pedis) Palpation] Respiratory Rate 22 H 22 H Blood Pressure 104/77 Pulse Oximetry 93 95 Oxygen Delivery Nasal Cannula Oxygen Flow Rate 2 Fraction of Inspired Oxygen 02/19/25 13:56 02/19/25 14:00 02/19/25 14:00 Temperature 99.6 F Pulse Rate 50 L 48 L 48 L Pulse Rate [Bilateral Pedal (Dorsalis Pedis) Palpation] Respiratory Rate 24 H 25 H Blood Pressure 115/54 L Pulse Oximetry 91 Oxygen Delivery Oxygen Flow Rate Fraction of Inspired Oxygen 02/19/25 16:00 02/19/25 16:00 02/19/25 16:00 Temperature 99.6 F 99.7 F H Pulse Rate 48 L 49 L 44 L Pulse Rate [Bilateral Pedal (Dorsalis Pedis) Palpation] Respiratory Rate 24 H 24 H Blood Pressure 104/53 L 104/53 L Pulse Oximetry 95 94 Oxygen Delivery Oxygen Flow Rate Fraction of Inspired Oxygen 02/19/25 16:00 02/19/25 17:11 02/19/25 17:22 Temperature Pulse Rate 48 L 45 L 53 L Pulse Rate [Bilateral Pedal (Dorsalis Pedis) Palpation] Respiratory Rate 20 21 H 24 H Blood Pressure Pulse Oximetry 95 Oxygen Delivery Nasal Cannula Oxygen Flow Rate 2 Fraction of Inspired Oxygen 02/19/25 18:00 02/19/25 18:00 02/19/25 19:37 Temperature 100.1 F H Pulse Rate 49 L 48 L 47 L Pulse Rate [Bilateral Pedal (Dorsalis Pedis) Palpation] Respiratory Rate 19 20 Blood Pressure 103/47 L Pulse Oximetry 92 Oxygen Delivery Oxygen Flow Rate Fraction of Inspired Oxygen 02/19/25 19:39 02/19/25 19:46 02/19/25 19:47 Temperature Pulse Rate 50 L 47 L 47 L Pulse Rate [Bilateral Pedal (Dorsalis Pedis) Palpation] Respiratory Rate 20 22 H 22 H Blood Pressure Pulse Oximetry 91 93 Oxygen Delivery Nasal Cannula Nasal Cannula Oxygen Flow Rate 4 4 Fraction of Inspired Oxygen 36 02/19/25 19:55 02/19/25 20:00 02/19/25 20:00 Temperature 100.5 F H Pulse Rate 47 L 47 L 48 L Pulse Rate [Bilateral Pedal (Dorsalis Pedis) Palpation] Respiratory Rate 27 H 24 H Blood Pressure 96/39 L 90/67 L Pulse Oximetry 93 92 Oxygen Delivery Oxygen Flow Rate Fraction of Inspired Oxygen 02/19/25 21:00 02/19/25 22:00 02/19/25 22:00 Temperature Pulse Rate 47 L 44 L 45 L Pulse Rate [Bilateral Pedal (Dorsalis Pedis) Palpation] Respiratory Rate 25 H Blood Pressure 128/45 L 108/57 L Pulse Oximetry 92 Oxygen Delivery Oxygen Flow Rate Fraction of Inspired Oxygen 02/19/25 23:40 02/19/25 23:41 02/19/25 23:46 Temperature Pulse Rate 46 L 464 H Pulse Rate [Bilateral Pedal (Dorsalis Pedis) Palpation] 46 L 47 L Respiratory Rate 24 H 16 Blood Pressure 105/46 L Pulse Oximetry 92 92 Oxygen Delivery Nasal Cannula Oxygen Flow Rate 4 Fraction of Inspired Oxygen 02/20/25 00:00 02/20/25 00:00 02/20/25 01:11 Temperature 99.9 F H Pulse Rate 46 L 46 L 50 L Pulse Rate [Bilateral Pedal (Dorsalis Pedis) Palpation] Respiratory Rate 16 20 Blood Pressure 120/54 L Pulse Oximetry 94 Oxygen Delivery Oxygen Flow Rate Fraction of Inspired Oxygen 02/20/25 01:37 02/20/25 02:00 02/20/25 02:00 Temperature Pulse Rate 54 L 55 L 48 L Pulse Rate [Bilateral Pedal (Dorsalis Pedis) Palpation] Respiratory Rate 22 H 18 Blood Pressure 115/54 L Pulse Oximetry 92 Oxygen Delivery Oxygen Flow Rate Fraction of Inspired Oxygen 02/20/25 03:12 02/20/25 03:13 02/20/25 04:00 Temperature 100.4 F H Pulse Rate 47 L 47 L 46 L Pulse Rate [Bilateral Pedal (Dorsalis Pedis) Palpation] 47 L Respiratory Rate 19 19 19 Blood Pressure 110/49 L 120/51 L Pulse Oximetry 95 95 94 Oxygen Delivery Nasal Cannula Oxygen Flow Rate 4 Fraction of Inspired Oxygen 02/20/25 04:00 02/20/25 06:00 02/20/25 06:00 Temperature 100.2 F H Pulse Rate 47 L 46 L 46 L Pulse Rate [Bilateral Pedal (Dorsalis Pedis) Palpation] Respiratory Rate 22 H Blood Pressure 103/71 Pulse Oximetry 92 Oxygen Delivery Oxygen Flow Rate Fraction of Inspired Oxygen 02/20/25 08:00 02/20/25 08:00 02/20/25 08:00 Temperature 100.5 F H Pulse Rate 51 L 46 L 46 L Pulse Rate [Bilateral Pedal (Dorsalis Pedis) Palpation] Respiratory Rate 29 H 22 H Blood Pressure 109/75 Pulse Oximetry 92 91 Oxygen Delivery Nasal Cannula Oxygen Flow Rate 4 Fraction of Inspired Oxygen 36 02/20/25 09:44 02/20/25 09:54 02/20/25 10:00 Temperature 100.4 F H Pulse Rate 46 L 50 L 46 L Pulse Rate [Bilateral Pedal (Dorsalis Pedis) Palpation] Respiratory Rate 26 H 26 H 29 H Blood Pressure 142/63 H Pulse Oximetry 90 91 Oxygen Delivery Nasal Cannula Oxygen Flow Rate 4 Fraction of Inspired Oxygen 36 02/20/25 10:00 02/20/25 10:07 Temperature Pulse Rate 46 L 46 L Pulse Rate [Bilateral Pedal (Dorsalis Pedis) Palpation] Respiratory Rate 22 H Blood Pressure Pulse Oximetry Oxygen Delivery Oxygen Flow Rate Fraction of Inspired Oxygen <Elisha Walls PA-C - Last Filed: 02/20/25 12:10> Intake/Output Intake/Output: Intake & Output 02/17/25 02/18/25 02/19/25 02/20/25 23:59 23:59 23:59 23:59 Intake Total 1008.3 2300 200 0 Output Total 1200 1400 875 475 Balance -191.7 900 -675 -475 <Elisha Walls PA-C - Last Filed: 02/20/25 12:10> Meds/Results Medications: Active Medications Generic Name Dose Route Start Last Admin Trade Name Freq PRN Reason Stop Dose Admin Acetaminophen 650 mg 02/16/25 14:52 Acetaminophen 325 Mg Tablet PO Q4H PRN Mild Pain (1-3) or Fever Albuterol/Ipratropium 3 ml 02/17/25 08:45 02/20/25 09:44 Ipratropium 0.5 Mg/Albuterol Sulfate 2.5 Mg Ampul.Neb 3 Ml INHALATION 3 ml Q6HRT GET Administration Atropine Sulfate 1 drop 02/18/25 23:53 02/19/25 00:30 Atropine Sulfate 1% Ophth Soln 5 Ml Bottle SUBLINGUAL 1 drop Q4H PRN Administration Secretions Enoxaparin Sodium 40 mg 02/17/25 09:00 02/20/25 08:36 Enoxaparin 40 Mg/0.4 Ml Syringe SUB-Q 40 mg DAILY GET Administration Meropenem 1 gm/ Sodium 100 mls @ 200 mls/hr 02/17/25 10:30 02/20/25 08:37 Chloride IVPB 200 mls/hr Q12HR GET Administration Lidocaine HCl 3 ml 02/19/25 02:27 02/20/25 01:09 Lidocaine 1% Pf Inj 5 Ml Vial XX 3 ml Q4H PRN Administration COUGHING SPELLS Lorazepam 0.5 mg 02/18/25 19:08 Lorazepam Inj (*Crx) 2 Mg/Ml Vial IV PUSH ONCE PRN agitation Pantoprazole Sodium 40 mg 02/18/25 09:00 02/20/25 08:37 Pantoprazole Sodium Iv 40 Mg Vial IV PUSH 40 mg QAM GET Administration Rosuvastatin Calcium 10 mg 02/17/25 09:00 02/17/25 10:58 Rosuvastatin 10 Mg Tablet PO Not Given DAILY GET <Elisha Walls PA-C - Last Filed: 02/20/25 12:10> Radiology Results: ITS Impressions Head CT 02/16/25 14:17 IMPRESSION: No acute intracranial process. Abdomen Ultrasound 02/17/25 08:27 IMPRESSION: 1. Limited abdominal ultrasound demonstrating a fluid-filled loops of bowel in all 4 quadrants of the abdomen with minimal ascites in the right upper quadrant. 2. Gallbladder and liver are unremarkable with no evident intrahepatic biliary ductal dilation and nonvisualized common bile duct. Renal Ultrasound 02/17/25 14:03 IMPRESSION: 1. 2.7 cm right renal cyst. Otherwise normal kidneys with no hydronephrosis. Duplex Scan Lower Extremity Artery 02/18/25 07:36 Impression: 1: Focal 1.5 cm atherosclerotic plaque in the right common femoral artery without evidence of occlusion or significant stenosis. Otherwise normal bilateral lower extremity arterial duplex with triphasic flow throughout. Abdomen/Pelvis CT 02/18/25 16:54 IMPRESSION: 1. Findings consistent with acute appendicitis, potentially ruptured given the prominence of the surrounding inflammatory stranding in the presence of a couple small nonloculated fluid collections in the right lower quadrant. Findings were discussed with Lela Meza, the nurse caring for the patient, at 5:06 PM. 2. Multiple mildly dilated loops of small bowel with slow progression of contrast on immediately prior small bowel follow-through study but without a discrete transition point and favor a secondary reactive ileus over a partial small bowel obstruction. 3. Small bilateral pleural effusions. Small Bowel X-Ray 02/18/25 23:14 IMPRESSION: Findings suggesting high-grade small bowel obstruction with lack of progression of oral contrast beyond the duodenal sweep for which dedicated CT examination will be performed. Chest X-Ray 02/19/25 05:31 Impression: 1: Left basilar airspace disease may represent atelectasis and/or pneumonia. Abdomen X-Ray 02/19/25 09:06 IMPRESSION: 1.Redemonstration of several air-filled loops of dilated small bowel similar to the study from February 18, 2025. 2.Nasogastric tube courses below the diaphragm, its tip projects over the left upper abdomen likely within the cardia of the stomach. <Elisha Walls PA-C - Last Filed: 02/20/25 12:10> Labs Labs: Laboratory Results - last 24 hr 02/17/25 02/19/25 02/19/25 10:31 12:36 18:08 WBC RBC Hgb Hct MCV MCH MCHC RDW Plt Count MPV Immature Gran % (Auto) Neut % (Auto) Lymph % (Auto) [place] % (Auto) Eos % (Auto) Baso % (Auto) Lymph # (Auto) [place] # (Auto) Eos # (Auto) Baso # (Auto) Abs Immat Gran (auto) Absolute Neuts (auto) Absolute Nucleated RBC Nucleated RBC % Sodium Potassium Chloride Carbon Dioxide Anion Gap BUN Creatinine Estim Creat Clear Calc Estimated GFR Glucose POC Capillary Glucose 143 H 116 H Calcium Phosphorus Magnesium Total Bilirubin AST ALT Alkaline Phosphatase Total Protein Albumin ALLIE Screen Negative Tot Complement (CH50) >60 02/19/25 02/20/25 02/20/25 23:44 05:51 06:32 WBC 10.7 H RBC 4.15 L Hgb 13.6 L Hct 42.1 MCV 101.4 H MCH 32.8 MCHC 32.3 RDW 14.2 Plt Count 212 MPV 9.5 Immature Gran % (Auto) 0.4 Neut % (Auto) 71.6 Lymph % (Auto) 17.2 L [place] % (Auto) 9.5 H Eos % (Auto) 0.8 Baso % (Auto) 0.5 Lymph # (Auto) 1.84 [place] # (Auto) 1.0 H Eos # (Auto) 0.1 Baso # (Auto) 0.1 Abs Immat Gran (auto) 0.04 H Absolute Neuts (auto) 7.7 H Absolute Nucleated RBC 0.000 Nucleated RBC % 0.0 Sodium 144 Potassium 3.5 Chloride 110 H Carbon Dioxide 27 Anion Gap 7 BUN 35 H Creatinine 1.26 Estim Creat Clear Calc 46 Estimated GFR 55 L Glucose 122 H POC Capillary Glucose 76 121 H Calcium 9.1 Phosphorus 2.9 Magnesium 2.6 H Total Bilirubin 1.2 AST 48 ALT 34 Alkaline Phosphatase 139 H Total Protein 6.8 Albumin 3.2 L ALLIE Screen Tot Complement (CH50) <Elisha Walls PA-C - Last Filed: 02/20/25 12:10> Attestation Supervising Provider Attestation I, Ana Cristina De Jesus MD, have provided a substantive portion of the care of this patient. I performed the history, exam and/or medical decision making for this encounter. abd - soft, mod dist, NT, labs reviewed, family has decided to proceed c hospice care at this point, will s/o, call c ?s, issues Ana Cristina De Jesus MD 02/20/25;11:52 <Ana Cristina De Jesus MD - Last Filed: 02/20/25 11:53>
--- NOTE | 2025-02-20 12:52 | P.PNIM_ITS ---
Progress Note: A&P Assessment and Plan (1) Small bowel obstruction: Code(s): K56.609 - Unspecified intestinal obstruction, unspecified as to partial versus complete obstruction Status: Acute Assessment and Plan: Patient with distended abdomen obstructive series showed small-bowel obstruction -bowel rest, NG tube decompression, gentle IV fluid hydration -surgery aware of the possible acute appendicitis with rupture, not a surgical candidate at this time, continue to move monitor and treat with antibiotics -02/20: Patient has had bowel movements overnight, this morning abdominal was less distended, soft, very hypoactive bowel sounds if any, mild diffuse tenderness -NG tube continues to have increased drainage 02/18/2025: CT scan of the abdomen and pelvis without contrast IMPRESSION: 1. Findings consistent with acute appendicitis, potentially ruptured given the prominence of the surrounding inflammatory stranding in the presence of a couple small nonloculated fluid collections in the right lower quadrant. Findings were discussed with Lela Meza, the nurse caring for the patient, at 5:06 PM. 2. Multiple mildly dilated loops of small bowel with slow progression of contrast on immediately prior small bowel follow-through study but without a discrete transition point and favor a secondary reactive ileus over a partial small bowel obstruction. 3. Small bilateral pleural effusions. (2) CHB (complete heart block): Code(s): I44.2 - Atrioventricular block, complete Status: Acute Assessment and Plan: 02/16: Patient presented with generalized weakness was admitted to the medical floor, where he developed bradycardia and complete heart block. Cardiology was notified, received it temporary venous pacemaker -will hold all AV rosana blockers -I discontinued flecainide 02/17 -cardiology following the patient -Dr. Medley discussed with patient's , explained to her that he would not recommend placing permanent pacemaker as it would not improve his dementia or have any impact on his his critical aortic stenosis. The family is supposed to get back to us on that. -temporary pacemaker has been sedated 40, patient does have sinus bradycardia in the mid 40s with his intrinsic rhythm (3) Aortic stenosis, moderate: Code(s): I35.0 - Nonrheumatic aortic (valve) stenosis Status: Acute Assessment and Plan: Echocardiogram September 2022: Severe aortic stenosis with mean gradient of 32 mmHg and aortic valve area of 0.8 cm2, EF was 70% at that time on echo done in September 2022. -patient follows Dr. Kirkpatrick, according to cardiology progress note it was decided with the family that they would not proceed for any intervention given his advanced dementia -cardiology following 02/18/2025: Echocardiogram Summary 1. Complete two-dimensional, color flow and Doppler transthoracic echocardiogram is performed. 2. The left ventricle is normal in size with hyperdynamic systolic function. The left ventricular ejection fraction is visually estimated to be greater than 70%. 3. The right ventricle is normal in size and systolic function. There is a pacemaker lead in the right ventricle. 4. The aortic valve is trileaflet and heavily calcified. There is severe aortic stenosis. SAMANTHA 0.7cm2 and previously 0.8cm2. There is mild aortic regurgitation. 5. The mitral valve leaflets are poorly visualized and there appears to be significant mitral annular calcification however there does not appear to be any mitral stenosis by Doppler gradients. (4) Atrial fibrillation: Qualifiers: Atrial fibrillation type: unspecified Qualified Code(s): I48.91 - Unspecified atrial fibrillation Code(s): I48.91 - Unspecified atrial fibrillation Status: Acute Assessment and Plan: History of atrial fibrillation, not on any anticoagulation due to fall -off flecainide -patient was in complete heart block, requiring temporary of venous pacemaker (5) CHF (congestive heart failure): Code(s): I50.9 - Heart failure, unspecified Status: Acute Assessment and Plan: Patient has a history of CHF, echocardiogram in September 2022 showed an EF of 70%, grade 1 diastolic dysfunction -proBNP 1320 -unknown if patient had a repeat echocardiogram in between -repeat echocardiogram this admission echocardiogram as above, EF 70% (6) Liver enzyme elevation: Code(s): R74.8 - Abnormal levels of other serum enzymes Status: Acute Assessment and Plan: Elevated liver enzymes and hyperbilirubinemia along with abdominal distension, right upper quadrant tenderness --02/17: RUQ ultrasound: Was unremarkable for gallbladder or liver pathology -hepatitis panel is normal -LFTs have normalized (7) Acute worsening of stage 3 chronic kidney disease: Code(s): N18.30 - Chronic kidney disease, stage 3 unspecified Status: Acute Assessment and Plan: Patient presented with acute on chronic kidney disease stage 3 (baseline creatinine 0.90 -1.10) -patient presented with a creatinine 1.54 -patient received adequate amount of IV fluids due to elevated CK level, possible rhabdomyolysis -urine lytes reflected prerenal picture, patient was given additional IV fluids with caution due to aortic stenosis - urine output has been low -renal ultrasound showed 2.7 cm right renal cyst otherwise normal kidneys with no hydronephrosis -appreciate Nephrology evaluation and recommendations -creatinine improving -continue to monitor renal function, electrolytes and urine output (8) Rhabdomyolysis: Code(s): M62.82 - Rhabdomyolysis Status: Acute Assessment and Plan: Elevated rhabdomyolysis, patient was found on the floor last week according the daughter which are mentioned in the records -patient may be having residual rhabdomyolysis -adequately fluid-resuscitated -patient slightly congested likely due to aortic stenosis -IV fluids discontinued -status post bicarb infusion at 50 mL/hour for total of 1000 mL -CK levels have been improving (9) Altered mental status: Code(s): R41.82 - Altered mental status, unspecified Status: Acute Assessment and Plan: Baseline dementia per family, which is rapidly progressing (10) Dementia: Qualifiers: Dementia behavioral disturbance: without behavioral disturbance Dementia type: unspecified type Qualified Code(s): F03.90 - Unspecified dementia without behavioral disturbance Code(s): F03.90 - Unspecified dementia, unspecified severity, without behavioral disturbance, psychotic disturbance, mood disturbance, and anxiety Status: Acute Assessment and Plan: History of dementia unknown baseline -discussed with and daughter regarding his baseline, they stated that this is his new baseline as his cognitive function is declining rapidly (11) Frequent falls: Code(s): R29.6 - Repeated falls Status: Acute Assessment and Plan: Has a history of frequent falls -patient has a transvenous pacemaker, PT/OT not evaluating the patient at this time (12) Hearing loss, bilateral: Code(s): H91.93 - Unspecified hearing loss, bilateral Status: Acute Assessment and Plan: Chronic (13) Cold foot: Code(s): R20.9 - Unspecified disturbances of skin sensation Status: Acute Assessment and Plan: Right foot was cold, 02/17: Arterial duplex ultrasound: Focal 1.5 cm atherosclerotic plaque in the right common femoral artery without evidence of occlusion or significant stenosis. Otherwise normal bilateral lower extremity arterial duplex with triphasic flow throughout. Subjective Date/time seen: 02/20/25 12:52 Interval history: Patient is currently admitted under hospice. During the evaluation his son and stock patcher was present Review of Systems Review of Systems: All systems reviewed & are unremarkable except as noted in HPI and below ROS unobtainable: Yes unobtainable due to medical condition and unobtainable due to mental status Exam Narrative: General: Elderly gentleman, currently in no acute distress HEENT:? Pupils are equal and reactive, sclera is clear, moist oral mucosa, NG tube in place Neck:? Supple, right IJ line with temporary pacemaker Respiratory:? Coarse breath sounds bilaterally, decreased at bases, no wheezing, Cardiac:? S1-S2 is normal, paced rhythm, 2/6 systolic ejection murmur Abdomen:? Soft not distended this morning, mildly tender diffusely, very hypoactive bowel sounds if any Extremities:? Bilateral feet are warm, palpable pedal pulses Neuro:? Patient is awake, alert, oriented to self, slow to answer with a soft voice, moves all extremities Skin:? Bruising noted Psych:? Flat affect, dementia Objective Data Vital Signs Vital Signs: Vital Signs - 24 hr 02/19/25 13:48 02/19/25 13:56 02/19/25 14:00 Temperature Pulse Rate 55 L 50 L 48 L Pulse Rate [Bilateral Pedal (Dorsalis Pedis) Palpation] Respiratory Rate 22 H 24 H Blood Pressure Pulse Oximetry Oxygen Delivery Oxygen Flow Rate Fraction of Inspired Oxygen 02/19/25 14:00 02/19/25 16:00 02/19/25 16:00 Temperature 99.6 F 99.6 F 99.7 F H Pulse Rate 48 L 48 L 49 L Pulse Rate [Bilateral Pedal (Dorsalis Pedis) Palpation] Respiratory Rate 25 H 24 H 24 H Blood Pressure 115/54 L 104/53 L 104/53 L Pulse Oximetry 91 95 94 Oxygen Delivery Oxygen Flow Rate Fraction of Inspired Oxygen 02/19/25 16:00 02/19/25 16:00 02/19/25 17:11 Temperature Pulse Rate 44 L 48 L 45 L Pulse Rate [Bilateral Pedal (Dorsalis Pedis) Palpation] Respiratory Rate 20 21 H Blood Pressure Pulse Oximetry 95 Oxygen Delivery Nasal Cannula Oxygen Flow Rate 2 Fraction of Inspired Oxygen 02/19/25 17:22 02/19/25 18:00 02/19/25 18:00 Temperature 100.1 F H Pulse Rate 53 L 49 L 48 L Pulse Rate [Bilateral Pedal (Dorsalis Pedis) Palpation] Respiratory Rate 24 H 19 Blood Pressure 103/47 L Pulse Oximetry 92 Oxygen Delivery Oxygen Flow Rate Fraction of Inspired Oxygen 02/19/25 19:37 02/19/25 19:39 02/19/25 19:46 Temperature Pulse Rate 47 L 50 L 47 L Pulse Rate [Bilateral Pedal (Dorsalis Pedis) Palpation] Respiratory Rate 20 20 22 H Blood Pressure Pulse Oximetry 91 Oxygen Delivery Nasal Cannula Oxygen Flow Rate 4 Fraction of Inspired Oxygen 36 02/19/25 19:47 02/19/25 19:55 02/19/25 20:00 Temperature 100.5 F H Pulse Rate 47 L 47 L 47 L Pulse Rate [Bilateral Pedal (Dorsalis Pedis) Palpation] Respiratory Rate 22 H 27 H 24 H Blood Pressure 96/39 L 90/67 L Pulse Oximetry 93 93 92 Oxygen Delivery Nasal Cannula Oxygen Flow Rate 4 Fraction of Inspired Oxygen 02/19/25 20:00 02/19/25 21:00 02/19/25 22:00 Temperature Pulse Rate 48 L 47 L 44 L Pulse Rate [Bilateral Pedal (Dorsalis Pedis) Palpation] Respiratory Rate Blood Pressure 128/45 L Pulse Oximetry Oxygen Delivery Oxygen Flow Rate Fraction of Inspired Oxygen 02/19/25 22:00 02/19/25 23:40 02/19/25 23:41 Temperature Pulse Rate 45 L 46 L 464 H Pulse Rate [Bilateral Pedal (Dorsalis Pedis) Palpation] 46 L Respiratory Rate 25 H 24 H 16 Blood Pressure 108/57 L 105/46 L Pulse Oximetry 92 92 92 Oxygen Delivery Nasal Cannula Oxygen Flow Rate 4 Fraction of Inspired Oxygen 02/19/25 23:46 02/20/25 00:00 02/20/25 00:00 Temperature 99.9 F H Pulse Rate 46 L 46 L Pulse Rate [Bilateral Pedal (Dorsalis Pedis) Palpation] 47 L Respiratory Rate 16 Blood Pressure 120/54 L Pulse Oximetry 94 Oxygen Delivery Oxygen Flow Rate Fraction of Inspired Oxygen 02/20/25 01:11 02/20/25 01:37 02/20/25 02:00 Temperature Pulse Rate 50 L 54 L 55 L Pulse Rate [Bilateral Pedal (Dorsalis Pedis) Palpation] Respiratory Rate 20 22 H Blood Pressure Pulse Oximetry Oxygen Delivery Oxygen Flow Rate Fraction of Inspired Oxygen 02/20/25 02:00 02/20/25 03:12 02/20/25 03:13 Temperature Pulse Rate 48 L 47 L 47 L Pulse Rate [Bilateral Pedal (Dorsalis Pedis) Palpation] 47 L Respiratory Rate 18 19 19 Blood Pressure 115/54 L 110/49 L Pulse Oximetry 92 95 95 Oxygen Delivery Nasal Cannula Oxygen Flow Rate 4 Fraction of Inspired Oxygen 02/20/25 04:00 02/20/25 04:00 02/20/25 06:00 Temperature 100.4 F H Pulse Rate 46 L 47 L 46 L Pulse Rate [Bilateral Pedal (Dorsalis Pedis) Palpation] Respiratory Rate 19 Blood Pressure 120/51 L Pulse Oximetry 94 Oxygen Delivery Oxygen Flow Rate Fraction of Inspired Oxygen 02/20/25 06:00 02/20/25 08:00 02/20/25 08:00 Temperature 100.2 F H 100.5 F H Pulse Rate 46 L 51 L 46 L Pulse Rate [Bilateral Pedal (Dorsalis Pedis) Palpation] Respiratory Rate 22 H 29 H 22 H Blood Pressure 103/71 109/75 Pulse Oximetry 92 92 91 Oxygen Delivery Nasal Cannula Oxygen Flow Rate 4 Fraction of Inspired Oxygen 36 02/20/25 08:00 02/20/25 09:44 02/20/25 09:54 Temperature Pulse Rate 46 L 46 L 50 L Pulse Rate [Bilateral Pedal (Dorsalis Pedis) Palpation] Respiratory Rate 26 H 26 H Blood Pressure Pulse Oximetry 90 Oxygen Delivery Nasal Cannula Oxygen Flow Rate 4 Fraction of Inspired Oxygen 36 02/20/25 10:00 02/20/25 10:00 02/20/25 10:07 Temperature 100.4 F H Pulse Rate 46 L 46 L 46 L Pulse Rate [Bilateral Pedal (Dorsalis Pedis) Palpation] Respiratory Rate 29 H 22 H Blood Pressure 142/63 H Pulse Oximetry 91 Oxygen Delivery Oxygen Flow Rate Fraction of Inspired Oxygen 02/20/25 12:00 Temperature 100.1 F H Pulse Rate 59 L Pulse Rate [Bilateral Pedal (Dorsalis Pedis) Palpation] Respiratory Rate 21 H Blood Pressure 141/77 H Pulse Oximetry 93 Oxygen Delivery Oxygen Flow Rate Fraction of Inspired Oxygen Intake/Output Intake/Output: Intake & Output 02/17/25 02/18/25 02/19/25 02/20/25 23:59 23:59 23:59 23:59 Intake Total 1008.3 2300 200 0 Output Total 1200 1400 875 475 Balance -191.7 900 -793 -858 Meds/Results Medications: Active Medications Generic Name Dose Route Start Last Admin Trade Name Freq PRN Reason Stop Dose Admin Acetaminophen 650 mg 02/16/25 14:52 Acetaminophen 325 Mg Tablet PO Q4H PRN Mild Pain (1-3) or Fever Albuterol/Ipratropium 3 ml 02/17/25 08:45 02/20/25 09:44 Ipratropium 0.5 Mg/Albuterol Sulfate 2.5 Mg Ampul.Neb 3 Ml INHALATION 3 ml Q6HRT GET Administration Atropine Sulfate 1 drop 02/18/25 23:53 02/19/25 00:30 Atropine Sulfate 1% Ophth Soln 5 Ml Bottle SUBLINGUAL 1 drop Q4H PRN Administration Secretions Enoxaparin Sodium 40 mg 02/17/25 09:00 02/20/25 08:36 Enoxaparin 40 Mg/0.4 Ml Syringe SUB-Q 40 mg DAILY GET Administration Meropenem 1 gm/ Sodium 100 mls @ 200 mls/hr 02/17/25 10:30 02/20/25 08:37 Chloride IVPB 200 mls/hr Q12HR GET Administration Lidocaine HCl 3 ml 02/19/25 02:27 02/20/25 01:09 Lidocaine 1% Pf Inj 5 Ml Vial XX 3 ml Q4H PRN Administration COUGHING SPELLS Lorazepam 0.5 mg 02/18/25 19:08 Lorazepam Inj (*Crx) 2 Mg/Ml Vial IV PUSH ONCE PRN agitation Pantoprazole Sodium 40 mg 02/18/25 09:00 02/20/25 08:37 Pantoprazole Sodium Iv 40 Mg Vial IV PUSH 40 mg QAM GET Administration Rosuvastatin Calcium 10 mg 02/17/25 09:00 02/17/25 10:58 Rosuvastatin 10 Mg Tablet PO Not Given DAILY [facility] Radiology Results: ITS Impressions Head CT 02/16/25 14:17 IMPRESSION: No acute intracranial process. Abdomen Ultrasound 02/17/25 08:27 IMPRESSION: 1. Limited abdominal ultrasound demonstrating a fluid-filled loops of bowel in all 4 quadrants of the abdomen with minimal ascites in the right upper quadrant. 2. Gallbladder and liver are unremarkable with no evident intrahepatic biliary ductal dilation and nonvisualized common bile duct. Renal Ultrasound 02/17/25 14:03 IMPRESSION: 1. 2.7 cm right renal cyst. Otherwise normal kidneys with no hydronephrosis. Duplex Scan Lower Extremity Artery 02/18/25 07:36 Impression: 1: Focal 1.5 cm atherosclerotic plaque in the right common femoral artery without evidence of occlusion or significant stenosis. Otherwise normal bilateral lower extremity arterial duplex with triphasic flow throughout. Abdomen/Pelvis CT 02/18/25 16:54 IMPRESSION: 1. Findings consistent with acute appendicitis, potentially ruptured given the prominence of the surrounding inflammatory stranding in the presence of a couple small nonloculated fluid collections in the right lower quadrant. Findings were discussed with Lela Meza, the nurse caring for the patient, at 5:06 PM. 2. Multiple mildly dilated loops of small bowel with slow progression of contrast on immediately prior small bowel follow-through study but without a discrete transition point and favor a secondary reactive ileus over a partial small bowel obstruction. 3. Small bilateral pleural effusions. Small Bowel X-Ray 02/18/25 23:14 IMPRESSION: Findings suggesting high-grade small bowel obstruction with lack of progression of oral contrast beyond the duodenal sweep for which dedicated CT examination will be performed. Chest X-Ray 02/19/25 05:31 Impression: 1: Left basilar airspace disease may represent atelectasis and/or pneumonia. Abdomen X-Ray 02/19/25 09:06 IMPRESSION: 1.Redemonstration of several air-filled loops of dilated small bowel similar to the study from February 18, 2025. 2.Nasogastric tube courses below the diaphragm, its tip projects over the left upper abdomen likely within the cardia of the stomach. Labs Labs: Laboratory Results - last 24 hr 02/17/25 02/19/25 02/19/25 10:31 18:08 23:44 WBC RBC Hgb Hct MCV MCH MCHC RDW Plt Count MPV Immature Gran % (Auto) Neut % (Auto) Lymph % (Auto) [place] % (Auto) Eos % (Auto) Baso % (Auto) Lymph # (Auto) [place] # (Auto) Eos # (Auto) Baso # (Auto) Abs Immat Gran (auto) Absolute Neuts (auto) Absolute Nucleated RBC Nucleated RBC % Sodium Potassium Chloride Carbon Dioxide Anion Gap BUN Creatinine Estim Creat Clear Calc Estimated GFR Glucose POC Capillary Glucose 116 H 76 Calcium Phosphorus Magnesium Total Bilirubin AST ALT Alkaline Phosphatase Total Protein Albumin ALLIE Screen Negative Tot Complement (CH50) >60 02/20/25 02/20/25 05:51 06:32 WBC 10.7 H RBC 4.15 L Hgb 13.6 L Hct 42.1 MCV 101.4 H MCH 32.8 MCHC 32.3 RDW 14.2 Plt Count 212 MPV 9.5 Immature Gran % (Auto) 0.4 Neut % (Auto) 71.6 Lymph % (Auto) 17.2 L [place] % (Auto) 9.5 H Eos % (Auto) 0.8 Baso % (Auto) 0.5 Lymph # (Auto) 1.84 [place] # (Auto) 1.0 H Eos # (Auto) 0.1 Baso # (Auto) 0.1 Abs Immat Gran (auto) 0.04 H Absolute Neuts (auto) 7.7 H Absolute Nucleated RBC 0.000 Nucleated RBC % 0.0 Sodium 144 Potassium 3.5 Chloride 110 H Carbon Dioxide 27 Anion Gap 7 BUN 35 H Creatinine 1.26 Estim Creat Clear Calc 46 Estimated GFR 55 L Glucose 122 H POC Capillary Glucose 121 H Calcium 9.1 Phosphorus 2.9 Magnesium 2.6 H Total Bilirubin 1.2 AST 48 ALT 34 Alkaline Phosphatase 139 H Total Protein 6.8 Albumin 3.2 L ALLIE Screen Tot Complement (CH50) Quality VTE Prophylaxis VTE prophylaxis: pharmacologic ordered Hospitalist MIPS Advance Care Plan I have confirmed that the patient's Advanced Care Plan is present, code status is documented, or surrogate decision maker is listed in patient medical record.: Yes Medication Reconciliation I have utilized all available resources to obtain, update and review the patients current medications (includes all prescriptions, OTC, herbals, cannabis, and nutritional supplements).: Yes
[2025-02-20 14:08] LABS: Immunoglobulin A, Qn 456 mg/dL (61-437); Immunoglobulin G, Qn 1269 mg/dL (603-1613); Immunoglobulin M, Qn 70 mg/dL (15-143)
--- NOTE | 2025-02-21 08:17 | WPDCDIQUERY2 ---
CDI Query Clarification Request Please clarify type of rhabdomyolysis if known: ? Traumatic or muscle compression (e.g., crush syndrome or prolonged immobilization) ? Non-traumatic exertional (e.g., marked exertion in untrained individuals, hyperthermia, or metabolic myopathies) ? Non-traumatic no exertional (e.g., drugs or toxins, infections, or electrolyte disorders) (8) Rhabdomyolysis: Code(s): M62.82 - Rhabdomyolysis Status: Acute Assessment and Plan: Elevated rhabdomyolysis, patient was found on the floor last week according the daughter which are mentioned in the records -patient may be having residual rhabdomyolysis -adequately fluid-resuscitated -patient slightly congested likely due to aortic stenosis -IV fluids discontinued -status post bicarb infusion at 50 mL/hour for total of 1000 mL -CK levels have been improving <Bell Rose RN - Last Filed: 02/21/25 08:17> Clarified Diagnosis Clarified Diagnosis: Non-traumatic no exertional <Gerhard Cruz MD - Last Filed: 02/21/25 17:14>
--- NOTE | 2025-02-21 17:15 | P.DS_ITS ---
DS: Admitting Diagnosis Discharge Date 02/20/25 Admitting Diagnosis Uncontrolled pain and restlessness DS: Discharge Diagnosis Discharge Diagnosis (1) Small bowel obstruction: Code(s): K56.609 - Unspecified intestinal obstruction, unspecified as to partial versus complete obstruction Status: Acute Assessment and Plan: Patient with distended abdomen obstructive series showed small-bowel obstruction -bowel rest, NG tube decompression, gentle IV fluid hydration -surgery aware of the possible acute appendicitis with rupture, not a surgical candidate at this time, continue to move monitor and treat with antibiotics -02/20: Patient has had bowel movements overnight, this morning abdominal was less distended, soft, very hypoactive bowel sounds if any, mild diffuse tenderness -NG tube continues to have increased drainage 02/18/2025: CT scan of the abdomen and pelvis without contrast IMPRESSION: 1. Findings consistent with acute appendicitis, potentially ruptured given the prominence of the surrounding inflammatory stranding in the presence of a couple small nonloculated fluid collections in the right lower quadrant. Findings were discussed with Lela Meza, the nurse caring for the patient, at 5:06 PM. 2. Multiple mildly dilated loops of small bowel with slow progression of contrast on immediately prior small bowel follow-through study but without a discrete transition point and favor a secondary reactive ileus over a partial small bowel obstruction. 3. Small bilateral pleural effusions. (2) CHB (complete heart block): Code(s): I44.2 - Atrioventricular block, complete Status: Acute Assessment and Plan: 02/16: Patient presented with generalized weakness was admitted to the medical floor, where he developed bradycardia and complete heart block. Cardiology was notified, received it temporary venous pacemaker -will hold all AV rosana blockers -I discontinued flecainide 02/17 -cardiology following the patient -Dr. Medley discussed with patient's , explained to her that he would not recommend placing permanent pacemaker as it would not improve his dementia or have any impact on his his critical aortic stenosis. The family is supposed to get back to us on that. -temporary pacemaker has been sedated 40, patient does have sinus bradycardia in the mid 40s with his intrinsic rhythm (3) Aortic stenosis, moderate: Code(s): I35.0 - Nonrheumatic aortic (valve) stenosis Status: Acute Assessment and Plan: Echocardiogram September 2022: Severe aortic stenosis with mean gradient of 32 mmHg and aortic valve area of 0.8 cm2, EF was 70% at that time on echo done in September 2022. -patient follows Dr. Kirkpatrick, according to cardiology progress note it was decided with the family that they would not proceed for any intervention given his advanced dementia -cardiology following 02/18/2025: Echocardiogram Summary 1. Complete two-dimensional, color flow and Doppler transthoracic echocardiogram is performed. 2. The left ventricle is normal in size with hyperdynamic systolic function. The left ventricular ejection fraction is visually estimated to be greater than 70%. 3. The right ventricle is normal in size and systolic function. There is a pacemaker lead in the right ventricle. 4. The aortic valve is trileaflet and heavily calcified. There is severe aortic stenosis. SAMANTHA 0.7cm2 and previously 0.8cm2. There is mild aortic regurgitation. 5. The mitral valve leaflets are poorly visualized and there appears to be significant mitral annular calcification however there does not appear to be any mitral stenosis by Doppler gradients. (4) Atrial fibrillation: Qualifiers: Atrial fibrillation type: unspecified Qualified Code(s): I48.91 - Unspecified atrial fibrillation Code(s): I48.91 - Unspecified atrial fibrillation Status: Acute Assessment and Plan: History of atrial fibrillation, not on any anticoagulation due to fall -off flecainide -patient was in complete heart block, requiring temporary of venous pacemaker (5) CHF (congestive heart failure): Code(s): I50.9 - Heart failure, unspecified Status: Acute Assessment and Plan: Patient has a history of CHF, echocardiogram in September 2022 showed an EF of 70%, grade 1 diastolic dysfunction -proBNP 1320 -unknown if patient had a repeat echocardiogram in between -repeat echocardiogram this admission echocardiogram as above, EF 70% (6) Liver enzyme elevation: Code(s): R74.8 - Abnormal levels of other serum enzymes Status: Acute Assessment and Plan: Elevated liver enzymes and hyperbilirubinemia along with abdominal distension, right upper quadrant tenderness --02/17: RUQ ultrasound: Was unremarkable for gallbladder or liver pathology -hepatitis panel is normal -LFTs have normalized (7) Acute worsening of stage 3 chronic kidney disease: Code(s): N18.30 - Chronic kidney disease, stage 3 unspecified Status: Acute Assessment and Plan: Patient presented with acute on chronic kidney disease stage 3 (baseline creatinine 0.90 -1.10) -patient presented with a creatinine 1.54 -patient received adequate amount of IV fluids due to elevated CK level, possible rhabdomyolysis -urine lytes reflected prerenal picture, patient was given additional IV fluids with caution due to aortic stenosis - urine output has been low -renal ultrasound showed 2.7 cm right renal cyst otherwise normal kidneys with no hydronephrosis -appreciate Nephrology evaluation and recommendations -creatinine improving -continue to monitor renal function, electrolytes and urine output (8) Rhabdomyolysis: Code(s): M62.82 - Rhabdomyolysis Status: Acute Assessment and Plan: Elevated rhabdomyolysis, patient was found on the floor last week according the daughter which are mentioned in the records -patient may be having residual rhabdomyolysis -adequately fluid-resuscitated -patient slightly congested likely due to aortic stenosis -IV fluids discontinued -status post bicarb infusion at 50 mL/hour for total of 1000 mL -CK levels have been improving (9) Altered mental status: Code(s): R41.82 - Altered mental status, unspecified Status: Acute Assessment and Plan: Baseline dementia per family, which is rapidly progressing (10) Dementia: Qualifiers: Dementia behavioral disturbance: without behavioral disturbance Dementia type: unspecified type Qualified Code(s): F03.90 - Unspecified dementia without behavioral disturbance Code(s): F03.90 - Unspecified dementia, unspecified severity, without behavioral disturbance, psychotic disturbance, mood disturbance, and anxiety Status: Acute Assessment and Plan: History of dementia unknown baseline -discussed with and daughter regarding his baseline, they stated that this is his new baseline as his cognitive function is declining rapidly (11) Frequent falls: Code(s): R29.6 - Repeated falls Status: Acute Assessment and Plan: Has a history of frequent falls -patient has a transvenous pacemaker, PT/OT not evaluating the patient at this time (12) Hearing loss, bilateral: Code(s): H91.93 - Unspecified hearing loss, bilateral Status: Acute Assessment and Plan: Chronic (13) Cold foot: Code(s): R20.9 - Unspecified disturbances of skin sensation Status: Acute Assessment and Plan: Right foot was cold, 02/17: Arterial duplex ultrasound: Focal 1.5 cm atherosclerotic plaque in the right common femoral artery without evidence of occlusion or significant stenosis. Otherwise normal bilateral lower extremity arterial duplex with triphasic flow throughout. DS: Summary Hospital Course Hospital Course: 85-year-old gentleman with dementia was admitted February 16 with a bowel obstruction. He was treated conservatively felt to not be a surgical candidate. 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 Later was discovered he had a ruptured appendix. He was treated with antibiotics and conservative management. Surgical consultation was obtained. He was becoming increasingly restless and agitated short of breath. He was not improving with conservative management. Given his poor functional status at baseline including his dementia and advanced age his family opted for inpatient hospice care for symptom management. Status at Discharge Cognitive/behavioral status at discharge: Guarded Time Spent with Patient Time attestation: Total time spent providing and/or coordinating discharge services:45 minutes Exam Narrative: General: Elderly gentleman, currently in no acute distress HEENT:? Pupils are equal and reactive, sclera is clear, moist oral mucosa, NG tube in place Neck:? Supple, right IJ line with temporary pacemaker Respiratory:? Coarse breath sounds bilaterally, decreased at bases, no wheezing, Cardiac:? S1-S2 is normal, paced rhythm, 2/6 systolic ejection murmur Abdomen:? Soft not distended this morning, mildly tender diffusely, very hypoactive bowel sounds if any Extremities:? Bilateral feet are warm, palpable pedal pulses Neuro:? Patient is awake, alert, oriented to self, slow to answer with a soft voice, moves all extremities Skin:? Bruising noted Psych:? Flat affect, dementia DS: Data Data Completed and Pending Labs on day of discharge: Preliminary micro results at discharge 02/16/25 13:57 Blood Culture - Preliminary Blood 02/16/25 13:57 Blood Culture - Preliminary Blood Discharge Plan Discharge Attending physician on discharge: Gerhard Cruz Consulting providers: Lalit Palacios; Antoni Concepcion; William Trejo; Ana Cristina De Jesus; Burt Villalobos; Elisha Walls; Yasmin Trevizo; Diaz Lr; Atilio Keating; Dru Carlos; Allie Jacinto; Jorge Medley; French Kirkpatrick; Sancho Sanchez; Claude Hinton; Jarocho Manning; Pratima Torres; Andres,Lincoln A. Discharging Clinician: Gerhard Cruz Anticipated Discharge Date/Time: 02/20/25 12:50 Patient Disposition: Hospice - Medical Facility Activity: as tolerated Diet: as tolerated Discharge Instructions: Medication reconciliation as per hospice protocol Patient Language: Portuguese Stand Alone Forms: General Discharge Information Discharge Medications: No Action No Home Medications Date of admission: 02/17/25 09:10 Primary Care Provider: Juve,Remy Trujillo Admitting Provider: Lincoln Villalobos Attending physician on admission: Gerhard Cruz Condition: Guarded Prognosis
== END 2025-02-20 12:53 | disposition hospice, inpatient (51) | DRG 871 ==
LOC: ANHED 15:05 → ANH2MED 15:27 → ANHICU 02-17 02:21
PROVIDERS: Internal Medicine; Internal Medicine Interventional Cardiology; Internal Medicine Nephrology; Nurse Practitioner Gerontology; Admitting Provider Internal Medicine; Emergency Provider Emergency Medicine; PCP Internal Medicine; Visit Provider General Practice
PROC: 5A1223Z Performance of Cardiac Pacing, Continuous (ICD-10-PCS; CPT 33210; principal; 2025-02-17 02:35)
DX: A41.9 Sepsis, unspecified organism (principal); K35.32 Acute appendicitis with perforation, localized peritonitis, and gangrene, without abscess; I44.2 Atrioventricular block, complete; I50.32 Chronic diastolic (congestive) heart failure; M62.82 Rhabdomyolysis; N17.9 Acute kidney failure, unspecified; K56.7 Ileus, unspecified; Z51.5 Encounter for palliative care; Z66 Do not resuscitate; F03.90 Unspecified dementia, unspecified severity, without behavioral disturbance, psychotic disturbance, mood disturbance, and anxiety; H91.93 Unspecified hearing loss, bilateral; I48.0 Paroxysmal atrial fibrillation; I35.0 Nonrheumatic aortic (valve) stenosis; N18.32 Chronic kidney disease, stage 3b; R29.6 Repeated falls; R74.8 Abnormal levels of other serum enzymes; R33.9 Retention of urine, unspecified; R20.8 Other disturbances of skin sensation; Z79.82 Long term (current) use of aspirin
CPT/HCPCS: 33210; 36415; 70450; 71045; 74018; 74019; 74176; 74250; 76705; 76775; 80053; 80074; 81001; 82140; 82533; 82550; 82570; 82784; 82948; 83605; 83690; 83735; 83880; 84100; 84133; 84156; 84300; 84443; 84484; 84540; 85025; 85610; 85652; 85730; 85999; 86038; 86140; 86160; 86162; 86334; 86335; 87040; 87641; 93005; 93306; 93925; 94640; 96360; 96361; 96365; 96372; 96375; 99285; A9270; C1894; G0378; J1644; J1650; J2003; J2060; J2185; J2470; J7030; J7040; J7070; J7120; P9047

== ENCOUNTER 2025-02-20 12:54 | HOS | payer OTHER, MEDICARE, SELFPAY ==
[2025-02-20 13:00] VITALS: BMI 31.1
--- OUTSIDE RECORDS SUMMARY | 2025-02-20 13:11 | XMS_ITS ---
Author Name Auto Generated, Auto Generated Organization [facility] Address [address] [place] [address] Phone [phone] Care Team Providers Care Property And Casualty Insurance Agent Name Role Phone Remy An Unavailable [phone] Wilfrido Gunn Unavailable [phone] Lamont Johnson Unavailable [phone] Functional Status No Results Mental Status No Results Allergies and Intolerances Name Onset Date Reaction Severity Keflex (Allergy) TueApr 02 16:01:00 EDT 2019 Encounters Program Name Primary Diagnosis Admission Date/Time Dis charge Date/Time null TueJun 29 19:00 :00 EST 2019 [facility] TueFeb 02 20:00:00 EDT 2023Jun 09 18:59:00 EST 2023 [facility] TueJul 23 19:00:00 EST 2024 [facility] Oct 18 18:00:00 EDT 2024 [facility] TueDec 16 20:00:00 EDT 2024 Medications Medication Directions Start Date End Date [...] 2023 * End Date: * Text: * 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
--- OUTSIDE RECORDS SUMMARY | 2025-02-20 13:11 | XMS_ITS | Encounter Summary ---
Author Organization [facility] Address [address] [place] [address] Care Team Providers Care Rubber Roller Grinder Name Role Phone Remy An MD Primary Care Provider [phone] Encounter Details Date Type Department Care Team (Late st Contact Info) Description 09/06/2019 Lab Requisition [facility] [address] [place] [address] See Joseph MD [address] [place] [address] Social History Tobacco Use Types Packs/Day Years Used Date Smoking Tobacco: Never Assessed Sex and Gender Information Value Date Recorded Sex Assigned at Not on file Legal Sex Male 6:00 AM MICROBIOLOGY LAB ANALYST Gender Identity Not on file Sexual Orientation Not on file documented as of this encounter Plan of Treatment Not on file documented as of this encounter Procedures Procedure Name Priority Date/Time Associated Diagnosis Comments DERMATOPATHOLOGY Routine 09/05/2019 12:0 0 AM MICROBIOLOGY LAB ANALYST documented in this encounter Results * DERMATOPATHOLOGY (09/05/2019 12:00 AM MICROBIOLOGY LAB ANALYST) Case Report Dermatopathology Report Case: [id number] Authorizing Provider: See Joseph MD Collected: 09/05/2019 12:00 AM Ordering Location: [facility] Received: 09/06/2019 01:46 PM Pathologist: Mckay Little MD Specimens: A) - Skin, right ext FA B) - Skin, left med distal thigh 0 12:51 PM [facility] Final Diagnosis Specimen A. SKIN, right ext FA: HYPERPLASTIC (HYPERTROPHIC) ACTINIC KERATOSIS (L57.0) EPIDERMAL NECROSIS SUGGESTIVE OF EXCORIATION (L98.499) Specimen B. SKIN, left med distal thigh: HYPERPLASTIC (HYPERTROPHIC) ACTINIC KERATOSIS WITH ASSOCIATED CHANGES OF PRURIGO NODULARIS (L57.0) 0 12:51 PM [facility] at 1250 MICROBIOLOGY LAB ANALYST Clinical History A-B: R/O LSC. 0 12:51 PM [facility] Gross Description Specimen A: Received is one formalin filled container labeled with the patient's name and designated right ext FA. The specimen consists of a shave biopsy measuring [id number]. Jar 0. Specimen B: Received is one formalin filled container labeled with the patient's name and designated left med distal thigh. The specimen consists of a shave biopsy measuring [id number]. Jar 0. 0 12:51 PM [facility] Microscopic Description Specimen A. SKIN, [...] superficial perivascular lymphohistiocytic infiltrate. 0 12:51 PM [facility] Disclaimer An external and internal positive and negative controls are appropriate for the histochemical, immunohistochemical and immunofluorescence stain(s) in this case (if any), except where stated explicitly. The performance characteristics of the stain(s) cited in this report were developed and its performance characteristic determined by the Dermatopathology Laboratory at [facility], directed by Dr. Hermelindo Little. These tests need not be, and therefore are not, approved by the [place] Food and Drug Administration. The tests are used for clinical purposes. Billing Codes Specimen Charges Stain Charges 02660 [id number] 1 1 0 12:51 PM MICROBIOLOGY LAB ANALYST DERMATOPATHOLOGY LABORATORY Embedded Images 0 12:51 PM MICROBIOLOGY LAB ANALYST DERMATOPATHOLOGY LABORATORY Pathology/Cytology TISSUE SPECIMEN FROM SKIN / Unknown 09/05/2019 09/06/2019 1:46 PM MICROBIOLOGY LAB ANALYST Miscellaneous samples (specimen) TISSUE SPECIMEN FROM SKIN / Unknown 09/05/2019 09/06/2019 1:46 PM MICROBIOLOGY LAB ANALYST See Joseph MD LAB - PATHOLOGY/CYTOLOGY ORD ERABLES Final Result DERMATOPATHOLOGY LABORATORY [facility] - Department of Dermatology [address] [place] [address], [address] Floor Lab [address] [phone] documented in this encounter Visit Diagnoses Not on filedocumented in this encounter Care Teams Rubber Roller Grinder Relationship Specialty Start Date End Date Remy An MD [address] [place] [address] [address] [place] [address] PCP - General Internal Medicine 11/15/17 documented as of this encounter
--- OUTSIDE RECORDS SUMMARY | 2025-02-20 13:12 | XMS_ITS | Clinical Summary ---
Author Organization [facility] Address [address] [facility] [place] [address] Care Team Providers Care Parts Lister Name Role Phone Remy An MD Primary Care Provider [phone] Source Comments [facility],non-[facility] Affiliates and Associated Physician Practices is amultiple site organization consisting of ambulatory clinics and hospital sitesin [place] and [place]. This disclosure is being madepursuant to the Care Everywhere program and may not contain all information available regarding this patient. 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
--- OUTSIDE RECORDS SUMMARY | 2025-02-20 13:12 | XMS_ITS | Clinical Summary ---
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 Gender Identity Not on file Sexual Orientation Not on file Obstetrics History Last Filed Vital Signs Vital Sign Reading Time Taken Comments Blood Pressure 92/62 08/20/2024 11:51 AM ENVIRONMENTAL MONITORING SPECIALIST Pulse 59 08/20/2024 11:51 AM ENVIRONMENTAL MONITORING SPECIALIST Temperature - - Respiratory Rate - - Oxygen Saturation 95% 08/20/2024 11:51 AM ENVIRONMENTAL MONITORING SPECIALIST Inhaled Oxygen Concentration - - Weight 103.4 kg (228 lb) 08/20/2024 11:51 AM ENVIRONMENTAL MONITORING SPECIALIST Height 175.3 cm (5' 9) 08/20/2024 11:51 AM ENVIRONMENTAL MONITORING SPECIALIST Body Mass Index 33.67 08/20/2024 11:51 AM ENVIRONMENTAL MONITORING SPECIALIST Plan of Treatment Health Maintenance Due Date Last Done Comments Depression Screening 1941 Fall Risk Assessment 1941 DTaP/Tdap/Td Vaccine (1 - Tdap) 02/07/1952 Hepatitis B Screening 1959 Well Visit 65+ 2006 Pneumococcal vaccine 65+ (2 of 2 - PCV20 or PCV21) 04/15/2017 04/15/2016, 10/30/2014 Zoster Vaccine (2 of 2) 06/03/2018 04/08/2018 Influenza Vaccine (#1) 2025 0, 04/27/2017, 04/16/2015, Additional history exists Procedures Procedure Name Priority Date/Time Associated Diagnosis Comments CARDIOLOGY DOCUMENT SCAN Routine 02/19/2025 5:01 PM CDT CARDIOLOGY DOCUMENT SCAN Routine 02/18/2025 5:00 PM CDT CARDIOLOGY DOCUMENT SCAN Routine 02/17/2025 4:58 PM CDT CARDIOLOGY DOCUMENT SCAN Routine 02/17/2025 4:56 PM CDT from Last 3 Months Results * Cardiology Document Scan (02/19/2025 5:01 PM CDT) Anatomical Region Laterality Modality Other us Diaz Lr MD CV CARDIAC SERVICES PROCEDURES F inal Result * Cardiology Document Scan (02/18/2025 5:00 PM CDT) Anatomical Region Laterality Modality Other us Diaz Lr MD CV CARDIAC SERVICES PROCEDURES F inal Result * Cardiology Document Scan (02/17/2025 4:58 PM CDT) Anatomical Region Laterality Modality Other William Trejo MD CV CARDIAC SERVICES PROCEDU RES Final Result * Cardiology Document Scan (02/17/2025 4:56 PM CDT) Anatomical Region Laterality Modality Other William Trejo MD CV CARDIAC SERVICES PROCEDU RES Final Result from Last 3 Months Insurance T MEDICARE T MEDICARE Care Teams Ground Instructor Advanced Relationship Specialty Start Date End Date Remy An MD [address] [facility] [place] [address] PCP - General Internal Medicine 03/31/20
--- OUTSIDE RECORDS SUMMARY | 2025-02-20 13:12 | XMS_ITS | Encounter Summary ---
Author Organization [facility] Address [address] [facility] [place] [address] Care Team Providers Care Hazardous Waste Management Specialist Name Role Phone Remy An MD Primary Care Provider [phone] Encounter Details Date Type Department Care Team (Late st Contact Info) Description 12/09/2022 Lab Requisition [facility] - DermPath Lab [address] [facility], [place] [address] See Joseph MD [address] [place] [address] Social History Tobacco Use Types Packs/Day Years Used Date Smoking Tobacco: Never Assessed Sex and Gender Information Value Date Recorded Sex Assigned at Not on file Legal Sex Male 6:00 AM DIRECTOR PART Gender Identity Not on file Sexual Orientation Not on file documented as of this encounter Plan of Treatment Not on file documented as of this encounter Procedures Procedure Name Priority Date/Time Associated Diagnosis Comments DERMATOPATHOLOGY Routine 12/08/2022 12:0 0 AM CDT documented in this encounter Results * DERMATOPATHOLOGY (12/08/2022 12:00 AM CDT) Case Report Dermatopathology Report Case: [id number] Authorizing Provider: See Joseph MD Collected: 12/08/2022 12:00 AM Ordering Location: [facility] DermPath Lab Received: 12/09/2022 02:05 PM [...] characteristic determined by the Dermatopathology Laboratory at [facility], directed by Dr. Hermelindo Little. These tests need not be, and therefore are not, approved by the [place] Food and Drug Administration. The tests are used for clinical purposes. Billing Codes Specimen Charges Stain Charges 74142 12463 1 1 11:56 AM CDT DERMATOPATHOLOGY LABORATORY Embedded Images 06/02/202 3 11:56 AM CDT DERMATOPATHOLOGY LABORATORY Pathology/Cytology TISSUE SPECIMEN FROM SKIN / Unknown 12/08/2022 12/09/2022 2:05 PM CDT Miscellaneous samples (specimen) TISSUE SPECIMEN FROM SKIN / Unknown 12/08/2022 12/09/2022 2:05 PM CDT See Joseph MD LAB - PATHOLOGY/CYTOLOGY ORD ERABLES Final Result DERMATOPATHOLOGY LABORATORY [facility] - Department of Dermatology [facility] Specialized Medicine [address] [place] [address], [address] [phone] documented in this encounter Visit Diagnoses Not on filedocumented in this encounter Care Teams Hazardous Waste Management Specialist Relationship Specialty Start Date End Date Remy An MD [address] [place] [phone] PCP - General Internal Medicine 11/15/17 documented as of this encounter
--- OUTSIDE RECORDS SUMMARY | 2025-02-20 13:12 | XMS_ITS | Patient Health Record ---
Author Organization [facility] [employer] [facility] Address [address] [place] [address] Care Team Providers Care Child Day Care Center Worker Name Role Phone Katey Kimble Unavailable [phone] Allergies Allergen (clinical drug ingredient) Drug/Non Drug [...] Active NEBIVOLOL 2.5 MG TABLET *Reorder from [employer] for eRx and Interaction Alerts* 10/19/2023 Active [...] Problem Recurrent major depression in full remission (15046857) Major depressive disorder, recurrent, in full remission (F33.42) Active confirmed Problem Alzheimer's disease, unspecified (G30.9) Active confirmed Vital Signs Heart Rate 62 /min 10/17/2024 Height-cm 175.26 cm 10/17/2024 Blood pressure diastolic 65 mm Hg 10/17/2024 Weight-kg 104.33 kg 10/17/2024 Height 69.00 in 10/17/2024 Blood pressure systolic 95 mm Hg 10/17/2024 Weight 230 lbs 10/17/2024 BMI 33.96 kg/m2 10/17/2024 Encounters Encounter Location Date Provider Diagnosis [facility] [employer] [facility] [address] [place] [address] 04/18/2024 Katey Kimble Alzheimer's disease, unspecified G30.9 and Major depressive disorder, recurrent, in full remission F33.42 [facility] [employer] [facility] [address] [place] [address] 10/17/2024 Katey Kimble Encounter for screen ing for depression Z13.31 ; Encounter for screening for cardiovascular disorders Z13.6 ; Alzheimer's disease, unspecified G30.9 and Major depressive disorder, recurrent, in full remission F33.42 Assessments Encounter Date Diagnosis (ICD Code) Assessment Notes Treatment Notes Treatment Clinical Notes Section Notes 04/18/2024 Alzheimer's disease, unspecified (ICD-10 - G30.9) 10/17/2024 Encounter for screening for depression (ICD-10 - Z13.31) 04/18/2024 Major depressive disorder, recurrent, in full remission (ICD-10 - F33.42) 10/17/2024 Encounter for screening for cardiovascular disorders [...] effects of psychotropic medications. -Crisis prevention hotline 008. Plan Of Treatment Next Appt Details Provider Name:Katey Tari go, 04/17/2025 02:00:00 PM, [address] [facility] [address], [place], [address], Insurance Providers Payer Name Payer Address Payer Phone Subscriber Number Group Number Insured Name Patient Relationship to Insured Coverage Start Date Coverage End Date Aetna Medicare Replacemen t/Advantag e - Ppo [address] [place] [phone] [id number] ANT HARRISON Self - patient is the insured Medical (General) History Medical History History ICD Code Problems: 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
--- OUTSIDE RECORDS SUMMARY | 2025-02-20 13:12 | XMS_ITS | Encounter Summary ---
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 Gender Identity Not on file Sexual Orientation [...] DOCUMENT SCAN Routine 02/17/2025 4:56 PM CDT documented in this encounter Results * Cardiology Document Scan (02/19/2025 5:01 PM CDT) Anatomical Region Laterality Modality Other Result Ave Lr MD CV CARDIAC SERVICES PROCEDURES F inal Result * Cardiology Document Scan (02/18/2025 5:00 PM CDT) Anatomical Region Laterality Modality Other Result Ave Lr MD CV CARDIAC SERVICES PROCEDURES F inal Result * Cardiology Document Scan (02/17/2025 4:58 PM CDT) Anatomical Region Laterality Modality Other Result Ave Trejo MD CV CARDIAC SERVICES PROCEDU RES Final Result * Cardiology Document Scan (02/17/2025 4:56 PM CDT) Anatomical Region Laterality Modality Other Result Ave Trejo MD CV CARDIAC SERVICES PROCEDU RES Final Result documented in this encounter Visit Diagnoses Not on filedocumented in this encounter Care Teams Senior Process Engineer Relationship Specialty Start Date End Date Remy An MD [address] [facility] [address] [place] [address] PCP - General Internal Medicine 03/31/20 documented as of this encounter
--- OUTSIDE RECORDS SUMMARY | 2025-02-20 13:12 | XMS_ITS | Clinical Summary ---
Author Organization [facility] [employer] [facility] [employer] [facility] Address [address] [place] [address] Phone Care Team Providers Care Report Manager Name Role Phone Remy An MD Primary Care Provider [phone] Encounters Date Type Department Care Team Description 12/04/2024 1:00 PM CDT Office Visit [facility] 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); Hypertensive chronic kidney disease 11/23/2024 Orders Only [employer] [place] [address] [place] [address] Jose Alberto Vuong DO 11/21/2024 Orders Only [employer] [place] [address] [address] Jose Alberto Vuong DO from [...] 36.1 C (97 F) 07/31/2024 2:14 PM PRODUCTION SUPPORT ENGINEER Respiratory Rate 18 12/04/2024 1:02 PM CDT Oxygen Saturation 97% 07/31/2024 2:14 PM PRODUCTION SUPPORT ENGINEER Inhaled Oxygen Concentration - - Weight 108 kg (238 lb) 02/14/2024 1:15 PM CDT Height 175.3 cm (5' 9) 12/04/2024 1:02 PM CDT Body Mass Index 35.15 08/10/2022 12:52 PM PRODUCTION SUPPORT ENGINEER Plan of Treatment Health Maintenance Due Date [...] 11/24/2024 6:06 AM CDT SPLIT 11/21/2024 FROM [id number] FASTING:NO FASTING: NO Resulting Agency Comment Performing Organization Information: Site ID: MARYA Name: [facility] Address: [address] [place] [address] [place] [address] Director: Simon Garcia MD us Jose Alberto Vuong DO LAB URINE ORDERABLES Final R esult [facility] [address] [place] [address] [place] [address] * Urine Albumin / Creatinine Ratio (11/23/2024 [...] 11/24/2024 6:06 AM CDT SPLIT 11/21/2024 FROM [id number] FASTING:NO FASTING: NO Resulting Agency Comment Performing Organization Information: Site ID: MARYA Name: [facility] Address: [address] [place] [address] Director: Simon Garcia MD Jose Alberto Vuong DO LAB URINE ORDERABLES Final R [facility] Performing Organization Address [facility] Co de Phone Number [facility] [address] [place] [address] * (ABNORMAL) Cystatin C w/GFR (11/21/2024 12:54 [...] Agency Comment Performing Organization Information: Site ID: PR Name: [facility] Address: [address] [place] [phone] Director: Simon Garcia MD Jose Alberto Vuong DO LAB BLOOD ORDERABLES Final R [facility] Performing Organization Address [facility] de Phone Number [facility] [address] [place] [phone] * PTH, Intact and Calcium (11/21/2024 12:54 [...] Performing Organization Information: Site ID: MARYA Name: [facility] Address: [address] [place] [address] [place] [address] Director: Simon Garcia MD Jose Alberto Vuong DO LAB BLOOD ORDERABLES Final R esult [facility] [employer] [address] * Vitamin D 25 Hydroxy (11/21/2024 12:54 PM CDT) Vitamin D, 25-OH, Total, IA 73 30 - 100 ng/mL [facility] Comment: Vitamin D Status 25-OH Vitamin D: Deficiency: <20 ng/mL Insufficiency: 20 - 29 ng/mL Optimal: > or = 30 ng/mL For 25-OH Vitamin D testing on patients on D2-supplementation and patients for whom quantitation of D2 and D3 fractions is required, the QuestAssureD(TM) 25-OH VIT D, (D2,D3), LC/MS/MS is recommended: order code 80702 (patients >2yrs). See Note 1 Note 1 For additional information, please refer to http://education.Veosearch/faq/MLY707 (This link is being provided for informational/ educational purposes only.) 11/21/2024 12:5 4 PM CDT 11/21/2024 12:57 PM CDT Narrative [facility] - 11/23/2024 5:14 AM CDT COLLECTION KIT GIVEN TO PATIENT. PATIENT ADVISED TO RETURN. Resulting Agency Comment Performing Organization Information: Site ID: MARYA Name: [facility] Address: [address] [place] [address] Director: Simon Garcia MD Jose Alberto Vuong DO LAB BLOOD ORDERABLES Final R esult [facility] [address] [address] [address] * (ABNORMAL) CBC and Differential (11/21/2024 12:54 [...] Site ID: SL Name: [facility] Address: [address] [phone] Director: Simon Garcia Jose Alberto Vuong DO LAB BLOOD ORDERABLES Final R esult [facility] [address] [phone] * Magnesium (11/21/2024 12:54 PM CDT) Pathologist [facility] Magnesium 2.4 1.5 - 2.5 mg/dL [facility] 11/21/2024 12:5 4 PM CDT 11/21/2024 12:57 PM CDT Narrative [facility] - 11/23/2024 5:14 AM CDT COLLECTION KIT GIVEN TO PATIENT. PATIENT ADVISED TO RETURN. Resulting Agency Comment Performing Organization Information: Site ID: Name: [facility] Address: [address] [address] Director: Simon Garcia Jose Alberto Vuong DO LAB BLOOD ORDERABLES Final R esult [facility] [address] [address] [phone] * (ABNORMAL) Renal Function Panel (11/21/2024 12:54 PM CDT) Pathologist [facility] Glucose 141(H) 65 - 99 mg/dL [facility] Comment: Fasting reference interval For someone without known diabetes, a glucose value >125 mg/dL indicates that they may have diabetes and this should be confirmed with a follow-up test. BUN 19 7 - 25 mg/dL [facility] Creatinine 1.13 0.70 - 1.22 mg/dL [facility] eGFR CKD-EPI CR 2020 64 > OR = 60 mL/min/1. 73m2 [employer] [facility] BUN/Creatinine Ratio SEE NOTE: 6 - 22 (calc) [employer] [facility] Comment: Not Reported: BUN and Creatinine are within reference range. Sodium 138 135 - 146 mmol/L [employer] [facility] Potassium 4.3 3.5 - 5.3 mmol/L [employer] [facility] Chloride 102 98 - 110 mmol/L [employer] [facility] Bicarbonate (CO2) 26 20 - 32 mmol/L [facility] Calcium 9.6 8.6 - 10.3 mg/dL [facility] Phosphorus 3.5 2.1 - 4.3 mg/dL [facility] Albumin 4.0 3.6 - 5.1 g/dL [facility] 11/21/2024 12:5 4 PM CDT 11/21/2024 12:57 PM CDT Narrative [facility] - 11/23/2024 5:14 AM CDT COLLECTION KIT GIVEN TO PATIENT. PATIENT ADVISED TO RETURN. Resulting Agency Comment Performing Organization Information: Site ID: SL Name: [facility] Address: [address] [phone] Director: Simon Garcia us Jose Alberto Vuong DO LAB BLOOD ORDERABLES Final R esult [facility] [address] [address] [phone] from Last 3 Months Insurance Aetna MCR Adv PPO ([phone]) Care Teams Report Manager Relationship Specialty Start Date End Date Remy An MD [address] [facility] [address] [place] [address] PCP - General Internal Medicine 06/23/21
--- OUTSIDE RECORDS SUMMARY | 2025-02-20 13:12 | XMS_ITS | Encounter Summary ---
Author Organization [facility] Address [address] [facility] [place] [address] Care Team Providers Care Paper Counter Name Role Phone Remy An MD Primary Care Provider [phone] Encounter Details Date Type Department Care Team (Late st Contact Info) Description 12/17/2021 Lab Requisition [facility] Care DermPath Lab [address] [facility] [place] [address] See Joseph MD [address] [place] [address] Social History Tobacco Use Types Packs/Day Years Used Date Smoking Tobacco: Never Assessed Sex and Gender Information Value Date Recorded Sex Assigned at Not on file Legal Sex Male 6:00 AM NAIL EXPERT Gender Identity Not on file Sexual Orientation Not on file documented as of this encounter Plan of Treatment Not on file documented as of this encounter Procedures Procedure Name Priority Date/Time Associated Diagnosis Comments DERMATOPATHOLOGY Routine 12/16/2021 12:0 0 AM CDT documented in this encounter Results * DERMATOPATHOLOGY (12/16/2021 12:00 AM CDT) Case Report Dermatopathology Report Case: [id number] Authorizing Provider: See Joseph MD Collected: 12/16/2021 12:00 AM Ordering Location: [facility] Care DermPath Lab Received: 12/17/2021 01:43 PM [...] specimen consists of a shave biopsy measuring [id number] and another piece of tissue measuring 0x6b7me. Jar 0. 2 3:09 PM CDT DERMATOPATHOLOGY [...] purposes. Billing Codes Specimen Charges Stain Charges 86882 1 2 3:09 PM CDT DERMATOPATHOLOGY LABORATORY Embedded Images 2 3:09 PM CDT DERMATOPATHOLOGY LABORATORY Pathology/Cytolog y TISSUE SPECIMEN FROM SKIN / Unknown 12/16/2021 12/17/2021 1:43 PM CDT us See Joseph MD LAB - PATHOLOGY/CYTOLOGY ORD ERABLES Final Result DERMATOPATHOLOGY LABORATORY [facility] - Department of Dermatology [address], [address] [phone] documented in this encounter Visit Diagnoses Not on filedocumented in this encounter Care Teams Paper Counter Relationship Specialty Start Date End Date Remy An MD [address] [place] [address] [address] [place] [address] PCP - General Internal Medicine 11/15/17 documented as of this encounter
--- NOTE | 2025-02-20 13:29 | PC.NURSE ---
This patient, Boo Matute, was admitted to Intensive Care Unit-5 as hospice patient. Patient/family oriented to hospital policies and general routines including ID bracelet, bed and alarms, visiting hours, pain management, procedures, bathroom and other care routines, personal items, smoking policy, room service/diet, and visiting hours. Information on how to activate the Rapid Response Team has been discussed. Patient/Family are encouraged to report perceived risks to care and to ask questions if they do not understand what they are told or what they should do.
[2025-02-20 14:14] VITALS: PULSE 46; RESP 26
[2025-02-20] MEDS: HYDROmorphone HCL/PF (*CRX) 50 MG in SODIUM CHLORIDE 0.9% IV 95 ML IV CONT (14:14)
[2025-02-20] MEDS: diazePAM INJ (*CRX) 10 MG/2 ML SYRINGE 5 MG IV PUSH ×3 (14:23→22:53)
--- NOTE | 2025-02-20 15:57 | PC.NURSE ---
Transfered to room 318. Report given to MOOSE Timmons. All questions answered. Belongings sent with patient.
--- NOTE | 2025-02-20 16:21 | PC.NURSE ---
Patient received from ICU at 16:00. Family oriented to unit's policies and procedures. Patient's dilaudid drip locked in IV pole narcotic lockbox.
--- NOTE | 2025-02-20 19:50 | P.HP_ITS ---
H&P: HPI History of Present Illness Date/Time: 02/20/25 19:50 Chief Complaint: Uncontrolled pain and restlessness Narrative: 85-year-old gentleman with dementia was admitted February 16 with a bowel obstruction. He was treated conservatively felt to not be a surgical candidate. 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 Later was discovered he had a ruptured appendix. He was treated with antibiotics and conservative management. Surgical consultation was obtained. He was becoming increasingly restless and agitated short of breath. He was not improving with conservative management. Given his poor functional status at baseline including his dementia and advanced age his family opted for inpatient hospice care for symptom management. Review of Systems Review of Systems: ROS unobtainable: Yes unobtainable due to medical condition PMFSH Past Medical History Medical History Stage 3 chronic kidney disease CHF (congestive heart failure) Atrial fibrillation Dementia Surgical History Surgical History Surgical history unknown Family History Family History Mother Acute myocardial infarction Cerebrovascular accident Father Dementia Social History Social History Social History: patient is resident of [place] lives with his Norma Matute. Smoking status: Never smoker Alcohol intake: never Substance use: never Substance use type: does not use Gender identity (if verbalized by the patient): Male Spiritual care concerns: No Meds Home Medications and Allergies Home Medications ?Medication ?Instructions ?Recorded ?Confirmed ?Type aspirin 81 mg chewable tablet 81 mg PO DAILY 03/31/20 02/16/25 History memantine ER 7 mg-donepezil 10 mg 1 cap PO DAILY 03/31/20 02/16/25 History capsule sprinkle,ext.release 24 hour (Namzaric) vortioxetine 20 mg tablet 20 mg PO DAILY 03/31/20 02/16/25 History (Trintellix) furosemide 20 mg tablet 20 mg PO 3XW 06/05/22 02/16/25 History rosuvastatin 10 mg tablet 10 mg PO DAILY 10/28/22 02/16/25 History docusate sodium 100 mg capsule 100 mg PO BID 02/16/25 02/16/25 History (Col-Rite) flecainide 50 mg tablet 50 mg PO DAILY 02/16/25 02/16/25 History [id number]-fish oil-vit D3 1 cap PO DAILY 02/16/25 02/16/25 History 350 mg-400 mg-1,000 unit capsule quetiapine 100 mg tablet 100 mg PO QHS 02/16/25 02/16/25 History quetiapine 50 mg tablet 50 mg PO QAM 02/16/25 02/16/25 History Allergies Allergy/AdvReac Type Severity Reaction Status Date / Time cephalexin (From Keflex) Allergy Unknown Verified 10/28/22 15:17 Vital Signs Vital Signs - 24 hr 02/20/25 14:14 02/20/25 16:23 Pulse Rate 46 L Respiratory Rate 26 H Oxygen Delivery Nasal Cannula Oxygen Flow Rate 1 Exam Narrative: HEENT: PERRL, sclerae nonicteric, pharyngeal mucosa pink and intact NECK: No JVD CHEST: Diffuse coarse breath sounds with scattered coarse crackles, intermittent harsh cough, tachypneic HEART: NL S1/S2, regular, 3/6 GALEN RUSB ABDOMEN: BS absent, firm, no obvious tenderness to exam EXTREMITIES: No edema NEUROLOGIC: CN intact and symmetric to inspection MUSCULOSKELETAL: No gross deformity to visual inspection PSYCH: Awake and anxious, seems to be oriented to person otherwise nonverbal and does not follow commands Assessment and Plan Assessment and plan (1) Hospice care: Code(s): Z51.5 - Encounter for palliative care Status: Acute Assessment and Plan: * Meet inpatient hospice criteria due to requiring continuous IV hydromorphone for control of pain restlessness and dyspnea and scheduled IV diazepam * 02/20/2025: Increased hydromorphone from 0.25-0.5 mg an hour and bolus from 0 .5 mg to 1 mg hourly p.r.n. due to uncontrolled restlessness and cough (2) Sepsis: Code(s): A41.9 - Sepsis, unspecified organism Status: Acute (3) Acute perforated appendicitis: Code(s): K35.32 - Acute appendicitis with perforation, localized peritonitis, and gangrene, without abscess Status: Acute (4) CHF (congestive heart failure): Code(s): I50.9 - Heart failure, unspecified Status: Acute (5) Aortic stenosis, moderate: Code(s): I35.0 - Nonrheumatic aortic (valve) stenosis Status: Acute (6) Atrial fibrillation: Qualifiers: Atrial fibrillation type: unspecified Qualified Code(s): I48.91 - Unspecified atrial fibrillation Code(s): I48.91 - Unspecified atrial fibrillation Status: Acute (7) CHB (complete heart block): Code(s): I44.2 - Atrioventricular block, complete Status: Acute Assessment and Plan: * Pacemaker removed 02/21/2024 (8) Dementia: Qualifiers: Dementia behavioral disturbance: without behavioral disturbance Dementia type: unspecified type Qualified Code(s): F03.90 - Unspecified dementia without behavioral disturbance Code(s): F03.90 - Unspecified dementia, unspecified severity, without behavioral disturbance, psychotic disturbance, mood disturbance, and anxiety Status: Acute
[2025-02-20] MEDS: HYDROmorphone HCL INJ (*CRX) 1 MG/ML SYR IV PUSH ×2 (19:56→23:44)
[2025-02-20 20:00] VITALS: BP 114/48; PULSE 41; RESP 20; TEMP 36.6; O2SAT 90
[2025-02-21] MEDS: HYDROmorphone HCL INJ (*CRX) 1 MG/ML SYR IV PUSH ×3 (05:05→21:35)
[2025-02-21] MEDS: diazePAM INJ (*CRX) 10 MG/2 ML SYRINGE 5 MG IV PUSH ×4 (05:06→21:22)
[2025-02-21] MEDS: GLYCOPYRROLATE INJ (*SP) 0.2 MG/ML VIAL 0.1 MG IV PUSH ×3 (05:06→13:09)
[2025-02-21 08:00] VITALS: BP 116/42; PULSE 43; RESP 8; TEMP 37.2; O2SAT 86
[2025-02-21 11:15] VITALS: BP 116/42; PULSE 43; RESP 14; TEMP 37.2; O2SAT 86
--- NOTE | 2025-02-21 16:48 | P.PNIM_ITS ---
Progress Note: A&P Assessment and Plan (1) Hospice care: Code(s): Z51.5 - Encounter for palliative care Status: Acute Assessment and Plan: * Meet inpatient hospice criteria due to requiring continuous IV hydromorphone for control of pain restlessness and dyspnea and scheduled IV diazepam * 02/20/2025: Increased hydromorphone from 0.25-0.5 mg an hour and bolus from 0.5 mg to 1 mg hourly p.r.n. due to uncontrolled restlessness and cough * 02/21/2025: Required PRN dosing today, now unresponsive, more secretions, continue hydromorphone and scheduled diazepam at current rate (2) Sepsis: Code(s): A41.9 - Sepsis, unspecified organism Status: Acute (3) Acute perforated appendicitis: Code(s): K35.32 - Acute appendicitis with perforation, localized peritonitis, and gangrene, without abscess Status: Acute (4) CHF (congestive heart failure): Code(s): I50.9 - Heart failure, unspecified Status: Acute (5) Aortic stenosis, moderate: Code(s): I35.0 - Nonrheumatic aortic (valve) stenosis Status: Acute (6) Atrial fibrillation: Qualifiers: Atrial fibrillation type: unspecified Qualified Code(s): I48.91 - Unspecified atrial fibrillation Code(s): I48.91 - Unspecified atrial fibrillation Status: Acute (7) CHB (complete heart block): Code(s): I44.2 - Atrioventricular block, complete Status: Acute Assessment and Plan: * Pacemaker removed 02/21/2024 (8) Dementia: Qualifiers: Dementia behavioral disturbance: without behavioral disturbance Dementia type: unspecified type Qualified Code(s): F03.90 - Unspecified dementia without behavioral disturbance Code(s): F03.90 - Unspecified dementia, unspecified severity, without behavioral disturbance, psychotic disturbance, mood disturbance, and anxiety Status: Acute Subjective Date/time seen: 02/21/25 16:48 Interval history: One dose of prn meds today. Increased gurgling with respirations. Review of Systems Review of Systems: ROS unobtainable: Yes unobtainable due to medical condition Exam Narrative: HEENT: Pharyngeal mucosa pink and intact NECK: No JVD CHEST: Diffuse coarse breath sounds with diffuse coarse crackles, normal effort HEART: NL S1/S2, regular, 3/6 GALEN RUSB, bradycardic ABDOMEN: BS absent, firm, no obvious tenderness to exam EXTREMITIES: No edema NEUROLOGIC: CN intact and symmetric to inspection MUSCULOSKELETAL: No gross deformity to visual inspection PSYCH: Unresponsive to verbal or tactile stimuli Objective Data Vital Signs Vital Signs: Vital Signs - 24 hr 02/20/25 20:00 02/20/25 20:00 02/21/25 08:00 Temperature 97.8 F 99.0 F Pulse Rate 41 L 43 L Respiratory Rate 20 8 L Blood Pressure 114/48 L 116/42 L Pulse Oximetry 90 86 L Oxygen Delivery Nasal Cannula Oxygen Flow Rate 1 02/21/25 11:15 Temperature 99.0 F Pulse Rate 43 L Respiratory Rate 14 Blood Pressure 116/42 L Pulse Oximetry 86 L Oxygen Delivery Oxygen Flow Rate Intake/Output Intake/Output: Intake & Output 02/18/25 02/19/25 02/20/25 02/21/25 23:59 23:59 23:59 23:59 Intake Total 2.9 0 Output Total 500 Balance 2.9 -500 Meds/Results Medications: Active Medications Generic Name Dose Route Start Last Admin Trade Name Freq PRN Reason Stop Dose Admin Artificial Tears 0 drop 02/20/25 13:35 Artificial Tears Ophth Soln 15 Ml Bottle EACH EYE Q12H PRN Dry Eye(s) Bisacodyl 10 mg 02/20/25 13:35 Bisacodyl 10 Mg Suppository RECTAL DAILY PRN Constipation Diazepam 5 mg 02/20/25 14:00 02/21/25 13:09 Diazepam Inj (*Crx) 10 Mg/2 Ml Syringe IV PUSH 5 mg Q8HR EGT Administration Diazepam 5 mg 02/20/25 13:35 02/21/25 08:23 Diazepam Inj (*Crx) 10 Mg/2 Ml Syringe IV PUSH 5 mg Q4HR PRN Administration RESTLESSNESS Glycopyrrolate 0.1 mg 02/20/25 13:35 02/21/25 13:09 Glycopyrrolate Inj (*Sp) 0.2 Mg/Ml Vial IV PUSH 0.1 mg Q4H PRN Administration EXCESSIVE SECRETIONS Hydromorphone HCl 1 mg 02/20/25 19:45 02/21/25 09:01 Hydromorphone Hcl Inj (*Crx) 1 Mg/Ml Syr IV PUSH 1 mg Q1H PRN Administration PAIN OR DYSPNEA Hydromorphone HCl 50 mg/ 100 mls @ 1 mls/hr 02/20/25 13:40 02/20/25 19:56 Sodium Chloride IV CONT 0.5 mg/hr .Q24H GET 1 mls/hr Infusion 0.5 MG/HR Prochlorperazine Edisylate 10 mg 02/20/25 13:35 Prochlorperazine Edisylate 10 Mg/2 Ml Vial IV PUSH Q6H PRN Nausea And Vomiting
[2025-02-21 16:53] VITALS: PULSE 40; RESP 8
[2025-02-21] MEDS: HYDROmorphone HCL/PF (*CRX) 50 MG in SODIUM CHLORIDE 0.9% IV 95 ML IV CONT (16:53)
[2025-02-21 20:00] VITALS: BP 96/35; PULSE 36; RESP 10; TEMP 36.7; O2SAT 82
--- NOTE | 2025-02-22 01:00 | PC.NURSE ---
On 02/21/25-02/22/25, MOOSE Snyder, provided care and completed [facility] documentation on this patient. I have reviewed her documentation and agree with the findings.
--- NOTE | 2025-02-22 02:15 | PC.NURSE ---
Called into room by Pt's son, Julian, who states that he thinks his dad just passed. Pt. assessed, no respirations/breath sounds noted, no apical or peripheral pulses noted. Charge nurse, Soumya VIRK, informed and also assessed this Pt. Soumya also noted no respirations or pulses. [facility] notified that Pt. .
--- NOTE | 2025-02-23 07:10 | PM.DDS ---
Discharge Summary Date and Time Date of : 02/22/25 Time of : 02:15 Provider Pronounced By: 2 RNs Name of First RN That Pronounced: Zenobia Riggs RN Name of Second RN That Pronounced: Soumya Rich RN Probable Cause of Probable Cause of : sepsis due to appendicitis with rupture Summary Hospital Course: Admitted to inpatient hospice service for symptom management. Medications were titrated to comfort. Mr. Matute peacefully. Additional Data Confirmation of as documented by pronouncing clinician: Pupillary Reflex, Palpable Pulses, Response to Stimuli, Heart Tones and Breath Sounds Name of Provider Notified: Dr Villalobos Time Provider Notified: 02:47 Provider Requests Autopsy: No Family Requests Autopsy: No Self Propelled Hot Mix Roller Operator Notified: Yes Date [facility] Notified of : 02/22/25 Time [facility] Notified of : 02:28
--- OUTSIDE RECORDS SUMMARY | 2025-03-04 08:13 | XMS_ITS ---
Author Name Auto Generated, Auto Generated Organization [facility] Address [address] [place] [address] Phone [phone] Care Team Providers Care Manager Assurance Name Role Phone Remy An Unavailable Wilfrido Gunn Unavailable [phone] Lamont Johnson Unavailable [phone] Functional Status No Results Mental Status No Results Allergies and Intolerances Name Onset Date Reaction Severity Keflex (Allergy) TueApr 02 16:01:00 EDT 2019 Encounters Program Name Primary Diagnosis Admission Date/Time Dis charge Date/Time [facility] TueJul 23 19:00:00 EST 2024 Isatu Oct 18 18:00:00 EDT 2024 [facility] TueFeb 02 20:00:00 EDT 2023Jun 09 18:59:00 EST 2023 [facility] TueDec 16 20:00:00 EDT 2024 null Sun Jun 29 19:00 :00 EST 2019Feb 22 04:25:00 EDT 2024 Medications Medication Directions Start Date [...] 72 hours TueJan 26 16:00:00 EDT 2023Feb 02 01:00:00 EDT 2023 TubersoL 5 tub. unit/0.1 mL intradermal injection solution Read Results VIAL (ML) Other 1 Time Weekly for 2 Weeks Indication: Rule out TB Read results between 48-72 hours after 1st and 2nd (1 week apart). If positive do chest x-ray. TueJan 26 16:00:00 EDT 2023Feb 02 01:00:00 EDT 2023 carbidopa 10 mg-levodopa 100 mg tablet 1 tab TABLET Oral 3 Times Daily Indication: Tremors TueJan 25 18:00:00 EDT 2023Feb 02 01:00:00 EDT 2023 ergocalciferol (vitamin D2) 1,250 mcg (50,000 unit) capsule 1 capsule CAPSULE Oral 1 Time Weekly Indication: Vit D deficiency TueJan 25 18:00:00 2023Feb 02 01:00:00 EDT 2023 flecainide 50 mg tablet 1 tablet TABLET Oral 2 Times Daily Indication: Afib TueJan 25 18:00:00 EDT 2023Feb 02 01:00:00 EDT 2023 furosemide 20 mg tablet 1 tablet TABLET Oral 3 Times Weekly Indication: CHF TueJan 25 18:00:00 EDT 2023Feb 02:00:00 EDT 2023 Namzaric 28 mg-10 [...] TABLET Oral 3 Times Daily Tue Sep 12:00:00 2019Apr 14 11:10:00 2019 hydrOXYzine HCL [...] Times Daily Mood Sat Sep 26 20:00:00 2019e Sep 29 12:25:00 2019 LORazepam 1 mg [...] 4 Times Daily SOB TueApr 04 15:00:00 2019May 01 01:00:00 2019 hydrOXYzine HCL 25 mg tablet 1 tab TABLET Oral 2 Times Daily TueApr 04 21:00:00 2019 Sep 18:20:00 2019 Trintellix 20 mg tablet 20mg TABLET Oral 1 Time Daily Depression TueApr 02 16:00:00 2019May 01 01:00:00 2019 Namzaric 7 mg-10 mg capsule sprinkle,extended release 1 capsule CAPSULE SPRINKLE, EXTENDED RELEASE 24 HR Oral 1 Time Daily Dementia TueApr 02 16:00:00 2019May 01 01:00:00 2019 aspirin 81 mg chewable tablet 81mg TABLET,CHEWABLE Oral 1 Time Daily DVT proph TueApr 02 16:00:00 2019May 01 01:00:00 2019 flecainide 50 mg tablet 50mg TABLET Oral Every 12 Hours A-fib TueApr 02 16:00:00 2019May 01 01:00:00 2019 Bystolic 2.5 mg tablet 2.5mg TABLET Oral 1 Time Daily HTN TueApr 02 16:00:00 2019May 01 01:00:00 2019 traZODone 100 mg tablet [...] 2023 * End Date: * Text: * 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
--- OUTSIDE RECORDS SUMMARY | 2025-03-04 08:13 | XMS_ITS ---
Author Name Auto Generated, Auto Generated Organization [facility] Address [address] [place] [address] Phone [phone] Care Team Providers Care Automatic Buffing Wheel Former Name Role Phone Remy An Unavailable Wilfrido Gunn Unavailable [phone] Lamont Johnson Unavailable [phone] Functional Status No Results Mental Status No Results Allergies and Intolerances Name Onset Date Reaction Severity Keflex (Allergy) TueApr 02 16:01:00 EDT 2019 Encounters Program Name Primary Diagnosis Admission Date/Time Dis charge Date/Time Rehabilitation Clinic TueJul 23 19:00:00 EST 2024 Isatu Oct 18 18:00:00 EDT 2024 [facility] Jun 29 19:00 :00 EST 2019Feb 22 04:25:00 EDT 2024 [facility] Clinic TueDec 16 20:00:00 EDT 2024 [facility] Clinic TueFeb 02 20:00:00 EDT 2023Jun 09 18:59:00 EST 2023 Medications Medication Directions Start Date End Date [...] 2023 * End Date: * Text: * 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
--- OUTSIDE RECORDS SUMMARY | 2025-03-04 08:14 | XMS_ITS | Clinical Summary ---
Author Organization [facility] [address] Address [address] [place] [address] Care Team Providers Care Machine Operators Name Role Phone Remy An MD Primary [...] MOUTH TWICE DAILY 180 tablet 1 08/06/19 025 Discontinued Active Problems Problem Noted Date Diagnosed Date Late onset Alzheimer's disea se without behavioral disturbance 11/10/2020 History of COVID-19 11/10/2020 CHAUHAN (dyspnea on exertion) 11/10/2020 RBBB 11/10/2020 PAF (paroxysmal atrial fibrillation) 11/10/2020 Nonrheumatic aortic valve stenosis 11/10/2020 Major depressive disorder, single episode, sever e 11/08/2013 Encounters Date Type Department Care Team Description 02/21/2025 Orders Only [facility] Cardiology [address] [place] [address] French Kirkpatrick MD 02/19/2025 Orders Only [facility] Cardiology [address] [place] [address] William Trejo MD from Last 3 Months Surgical History Surgery Date Site/Laterality Comments CATARACT EXTRACTION 2007 Medical History Medical History Date Comments Arrhythmia Anxiety and depression Cataract 2008 Chronic kidney disease 2021 Family History Medical History Relation Name Comments Alzheimer's disease Father Boo Matute Sr Heart attack Mother Darcy Matute Hypertension Mother Darcy Matute Stroke Mother Darcy Matute Relation Name Status Comments Father Boo Mautte Sr (Age 78) Mother Darcy Matute (Age [...] on file Legal Sex 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 Gender Identity Not on file Sexual Orientation Not on file Obstetrics History Last Filed Vital Signs Vital Sign Reading Time Taken Comments Blood Pressure 92/62 08/20/2024 11:51 AM DIE SET UP WORKER Pulse 59 08/20/2024 11:51 AM DIE SET UP WORKER Temperature - - Respiratory Rate - - Oxygen Saturation 95% 08/20/2024 11:51 AM DIE SET UP WORKER Inhaled Oxygen Concentration - - Weight 103.4 kg (228 lb) 08/20/2024 11:51 AM DIE SET UP WORKER Height 175.3 cm (5' 9) 08/20/2024 11:51 AM DIE SET UP WORKER Body Mass Index 33.67 08/20/2024 11:51 AM DIE SET UP WORKER Plan of Treatment Health Maintenance Due Date [...] Associated Diagnosis Comments CARDIOLOGY DOCUMENT SCAN Routine 02/20/2025 5:35 PM CDT CARDIOLOGY DOCUMENT SCAN Routine 02/19/2025 5:01 PM CDT CARDIOLOGY DOCUMENT SCAN Routine 02/18/2025 5:00 PM CDT CARDIOLOGY DOCUMENT SCAN Routine 02/17/2025 4:58 PM CDT CARDIOLOGY DOCUMENT SCAN Routine 02/17/2025 4:56 PM CDT from Last 3 Months Results * Cardiology Document Scan (02/20/2025 5:35 PM CDT) Anatomical Region Laterality Modality Other French Kirkpatrick MD CV CARDIAC SERVICES PROCE DUR Final Result * Cardiology Document Scan (02/19/2025 5:01 PM [...] Final Result from Last 3 Months Insurance AET[employer] MEDICARE [facility] MEDICARE Care Teams Machine Operators Relationship Specialty Start Date End Date Remy An MD [address] [place] [address] PCP - General Internal Medicine 03/31/20
--- OUTSIDE RECORDS SUMMARY | 2025-03-04 08:14 | XMS_ITS | Encounter Summary ---
Author Organization [facility] Address [address] [place] [address] Care Team Providers Care Music Autographer Name Role Phone Remy An MD Primary Care Provider Encounter Details Date Type Department Care Team (Late st Contact Info) Description 07/25/2024 Orders Only [facility] [place] Health Information Management [address] [place] [id number] Scanning, Provider Social History Tobacco Use Types Packs/Day Years Used Date Smoking Tobacco: Never Cigarettes Smokeless Tobacco: Never AUDIT-C Answer Date Recorded [...] on file Legal Sex Male 8:25 PM SURG RN Gender Identity Not on file Sexual Orientation Not on file documented as of this encounter Plan of Treatment Not on file documented as of this encounter Procedures Procedure Name Priority Date/Time Associated Diagnosis Comments SCAN - LABS 07/25/2024 documented in this encounter Results * SCAN - LABS (07/25/2024) us Provider Scanning Final Result documented in this encounter Visit Diagnoses Not on filedocumented in this encounter Care Teams Music Autographer Relationship Specialty Start Date End Date Remy An MD [address] [address] PCP - General Internal Medicine 03/31/20 documented as of this encounter
--- OUTSIDE RECORDS SUMMARY | 2025-03-04 08:14 | XMS_ITS | Clinical Summary ---
Author Organization [facility] Address [address] [address] Phone Care Team Providers Care Public Health Aides Teacher Name Role Phone Remy An MD Primary Care Provider [phone] Encounters Date Type Department Care Team Description 12/04/2024 1:00 PM CDT Office Visit [facility] [address] [facility] [address] [place] [address] Jose Alberto Vuong DO Stage 3 chronic kidney disease, not otherwise specified (HCC) (Primary Dx); Diastolic dysfunction; Aortic stenosis, non-rheumatic; Permanent atrial fibrillation (HCC); 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, psychotic disturbance, mood disturbance, 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); Hypertensive chronic kidney disease from Last 3 Months Social History Tobacco [...] 36.1 C (97 F) 07/31/2024 2:14 PM COMBINED RAIL OPERATOR Respiratory Rate 18 12/04/2024 1:02 PM CDT Oxygen Saturation 97% 07/31/2024 2:14 PM COMBINED RAIL OPERATOR Inhaled Oxygen Concentration - - Weight 108 kg (238 lb) 02/14/2024 1:15 PM CDT Height 175.3 cm (5' 9) 12/04/2024 1:02 PM CDT Body Mass Index 35.15 08/10/2022 12:52 PM COMBINED RAIL OPERATOR Plan of Treatment Health Maintenance Due Date Last Done Comments Pneumococcal Vaccine: 50+ Ye ars (1 of 2 - PCV) 02/07/1959 Influenza Vaccine (#1) 2025 Hepatitis B Vaccine Aged Out No longe r eligible based on patient's age to complete this topic Insurance A[employer]na MCR Adv PPO ([id number]) Care Teams Public Health Aides Teacher Relationship Specialty Start Date End Date Remy An MD [address] [address] PCP - General Internal Medicine 06/23/21
--- OUTSIDE RECORDS SUMMARY | 2025-03-04 08:14 | XMS_ITS | Encounter Summary ---
Author Organization [facility] Address [address] [facility] [place] [address] Care Team Providers Care Nitrocellulose Maker Name Role Phone Remy An MD Primary Care Provider [phone] Encounter Details Date Type Department Care Team (Late st Contact Info) Description 12/17/2021 Lab Requisition [facility] Care DermPath Lab [address] [facility] [place] [address] See oJseph MD [address] [place] [address] Social History Tobacco Use Types Packs/Day Years Used Date Smoking Tobacco: Never Assessed Sex and Gender Information Value Date Recorded Sex Assigned at Not on file Legal 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 Gender Identity Not on file Sexual Orientation Not on file documented as of this encounter Plan of Treatment Not on file documented as of this encounter Procedures Procedure Name Priority Date/Time Associated Diagnosis Comments DERMATOPATHOLOGY Routine 12/16/2021 12:0 0 AM CDT documented in this encounter Results * DERMATOPATHOLOGY (12/16/2021 12:00 AM CDT) Case Report Dermatopathology Report Case: [id number] Authorizing Provider: See Joseph MD Collected: 12/16/2021 12:00 AM Ordering Location: [facility] Care DermPath Lab Received: 12/17/2021 01:43 [...] specimen consists of a shave biopsy measuring [id number] and another piece of tissue measuring [id number]. Jar 0. 2 3:09 PM CDT DERMATOPATHOLOGY [...] characteristic determined by the Dermatopathology Laboratory at [facility], directed by Dr. Hermelindo Little. These tests need not be, and therefore are not, approved by the [place] Food and Drug Administration. The tests are used for clinical purposes. Billing Codes Specimen Charges Stain Charges 46085 1 2 3:09 PM CDT DERMATOPATHOLOGY LABORATORY Embedded Images 2 3:09 PM CDT DERMATOPATHOLOGY LABORATORY Pathology/Cytolog y TISSUE SPECIMEN FROM SKIN / Unknown 12/16/2021 12/17/2021 1:43 PM CDT us See Joseph MD LAB - PATHOLOGY/CYTOLOGY ORD ERABLES Final Result DERMATOPATHOLOGY LABORATORY [facility] - Department of Dermatology [address], [address] [phone] documented in this encounter Visit Diagnoses Not on filedocumented in this encounter Care Teams Nitrocellulose Maker Relationship Specialty Start Date End Date Remy An MD [address] [place] [address] [address] [place] [address] PCP - General Internal Medicine 11/15/17 documented as of this encounter
--- OUTSIDE RECORDS SUMMARY | 2025-03-04 08:14 | XMS_ITS | Encounter Summary ---
Author Organization [facility] Address [address] [facility] [place] [address] Care Team Providers Care Bleach Chlorinator Name Role Phone Remy An MD Primary Care Provider [phone] Encounter Details Date Type Department Care Team (Late st Contact Info) Description 09/06/2019 Lab Requisition [facility] DermPath Lab [address] [facility], [place] [address] See Joseph MD [address] [place] [address] Social History Tobacco Use Types Packs/Day Years Used Date Smoking Tobacco: Never Assessed Sex and Gender Information Value Date Recorded Sex Assigned at Not on file Legal Sex Male 6:00 AM COLLEGE HIRE Gender Identity Not on file Sexual Orientation Not on file documented as of this encounter Plan of Treatment Not on file documented as of this encounter Procedures Procedure Name Priority Date/Time Associated Diagnosis Comments DERMATOPATHOLOGY Routine 09/05/2019 12:0 0 AM COLLEGE HIRE documented in this encounter Results * DERMATOPATHOLOGY (09/05/2019 12:00 AM COLLEGE HIRE) Case Report Dermatopathology Report Case: [id number] Authorizing Provider: See Joseph MD Collected: 09/05/2019 12:00 AM Ordering Location: [facility] DermPath Lab Received: 09/06/2019 01:46 PM Pathologist: Mckay Little MD Specimens: A) - Skin, right ext FA B) - Skin, left med distal thigh 0 12:51 PM [facility] DERMATOPATHOLOGY LABORATORY Final Diagnosis Specimen A. SKIN, right ext FA: HYPERPLASTIC (HYPERTROPHIC) ACTINIC KERATOSIS (L57.0) EPIDERMAL NECROSIS SUGGESTIVE OF EXCORIATION (L98.499) Specimen B. SKIN, left med distal thigh: HYPERPLASTIC (HYPERTROPHIC) ACTINIC KERATOSIS WITH ASSOCIATED CHANGES OF PRURIGO NODULARIS (L57.0) 0 12:51 PM [facility] DERMATOPATHOLOGY LABORATORY at [address] Clinical History A-B: R/O LSC. 0 12:51 PM [facility] DERMATOPATHOLOGY LABORATORY Gross Description Specimen A: Received is one formalin filled container labeled with the patient's name and designated right ext FA. The specimen consists of a shave biopsy measuring [id number]. Jar 0. Specimen B: Received is one formalin filled container labeled with the patient's name and designated left med distal thigh. The specimen consists of a shave biopsy measuring [id number]. Jar 0. 0 12:51 PM [facility] DERMATOPATHOLOGY LABORATORY Microscopic Description Specimen A. SKIN, [...] superficial perivascular lymphohistiocytic infiltrate. 0 12:51 PM [facility] DERMATOPATHOLOGY LABORATORY Disclaimer An external and internal positive and negative controls are appropriate for the histochemical, immunohistochemical and immunofluorescence stain(s) in this case (if any), except where stated explicitly. The performance characteristics of the stain(s) cited in this report were developed and its performance characteristic determined by the Dermatopathology Laboratory at [facility], directed by Dr. Hermelindo Little. These tests need not be, and therefore are not, approved by the [place] Food and Drug Administration. The tests are used for clinical purposes. Billing Codes Specimen Charges Stain Charges 90251 63046 1 1 0 12:51 PM COLLEGE HIRE DERMATOPATHOLOGY LABORATORY Embedded Images 0 12:51 PM [facility] DERMATOPATHOLOGY LABORATORY Pathology/Cytology TISSUE SPECIMEN FROM SKIN / Unknown 09/05/2019 09/06/2019 1:46 PM COLLEGE HIRE Miscellaneous samples (specimen) TISSUE SPECIMEN FROM SKIN / Unknown 09/05/2019 09/06/2019 1:46 PM COLLEGE HIRE See Joseph MD LAB - PATHOLOGY/CYTOLOGY ORD ERABLES Final Result DERMATOPATHOLOGY LABORATORY [facility] - Department of Dermatology [address] [place] [address], 5th Floor Lab [address] [phone] documented in this encounter Visit Diagnoses Not on filedocumented in this encounter Care Teams Bleach Chlorinator Relationship Specialty Start Date End Date Remy An MD [address] [place] [address] [address] [place] [address] PCP - General Internal Medicine 11/15/17 documented as of this encounter
--- OUTSIDE RECORDS SUMMARY | 2025-03-04 08:14 | XMS_ITS | Clinical Summary ---
Author Organization [facility] Address [address] [facility] [place] [address] Care Team Providers Care Almond Pan Finisher Name Role Phone Remy An MD Primary Care Provider [phone] Source Comments [facility],non-[facility] Affiliates and Associated Physician Practices is amultiple site organization consisting of ambulatory clinics and hospital sitesin [place], [place], [place] and [place]. This disclosure is being madepursuant to the Care Everywhere program and may not contain all information available regarding this patient. 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
--- OUTSIDE RECORDS SUMMARY | 2025-03-04 08:14 | XMS_ITS | Encounter Summary ---
Author Organization [facility] Address [address] [facility] [place] [address] Care Team Providers Care Transmission And Protection Engineer Name Role Phone Remy An MD Primary Care Provider [phone] Encounter Details Date Type Department Care Team (Late st Contact Info) Description 12/09/2022 Lab Requisition [facility] - DermPath Lab [address] [facility] [place] [address] See Joseph MD [address] [place] [address] Social History Tobacco Use Types Packs/Day Years Used Date Smoking Tobacco: Never Assessed Sex and Gender Information Value Date Recorded Sex Assigned at Not on file Legal Sex Male 6: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 Billing Codes Specimen Charges Stain Charges 27435 22229 1 1 11:56 AM CDT DERMATOPATHOLOGY LABORATORY Embedded Images 06/02/202 3 11:56 AM CDT DERMATOPATHOLOGY LABORATORY Pathology/Cytology TISSUE SPECIMEN FROM SKIN / Unknown 12/08/2022 12/09/2022 2:05 PM CDT Miscellaneous samples (specimen) TISSUE SPECIMEN FROM SKIN / Unknown 12/08/2022 12/09/2022 2:05 PM CDT See Joseph MD LAB - PATHOLOGY/CYTOLOGY ORD ERABLES Final Result DERMATOPATHOLOGY LABORATORY [facility] - Department of Dermatology [facility] [address] [place] [address], [address] [phone] documented in this encounter Visit Diagnoses Not on filedocumented in this encounter Care Teams Transmission And Protection Engineer Relationship Specialty Start Date End Date Remy An MD [address] [place] [phone] PCP - General Internal Medicine 11/15/17 documented as of this encounter
== END 2025-02-22 06:10 | disposition expired | DRG 951 ==
LOC: ANHICU 03-04 08:10 → ANH3MEDSUR 03-04 08:10
PROVIDERS: Admitting Provider Internal Medicine; PCP Internal Medicine; Visit Provider Internal Medicine
DX: Z51.5 Encounter for palliative care (principal); A41.9 Sepsis, unspecified organism; I44.2 Atrioventricular block, complete; N18.30 Chronic kidney disease, stage 3 unspecified; I50.9 Heart failure, unspecified; I48.91 Unspecified atrial fibrillation; R52 Pain, unspecified
CPT/HCPCS: J1171; J1596; J3360